=== PATIENT | male | born 1960 | race Caucasian/White ===

== ENCOUNTER 2020-09-08 15:21 | Outpatient (REF) | payer OTHER, SELFPAY ==
[2020-09-08 16:00] LABS: Hematocrit 44.5 % (42-52); Hemoglobin 14.9 g/dl (14.0-18.0); Mean Corpuscular HGB Conc 33.5 g/dl (31.0-36.0); Mean Corpuscular Hemoglobin 28.4 pg (27.0-33.0); Mean Corpuscular Volume 84.9 fL (80-98); Mean Platelet Volume 10.3 fL (9.4-12.4); Platelet Count 249 X10*3/uL (160-400); Red Blood Count 5.24 X10*6/uL (4.60-5.80); Red Cell Distribution Width 13.8 % (11.0-16.0); White Blood Count 9.5 X10*3/uL (4.8-10.8)
[2020-09-08 16:05] LABS: Glucose Urine UA NEG (NEG); Leukocyte Esterase Urine NEG (NEG); Nitrite Urine NEG (NEG); Urine Blood 2+ (NEG); Urine Ketones NEG (NEG); Urine Protein NEG (NEG-TRACE)
[2020-09-08 16:25] LABS: Alanine Aminotransferase 27 U/L (0-40); Albumin Level 4.2 g/dL (3.5-5.0); Alkaline Phosphatase 139 U/L (39-117); Anion Gap 14 (12-20); Aspartate Amino Transferase 22 U/L (5-37); Bilirubin Direct < 0.2 mg/dL (0.0-0.5); Bilirubin Total 0.5 mg/dL (0.0-1.0); Blood Urea Nitrogen 16 mg/dL (9-16); Calcium 8.6 mg/dL (8.4-10.2); Carbon Dioxide 25 mmol/L (22-29); Chloride 109 mmol/L (96-108); Cholesterol 218 mg/dL; Estimated Glomerular Filt Rate 60; Glucose Random 94 mg/dL (60-115); HDL Cholesterol 41 mg/dL; Potassium 4.1 mmol/L (3.3-5.1); Sodium 144 mmol/L (135-145); Total Protein 7.2 g/dL (6.5-8.0); Triglycerides 642 mg/dL
[2020-09-08 16:44] LABS: Thyroid Stimulating Hormone 1.45 uIU/mL (0.32-4.0)
[2020-09-08 16:46] LABS: Appearance Urine CLEAR; Color Urine YELLOW
[2020-09-08 17:19] LABS: WBC Urine 0 /HPF (0-4)
[2020-09-12 11:46] LABS: Vitamin D 25-OH, D2 <4 ng/mL; Vitamin D 25-OH, D3 25 ng/mL; Vitamin D 25-OH, Total 25 ng/mL (30-100)
== END 2020-09-08 15:22 | disposition home or self-care (01) ==
LOC: HO.LAB 15:21
PROVIDERS: PCP Internal Medicine; Visit Provider Internal Medicine
DX: I10 Essential (primary) hypertension (principal)
CPT/HCPCS: 36415; 80048; 80061; 80076; 81001; 81003; 82306; 84443; 85027

== ENCOUNTER 2020-10-01 09:02 | Outpatient (REF) | payer OTHER, SELFPAY ==
--- NOTE | ~2020-10-01 | US_ITS ---
EXAMINATION: US ABDOMEN COMPLETE CLINICAL INFORMATION: Abnormal levels of other serum enzymes. COMPARISON: CT abdomen and pelvis with intravenous contrast only dated 12/29/2019. TECHNIQUE: Real-time imaging of the abdominal viscera. FINDINGS: PANCREAS: Normal. ABDOMINAL AORTA: The proximal, mid, and distal segments are normal in caliber. INFERIOR VENA CAVA: Visualized portions are normal. LIVER: The liver is normal in size. The liver contour is normal. Equivocal mildly increased echogenicity of the liver parenchyma may be suggestive No focal hepatic lesion. There is no intrahepatic biliary duct dilatation seen. GALLBLADDER: There is a 4 x 4 x 5 mm nonmobile structure associated with the gallbladder wall most representing a gallbladder polyp or tiny focus of adherent sludge. The gallbladder is physiologically distended without evidence of stones, wall thickening or pericholecystic fluid. COMMON BILE DUCT: Normal in caliber measuring 0.54 cm in diameter. RIGHT KIDNEY: There is moderate hydronephrosis. No focal parenchymal lesions. There are multiple nonobstructing calculi identified; the largest include an upper pole calculus which measures 5 x 4 x 7 mm, a mid pole calculus which measures 3 x 5 x 6 mm and a lower pole calculus which measures 6 x 3 x 6 mm. The kidney measures 11.1 cm in maximum dimension. LEFT KIDNEY: Nonobstructing calculi including a 5 x 3 x 3 mid pole and 3 x 3 x 4 lower pole calculus are identified. No hydronephrosis. At the midpole there is a 9 x 6 x 8 mm cystic structure without internal features most compatible with a simple cyst. The kidney measures 11.6 cm in maximum dimension. SPLEEN: Incidental note of a homogeneously echogenic 1.9 x 1.6 x 2.5 cm structure adjacent to the splenic hilum most compatible with a splenule. The spleen measures 10.9 cm in maximum dimension and is otherwise unremarkable. FREE FLUID: None. US/US abdomen complete IMPRESSION: Equivocal mildly increased echogenicity of the liver parenchyma which may be suggestive of steatosis. There is a 4 x 4 x 5 mm gallbladder polyp. There is moderate right hydronephrosis without obstructing lesion identified. There are multiple bilateral nonobstructing renal calculi, as described.
== END 2020-10-01 09:03 | disposition home or self-care (01) ==
LOC: HO.HMGCX 09:02
PROVIDERS: Visit Provider Internal Medicine
DX: R74.8 Abnormal levels of other serum enzymes (principal)
CPT/HCPCS: 76700

== ENCOUNTER → 2021-04-05 08:40 | Outpatient (REF) | payer OTHER, SELFPAY ==
--- NOTE | 2021-04-05 08:44 | CA_ITS ---
Acquisition Time: 2021-04-05 08:50:52 Total Exercise Time: 00:05:25 Test Indications: Chest Pain Medications: AMLODIPINE LISINOPRIL METOPROLOL OMEPRAZOLE XARELTO SIMVASTATIN Protocol: JAKE Max HR: 142 BPM 89% of Pred: 158 BPM Max BP: 200/096 mmHG Max Work Load: 7.0 METS Exercise stress test with exercise 5 min 25 sec of Jake protocol, with moderate shortness of beath, 6/10 mid chest discomfort, without arrythmia, with hypertensive response to exercise, without EKG changes meeting criteria for ischemia. In recovery his breathing improved and chest discomfort resolved by 5 min of rest. Test reviewed with Dr Godoy. Msg sent to Dr William with report and recommendation for exercise nuclear stress test. Referred By: Rigo Orta Overread By: GARRETT BLAKE
== END ==
LOC: HO.CARD 08:40
PROVIDERS: PCP Internal Medicine; Visit Provider Internal Medicine
DX: R07.9 Chest pain, unspecified (principal)
CPT/HCPCS: 93017

== ENCOUNTER → 2021-04-27 08:20 | Outpatient (REF) | payer OTHER, SELFPAY ==
--- NOTE | ~2021-04-27 | NM_ITS ---
Myocardial perfusion study Indication: Chest pain to evaluate for myocardial ischemia Technique: The patient was brought in for a Lexiscan perfusion study on 04/27/2021. Patient performed low-level exercise and was injected 0.4 mg of Lexiscan intravenously. Within a minute of injection, 45 mCi of sestamibi was given intravenously. Images were obtained using the SPECT gamma camera interlaced with the gating device. Images were obtained in supine position. Resting perfusion study was performed on 04/28/2021. Patient was administered 45 mCi of sestamibi intravenously at rest. Images were then obtained in supine position. Images obtained with and without CT attenuation. Total DLP 101 mGy-cm. Images were processed with the software and compared side to side in short axis, horizontal long axis and vertical long axis views. Findings: The stress perfusion study showed nonattenuated images show mildly reduced uptake in the basal and mid inferior wall of the LV myocardium. Remainder of the LV myocardium is normally perfused. Attenuation corrected images show normal uptake of radiotracer in all segments of LV myocardium. The gated study shows normal LV systolic function with calculated LVEF of 62%. LV cavity is normal in size. The gated study shows normal systolic wall thickening and contraction of segments. Resting study shows no change in perfusion pattern compared to stress perfusion study. Gating at rest reveals normal systolic wall motion with ejection fraction at 73%. The findings are consistent with no reversible defect suggestive of ischemia.. NM/NM cardiolite stress test Impression: 1. Myocardial perfusion imaging study shows normal myocardial perfusion 2. Gated LVEF is 62% 3. Transient ischemic dilatation not present EKG is nondiagnostic for ischemia
--- NOTE | 2021-04-27 08:23 | CA_ITS ---
Acquisition Time: 2021-04-27 08:36:15 Total Exercise Time: 00:02:00 Test Indications: Chest Pain Medications: AMLODIPINE LISINOPRIL METOPROLOL OMEPRAZOLE XARELTO SIMVASTATIN TRAZADONE Protocol: LEXISCAN Max HR: 114 BPM 72% of Pred: 158 BPM Max BP: 164/088 mmHG Max Work Load: 1.0 METS Pharmacological stress test nwith Lexiscan injection, while sitting and kicking his legs, with 2/10 mid chest tightness at baseline which increased to 3/10 after injection, without arrythmia, with normotensive response to injection, with nondiagnostic EKG for ischeia. In recovery he was given aminophylline 75mg IVP to reverse Lexiscan with return of chest tightness back to baseline. Nuclear images pending. Test reviewed with Dr Godoy. Referred By: Rigo Orta Overread By: GARRETT BLAKE
== END ==
LOC: HO.CARD 08:20
PROVIDERS: PCP Internal Medicine; Visit Provider Internal Medicine
DX: R07.9 Chest pain, unspecified (principal)
CPT/HCPCS: 78452; 93017; A9500; J0280; J2785

== ENCOUNTER 2021-12-09 14:26 | Outpatient (REF) | payer OTHER, SELFPAY ==
[2021-12-09 15:14] LABS: Hematocrit 45.2 % (42.0-52.0); Hemoglobin 14.7 g/dl (14.0-18.0); Mean Corpuscular HGB Conc 32.5 g/dl (31.0-36.0); Mean Corpuscular Hemoglobin 28.4 pg (27.0-33.0); Mean Corpuscular Volume 87.4 fL (80.0-98.0); Mean Platelet Volume 10.4 fL (9.4-12.4); Platelet Count 252 X10*3/uL (160-400); Red Blood Count 5.17 X10*6/uL (4.60-5.80); Red Cell Distribution Width 14.1 % (11.0-16.0)
[2021-12-09 15:47] LABS: Appearance Urine CLEAR; Color Urine YELLOW; Glucose Urine UA NEG (NEG); Leukocyte Esterase Urine NEG (NEG); Nitrite Urine NEG (NEG); Specific Gravity - Urine 1.025 (1.005-1.025); Urine Blood NEG (NEG); Urine Ketones NEG (NEG); Urine Protein NEG (NEG-TRACE)
[2021-12-09 16:41] LABS: Alanine Aminotransferase 49 U/L (0-40); Albumin Level 4.2 g/dL (3.5-5.0); Alkaline Phosphatase 127 U/L (39-117); Anion Gap 13 (12-20); Aspartate Amino Transferase 27 U/L (5-37); Bilirubin Direct 0.3 mg/dL (0.0-0.5); Bilirubin Total 1.1 mg/dL (0.0-1.0); Blood Urea Nitrogen 15 mg/dL (9-16); C Reactive Protein 0.78 mg/dL (< or = 0.50); Calcium 9.6 mg/dL (8.4-10.2); Carbon Dioxide 27 mmol/L (22-29); Chloride 107 mmol/L (96-108); Cholesterol 215 mg/dL; Estimated Glomerular Filt Rate > 60; Glucose Random 90 mg/dL (60-115); HDL Cholesterol 44 mg/dL; LDL Cholesterol Calculated 127 mg/dl; Potassium 4.6 mmol/L (3.3-5.1); Sodium 142 mmol/L (135-145); Total Protein 6.8 g/dL (6.5-8.0); Triglycerides 220 mg/dL
[2021-12-09 17:00] LABS: Thyroid Stimulating Hormone 1.29 uIU/mL (0.32-4.0)
== END 2021-12-09 14:27 | disposition home or self-care (01) ==
LOC: HO.LAB 14:26
PROVIDERS: PCP Internal Medicine; Visit Provider Internal Medicine
DX: G89.29 Other chronic pain (principal); K21.9 Gastro-esophageal reflux disease without esophagitis; M54.2 Cervicalgia; I26.99 Other pulmonary embolism without acute cor pulmonale
CPT/HCPCS: 36415; 80048; 80061; 80076; 81003; 84443; 85027; 86140

== ENCOUNTER 2021-12-17 10:36 | Outpatient (REF) | payer OTHER, SELFPAY ==
--- NOTE | ~2021-12-17 | XR_ITS ---
EXAMINATION: XR CHEST CLINICAL INFORMATION: Cough COMPARISON: Right rib x-rays including frontal chest 10/18/2016 TECHNIQUE: 2 views of the chest were obtained. FINDINGS: Cardiac silhouette is normal in size. The lungs are well aerated. There is no lobar consolidation, pleural effusion or pneumothorax. Postsurgical changes of the cervical spine. XR/XR chest 2V IMPRESSION: No acute pulmonary pathology.
[2021-12-17 11:27] LABS: Influenza A PCR NEGATIVE (Negative); Influenza B PCR NEGATIVE (Negative); Resp Syncy Virus RNA Qual PCR NEGATIVE (Negative); SARS COV2 PCR INHOUSE NEGATIVE (Negative)
== END 2021-12-17 10:37 | disposition home or self-care (01) ==
LOC: HO.XRAY 10:36
PROVIDERS: PCP Internal Medicine; Visit Provider Nurse Practitioner Family
DX: R05.9 Cough, unspecified (principal); Z20.822 Contact with and (suspected) exposure to COVID-19
CPT/HCPCS: 0241U; 71046

== ENCOUNTER → 2021-12-29 14:14 | Outpatient (BNVA) | payer OTHER, SELFPAY | PROVIDERS: PCP Internal Medicine; Visit Provider Internal Medicine | DX: R05.9 Cough, unspecified (principal); J30.9 Allergic rhinitis, unspecified; I26.99 Other pulmonary embolism without acute cor pulmonale; I10 Essential (primary) hypertension | CPT/HCPCS: 94640 ==

== ENCOUNTER 2022-02-03 06:44 | Day surgery (SDC) | payer OTHER, SELFPAY ==
--- NOTE | 2022-02-02 09:58 | P.CONAN_ITS ---
Documented by User: Naz Miranda NP 02/02/22 10:04 HPI - Anesthesia Eval Consult details Narrative: 61yo M for Bronchoscopy Fiberoptic Recent hoarseness and checking for vocal chord dysfunction Xarelto for hx PE PMFSH Active Problems Active Problems: All Active Problems (Updated 01/26/22 @ 11:54 by Panfilo Tate MD) Laryngitis (Acute) Cough (Acute) Abdominal pain (Acute) Generalized anxiety disorder (Acute) GERD (gastroesophageal reflux disease) (Acute) Chronic neck pain (Acute) Pulmonary embolism (Acute) Chest pain (Acute) Neck pain (Acute) Cholelithiasis (Acute) Renal calculi (Acute) Essential (primary) hypertension (Acute) Effusion, left knee (Acute) Hypercholesterolemia (Acute) Deviated nasal septum (Acute) Allergic rhinitis (Acute) Past Medical History Medical History Allergic rhinitis Cholelithiasis Chronic neck pain Deviated nasal septum GERD (gastroesophageal reflux disease) Hypercholesterolemia Neck pain Pulmonary embolism Renal calculi Family History Family History Mother No problems noted. Father No problems noted. Surgical History Surgical History History of Achilles tendon repair History of eye surgery History of hernia surgery History of knee surgery History of nasal surgery History of neck surgery History of repair of left rotator cuff History of repair of right rotator cuff Social History Social History Housing: House Alcohol intake: current Alcohol intake frequency: holidays/special occasions only Patient Tobacco Use Status: Never used Tobacco e-Cigarette/Vaping Use: Never Used Second Hand Smoke Exposure: No Use of substances other than those prescribed or required for medical reasons: No Are you DNR?: No Advance Directives: No Advance Directives Information Provided: Yes Recently lost weight without trying: No Nutrition Risks: No Nutritional Risk service: No Current occupational status: employed Cognitive needs: No Hearing needs: No Vision needs: No Meds Allergies Allergy/AdvReac Type Severity Reaction Status Date / Time penicillin V Allergy Intermediate fever Verified 01/26/22 11:41 vancomycin [Vancomycin] Allergy Mild HIVES, Verified 01/26/22 11:41 FEVER Penicillins AdvReac Mild FEVER Verified 01/26/22 11:41 Home Medications Medication Instructions Recorded Confirmed Last Taken Type ibuprofen 800 mg tablet 800 mg PO BID 09/09/20 01/26/22 Unknown History rivaroxaban 20 mg tablet (Xarelto) 20 mg PO DAILY 09/09/20 01/26/22 Unknown History Exam Exam Date and Time: February 02, 2022 0958 Pertinent Lab Results Pertinent Lab Results: Laboratory Tests 12/09/21 12/09/21 14:29 Unknown WBC 11.0 H Hgb 14.7 Hct 45.2 Plt Count 252 Sodium 142 Potassium 4.6 Chloride 107 Carbon Dioxide 27 BUN 15 Creatinine 1.19 Narrative Narrative: NM cardiolite stress test 2020 Impression: ? 1.? Myocardial perfusion imaging study shows normal myocardial perfusion 2.? Gated LVEF is 62% 3. Transient ischemic dilatation not present ? EKG is nondiagnostic for ischemia Assessment and Plan Assessment Anesthesia Assessment: Chart Reviewed Documented by User: Brea Fuller MD 02/03/22 07:31 [facility] Past Medical History Medical History Allergic rhinitis Cholelithiasis Chronic neck pain Deviated nasal septum GERD (gastroesophageal reflux disease) Hypercholesterolemia Neck pain Pulmonary embolism Renal calculi Functional capacity: independent ambulation Family History Family History Mother No problems noted. Father No problems noted. Surgical History Surgical History History of Achilles tendon repair History of eye surgery History of hernia surgery History of knee surgery History of nasal surgery History of neck surgery History of repair of left rotator cuff History of repair of right rotator cuff History of Problems with Anesthesia: No Social History Social History Housing: House Alcohol intake: current Alcohol intake frequency: holidays/special occasions only Patient Tobacco Use Status: Never used Tobacco e-Cigarette/Vaping Use: Never Used Second Hand Smoke Exposure: No Use of substances other than those prescribed or required for medical reasons: No Are you DNR?: No Advance Directives: No Advance Directives Information Provided: Yes Recently lost weight without trying: No Nutrition Risks: No Nutritional Risk service: No Current occupational status: employed Cognitive needs: No Hearing needs: No Vision needs: No Meds Allergies Allergy/AdvReac Type Severity Reaction Status Date / Time penicillin V Allergy Intermediate fever Verified 01/26/22 11:41 vancomycin [Vancomycin] Allergy Mild HIVES, Verified 01/26/22 11:41 FEVER Penicillins AdvReac Mild FEVER Verified 01/26/22 11:41 Home Medications Medication Instructions Recorded Confirmed Last Taken Type ibuprofen 800 mg tablet 800 mg PO BID 09/09/20 01/26/22 Unknown History rivaroxaban 20 mg tablet (Xarelto) 20 mg PO DAILY 09/09/20 01/26/22 Unknown History Exam Airway Mallampati Class: IV TM Dist: >3cm Neck ROM: Full Heart: RRR Lungs: CTA Assessment and Plan Final Anesthetic Review History of Problems with Anesthesia: No ASA Class: III Final Preanesthetic Review: No Changes in Pt Med Stat, Meds/Allgs Chart Reviewed, Consent Obtained/Reviewed and Anes Risks/Benef Reviewed Patient Risk: Intermediate Procedure Risk: Low Anesthetic Plan Anesthetic Plan: GA Disposition: Standard PACU
[2022-02-03] VITALS (17 sets, daily range): BP systolic 104–153; BP diastolic 64–91; PULSE 80–97; RESP 16–33; TEMP 36.1–37; O2SAT 94–99; BMI 32.5
--- NOTE | 2022-02-03 | ECG_ITS ---
Test Reason : chest pain Blood Pressure : / mmHG Vent. Rate : 106 BPM Atrial Rate : 106 BPM P-R Int : 146 ms QRS Dur : 084 ms QT Int : 364 ms P-R-T Axes : 067 -07 032 degrees QTc Int : 483 ms Sinus tachycardia Otherwise normal ECG When compared with ECG of 18-OCT-2016 05:51, No significant change was found Referred By: Christofer Porter Electronically Signed By:Mil Olmedo
--- NOTE | ~2022-02-03 | XR_ITS ---
EXAMINATION: XR CHEST CLINICAL INFORMATION: Difficulty breathing COMPARISON: 12/17/2021 TECHNIQUE: Frontal view of the chest was obtained. FINDINGS: There is low lung volume bilaterally with no evidence of infiltrates nodules or pleural effusion. Cardiomediastinal silhouette is normal. XR/XR chest 1V IMPRESSION: No active cardiopulmonary disease
[2022-02-03] MEDS: Lactated Ringers 1,000 ML 100 ML IVCONT (07:16)
--- NOTE | 2022-02-03 08:06 | P.HPSUR_ITS ---
Pre-Procedural Eval Section A Date of Service: 02/03/22 The patient is an INPATIENT: No Changes since office visit: No Cold of Flu in the past 2 weeks, No New Medical Problems, No Changes in Medication and No Patient answered all questions The History & Physical has been completed within 30 days and I have reviewed it.: No Section B Chief Complaint: Acute cough Details of Present Illness: 61 y/o man with chronic cough. Moderate in severity. Worse at night. Relevant Family History (Specify if Yes): No Relevant Social History: None Present Medications: see Short Stay Collaborative assessment Medical History: No relevant PMH History of Previous Operations: Relevant previous surgery/procedure and date(s) Allergies: Allergies Allergy/AdvReac Type Severity Reaction Status Date / Time penicillin V Allergy Intermediate fever Verified 01/26/22 11:41 vancomycin [Vancomycin] Allergy Mild HIVES, Verified 01/26/22 11:41 FEVER Penicillins AdvReac Mild FEVER Verified 01/26/22 11:41 Review of Systems Sugical H&P ROS: Negative: Constitution, Cardiovascular, Psychiatric, Hem-Onc, Allergic/Immunologic, Genitourinary, Musculoskeletal, Integumentary and Endo crine and Yes, Specify: Respiratory (cough) and Gastrointestinal (reflux) Exam Surgical H&P Exam: Normal: HEENT, Normal: Heart, Normal: Extremities, Normal: Abdomen, Normal: Skin and Normal: Neurological and Significant Findings: Lungs (coughing) Plan Diagnosis/Plan: Change (bronchoscopy) I have reviewed the history and physical and performed a pertinent physical examination on my patient. No changes have occurred unless specified.
[2022-02-03] MEDS: Racepinephrine HCL 0.5 ML VIAL.NEB INHALE (09:51)
[2022-02-03] MEDS: fentaNYL citrate/PF 100 MCG/2 ML VIAL 25 MCG IVPUSH (09:52)
[2022-02-03] MEDS: Ketorolac Tromethamine 30 MG/ML VIAL IVPUSH (13:07)
--- NOTE | 2022-02-03 13:53 | PM.OP ---
Brief Operative Note Date of Service: 02/03/22 Pre-op diagnosis: cough Post-op diagnosis: other (vocal cord lesion, tracheomalecia, bronchitis) Procedure: Bronchoscopy with biopsies Implants: Surgeon: Tucker Moon MD Anesthesia: GLMA Was an Doggy Daycare Activities Director used for this Procedure?: No Estimated blood loss (mL): 0 Pathology: other (LMS bronchus biopsies) Condition: stable Disposition: same day
--- NOTE | 2022-02-04 00:55 | OP_ITS ---
SURGEON: Tucker Moon MD PREOPERATIVE DIAGNOSIS: Chronic cough. POSTOPERATIVE DIAGNOSIS: PROCEDURE PERFORMED: Bronchoscopy. ESTIMATED BLOOD LOSS: COMPLICATIONS: ANESTHESIA: LMA. 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 3. Significant enchondromas. 4. Bronchitis. DESCRIPTION OF PROCEDURE: After the patient is adequately sedated with the LMA, the flexible digital bronchoscope was inserted via the LMA to the level of the vocal cords. The patient was under anesthesia, so therefore it was difficult to assess the movement of the vocal cords, but there were in close position initially and appeared to be symmetrical. There was a growth primarily on the right vocal cord and smaller degree on the left one with component of ulceration, this needs to be further addressed by ENT for concerns of cancer. After instilling 9 mL of lidocaine, the bronchoscope was then navigated past the vocal cords to the level of the trachea. The trachea initially appeared to have some extrinsic compression from the left side resulting in an asymmetrical looking trachea being pushed in from the left side and subsequently after that there was significant tracheomalacia obstructing the airway up to about 95% to 100%. There are evidence of chondromas throughout the trachea, but not enough to be concerned for the chondromas causing obstruction of the airways. The rest of the tracheobronchial tree was examined up to the subsegmental level. The patient did have evidence of inflammation. The endobronchial mucosa appeared to be slightly abnormal in the area of the left mainstem bronchus and therefore endobronchial biopsies were done in that area and sent to pathology. Bronchial washings were also collected throughout and sent for cytology and also for microbiology. The bronchoscope was then removed. Total endoscopic time approximately 10 minutes. The patient tolerated the procedure well initially. Postprocedure, the patient did complain of significant coughing and chest pain when coughing, a lot of it has to do with his chronic issue. He was given albuterol treatment with some improvement. He was then given racemic epinephrine, which did not help. He was then given some fentanyl and then some Toradol. He had an EKG that was okay and had a chest x-ray that was okay. I might be sending cough medication to the Pharmacy. INTERPRETATION: 1. Vocal cord lesion. Needs followup with ENT SANDRA. 2. Severe tracheomalacia. May be a candidate for further evaluation at [facility] for tracheomalacia in their Tracheomalacia Clinic. 3. Status post endobronchial biopsies from the left mainstem bronchus. 4. Bilateral washings. Awaiting results. Tucker Moon MD MR/MODMarifer / [id number]
== END 2022-02-03 13:44 | disposition home or self-care (01) ==
PROVIDERS: PCP Internal Medicine; Visit Provider Hospitalist
PROC: 0BJ08ZZ Inspection of Tracheobronchial Tree, Via Natural or Artificial Opening Endoscopic (ICD-10-PCS; CPT 31622; principal; 2022-02-03 08:30)
DX: R05.3 Chronic cough (principal); R49.0 Dysphonia; J04.0 Acute laryngitis; J39.8 Other specified diseases of upper respiratory tract; J30.9 Allergic rhinitis, unspecified; D16.9 Benign neoplasm of bone and articular cartilage, unspecified; J40 Bronchitis, not specified as acute or chronic; J34.2 Deviated nasal septum; G89.29 Other chronic pain; M54.2 Cervicalgia; Z86.711 Personal history of pulmonary embolism; Z79.01 Long term (current) use of anticoagulants; Z88.0 Allergy status to penicillin; Z88.1 Allergy status to other antibiotic agents; Z79.1 Long term (current) use of non-steroidal anti-inflammatories (NSAID); Z79.899 Other long term (current) drug therapy; Z98.890 Other specified postprocedural states
CPT/HCPCS: 31625; 71045; 87071; 87205; 88112; 88305; 93005; 94640; J0171; J1100; J1885; J2250; J2405; J3010

== ENCOUNTER 2022-02-04 09:21 | Outpatient (REF) | payer OTHER, SELFPAY ==
--- NOTE | ~2022-02-04 | CT_ITS ---
EXAMINATION: CT CHEST WITHOUT CONTRAST CLINICAL INFORMATION: J04.0 - Acute laryngitis. Difficulty breathing. COMPARISON: Chest radiographs 02/03/2022, 12/17/2021, CTA chest 10/18/2016 TECHNIQUE: Multidetector volumetric CT imaging of the chest was done. Axial MIP volume rendering provided. Sagittal and coronal reformatted images were obtained. This CT examination was performed using dose optimization techniques as appropriate, variously including the following: *Automated exposure control *Adjustment of mA and/or kV according to patient size (this includes techniques or standardized protocols for targeted exams where dose is matched to indication/reason for exam; i.e. extremities or head) *Use of iterative reconstruction technique DLP: 273 mGy-cm FINDINGS: VOLLEYBALL ASSEMBLER: Hardware lower cervical spine consistent with prior anterior fusion. LUNGS: The central airways are clear there is no endobronchial lesion or bronchiectasis. Small focal tree-in-bud nodularity is present posterior medial right upper lobe (coronal 64/84, axial series 5/209-237). This suggests small area of pneumonitis/infection. No lobar or segmental airspace consolidation or groundglass opacity. There are scattered stable nodularity similar to prior CT 2017 consistent with with benign nodules: -Left fissural inferior parenchymal node 4 x 8 mm (series 5/311). -Left 2 pleural-based nodules left lateral base each around 5 mm (series 5/436 and 439). -Right 2 small fissural intraparenchymal nodes along fissure under 5 mm (series 5/364). MEDIASTINUM: Small mediastinal and hilar nodes. No bulky mediastinal or hilar adenopathy. Heart normal in size. No pericardial effusion. Thoracic aorta normal in caliber. PLEURA: There is no pleural effusion. No pleural mass or thickening. AXILLA: No lymphadenopathy. UPPER ABDOMEN: Incidental splenule left upper quadrant 1.2 cm. OSSEOUS STRUCTURES: No acute bony abnormality. CT/CT chest wo con IMPRESSION: -Small area of focal pneumonitis/infection with tree-in-bud nodularity posterior medial right upper lobe. -Subsegmental atelectasis right base. -No lobar or segmental airspace consolidation or effusion. -Scattered benign nodularity similar to prior CT 2017. Fleischner guidelines were followed.
== END 2022-02-04 09:22 | disposition home or self-care (01) ==
LOC: HO.CT 09:21
PROVIDERS: PCP Internal Medicine; Visit Provider Internal Medicine
DX: J04.0 Acute laryngitis (principal); R05.9 Cough, unspecified
CPT/HCPCS: 71250

== ENCOUNTER → 2022-03-28 09:24 | Outpatient (BNVA) | payer OTHER, SELFPAY | PROVIDERS: PCP Internal Medicine; Visit Provider Internal Medicine | DX: J39.8 Other specified diseases of upper respiratory tract (principal); J38.3 Other diseases of vocal cords; J04.0 Acute laryngitis; R05.9 Cough, unspecified | CPT/HCPCS: 94010; 94618 ==

== ENCOUNTER 2022-04-01 16:07 | Outpatient (REF) | payer OTHER, SELFPAY ==
--- NOTE | ~2022-04-01 | CT_ITS ---
EXAMINATION: CT CHEST WITHOUT CONTRAST CLINICAL INFORMATION: Tree-in-bud nodularity right upper lobe on previous exam. Left fissural lymph nodes and pleural-based nodules. COMPARISON: None. TECHNIQUE: Multidetector volumetric CT imaging of the chest was done. Axial MIP volume rendering provided. Sagittal and coronal reformatted images were obtained. This CT examination was performed using dose optimization techniques as appropriate, variously including the following: *Automated exposure control *Adjustment of mA and/or kV according to patient size (this includes techniques or standardized protocols for targeted exams where dose is matched to indication/reason for exam; i.e. extremities or head) *Use of iterative reconstruction technique DLP: 1008 mGy-cm. FINDINGS: WAITER/WAITRESS: Unremarkable chest exam. LUNGS: The lungs are well expanded and clear of acute pneumonic process. Again visualized is tree-in-bud nodularity in the superior segment of the right lower lobe. There is an 8 mm nodule in the left major fissure axial image 178/9, two 4 mm nodules left lower lobe axial image 270/9 and 273/9. There is an 8 mm nodule in right lower lobe adjacent to the fissure axial image 199/9, stable. These nodules are stable. No new nodules seen. There is a punctate 1 mm calcification lateral basal segment right lower lobe. MEDIASTINUM: The thyroid lobes are symmetric and normal. The central trachea and the bronchi are widely patent. The heart size and the great vessels are normal caliber. No abnormal-sized lymph nodes seen. CORONARY ARTERY CALCIFICATION: None visualized on this study. PLEURA: There is no pleural effusion. No pleural mass or thickening. AXILLA: Small shotty lymph nodes are seen in bilateral axilla. The chest wall is unremarkable. UPPER ABDOMEN: Visualized liver, spleen, pancreas and bilateral adrenal glands unremarkable. A small splenule is seen anterior to the hilum. OSSEOUS STRUCTURES: Unremarkable. CT/CT chest wo IV con IMPRESSION: Tree-in-bud appearance superior segment right lower lobe is stable. Small pulmonary nodules, likely fissural liver lymph nodes, bilaterally are stable. No new pulmonary nodules seen. No abnormal mediastinal or axillary lymphadenopathy. Fleischner guidelines were followed.
== END 2022-04-01 16:08 | disposition home or self-care (01) ==
LOC: HO.CT 16:07
PROVIDERS: PCP Internal Medicine; Visit Provider Internal Medicine
DX: J39.8 Other specified diseases of upper respiratory tract (principal); J38.3 Other diseases of vocal cords
CPT/HCPCS: 71250

== ENCOUNTER 2022-06-14 10:01 | Outpatient (REF) | payer OTHER, SELFPAY ==
--- NOTE | ~2022-06-14 | XR_ITS ---
EXAMINATION: XR CHEST CLINICAL INFORMATION: R07.89 - Other chest pain COMPARISON: CT chest noncontrast 04/01/2022, chest radiographs 02/03/2022, 12/17/2021 TECHNIQUE: 2 views of the chest were obtained. FINDINGS: There is no lobar or segmental airspace consolidation or groundglass opacity. The costophrenic sulci are clear. The heart is normal in size. The vascularity is normal. No pneumothorax or pleural reaction. The hilar and mediastinal contours and visualized bony structures are unremarkable. Again, there or posterior vertebral changes lower cervical spine from previous anterior fusion. XR/XR chest 2V IMPRESSION: Unremarkable examination.
[2022-06-14 10:23] LABS: MANUAL DIFF FLAG NO
[2022-06-14 10:33] LABS: Basophils Absolute Auto 0.1 X10*3/uL (0.0-0.2); Basophils Percent Auto 0.7 % (0-2); Eosinophils Absolute Auto 0.7 X10*3/uL (0.0-0.4); Eosinophils Percent Auto 7.3 % (0-4); Hematocrit 45.4 % (42.0-52.0); Hemoglobin 15.3 g/dl (14.0-18.0); Imm Gran Abs Auto 0.05 X10*3/uL (0.00-0.03); Imm Gran Pct Auto 0.6 % (0.0-0.4); Lymphocytes Absolute Auto 1.6 X10*3/uL (1.2-4.9); Lymphocytes Percent Auto 17.5 % (20-40); Mean Corpuscular HGB Conc 33.7 g/dl (31.0-36.0); Mean Corpuscular Hemoglobin 27.9 pg (27.0-33.0); Mean Corpuscular Volume 82.7 fL (80.0-98.0); Mean Platelet Volume 9.9 fL (9.4-12.4); Monocytes Percent Auto 10.5 % (2-11); Neutrophils Absolute Auto 5.8 x10*3/uL (2.0-8.3); Neutrophils Percent Auto 63.4 % (45-73); Platelet Count 266 X10*3/uL (160-400); Red Blood Count 5.49 X10*6/uL (4.60-5.80); Red Cell Distribution Width 12.7 % (11.0-16.0); White Blood Count 9.1 X10*3/uL (4.8-10.8)
[2022-06-14 10:47] LABS: D Dimer High Sensitivity 196 NG/ML
[2022-06-14 10:56] LABS: Appearance Urine Clear; Color Urine Yellow; Glucose Urine UA 100 mg/dL (Negative); Leukocyte Esterase Urine Negative (Negative); Nitrite Urine Negative (Negative); PH 5.5 (5.0-9.0); Urine Blood Negative (Negative); Urine Ketones Negative (Negative); Urine Protein Negative (Neg-Trace)
[2022-06-14 10:56] LABS: Alanine Aminotransferase 44 U/L (0-40); Albumin Level 4.3 g/dL (3.5-5.0); Alkaline Phosphatase 165 U/L (39-117); Anion Gap 14 (12-20); Aspartate Amino Transferase 29 U/L (5-37); Bilirubin Total 0.5 mg/dL (0.0-1.0); Blood Urea Nitrogen 17 mg/dL (9-16); Calcium 9.6 mg/dL (8.4-10.2); Carbon Dioxide 26 mmol/L (22-29); Chloride 106 mmol/L (96-108); Cholesterol 250 mg/dL; Estimated Glomerular Filt Rate > 60; Glucose Fasting 101 mg/dL (60-99); HDL Cholesterol 42 mg/dL; LDL Cholesterol Calculated 145 mg/dl; Potassium 4.2 mmol/L (3.3-5.1); Sodium 142 mmol/L (135-145); Total Protein 6.9 g/dL (6.5-8.0); Triglycerides 318 mg/dL
[2022-06-14 11:32] LABS: TSH reflex Free T4 1.91 uIU/mL (0.32-4.0)
[2022-06-14 14:52] LABS: Prostate Specific Antigen Scr 1.38 ng/mL (<0.05-4.0)
== END 2022-06-14 10:02 | disposition home or self-care (01) ==
LOC: HO.XRAY 10:01
PROVIDERS: PCP Nurse Practitioner Family; Visit Provider Nurse Practitioner Family
DX: I10 Essential (primary) hypertension (principal); R07.89 Other chest pain; R74.8 Abnormal levels of other serum enzymes; Z12.5 Encounter for screening for malignant neoplasm of prostate
CPT/HCPCS: 36415; 71046; 80053; 80061; 81003; 84153; 84443; 85025; 85379

== ENCOUNTER 2022-06-30 08:15 | Outpatient (REF) | payer OTHER, SELFPAY ==
--- NOTE | ~2022-06-30 | US_ITS ---
EXAMINATION: US ABDOMEN COMPLETE CLINICAL INFORMATION: Abnormal levels of other serum enzymes. COMPARISON: CT abdomen and pelvis 10/06/2021. Ultrasound abdomen complete 10/01/2020. TECHNIQUE: Real-time imaging of the abdominal viscera. FINDINGS: PANCREAS: Normal. ABDOMINAL AORTA: The proximal, mid, and distal segments are normal in caliber. INFERIOR VENA CAVA: Visualized portions are normal. LIVER: The liver is normal in size. The liver contour is normal. Increased liver parenchymal echogenicity. No focal hepatic lesion. There is no intrahepatic biliary duct dilatation seen. GALLBLADDER: There is a 0.4 cm gallbladder polyp, stable when compared to 10/01/2020. The gallbladder is physiologically distended without evidence of stones, sludge, wall thickening or pericholecystic fluid. COMMON BILE DUCT: Normal in caliber measuring 0.44 cm in diameter. RIGHT KIDNEY: There is a 0.4 cm calculus in the lower pole and 8.3 cm calculus in the midpole. There is a 1.1 cm simple cyst in the mid pole for which no imaging follow-up is recommended. No hydronephrosis The kidney measures 10.7 cm in maximum dimension. LEFT KIDNEY: There is a 0.3 cm calculus in the midpole and a 0.3 cm calculus in the upper pole. No hydronephrosis or focal parenchymal lesions. The kidney measures 11.7 cm in maximum dimension. SPLEEN: Splenules measuring up to 2.3 cm. The spleen measures 10.7 cm in maximum dimension. FREE FLUID: None. US/US abdomen complete IMPRESSION: 1. Bilateral nonobstructive renal calculi. 2. Increased echogenicity of the liver parenchyma is nonspecific but most commonly on the basis of diffuse hepatocellular disease such as hepatic steatosis. 3. Stable 0.4 cm gallbladder polyp. If patient has no risk factors for gallbladder malignancy or symptoms attributable to the gallbladder, follow-up recommendations are repeat ultrasound at one, 3, and 5 years from the date of original exam documenting the findings. If patient has symptoms attributable to the gallbladder, cholecystectomy is suggested if there are no alternative causes for the symptoms and the patient is fit for and accepts surgery.
== END 2022-06-30 08:16 | disposition home or self-care (01) ==
LOC: HO.HMGCX 08:15
PROVIDERS: PCP Nurse Practitioner Family; Visit Provider Nurse Practitioner Family
DX: R74.8 Abnormal levels of other serum enzymes (principal)
CPT/HCPCS: 76700

== ENCOUNTER 2022-08-02 08:36 | Outpatient (REF) | payer OTHER, SELFPAY ==
[2022-08-02 11:49] LABS: MANUAL DIFF FLAG NO
[2022-08-02 12:05] LABS: Basophils Absolute Auto 0.1 X10*3/uL (0.0-0.2); Basophils Percent Auto 1.4 % (0-2); Eosinophils Absolute Auto 0.6 X10*3/uL (0.0-0.4); Eosinophils Percent Auto 7.4 % (0-4); Hemoglobin 14.9 g/dl (14.0-18.0); Imm Gran Abs Auto 0.07 X10*3/uL (0.00-0.03); Imm Gran Pct Auto 0.8 % (0.0-0.4); Lymphocytes Absolute Auto 1.7 X10*3/uL (1.2-4.9); Lymphocytes Percent Auto 20.7 % (20-40); Mean Corpuscular HGB Conc 33.1 g/dl (31.0-36.0); Mean Corpuscular Hemoglobin 27.6 pg (27.0-33.0); Mean Corpuscular Volume 83.3 fL (80.0-98.0); Mean Platelet Volume 10.5 fL (9.4-12.4); Monocytes Absolute Auto 0.8 X10*3/uL (0.1-1.2); Neutrophils Absolute Auto 5.1 x10*3/uL (2.0-8.3); Neutrophils Percent Auto 60.7 % (45-73); Platelet Count 261 X10*3/uL (160-400); Red Cell Distribution Width 13.5 % (11.0-16.0); White Blood Count 8.4 X10*3/uL (4.8-10.8)
[2022-08-02 12:09] LABS: INTERNATIONAL NORM RATIO 0.9 (0.9-1.1); Prothrombin Time 10.2 SEC (10.0-13.1)
[2022-08-02 12:11] LABS: Partial Thromboplastin Time 27.7 SEC (26.0-36.4)
[2022-08-02 13:47] LABS: Alanine Aminotransferase 52 U/L (0-40); Albumin Level 4.2 g/dL (3.5-5.0); Alkaline Phosphatase 174 U/L (39-117); Anion Gap 14 (12-20); Aspartate Amino Transferase 33 U/L (5-37); Bilirubin Total 0.6 mg/dL (0.0-1.0); Blood Urea Nitrogen 14 mg/dL (9-16); Carbon Dioxide 28 mmol/L (22-29); Chloride 105 mmol/L (96-108); Estimated Glomerular Filt Rate > 60; Glucose Random 148 mg/dL (60-115); Potassium 3.6 mmol/L (3.3-5.1); Sodium 143 mmol/L (135-145); Total Protein 6.8 g/dL (6.5-8.0)
== END 2022-08-02 08:37 | disposition home or self-care (01) ==
LOC: HO.HMGCLDS 08:36
PROVIDERS: PCP Nurse Practitioner Family; Visit Provider Nurse Practitioner Family
DX: Z01.818 Encounter for other preprocedural examination (principal)
CPT/HCPCS: 36415; 80053; 85025; 85610; 85730

== ENCOUNTER 2022-08-04 09:51 | Outpatient (REF) | payer OTHER, SELFPAY ==
[2022-08-04 11:51] LABS: Cholesterol 174 mg/dL; HDL Cholesterol 36 mg/dL; LDL Cholesterol Calculated 92 mg/dl; Triglycerides 232 mg/dL
== END 2022-08-04 09:52 | disposition home or self-care (01) ==
LOC: HO.HMGCLDS 09:51
PROVIDERS: PCP Nurse Practitioner Family; Visit Provider Nurse Practitioner Family
DX: E78.00 Pure hypercholesterolemia, unspecified (principal); R74.8 Abnormal levels of other serum enzymes
CPT/HCPCS: 36415; 80061

== ENCOUNTER 2022-09-02 15:46 | Inpatient (IN) | payer OTHER, SELFPAY ==
[2022-09-02] VITALS (7 sets, daily range): BP systolic 150–195; BP diastolic 78–94; PULSE 81–98; RESP 14–22; TEMP 36.5–36.6; O2SAT 95–97; BMI 32.5
--- NOTE | ~2022-09-02 | XR_ITS ---
EXAMINATION: XR CHEST CLINICAL INFORMATION: Pleural effusion. COMPARISON: Chest radiograph 09/03/2022. TECHNIQUE: Frontal view of the chest was obtained. FINDINGS: Stable appearance of the cardiomediastinal silhouette. Redemonstration of cervical spine fusion hardware. EKG wires overlie the chest. Right-sided pleural effusion is not significantly changed compared to 09/03/2022. Subtle streaky opacities in the right mid and lower lungs are stable. Clear left lung. No pneumothorax. No acute osseous abnormalities. XR/XR chest 1V IMPRESSION: Examination is not convincingly changed compared to 09/03/2022.
--- NOTE | ~2022-09-02 | XR_ITS ---
EXAMINATION: XR CHEST CLINICAL INFORMATION: Post right chest tube placement. COMPARISON: 09/04/2022 chest radiograph. TECHNIQUE: Frontal view of the chest was obtained. FINDINGS: Support devices: Interval placement of right basilar chest pigtail catheter. There is a persistent small right pleural effusion. No overt pneumothorax. The left lung is clear. The heart and mediastinal structures are unremarkable. Anterior cervical fusion plate in place. XR/XR chest 1V IMPRESSION: Interval placement of right basilar chest pigtail catheter with persistent small right pleural effusion that appears mildly decreased. No overt pneumothorax.
--- NOTE | ~2022-09-02 | US_ITS ---
EXAMINATION: US ULTRASOUND-GUIDED CHEST TUBE PLACEMENT CLINICAL INFORMATION: Right pleural effusion. History of recent right thoracotomy for tracheomalacia. COMPARISON: Previous chest ultrasound chest x-ray and chest CTA from earlier this month. TECHNIQUE: Procedure and risks and benefits including bleeding, infection and pneumothorax were discussed with the patient and informed consent was obtained. The right posterior lateral chest was prepped and draped in the usual sterile fashion. The skin and soft tissues were anesthetized with 1% lidocaine plain. Using a 5 Russian catheter, access to the right pleural effusion was obtained. Over a 0.035 guidewire following serial dilatation, an 8.5 Russian pigtail chest tube was positioned. Chest tube was attached to a Pleur-evac. Approximately 300 mL of serosanguineous fluid was removed. Diagnostic specimen was sent. Patient received conscious sedation provided by a registered nurse under my direct supervision. Total sedation time/[id number] contact was 15 minutes. Patient received Versed 2 mg and fentanyl 100 mcg intravenously during the procedure. Postprocedure chest x-ray was performed. FINDINGS: There is a moderate right pleural effusion. US/US drain thoracentesis w image IMPRESSION: Ultrasound-guided right chest tube placement.
--- NOTE | ~2022-09-02 | IR_ITS ---
EXAMINATION: CHEST TUBE REMOVAL CLINICAL INFORMATION: Catheter no longer draining and TPA is not to be infused at this time. COMPARISON: CT scan of September 08, 2019 and chest x-ray of September 08, 2022 TECHNIQUE: Removal of right-sided chest tube. FINDINGS: The indwelling right-sided chest tube was removed with sterile technique with a closed system. IR/IR cvc remove any age IMPRESSION: Right-sided chest tube removal.
--- NOTE | ~2022-09-02 | US_ITS ---
EXAMINATION: US GUIDED THORACENTESIS CLINICAL INFORMATION: Right pleural effusion. History of right thoracotomy for tracheomalacia. COMPARISON: Previous chest CTA 09/02/2022 and chest x-rays, most recent 09/04/2022. TECHNIQUE: The procedure and the risks and benefits including bleeding, infection and pneumothorax were discussed with the patient and informed consent was obtained. The right posterior lateral chest was prepped and draped in the usual sterile fashion. The skin and soft tissues were anesthestized with 1% lidocaine plain. Using ultrasound guidance and a 4-Armenian catheter, access to the pleural effusion was obtained. Scant approximately 4-5 mL of serosanguineous fluid was removed. FINDINGS: There is a moderate right pleural effusion. US/US drain thoracentesis IMPRESSION: Ultrasound-guided right thoracentesis. Only scant 4-5 mL of serosanguineous fluid could be aspirated. Findings were discussed with Dr. Moon by telephone and a chest tube will be placement later today.
--- NOTE | ~2022-09-02 | CT_ITS ---
EXAMINATION: CT CHEST WITH CONTRAST CLINICAL INFORMATION: Empyema formation, followup effusion. COMPARISON: 09/02/2022, 04/01/2022 and 02/04/2022. TECHNIQUE: Multidetector volumetric CT imaging of the chest was obtained after the administration of 65 mL of Omnipaque 350 intravenous contrast without immediate adverse reactions. Axial MIP volume rendering provided. Sagittal and coronal reformatted images were obtained. This CT examination was performed using dose optimization techniques as appropriate, variously including the following: *Automated exposure control. *Adjustment of mA and/or kV according to patient size (this includes techniques or standardized protocols for targeted exams where dose is matched to indication/reason for exam; i.e. extremities or head). *Use of iterative reconstruction technique. DLP: 573 mGy-cm LUNGS: Central airways are patent. There is bronchial wall thickening seen within the right lower lobe. There is some ground-glass opacity and small amount of confluent disease seen in the right lower lobe which may be related to atelectasis or pneumonitis. No significant bronchiectasis is appreciated. There are sub-4 mm densities present bilaterally. Bilateral perifissural lymph nodes are present. There is some ground-glass opacity seen within the left lower lobe and lateral lingula which may relate to atelectasis or pneumonitis. There is a 5 mm noncalcified density seen within the lingula on image [address] series #5. This is stable. There are 2 adjacent subpleural 4 mm densities which are not calcified within the left lower lobe on image 301 of 521. This is stable. There is a 5 mm noncalcified density seen within the right lower lobe which is adjacent to but, I cannot definitely tell, if it is a perifissural node on image 221 of 521. MEDIASTINUM: Visualized thyroid gland unremarkable. Heart normal size. No coronary artery calcification appreciated. Trace pericardial fluid. No thoracic aortic aneurysm or dissection. No mediastinal or hilar lymphadenopathy. PLEURA: There is a gsskj-[id number] right pleural effusion with small bore drainage catheter present. There is some right pleural thickening seen which may be related to partially loculated effusion. AXILLA: No lymphadenopathy. UPPER ABDOMEN: There is fatty infiltration of the liver. OSSEOUS STRUCTURES: No suspicious destructive bony lesion identified. CT/CT chest w IV con IMPRESSION: 1. Partially loculated right pleural effusion smaller than on prior study of 09/02/2022 without evidence of necrotizing parenchyma. There is residual dvznw-eb-looxzaxd effusion with a chest tube in place. 2. Stable lung densities. 3. Scattered regions of disease within the lingula and left lower lobe which may be infectious or inflammatory in nature versus atelectasis. According to the UPDATED 2017 Fleischner Society recommendations, the advised follow-up imaging for solid nodules < 6 mm is: LOW RISK PATIENT: No routine follow-up. HIGH RISK PATIENT: Optional CT at 12 months.
--- NOTE | ~2022-09-02 | XR_ITS ---
EXAMINATION: XR CHEST CLINICAL INFORMATION: Follow-up pleural effusion COMPARISON: 09/07/2022 TECHNIQUE: Frontal view of the chest was obtained. FINDINGS: Compared to yesterday's exam, there's been no interval change. There is a tiny residual right pleural effusion. A small caliber chest tube remains in the costophrenic sulcus on the right. No pneumothorax. Heart and pulmonary vessels appear normal. No infiltrates or lung masses. ACDF hardware again noted. Surgical resection distal right clavicle again seen. XR/XR chest 1V IMPRESSION: Tiny residual right pleural effusion.
--- NOTE | ~2022-09-02 | XR_ITS ---
EXAMINATION: XR CHEST CLINICAL INFORMATION: Pleural effusion COMPARISON: 09/06/2022 TECHNIQUE: Frontal view of the chest was obtained. FINDINGS: Cardiac leads overlie the chest. The lungs are hypoexpanded. Small right-sided pleural effusion is likely decreased compared to prior. Streaky left basilar opacity favors atelectasis. No pneumothorax. The cardiomediastinal silhouette is unchanged. XR/XR chest 1V IMPRESSION: Small right-sided pleural effusion is likely decreased compared to prior. Streaky left basilar opacity favors atelectasis.
--- NOTE | ~2022-09-02 | XR_ITS ---
EXAMINATION: XR CHEST CLINICAL INFORMATION: Chest pain and shortness of breath. Cough. COMPARISON: Chest radiograph 06/14/2022. TECHNIQUE: 2 views of the chest were obtained. FINDINGS: New airspace opacities in the right lower lobe with an associated small pleural effusion. Mild retrocardiac subsegmental atelectasis. No pneumothorax. Stable appearance of the cardiomediastinal silhouette. Redemonstration of cervical fusion hardware. No acute osseous abnormalities. XR/XR chest 2V IMPRESSION: New airspace opacities in the right lower lobe with an associated small pleural effusion concerning for aspiration or pneumonia in the appropriate clinical context. Recommend a follow-up imaging.
--- NOTE | ~2022-09-02 | US_ITS ---
EXAMINATION: US VENOUS WITH DOPPLER UPPER EXTREMITY, LEFT CLINICAL INFORMATION: Swelling COMPARISON: None TECHNIQUE: Ultrasound of the upper extremity is performed using compression sonography and color and pulse Doppler flow with assessment of augmentation of flow. There is also imaging and Doppler assessment of the jugular and subclavian veins. Spectral analysis with color-flow imaging is performed. FINDINGS: Respiratory variation, normal compression, and augmented flow are noted throughout the upper extremity including the axillary, brachial, cubital, and radial and ulnar veins. There is normal flow in the internal jugular and subclavian veins. There is no visible deep or superficial thrombophlebitis. If the patient's symptoms progress, a followup ultrasound in 5 -7 days might be of value to exclude proximal propagation from a nonvisualized distal arm vein. US/US venous duplex UE LT IMPRESSION: No DVT demonstrated in the left upper extremity
--- NOTE | ~2022-09-02 | XR_ITS ---
EXAMINATION: XR CHEST CLINICAL INFORMATION: Pain COMPARISON: Previous chest x-ray and chest CTA from yesterday TECHNIQUE: Frontal view of the chest was obtained. FINDINGS: The cardiac and mediastinal contours are stable. There is a moderate partially loculated right pleural effusion. This is similar to recent exams. There may be compressive atelectasis of the adjacent right lung base. The lungs are otherwise clear. There is no left pleural effusion. There is no pneumothorax. There are are postsurgical changes to the cervical spine. XR/XR chest 1V IMPRESSION: Moderate partially loculated right pleural effusion similar to recent exams.
--- NOTE | ~2022-09-02 | CT_ITS ---
EXAMINATION: CT ANGIOGRAM OF THE CHEST WITH AND WITHOUT CONTRAST (CT PULMONARY ANGIOGRAM FOR PE) CLINICAL INFORMATION: Reason for Exam pleuritic chest pain COMPARISON: Chest x-ray 09/02/2022. CT chest 04/01/2022. CTA of the chest 10/18/2016 TECHNIQUE: Prior to contrast administration, noncontrast localization images were obtained. Subsequently, multidetector volumetric imaging was performed from the thoracic inlet to below the diaphragms following the administration of 65 mL Omnipaque 350 intravenous contrast. No contrast reaction reported Sagittal, coronal, and MIP oblique sagittal reformatted images were obtained on the CT workstation, uploaded to PACS, and reviewed. This CT examination was performed using dose optimization techniques as appropriate, variously including the following: *Automated exposure control *Adjustment of mA and/or kV according to patient size (this includes techniques or standardized protocols for targeted exams where dose is matched to indication/reason for exam; i.e. extremities or head) *Use of iterative reconstruction technique Total exam dose-length product 514 mGy-cm FINDINGS: Breathing motion limits study. QUALITY OF STUDY/CONTRAST BOLUS: Satisfactory. PULMONARY ARTERIES: There is breathing artifact limiting study. There is thrombus within the segmental left lower lobe pulmonary artery extending into subsegmental branches. No significant emboli in the right pulmonary artery. THORACIC AORTA: No aneurysm or dissection. LUNG: Consolidation/atelectasis at the right lower lobe. Previously noted lung nodules not apparent on this exam. PLEURA: Moderate volume right pleural effusion. MEDIASTINUM: Normal heart size. No pericardial effusion. No hilar or mediastinal lymphadenopathy. No evidence of septal bowing or right heart strain. CORONARY ARTERY CALCIFICATION: None visualized on this study. CHEST WALL/AXILLA: No axillary or internal mammary lymphadenopathy. OSSEOUS STRUCTURES: No acute or suspicious osseous abnormality. UPPER ABDOMEN: Unremarkable. No reflux of contrast into the hepatic veins to suggest elevated right heart pressures. CT/CT angio chest PE protocol IMPRESSION: 1. Pulmonary embolus in the left lower lobe segmental pulmonary artery extending into subsegmental branches. 2. Consolidation/atelectasis at the right lower lobe. 3. Moderate volume right pleural effusion. VTE: positive This critical result was discussed with Dr Odell on 09/02/2022, 9:20 PM and it was ascertained that the content and urgency of the report was understood at the time of direct communication.
--- NOTE | 2022-09-02 16:14 | ED.CHESTPAIN ---
HPI - Chest Pain General Chief Complaint: Chest Pain <JODY Paige - Last Filed: 09/02/22 16:21> Stated Complaint: High blood pressure/back pain post lung surgey <JODY Paige - Last Filed: 09/02/22 16:21> Time Seen by Provider: 09/02/22 17:50 <JODY Paige - Last Filed: 09/02/22 16:21> Source: patient and family <Madeleine Alcaraz MD - Last Filed: 09/02/22 19:43> Mode of arrival: ambulatory <Madeleine Alcaraz MD - Last Filed: 09/02/22 19:43> Limitations: no limitations <Madeleine Alcaraz MD - Last Filed: 09/02/22 19:43> History of Present Illness HPI narrative: Patient comes to the emergency room complaining of right-sided chest tightness and 10/10 pain around the surgical site . Patient is s/p tracheobronchoplasty via Right Thoracotomy, cryo, flexible bronchoscopy with lavage on 08/17/22 in [facility] who is on Xarelto. Patient states that the pain is unbearable, cannot move, can not sleep. Patient states that he cannot take full breaths, now he has increased cough, no fever to his knowledge. Patient does have history of hypertension. But since he is in so much pain, patient's family attributes the high BP to pain <Madeleine Alcaraz MD - Last Filed: 09/02/22 19:43> Related Data Home Medications: Home Medications Medication Instructions Recorded Confirmed ibuprofen 800 mg tablet 800 mg PO BID 09/09/20 05/18/22 rivaroxaban 20 mg tablet (Xarelto) 20 mg PO DAILY 09/09/20 05/18/22 Previous Rx's Medication Instructions Recorded trazodone 100 mg tablet 100 mg PO BEDTIME PRN sleep 90 07/11/21 days #90 tabs benzonatate 100 mg capsule 100 mg PO BID PRN cough #14 caps 12/17/21 albuterol sulfate 90 mcg/actuation 2 puff inhalation Q4-6H PRN 12/29/21 aerosol inhaler (ProAir HFA) shortness of breath or wheezing #8.5 grams losartan 100 mg tablet 100 mg PO DAILY for blood pressure 01/24/22 #90 tabs albuterol sulfate 2.5 mg/3 mL 2.5 mg (3 mL) inhalation Q4-6H PRN 03/10/22 (0.083 %) solution for nebulization shortness of breath , wheezing and cough #180 mL omeprazole 20 mg capsule,delayed 20 mg PO DAILY #90 caps 05/25/22 release metoprolol succinate 100 mg 100 mg PO DAILY #90 tabs 05/29/22 tablet,extended release 24 hr rosuvastatin 20 mg tablet 20 mg PO DAILY 90 days #90 tabs 06/14/22 amlodipine 5 mg tablet 5 mg PO DAILY #90 tabs 06/29/22 sulfamethoxazole 800 1 tab PO BID 5 days #10 tabs 08/02/22 mg-trimethoprim 160 mg tablet (Bactrim DS) hydrocodone bitartrate 10 mg 10 mg PO Q12H POST SURGERY 1 week 09/01/22 capsule, oral only, extended rel #14 caps 12 hr hydrocodone bitartrate 15 mg 15 mg PO Q12H POST SURGERY 7 days 09/01/22 capsule, oral only, extended rel #14 caps 12 hr <JODY Paige - Last Filed: 09/02/22 16:21> Allergies/Adverse Reactions: Allergies Allergy/AdvReac Type Severity Reaction Status Date / Time penicillin V Allergy Intermediate fever Verified 09/02/22 16:17 vancomycin [Vancomycin] Allergy Mild HIVES, Verified 09/02/22 16:17 FEVER Penicillins AdvReac Mild FEVER Verified 09/02/22 16:17 <JODY Paige - Last Filed: 09/02/22 16:21> [facility] Past Medical History Medical History: Medical History (Updated 09/02/22 @ 19:43 by Madeleine Alcaraz MD) Allergic rhinitis Asthma Cholelithiasis Chronic neck pain Deviated nasal septum Fatty liver Gall bladder polyp GERD (gastroesophageal reflux disease) Hypercholesterolemia Lesion of vocal cord Neck pain Pneumonitis Pulmonary embolism Renal calculi Tracheobronchomegaly Tracheomalacia Vocal cord dysfunction <JODY Paige - Last Filed: 09/02/22 16:21> Surgical History: Surgical History History of Achilles tendon repair History of eye surgery History of hernia surgery History of knee surgery History of nasal surgery History of neck surgery History of repair of left rotator cuff History of repair of right rotator cuff <JODY Paige - Last Filed: 09/02/22 16:21> Family History Family History: Family History Mother No problems noted. Father No problems noted. <JODY Paige - Last Filed: 09/02/22 16:21> Social History Social History: Social History Housing: House Alcohol intake: current Alcohol intake frequency: holidays/special occasions only Patient Tobacco Use Status: Never used Tobacco Smoked in Last 30 Days: No e-Cigarette/Vaping Use: Never Used Second Hand Smoke Exposure: No Use of substances other than those prescribed or required for medical reasons: No Advance Directives: No Advance Directives Information Provided: Yes service: No Current occupational status: employed Cognitive needs: No Hearing needs: No Vision needs: No <JODY Paige - Last Filed: 09/02/22 16:21> Physical Exam Vital Signs: Vital Signs: Last Vital Signs Temp 97.7 F 09/02/22 16:18 Pulse 81 09/02/22 18:41 Resp 18 09/02/22 18:41 BP 151/79 H 09/02/22 18:41 Pulse Ox 97 09/02/22 18:41 O2 Del Method 09/02/22 18:41 BMI result Body Mass Index 32.5 <JODY Paige - Last Filed: 09/02/22 16:21> Vital Signs: Last Vital Signs Temp 97.7 F 09/02/22 16:18 Pulse 81 09/02/22 18:41 Resp 18 09/02/22 18:41 BP 151/79 H 09/02/22 18:41 Pulse Ox 97 09/02/22 18:41 O2 Del Method 09/02/22 18:41 BMI result Body Mass Index 32.5 <Madeleine Alcaraz MD - Last Filed: 09/02/22 19:43> Const: Other: Appearance: Alert. Oriented X3. Patient seems very uncomfortable, in pain Eyes: Pupils equal, round and reactive to light. ENT: Pharynx normal. Neck: Normal inspection. Neck supple. No lymph nodes noted. No crepitus CVS: Normal heart rate and rhythm. Pulses normal. Normal S1 and S2 Respiratory: No respiratory distress. Breath sounds normal. No Wheezing. No rales Abdomen: Soft and nontender. No rigidity. No distention. Skin: Skin warm and dry. There is a large 30 cm incision in the back of the patient on the right side, healing well, no pus drainage, no cellulitis Extremities: No lower extremity edema. No Lacerations. No Rash Neuro: Oriented X 3. No motor deficit. No sensory deficit. Moving all extremities. No slurred speech. CN 2 through 12 grossly intact Psych: calm, cooperative, normal affect <Madeleine Alcaraz MD - Last Filed: 09/02/22 19:43> Course Course Course Narrative: RME- 16:20pm 62yoM who is s/p tracheobronchoplasty via Right Thoracotomy, cryo, flexible bronchoscopy with lavage on 08/17/22 in [facility] who is on Xarelto took today who is presenting to the ED with complaints of Mid sternal Chest pain, cough, that started yesterday. reports his blood pressure has been elevated as well. Plan: Will obtain labs, blood cultures, EKG, chest x-ray and COVID/RSV/flu swab. Patient will be sent to the ER for further evaluation and treatment. <JODY Paige - Last Filed: 09/02/22 16:21> Medications Administered Discontinued Medications Generic Name Dose Route Start Last Admin Trade Name Freq PRN Reason Stop Dose Admin Benzonatate 100 mg 09/02/22 18:34 09/02/22 18:42 Benzonatate 100 Mg Capsule PO 09/02/22 18:35 100 mg ONCE ONE Administration Hydromorphone HCl 1 mg 09/02/22 18:33 09/02/22 18:42 Hydromorphone Hcl 1 Mg/Ml Syringe IVPUSH 09/02/22 18:34 1 mg ONCE ONE Administration Protocol Ceftriaxone Sodium 1 gm/ 50 mls @ 100 mls/hr 09/02/22 18:47 09/02/22 19:00 Sodium Chloride IV 09/02/22 19:16 100 mls/hr ONCE ONE Administration Ondansetron HCl 4 mg 09/02/22 18:34 09/02/22 18:41 Ondansetron Hcl 4 Mg/2 Ml Vial IVPUSH 09/02/22 18:35 4 mg ONCE ONE Administration <JODY Paige - Last Filed: 09/02/22 16:21> Medications Administered Discontinued Medications Generic Name Dose Route Start Last Admin Trade Name Nelsy PRN Reason Stop Dose Admin Benzonatate 100 mg 09/02/22 18:34 09/02/22 18:42 Benzonatate 100 Mg Capsule PO 09/02/22 18:35 100 mg ONCE ONE Administration Hydromorphone HCl 1 mg 09/02/22 18:33 09/02/22 18:42 Hydromorphone Hcl 1 Mg/Ml Syringe IVPUSH 09/02/22 18:34 1 mg ONCE ONE Administration Protocol Ceftriaxone Sodium 1 gm/ 50 mls @ 100 mls/hr 09/02/22 18:47 09/02/22 19:00 Sodium Chloride IV 09/02/22 19:16 100 mls/hr ONCE ONE Administration Ondansetron HCl 4 mg 09/02/22 18:34 09/02/22 18:41 Ondansetron Hcl 4 Mg/2 Ml Vial IVPUSH 09/02/22 18:35 4 mg ONCE ONE Administration <Madeleine Alcaraz MD - Last Filed: 09/02/22 19:43> Medical Decision Making Medical Decision Making MDM Narrative: -patient's white blood cell count within normal limits -patient's troponin elevated, to 9.5. EKG shows no acute abnormalities -EKG my interpretation: Normal sinus rhythm, heart rate 88, no ST segment depression or elevation, no T-wave inversion, QTC 471 -my interpretation of the chest x-ray: Right lower lobe pneumonia. -at this time, 18:48, pneumonia is suspected. Likely secondary to patient not taking big breaths due to severe pain, lead to atelectasis/pneumonia. Patient's white blood cell count is within normal limits, blood pressure is elevated, not tachycardic. Sepsis is not suspected. -despite couple of doses of Dilaudid, patient remains in significant amount pain. -discussed the patient with Dr. Odell, patient will be staying in the hospital under observation. <Madeleine Alcaraz MD - Last Filed: 09/02/22 19:43> Differential Diagnosis Differential Diagnoses: The differential diagnosis associated with the presentation includes (Atelectasis, pneumonia, pneumothorax) <Madeleine Alcaraz MD - Last Filed: 09/02/22 19:43> Admission/Observation Consideration of admission/observation: Escalation of care including admission/observation considered <Madeleine Alcaraz MD - Last Filed: 09/02/22 19:43> Consult Healthcare Provider Management of the patient was discussed with: Hospitalist <Madeleine Alcaraz MD - Last Filed: 09/02/22 19:43> Lab Data MDM Lab Attestation statement: I reviewed the patient's lab results. <Madeleine Alcaraz MD - Last Filed: 09/02/22 19:43> Result Diagrams: 09/02/22 16:55 09/02/22 16:55 <JODY Paige - Last Filed: 09/02/22 16:21> Labs: Lab Results 09/02/22 09/02/22 09/02/22 Range/Units 16:55 16:55 16:55 WBC 9.8 (4.8-10.8) X10*3/uL RBC 4.69 (4.60-5.80) X10*6/uL Hgb 13.3 L (14.0-18.0) g/dl Hct 40.0 L (42.0-52.0) % MCV 85.3 (80.0-98.0) fL MCH 28.4 (27.0-33.0) pg MCHC 33.3 (31.0-36.0) g/dl RDW 14.6 (11.0-16.0) % Plt Count 395 D (160-400) X10*3/uL MPV 9.9 (9.4-12.4) fL Immature Gran % (Auto) 0.6 H (0.0-0.4) % Neut % (Auto) 66.9 (45-73) % Lymph % (Auto) 12.6 L (20-40) % Woods % (Auto) 9.8 (2-11) % Eos % (Auto) 9.2 H (0-4) % Baso % (Auto) 0.9 (0-2) % Lymph # (Auto) 1.2 (1.2-4.9) X10*3/uL Woods # (Auto) 1.0 (0.1-1.2) X10*3/uL Eos # (Auto) 0.9 H (0.0-0.4) X10*3/uL Baso # (Auto) 0.1 (0.0-0.2) X10*3/uL Abs Immat Gran (auto) 0.06 H (0.00-0.03) X10*3/uL Absolute Neuts (auto) 6.6 (2.0-8.3) x10*3/uL Absolute Nucleated RBC 0.000 (0.0-0.012) X10*3/uL Nucleated RBC % (auto) 0.0 (0.0-0.2) /100WBC ESR (0-15) MM/HR PT 10.4 (10.0-13.1) SEC INR 0.9 (0.9-1.1) Sodium 142 (135-145) mmol/L Potassium 4.1 (3.3-5.1) mmol/L Chloride 106 (96-108) mmol/L Carbon Dioxide 26 (22-29) mmol/L Anion Gap 14 (12-20) BUN 13 (9-16) mg/dL Creatinine 1.01 (0.5-1.4) mg/dL Estim Creat Clear Calc 102.2 Estimated GFR > 60 Random Glucose 102 (60-115) mg/dL Calcium 9.1 (8.4-10.2) mg/dL Magnesium 1.9 (1.6-2.6) mg/dL Total Bilirubin 0.7 (0.0-1.0) mg/dL AST 49 H (5-37) U/L ALT 61 H (0-40) U/L Alkaline Phosphatase 155 H (39-117) U/L Troponin I High Sens (<3.5-35.0) ng/L C-Reactive Protein (< or = 0.50) mg/dL B-Natriuretic Peptide (<100) pg/mL Total Protein 6.7 (6.5-8.0) g/dL Albumin 4.1 (3.5-5.0) g/dL Influenza Type A (PCR) (Negative) Influenza Type B (PCR) (Negative) RSV RNA Qual (PCR) (Negative) SARS-CoV-2 RNA (RT-PCR) (Negative) 09/02/22 09/02/22 09/02/22 Range/Units 16:55 16:55 16:55 WBC (4.8-10.8) X10*3/uL RBC (4.60-5.80) X10*6/uL Hgb (14.0-18.0) g/dl Hct (42.0-52.0) % MCV (80.0-98.0) fL MCH (27.0-33.0) pg MCHC (31.0-36.0) g/dl RDW (11.0-16.0) % Plt Count (160-400) X10*3/uL MPV (9.4-12.4) fL Immature Gran % (Auto) (0.0-0.4) % Neut % (Auto) (45-73) % Lymph % (Auto) (20-40) % Woods % (Auto) (2-11) % Eos % (Auto) (0-4) % Baso % (Auto) (0-2) % Lymph # (Auto) (1.2-4.9) X10*3/uL Woods # (Auto) (0.1-1.2) X10*3/uL Eos # (Auto) (0.0-0.4) X10*3/uL Baso # (Auto) (0.0-0.2) X10*3/uL Abs Immat Gran (auto) (0.00-0.03) X10*3/uL Absolute Neuts (auto) (2.0-8.3) x10*3/uL Absolute Nucleated RBC (0.0-0.012) X10*3/uL Nucleated RBC % (auto) (0.0-0.2) /100WBC ESR (0-15) MM/HR PT (10.0-13.1) SEC INR (0.9-1.1) Sodium (135-145) mmol/L Potassium (3.3-5.1) mmol/L Chloride (96-108) mmol/L Carbon Dioxide (22-29) mmol/L Anion Gap (12-20) BUN (9-16) mg/dL Creatinine (0.5-1.4) mg/dL Estim Creat Clear Calc Estimated GFR Random Glucose (60-115) mg/dL Calcium (8.4-10.2) mg/dL Magnesium (1.6-2.6) mg/dL Total Bilirubin (0.0-1.0) mg/dL AST (5-37) U/L ALT (0-40) U/L Alkaline Phosphatase (39-117) U/L Troponin I High Sens 209.5 H* (<3.5-35.0) ng/L C-Reactive Protein (< or = 0.50) mg/dL B-Natriuretic Peptide 57 (<100) pg/mL Total Protein (6.5-8.0) g/dL Albumin (3.5-5.0) g/dL Influenza Type A (PCR) NEGATIVE (Negative) Influenza Type B (PCR) NEGATIVE (Negative) RSV RNA Qual (PCR) NEGATIVE (Negative) SARS-CoV-2 RNA (RT-PCR) NEGATIVE (Negative) 09/02/22 09/02/22 09/02/22 Range/Units 16:55 16:55 19:01 WBC (4.8-10.8) X10*3/uL RBC (4.60-5.80) X10*6/uL Hgb (14.0-18.0) g/dl Hct (42.0-52.0) % MCV (80.0-98.0) fL MCH (27.0-33.0) pg MCHC (31.0-36.0) g/dl RDW (11.0-16.0) % Plt Count (160-400) X10*3/uL MPV (9.4-12.4) fL Immature Gran % (Auto) (0.0-0.4) % Neut % (Auto) (45-73) % Lymph % (Auto) (20-40) % Woods % (Auto) (2-11) % Eos % (Auto) (0-4) % Baso % (Auto) (0-2) % Lymph # (Auto) (1.2-4.9) X10*3/uL Woods # (Auto) (0.1-1.2) X10*3/uL Eos # (Auto) (0.0-0.4) X10*3/uL Baso # (Auto) (0.0-0.2) X10*3/uL Abs Immat Gran (auto) (0.00-0.03) X10*3/uL Absolute Neuts (auto) (2.0-8.3) x10*3/uL Absolute Nucleated RBC (0.0-0.012) X10*3/uL Nucleated RBC % (auto) (0.0-0.2) /100WBC ESR 10 (0-15) MM/HR PT (10.0-13.1) SEC INR (0.9-1.1) Sodium (135-145) mmol/L Potassium (3.3-5.1) mmol/L Chloride (96-108) mmol/L Carbon Dioxide (22-29) mmol/L Anion Gap (12-20) BUN (9-16) mg/dL Creatinine (0.5-1.4) mg/dL Estim Creat Clear Calc Estimated GFR Random Glucose (60-115) mg/dL Calcium (8.4-10.2) mg/dL Magnesium (1.6-2.6) mg/dL Total Bilirubin (0.0-1.0) mg/dL AST (5-37) U/L ALT (0-40) U/L Alkaline Phosphatase (39-117) U/L Troponin I High Sens 3.4 D (<3.5-35.0) ng/L C-Reactive Protein 1.51 H (< or = 0.50) mg/dL B-Natriuretic Peptide (<100) pg/mL Total Protein (6.5-8.0) g/dL Albumin (3.5-5.0) g/dL Influenza Type A (PCR) (Negative) Influenza Type B (PCR) (Negative) RSV RNA Qual (PCR) (Negative) SARS-CoV-2 RNA (RT-PCR) (Negative) <JODY Paige - Last Filed: 09/02/22 16:21> Lab Results 09/02/22 09/02/22 09/02/22 Range/Units 16:55 16:55 16:55 WBC 9.8 (4.8-10.8) X10*3/uL RBC 4.69 (4.60-5.80) X10*6/uL Hgb 13.3 L (14.0-18.0) g/dl Hct 40.0 L (42.0-52.0) % MCV 85.3 (80.0-98.0) fL MCH 28.4 (27.0-33.0) pg MCHC 33.3 (31.0-36.0) g/dl RDW 14.6 (11.0-16.0) % Plt Count 395 D (160-400) X10*3/uL MPV 9.9 (9.4-12.4) fL Immature Gran % (Auto) 0.6 H (0.0-0.4) % Neut % (Auto) 66.9 (45-73) % Lymph % (Auto) 12.6 L (20-40) % Woods % (Auto) 9.8 (2-11) % Eos % (Auto) 9.2 H (0-4) % Baso % (Auto) 0.9 (0-2) % Lymph # (Auto) 1.2 (1.2-4.9) X10*3/uL Woods # (Auto) 1.0 (0.1-1.2) X10*3/uL Eos # (Auto) 0.9 H (0.0-0.4) X10*3/uL Baso # (Auto) 0.1 (0.0-0.2) X10*3/uL Abs Immat Gran (auto) 0.06 H (0.00-0.03) X10*3/uL Absolute Neuts (auto) 6.6 (2.0-8.3) x10*3/uL Absolute Nucleated RBC 0.000 (0.0-0.012) X10*3/uL Nucleated RBC % (auto) 0.0 (0.0-0.2) /100WBC ESR (0-15) MM/HR PT 10.4 (10.0-13.1) SEC INR 0.9 (0.9-1.1) Sodium 142 (135-145) mmol/L Potassium 4.1 (3.3-5.1) mmol/L Chloride 106 (96-108) mmol/L Carbon Dioxide 26 (22-29) mmol/L Anion Gap 14 (12-20) BUN 13 (9-16) mg/dL Creatinine 1.01 (0.5-1.4) mg/dL Estim Creat Clear Calc 102.2 Estimated GFR > 60 Random Glucose 102 (60-115) mg/dL Calcium 9.1 (8.4-10.2) mg/dL Magnesium 1.9 (1.6-2.6) mg/dL Total Bilirubin 0.7 (0.0-1.0) mg/dL AST 49 H (5-37) U/L ALT 61 H (0-40) U/L Alkaline Phosphatase 155 H (39-117) U/L Troponin I High Sens (<3.5-35.0) ng/L C-Reactive Protein (< or = 0.50) mg/dL B-Natriuretic Peptide (<100) pg/mL Total Protein 6.7 (6.5-8.0) g/dL Albumin 4.1 (3.5-5.0) g/dL Influenza Type A (PCR) (Negative) Influenza Type B (PCR) (Negative) RSV RNA Qual (PCR) (Negative) SARS-CoV-2 RNA (RT-PCR) (Negative) 09/02/22 09/02/22 09/02/22 Range/Units 16:55 16:55 16:55 WBC (4.8-10.8) X10*3/uL RBC (4.60-5.80) X10*6/uL Hgb (14.0-18.0) g/dl Hct (42.0-52.0) % MCV (80.0-98.0) fL MCH (27.0-33.0) pg MCHC (31.0-36.0) g/dl RDW (11.0-16.0) % Plt Count (160-400) X10*3/uL MPV (9.4-12.4) fL Immature Gran % (Auto) (0.0-0.4) % Neut % (Auto) (45-73) % Lymph % (Auto) (20-40) % Woods % (Auto) (2-11) % Eos % (Auto) (0-4) % Baso % (Auto) (0-2) % Lymph # (Auto) (1.2-4.9) X10*3/uL Woods # (Auto) (0.1-1.2) X10*3/uL Eos # (Auto) (0.0-0.4) X10*3/uL Baso # (Auto) (0.0-0.2) X10*3/uL Abs Immat Gran (auto) (0.00-0.03) X10*3/uL Absolute Neuts (auto) (2.0-8.3) x10*3/uL Absolute Nucleated RBC (0.0-0.012) X10*3/uL Nucleated RBC % (auto) (0.0-0.2) /100WBC ESR (0-15) MM/HR PT (10.0-13.1) SEC INR (0.9-1.1) Sodium (135-145) mmol/L Potassium (3.3-5.1) mmol/L Chloride (96-108) mmol/L Carbon Dioxide (22-29) mmol/L Anion Gap (12-20) BUN (9-16) mg/dL Creatinine (0.5-1.4) mg/dL Estim Creat Clear Calc Estimated GFR Random Glucose (60-115) mg/dL Calcium (8.4-10.2) mg/dL Magnesium (1.6-2.6) mg/dL Total Bilirubin (0.0-1.0) mg/dL AST (5-37) U/L ALT (0-40) U/L Alkaline Phosphatase (39-117) U/L Troponin I High Sens 209.5 H* (<3.5-35.0) ng/L C-Reactive Protein (< or = 0.50) mg/dL B-Natriuretic Peptide 57 (<100) pg/mL Total Protein (6.5-8.0) g/dL Albumin (3.5-5.0) g/dL Influenza Type A (PCR) NEGATIVE (Negative) Influenza Type B (PCR) NEGATIVE (Negative) RSV RNA Qual (PCR) NEGATIVE (Negative) SARS-CoV-2 RNA (RT-PCR) NEGATIVE (Negative) 09/02/22 09/02/22 09/02/22 Range/Units 16:55 16:55 19:01 WBC (4.8-10.8) X10*3/uL RBC (4.60-5.80) X10*6/uL Hgb (14.0-18.0) g/dl Hct (42.0-52.0) % MCV (80.0-98.0) fL MCH (27.0-33.0) pg MCHC (31.0-36.0) g/dl RDW (11.0-16.0) % Plt Count (160-400) X10*3/uL MPV (9.4-12.4) fL Immature Gran % (Auto) (0.0-0.4) % Neut % (Auto) (45-73) % Lymph % (Auto) (20-40) % Woods % (Auto) (2-11) % Eos % (Auto) (0-4) % Baso % (Auto) (0-2) % Lymph # (Auto) (1.2-4.9) X10*3/uL Woods # (Auto) (0.1-1.2) X10*3/uL Eos # (Auto) (0.0-0.4) X10*3/uL Baso # (Auto) (0.0-0.2) X10*3/uL Abs Immat Gran (auto) (0.00-0.03) X10*3/uL Absolute Neuts (auto) (2.0-8.3) x10*3/uL Absolute Nucleated RBC (0.0-0.012) X10*3/uL Nucleated RBC % (auto) (0.0-0.2) /100WBC ESR 10 (0-15) MM/HR PT (10.0-13.1) SEC INR (0.9-1.1) Sodium (135-145) mmol/L Potassium (3.3-5.1) mmol/L Chloride (96-108) mmol/L Carbon Dioxide (22-29) mmol/L Anion Gap (12-20) BUN (9-16) mg/dL Creatinine (0.5-1.4) mg/dL Estim Creat Clear Calc Estimated GFR Random Glucose (60-115) mg/dL Calcium (8.4-10.2) mg/dL Magnesium (1.6-2.6) mg/dL Total Bilirubin (0.0-1.0) mg/dL AST (5-37) U/L ALT (0-40) U/L Alkaline Phosphatase (39-117) U/L Troponin I High Sens 3.4 D (<3.5-35.0) ng/L C-Reactive Protein 1.51 H (< or = 0.50) mg/dL B-Natriuretic Peptide (<100) pg/mL Total Protein (6.5-8.0) g/dL Albumin (3.5-5.0) g/dL Influenza Type A (PCR) (Negative) Influenza Type B (PCR) (Negative) RSV RNA Qual (PCR) (Negative) SARS-CoV-2 RNA (RT-PCR) (Negative) <Madeleine Alcaraz MD - Last Filed: 09/02/22 19:43> Independent Interpretation I performed an independent interpretation of an: Plain X-Ray (My Chest x-ray interpretation: Right lower lobe infiltrate) <Madeleine Alcaraz MD - Last Filed: 09/02/22 19:43> Radiology Impression Discussion of test interpretation with radiology: I have reviewed the radiologist's reading. <Madelenie Alcaraz MD - Last Filed: 09/02/22 19:43> Radiologist Impression: New airspace opacities in the right lower lobe with an associated small pleural effusion. Mild retrocardiac subsegmental atelectasis. No pneumothorax. Stable appearance of the cardiomediastinal silhouette. Redemonstration of cervical fusion hardware. No acute osseous abnormalities. XR/XR chest 2V IMPRESSION: New airspace opacities in the right lower lobe with an associated small pleural effusion concerning for aspiration or pneumonia in the appropriate clinical context. Recommend a follow-up imaging. <Madeleine Alcaraz MD - Last Filed: 09/02/22 19:43> Critical Care Time Critical Care Time Critical Care Time: Yes <Madeleine Alcaraz MD - Last Filed: 09/02/22 19:43> Total Critical Care Time: 45 <Madeleine Alcaraz MD - Last Filed: 09/02/22 19:43> Attestation: I have personally provided critical care time. Time includes review of lab data, radiology results, discussion with consultants, and monitoring for potential decompensation. Intervention performed as documented. <Madeleine Alcaraz MD - Last Filed: 09/02/22 19:43> Discharge Plan Discharge Clinical Impression: Pneumonia, At risk for inadequate pain control <JODY Paige - Last Filed: 09/02/22 16:21> Patient Disposition: Admitted as Observation <JODY Paige - Last Filed: 09/02/22 16:21> Prescriptions: No Action trazodone 100 mg tablet 100 mg PO BEDTIME PRN (Reason: sleep) 90 Days Qty: 90 1RF losartan 100 mg tablet 100 mg PO DAILY Qty: 90 1RF albuterol sulfate 2.5 mg /3 mL (0.083 %) solution for nebulization 2.5 mg inhalation Q4-6H PRN (Reason: shortness of breath , wheezing and cough) Qty: 180 1RF omeprazole 20 mg capsule,delayed release(DR/EC) 20 mg PO DAILY Qty: 90 0RF metoprolol succinate 100 mg tablet extended release 24 hr 100 mg PO DAILY Qty: 90 1RF rosuvastatin 20 mg tablet 20 mg PO DAILY 90 Days Qty: 90 0RF amlodipine 5 mg tablet 5 mg PO DAILY Qty: 90 0RF hydrocodone bitartrate 10 mg capsule, oral only, ER 12hr 10 mg PO Q12H 7 Days Qty: 14 0RF Rx Instructions: Partial Fill upon patient request. hydrocodone bitartrate 15 mg capsule, oral only, ER 12hr 15 mg PO Q12H 7 Days Qty: 14 0RF Rx Instructions: Partial Fill upon patient request. Xarelto 20 mg tablet 20 mg PO DAILY Rx Instructions: must administer with evening meal ibuprofen 800 mg tablet 800 mg PO BID sulfamethoxazole-trimethoprim [Bactrim DS] 800-160 mg tablet 1 tab PO BID 5 Days Qty: 10 0RF benzonatate 100 mg capsule 100 mg PO BID PRN (Reason: cough) Qty: 14 0RF albuterol sulfate [ProAir HFA] 90 mcg/actuation HFA aerosol inhaler 2 puff inhalation Q4-6H PRN (Reason: shortness of breath or wheezing) Qty: 8.5 3RF <JODY Paige - Last Filed: 09/02/22 16:21>
--- NOTE | 2022-09-02 16:20 | ECG_ITS ---
Test Reason : CHEST PAIN Blood Pressure : / mmHG Vent. Rate : 088 BPM Atrial Rate : 088 BPM P-R Int : 148 ms QRS Dur : 084 ms QT Int : 390 ms P-R-T Axes : 052 -05 008 degrees QTc Int : 471 ms Normal sinus rhythm Normal ECG When compared with ECG of 03-FEB-2022 10:10, No significant change was found Referred By: Janey Mccormick Electronically Signed By:Mil Olmedo
--- NOTE | 2022-09-02 16:29 | MHC.CM.ED ---
Pt is active with [facility]. Medication list obtained and uploaded into [facility]. Placed on pt medical record. CM will follow for discharge needs.
[2022-09-02 17:00] LABS: MANUAL DIFF FLAG NO
[2022-09-02 17:02] LABS: Basophils Absolute Auto 0.1 X10*3/uL (0.0-0.2); Basophils Percent Auto 0.9 % (0-2); Eosinophils Absolute Auto 0.9 X10*3/uL (0.0-0.4); Eosinophils Percent Auto 9.2 % (0-4); Hemoglobin 13.3 g/dl (14.0-18.0); Imm Gran Abs Auto 0.06 X10*3/uL (0.00-0.03); Imm Gran Pct Auto 0.6 % (0.0-0.4); Lymphocytes Absolute Auto 1.2 X10*3/uL (1.2-4.9); Lymphocytes Percent Auto 12.6 % (20-40); Mean Corpuscular HGB Conc 33.3 g/dl (31.0-36.0); Mean Corpuscular Hemoglobin 28.4 pg (27.0-33.0); Mean Corpuscular Volume 85.3 fL (80.0-98.0); Mean Platelet Volume 9.9 fL (9.4-12.4); Monocytes Percent Auto 9.8 % (2-11); Neutrophils Absolute Auto 6.6 x10*3/uL (2.0-8.3); Neutrophils Percent Auto 66.9 % (45-73); Platelet Count 395 X10*3/uL (160-400); Red Blood Count 4.69 X10*6/uL (4.60-5.80); Red Cell Distribution Width 14.6 % (11.0-16.0); White Blood Count 9.8 X10*3/uL (4.8-10.8)
[2022-09-02 17:07] LABS: INTERNATIONAL NORM RATIO 0.9 (0.9-1.1); Prothrombin Time 10.4 SEC (10.0-13.1)
[2022-09-02 17:14] LABS: C Reactive Protein 1.51 mg/dL (< or = 0.50)
[2022-09-02 17:17] LABS: Alanine Aminotransferase 61 U/L (0-40); Albumin Level 4.1 g/dL (3.5-5.0); Alkaline Phosphatase 155 U/L (39-117); Anion Gap 14 (12-20); Aspartate Amino Transferase 49 U/L (5-37); Bilirubin Total 0.7 mg/dL (0.0-1.0); Blood Urea Nitrogen 13 mg/dL (9-16); Calcium 9.1 mg/dL (8.4-10.2); Carbon Dioxide 26 mmol/L (22-29); Chloride 106 mmol/L (96-108); Creatinine Clr Calc Pharmacy 102.2; Estimated Glomerular Filt Rate > 60; Glucose Random 102 mg/dL (60-115); Magnesium 1.9 mg/dL (1.6-2.6); Potassium 4.1 mmol/L (3.3-5.1); Sodium 142 mmol/L (135-145); Total Protein 6.7 g/dL (6.5-8.0)
[2022-09-02 17:22] LABS: B Type Natriuretic Peptide 57 pg/mL (<100)
[2022-09-02 17:37] LABS: Troponin-I High Sensitivity 209.5 ng/L (<3.5-35.0)
[2022-09-02 17:38] LABS: Erythrocyte Sedimentation Rate 10 MM/HR (0-15)
[2022-09-02 17:51] LABS: Influenza A PCR NEGATIVE (Negative); Influenza B PCR NEGATIVE (Negative); Resp Syncy Virus RNA Qual PCR NEGATIVE (Negative); SARS COV2 PCR INHOUSE NEGATIVE (Negative)
[2022-09-02] MEDS: ondansetron HCL 4 MG/2 ML VIAL IVPUSH ×2 (18:41→23:10)
[2022-09-02] MEDS: Benzonatate 100 MG CAPSULE PO (18:42)
[2022-09-02] MEDS: HYDROmorphone HCl 1 MG/ML SYRINGE IVPUSH ×2 (18:42→20:24)
[2022-09-02] MEDS: cefTRIAXone sodium 1 GM in 0.9 % Sodium Chloride 50 ML IV (19:00)
[2022-09-02 19:32] LABS: Troponin-I High Sensitivity 3.4 ng/L (<3.5-35.0)
--- NOTE | 2022-09-02 19:52 | PM.IMHP ---
History of Present Illness Date of Service: 09/02/22 Attending physician on admission: Rona Odell Chief Complaint: Intractable pain s/p lung surgery Pt is a 62-year-old male with a PMH significant for?HTN, HLD, bilateral TKA, fused neck, history of pulmonary embolism 19 years ago on Xarelto, and s/p tracheobronchoplasty via right thoracotomy, flexible bronchoscopy with lavage on 08/17/22 at [facility] who presents to the ED with?right-sided chest pain and tightness. Pain is on the lateral aspect of his right side, under his arm and wrapping around to the back. Roughly follows his surgical scar. Says it hurts to the touch. Patient rates pain at 10/10 and describes it as feeling like a sledgehammer is pounding on me every time I cough. Pt cannot take deep breaths, has pain with movement. Pt states he has had cough and pleuritic chest pain since his surgery, but they have been significantly worse the past couple of days. Patient claims he has been trying to use his incentive spirometry, but often can not due to pain. Of note, patient was experiencing constipation on opioid pain meds following surgery; after telemedicine visit with surgeon on Monday, patient stopped taking opioids and reduced analgesics to only Tylenol and Motrin. In the ED patient was afebrile, tachypneic at 22, hypertensive at 195/93. Labs were significant for no leukocytosis, elevated troponin of 209.5 with repeat 3.4, C reactive protein elevated at 1.51. UA negative for UTI. Patient was negative for COVID, RSV, influenza type A and B. CXR showed new opacity in the right lower lobe with small pleural effusion concerning for aspiration or pneumonia. CTA of chest showed pulmonary embolus in the left lower lobe segmental pulmonary artery extending into subsegmental branches, consolidation/atelectasis at the right lower lobe, with moderate volume right pleural effusion. EKG demonstrated normal sinus rhythm with no evidence of ST elevations or depressions. Pt was treated with a and trunk, dilaudid, benzonatate, and ceftriaxone. Pt will be admitted to the hospital for treatment and further evaluation of pulmonary embolism and pneumonia with IV ABX, analgesics, and therapeutic Lovenox. Review of Systems Review of Systems: Pleuritic chest pain Chest tightness Cough Yes all other systems are reviewed and are negative PENDING SALE TO [facility] Medical History Allergic rhinitis Asthma Cholelithiasis Chronic neck pain Deviated nasal septum Fatty liver Gall bladder polyp GERD (gastroesophageal reflux disease) Hypercholesterolemia Lesion of vocal cord Neck pain Pneumonitis Pulmonary embolism Renal calculi Tracheobronchomegaly Tracheomalacia Vocal cord dysfunction Family History Mother No problems noted. Father No problems noted. Surgical History History of Achilles tendon repair History of eye surgery History of hernia surgery History of knee surgery History of nasal surgery History of neck surgery History of repair of left rotator cuff History of repair of right rotator cuff Social History Housing: House Alcohol intake: current Alcohol intake frequency: holidays/special occasions only Patient Tobacco Use Status: Never used Tobacco Smoked in Last 30 Days: No e-Cigarette/Vaping Use: Never Used Second Hand Smoke Exposure: No Use of substances other than those prescribed or required for medical reasons: No Advance Directives: No Advance Directives Information Provided: Yes service: No Current occupational status: employed Cognitive needs: No Hearing needs: No Vision needs: No Meds Allergies Allergy/AdvReac Type Severity Reaction Status Date / Time penicillin V Allergy Intermediate fever Verified 09/02/22 16:17 vancomycin [Vancomycin] Allergy Mild HIVES, Verified 09/02/22 16:17 FEVER Penicillins AdvReac Mild FEVER Verified 09/02/22 16:17 Active Medications: Current Medications Azithromycin 500 mg/ Sodium (Chloride) 250 mls @ 125 mls/hr IV ONCE ONE Stop: 09/02/22 20:46 Home Medications Medication Instructions Recorded Confirmed Last Taken Type ibuprofen 800 mg tablet 800 mg PO BID 09/09/20 05/18/22 Unknown History rivaroxaban 20 mg tablet (Xarelto) 20 mg PO DAILY 09/09/20 05/18/22 Unknown History acetaminophen 160 mg/5 mL oral 640 mg PO QID PRN Pain 09/02/22 09/02/22 Unknown History elixir famotidine 20 mg tablet 20 mg PO BID 09/02/22 09/02/22 09/02/22 History lidocaine 4 % topical patch 1 patch topical DAILY 09/02/22 09/02/22 Unknown History (Lidocaine Pain Relief) tamsulosin 0.4 mg capsule 0.4 mg PO BEDTIME 09/02/22 09/02/22 09/01/22 History Physical Exam Vital Signs and Narrative: Vital Signs: Last Vital Signs Temp 97.7 F 09/02/22 16:18 Pulse 81 09/02/22 18:41 Resp 18 09/02/22 18:41 BP 151/79 H 09/02/22 18:41 Pulse Ox 97 09/02/22 18:41 O2 Del Method 09/02/22 18:41 BMI result Body Mass Index 32.5 Constitutional: Alert, uncomfortable, in pain, moaning with each expiration. Mental Status: Oriented to person, place and time. Eyes: Pupils are equal, round, and reactive to light. Ear, Nose, and Throat: Oropharynx clear, mucous membranes moist. Ears and nose without deformities. Trachea midline. Respiratory: Difficult to auscultate due to patient moaning with each expiration. Chest: Anterior right chest wall exquisitely tender to palpation, especially on lateral aspect. Not erythematous. No lesions noted. Cardiovascular: Difficult to auscultate due to patient moaning with each expiration. Gastrointestinal: Abdomen soft, non-tender, non-distended. Normal bowel sounds. Neurologic: Cranial nerves II-XII are grossly intact. No focal neurological deficits. Moves all extremities spontaneously. Skin: No rashes or lesions noted. Musculoskeletal: No cyanosis or clubbing. Back: Surgical scar healing, non-erythematous, non-draining. See picture below. Extremities: No edema. Psychiatric: Normal mood and affect. Results Labs 09/02/22 16:55 09/02/22 16:55 Labs: Laboratory Results - last 24 hr 09/02/22 09/02/22 09/02/22 16:55 16:55 16:55 MCV 85.3 MCH 28.4 MCHC 33.3 RDW 14.6 Plt Count 395 D MPV 9.9 Immature Gran % (Auto) 0.6 H Neut % (Auto) 66.9 Lymph % (Auto) 12.6 L Mclean % (Auto) 9.8 Eos % (Auto) 9.2 H Baso % (Auto) 0.9 Lymph # (Auto) 1.2 Mclean # (Auto) 1.0 Eos # (Auto) 0.9 H Baso # (Auto) 0.1 Abs Immat Gran (auto) 0.06 H Absolute Neuts (auto) 6.6 Absolute Nucleated RBC 0.000 Nucleated RBC % (auto) 0.0 ESR PT 10.4 INR 0.9 Anion Gap 14 Estim Creat Clear Calc 102.2 Estimated GFR > 60 Random Glucose 102 Calcium 9.1 Magnesium 1.9 Total Bilirubin 0.7 AST 49 H ALT 61 H Alkaline Phosphatase 155 H Troponin I High Sens C-Reactive Protein B-Natriuretic Peptide Total Protein 6.7 Albumin 4.1 Influenza Type A (PCR) Influenza Type B (PCR) RSV RNA Qual (PCR) SARS-CoV-2 RNA (RT-PCR) 09/02/22 09/02/22 09/02/22 16:55 16:55 16:55 MCV MCH MCHC RDW Plt Count MPV Immature Gran % (Auto) Neut % (Auto) Lymph % (Auto) Mclean % (Auto) Eos % (Auto) Baso % (Auto) Lymph # (Auto) Mclean # (Auto) Eos # (Auto) Baso # (Auto) Abs Immat Gran (auto) Absolute Neuts (auto) Absolute Nucleated RBC Nucleated RBC % (auto) ESR PT INR Anion Gap Estim Creat Clear Calc Estimated GFR Random Glucose Calcium Magnesium Total Bilirubin AST ALT Alkaline Phosphatase Troponin I High Sens 209.5 H* C-Reactive Protein B-Natriuretic Peptide 57 Total Protein Albumin Influenza Type A (PCR) NEGATIVE Influenza Type B (PCR) NEGATIVE RSV RNA Qual (PCR) NEGATIVE SARS-CoV-2 RNA (RT-PCR) NEGATIVE 09/02/22 09/02/22 09/02/22 16:55 16:55 19:01 MCV MCH MCHC RDW Plt Count MPV Immature Gran % (Auto) Neut % (Auto) Lymph % (Auto) Mclean % (Auto) Eos % (Auto) Baso % (Auto) Lymph # (Auto) Mclean # (Auto) Eos # (Auto) Baso # (Auto) Abs Immat Gran (auto) Absolute Neuts (auto) Absolute Nucleated RBC Nucleated RBC % (auto) ESR 10 PT INR Anion Gap Estim Creat Clear Calc Estimated GFR Random Glucose Calcium Magnesium Total Bilirubin AST ALT Alkaline Phosphatase Troponin I High Sens 3.4 D C-Reactive Protein 1.51 H B-Natriuretic Peptide Total Protein Albumin Influenza Type A (PCR) Influenza Type B (PCR) RSV RNA Qual (PCR) SARS-CoV-2 RNA (RT-PCR) Imaging Radiologist's Impressions: Impressions Chest X-Ray 09/02/22 17:28 IMPRESSION: New airspace opacities in the right lower lobe with an associated small pleural effusion concerning for aspiration or pneumonia in the appropriate clinical context. Recommend a follow-up imaging. Assessment and Plan (1) Pulmonary embolism: Status: Acute (2) Cough: Status: Acute Plan Pt is a 62-year-old male with a PMH significant for?HTN, HLD, bilateral TKA, fused neck, history of pulmonary embolism 19 years ago on Xarelto, and s/p tracheobronchoplasty via right thoracotomy, flexible bronchoscopy with lavage on 08/17/22 at [facility] who presents to the ED with?right-sided chest pain and tightness. CTA of chest positive for pulmonary embolus of left-lower lobe. Pt will be admitted to telemetry for treatment and further evaluation of pulmonary embolism and pneumonia with therapeutic Lovenox and IV abx. Acute pulmonary embolism CTA of chest showed pulmonary embolus in the left lower lobe segmental pulmonary artery extending into the subsegmental branches Patient on Xarelto, question of compliance Therapeutic Lovenox 1 mg/kg bid Morphine 4 mg q4 for pain management Hold Xarelto Discuss anticoagulation w/pt Admit to telemetry Cardiac diet Pneumonia CXR suggestive of lower lobe pneumonia IV abx: Ceftriaxone, azithromycin Benzonatate p.r.n. HTN Continue home meds HLD Continue home meds Full Code Attending:?Dr. Rodriguez DVT Prophylaxis: Lovenox Pt will require a hospitalization of at least two nights for treatment and further evaluation of pulmonary embolism and pneumonia with therapeutic Lovenox and IV abx. Time Spent With Patient Time: Total time managing care of this patient today ____ minutes. Quality Stroke Does the patient have a stroke diagnosis?: No VTE Prior VTE?: No VTE Risk Level:: Medical - moderate - high VTE Device Contraindication: Treatment Not Indicated VTE Drug Contraindication: N/A - Med Ordered
[2022-09-02] MEDS: Azithromycin 500 MG in 0.9 % Sodium Chloride 250 ML 125 MG IV (20:24)
[2022-09-02] MEDS: iohexoL 350 MG/ML 100 ML INFUS..BTL IV (20:47)
[2022-09-02 21:51] LABS: Hematocrit 34.8 % (42.0-52.0); Hemoglobin 11.5 g/dl (14.0-18.0); Mean Corpuscular Hemoglobin 28.2 pg (27.0-33.0); Mean Corpuscular Volume 85.3 fL (80.0-98.0); Mean Platelet Volume 9.6 fL (9.4-12.4); Platelet Count 339 X10*3/uL (160-400); Red Blood Count 4.08 X10*6/uL (4.60-5.80); Red Cell Distribution Width 14.6 % (11.0-16.0); White Blood Count 9.6 X10*3/uL (4.8-10.8)
[2022-09-02 21:59] LABS: Partial Thromboplastin Time 28.1 SEC (26.0-36.4)
[2022-09-02] MEDS: Enoxaparin Sodium 100 MG/ML SYRINGE SUBCUT (22:12)
--- NOTE | 2022-09-02 22:32 | PHA.MEDREC ---
MED REC COMPLETE, NO ISSUES Pharmacy Consult ? Medication Reconciliation Pharmacy has completed the medication reconciliation.
[2022-09-02] MEDS: Morphine Sulfate 4 MG/ML CARTRIDGE IVPUSH (23:10)
[2022-09-02] MEDS: 0.9 % Sodium Chloride Flush 3 ML SYRINGE IVFLUSH (23:11)
[2022-09-03] VITALS (8 sets, daily range): BP systolic 147–185; BP diastolic 79–98; PULSE 79–98; RESP 13–22; TEMP 36.2–37; O2SAT 93–100
--- NOTE | 2022-09-03 02:19 | PC.NURSE ---
Nurse to nurse report given to S3 RN.
[2022-09-03] MEDS: Morphine Sulfate 4 MG/ML CARTRIDGE IVPUSH ×4 (03:25→23:51)
[2022-09-03 06:27] LABS: MANUAL DIFF FLAG NO
[2022-09-03 06:31] LABS: Basophils Absolute Auto 0.1 X10*3/uL (0.0-0.2); Basophils Percent Auto 1.3 % (0-2); Eosinophils Absolute Auto 0.9 X10*3/uL (0.0-0.4); Eosinophils Percent Auto 10.1 % (0-4); Hematocrit 36.4 % (42.0-52.0); Hemoglobin 11.8 g/dl (14.0-18.0); Imm Gran Abs Auto 0.04 X10*3/uL (0.00-0.03); Imm Gran Pct Auto 0.5 % (0.0-0.4); Lymphocytes Absolute Auto 1.4 X10*3/uL (1.2-4.9); Mean Corpuscular HGB Conc 32.4 g/dl (31.0-36.0); Mean Corpuscular Hemoglobin 28.2 pg (27.0-33.0); Mean Corpuscular Volume 86.9 fL (80.0-98.0); Mean Platelet Volume 10.7 fL (9.4-12.4); Monocytes Absolute Auto 1.1 X10*3/uL (0.1-1.2); Monocytes Percent Auto 12.5 % (2-11); Neutrophils Absolute Auto 5.1 x10*3/uL (2.0-8.3); Neutrophils Percent Auto 59.6 % (45-73); Platelet Count 348 X10*3/uL (160-400); Red Blood Count 4.19 X10*6/uL (4.60-5.80); Red Cell Distribution Width 14.6 % (11.0-16.0); White Blood Count 8.6 X10*3/uL (4.8-10.8)
[2022-09-03 06:49] LABS: Anion Gap 14 (12-20); Blood Urea Nitrogen 13 mg/dL (9-16); Calcium 8.7 mg/dL (8.4-10.2); Carbon Dioxide 23 mmol/L (22-29); Chloride 108 mmol/L (96-108); Creatinine Clr Calc Pharmacy 113.5; Estimated Glomerular Filt Rate > 60; Glucose Random 122 mg/dL (60-115); Potassium 4.2 mmol/L (3.3-5.1); Sodium 141 mmol/L (135-145)
[2022-09-03] MEDS: Atorvastatin Calcium 80 MG TABLET PO (09:06)
[2022-09-03] MEDS: Metoprolol Succinate ER 100 MG TAB.ER.24H PO (09:06)
[2022-09-03] MEDS: Famotidine 20 MG TABLET PO ×2 (09:06→20:11)
[2022-09-03] MEDS: Losartan Potassium 50 MG TABLET 100 MG PO (09:06)
[2022-09-03] MEDS: Rivaroxaban 20 MG TABLET PO (09:06)
[2022-09-03] MEDS: Lidocaine 4 % Patch ADH..PATCH 1 PATCH TRANSDERMA (09:06)
[2022-09-03] MEDS: 0.9 % Sodium Chloride Flush 3 ML SYRINGE IVFLUSH ×3 (09:06→20:11)
[2022-09-03] MEDS: amLODIPine Besylate 5 MG TABLET PO (09:06)
--- NOTE | 2022-09-03 10:13 | P.PNIM_ITS ---
Subjective Subjective Date of Service: 09/03/22 Interval History: severe right sided pain Physical Exam Vital Signs: Vital Signs: Last Vital Signs Temp 97.8 F 09/03/22 08:00 Pulse 86 09/03/22 08:00 Resp 18 09/03/22 08:00 BP 167/88 H 09/03/22 08:00 Pulse Ox 99 09/03/22 08:00 O2 Del Method 09/03/22 08:00 O2 Flow Rate 2 09/02/22 23:52 BMI result Body Mass Index 32.5 General: AO X 3, in severe pain Resp: diminished bilateral, no accessory muscles used CVS: S1,S2,RRR GI: soft, non tender, non distended Neuro: motor grossly intact, alert Psych: appropriate affect, appropriate insight Objective Data Active Medications Acetaminophen (Acetaminophen 325 Mg Tablet) 650 mg PO Q6H PRN PRN Reason: Pain, Mild (Pain Scale 1-3) Amlodipine Besylate (Amlodipine Besylate 5 Mg Tablet) 5 mg PO DAILY [facility]; Protocol Last Admin: 09/03/22 09:06 Dose: 5 mg Documented By: IRA Atorvastatin Calcium (Atorvastatin Calcium 80 Mg Tablet) 80 mg PO DAILY [facility] Last Admin: 09/03/22 09:06 Dose: 80 mg Documented By: IRA Benzonatate (Benzonatate 100 Mg Capsule) 100 mg PO TID PRN PRN Reason: Cough Famotidine (Famotidine 20 Mg Tablet) 20 mg PO BID [facility] Last Admin: 09/03/22 09:06 Dose: 20 mg Documented By: IRA Hydromorphone HCl (Hydromorphone Hcl 1 Mg/Ml Syringe) 1 mg IVPUSH Q2H PRN; Protocol PRN Reason: moderate pain Lidocaine (Lidocaine 4 % Patch Adh..Patch) 1 patch TRANSDERMA DAILY [facility]; Protocol Last Admin: 09/03/22 09:06 Dose: 1 patch Documented By: IRA Losartan Potassium (Losartan Potassium 50 Mg Tablet) 100 mg PO DAILY [facility]; Protocol Last Admin: 09/03/22 09:06 Dose: 100 mg Documented By: IRA Melatonin (Melatonin 3 Mg Tablet) 6 mg PO BEDTIME PRN PRN Reason: Insomnia Metoprolol Succinate (Metoprolol Succinate Er 100 Mg Tab.Er.24h) 100 mg PO DAILY [facility]; Protocol Last Admin: 09/03/22 09:06 Dose: 100 mg Documented By: IRA Morphine Sulfate (Morphine Sulfate 4 Mg/Ml Cartridge) 4 mg IVPUSH Q4H PRN; Protocol PRN Reason: Pain, Severe (Pain Scale 7-10) Last Admin: 09/03/22 03:25 Dose: 4 mg Documented By: ALTON Ondansetron HCl (Ondansetron Hcl 4 Mg/2 Ml Vial) 4 mg IVPUSH Q8H PRN PRN Reason: Nausea and Vomiting Last Admin: 09/02/22 23:10 Dose: 4 mg Documented By: VIRGILIO Pharmacy Consult (Consult Rx Perform Med Rec) 1 each MISCELLANE ONCE PRN PRN Reason: Consult order Rivaroxaban (Rivaroxaban 20 Mg Tablet) 20 mg PO DAILY [facility] Last Admin: 09/03/22 09:06 Dose: 20 mg Documented By: IRA Sodium Chloride (0.9 % Sodium Chloride Flush 3 Ml Syringe) 3 ml IVFLUSH QSHIFT [facility] Last Admin: 09/03/22 09:06 Dose: 3 ml Documented By: IRA Tamsulosin HCl (Tamsulosin Hcl 0.4 Mg Capsule) 0.4 mg PO BEDTIME [facility] Labs 09/03/22 05:39 09/03/22 05:39 Labs: Laboratory Results - last 24 hr 09/02/22 09/02/22 09/02/22 16:55 16:55 16:55 MCV 85.3 MCH 28.4 MCHC 33.3 RDW 14.6 Plt Count 395 D MPV 9.9 Immature Gran % (Auto) 0.6 H Neut % (Auto) 66.9 Lymph % (Auto) 12.6 L [place] % (Auto) 9.8 Eos % (Auto) 9.2 H Baso % (Auto) 0.9 Lymph # (Auto) 1.2 [place] # (Auto) 1.0 Eos # (Auto) 0.9 H Baso # (Auto) 0.1 Abs Immat Gran (auto) 0.06 H Absolute Neuts (auto) 6.6 Absolute Nucleated RBC 0.000 Nucleated RBC % (auto) 0.0 ESR PT 10.4 INR 0.9 APTT Anion Gap 14 Estim Creat Clear Calc 102.2 Estimated GFR > 60 Random Glucose 102 Calcium 9.1 Magnesium 1.9 Total Bilirubin 0.7 AST 49 H ALT 61 H Alkaline Phosphatase 155 H Troponin I High Sens C-Reactive Protein B-Natriuretic Peptide Total Protein 6.7 Albumin 4.1 Influenza Type A (PCR) Influenza Type B (PCR) RSV RNA Qual (PCR) SARS-CoV-2 RNA (RT-PCR) 09/02/22 09/02/22 09/02/22 16:55 16:55 16:55 MCV MCH MCHC RDW Plt Count MPV Immature Gran % (Auto) Neut % (Auto) Lymph % (Auto) [place] % (Auto) Eos % (Auto) Baso % (Auto) Lymph # (Auto) [place] # (Auto) Eos # (Auto) Baso # (Auto) Abs Immat Gran (auto) Absolute Neuts (auto) Absolute Nucleated RBC Nucleated RBC % (auto) ESR PT INR APTT Anion Gap Estim Creat Clear Calc Estimated GFR Random Glucose Calcium Magnesium Total Bilirubin AST ALT Alkaline Phosphatase Troponin I High Sens 209.5 H* C-Reactive Protein B-Natriuretic Peptide 57 Total Protein Albumin Influenza Type A (PCR) NEGATIVE Influenza Type B (PCR) NEGATIVE RSV RNA Qual (PCR) NEGATIVE SARS-CoV-2 RNA (RT-PCR) NEGATIVE 09/02/22 09/02/22 09/02/22 16:55 16:55 19:01 MCV MCH MCHC RDW Plt Count MPV Immature Gran % (Auto) Neut % (Auto) Lymph % (Auto) [place] % (Auto) Eos % (Auto) Baso % (Auto) Lymph # (Auto) [place] # (Auto) Eos # (Auto) Baso # (Auto) Abs Immat Gran (auto) Absolute Neuts (auto) Absolute Nucleated RBC Nucleated RBC % (auto) ESR 10 PT INR APTT Anion Gap Estim Creat Clear Calc Estimated GFR Random Glucose Calcium Magnesium Total Bilirubin AST ALT Alkaline Phosphatase Troponin I High Sens 3.4 D C-Reactive Protein 1.51 H B-Natriuretic Peptide Total Protein Albumin Influenza Type A (PCR) Influenza Type B (PCR) RSV RNA Qual (PCR) SARS-CoV-2 RNA (RT-PCR) 09/02/22 09/02/22 09/03/22 21:41 21:41 05:39 MCV 85.3 86.9 MCH 28.2 28.2 MCHC 33.0 32.4 RDW 14.6 14.6 Plt Count 339 348 MPV 9.6 10.7 Immature Gran % (Auto) 0.5 H Neut % (Auto) 59.6 Lymph % (Auto) 16.0 L [place] % (Auto) 12.5 H Eos % (Auto) 10.1 H Baso % (Auto) 1.3 Lymph # (Auto) 1.4 [place] # (Auto) 1.1 Eos # (Auto) 0.9 H Baso # (Auto) 0.1 Abs Immat Gran (auto) 0.04 H Absolute Neuts (auto) 5.1 Absolute Nucleated RBC 0.000 0.000 Nucleated RBC % (auto) 0.0 0.0 ESR PT 11.0 INR 1.0 APTT 28.1 Anion Gap Estim Creat Clear Calc Estimated GFR Random Glucose Calcium Magnesium Total Bilirubin AST ALT Alkaline Phosphatase Troponin I High Sens C-Reactive Protein B-Natriuretic Peptide Total Protein Albumin Influenza Type A (PCR) Influenza Type B (PCR) RSV RNA Qual (PCR) SARS-CoV-2 RNA (RT-PCR) 09/03/22 05:39 MCV MCH MCHC RDW Plt Count MPV Immature Gran % (Auto) Neut % (Auto) Lymph % (Auto) [place] % (Auto) Eos % (Auto) Baso % (Auto) Lymph # (Auto) [place] # (Auto) Eos # (Auto) Baso # (Auto) Abs Immat Gran (auto) Absolute Neuts (auto) Absolute Nucleated RBC Nucleated RBC % (auto) ESR PT INR APTT Anion Gap 14 Estim Creat Clear Calc 113.5 Estimated GFR > 60 Random Glucose 122 H Calcium 8.7 Magnesium Total Bilirubin AST ALT Alkaline Phosphatase Troponin I High Sens C-Reactive Protein B-Natriuretic Peptide Total Protein Albumin Influenza Type A (PCR) Influenza Type B (PCR) RSV RNA Qual (PCR) SARS-CoV-2 RNA (RT-PCR) Assessment and Plan (1) At risk for inadequate pain control: Status: Acute Plan 62-year-old male with a PMH significant for?HTN, HLD, bilateral TKA, fused neck, history of pulmonary embolism 19 years ago on Xarelto, and s/p tracheobronchoplasty via right thoracotomy, flexible bronchoscopy with lavage on 08/17/22 at [facility] who presented to the ED with?right-sided chest pain and tightness. also found to have pulmonary embolus of left-lower lobe. severe right sided chest pain due to recent thoracotamy titrate pain meds outpatient thoracic follow up no evidence of pneumonia abx discontinued acute pulmonary embolism doubt clinically significant possibly due to holding xarelto for surgery restarted xarelto HTN losartan, amldoipine BPH flomax hld statin Full Code DVT Prophylaxis: Lovenox reason for continued hospitalization:pain control Time Spent With Patient Time: Total time managing care of this patient today ____ minutes. Quality Stroke Does the patient have a stroke diagnosis?: No VTE Prior VTE?: No VTE Risk Level:: Medical - moderate - high VTE Device Contraindication: Treatment Not Indicated VTE Drug Contraindication: N/A - Med Ordered
[2022-09-03 13:13] LABS: Appearance Urine Clear; Color Urine Yellow; Glucose Urine UA Negative (Negative); Leukocyte Esterase Urine Trace (Negative); Nitrite Urine Negative (Negative); Specific Gravity - Urine 1.025 (1.005-1.025); UMIC TRIGGER UACC YES; Urine Blood Negative (Negative); Urine Ketones Negative (Negative); Urine Protein Trace mg/dL (Neg-Trace)
[2022-09-03 13:45] LABS: Bacteria Urine None Seen (None Seen); Hyaline Casts Urine 0-2 /LPF (0-2); RBC Urine 0-2 /HPF (0-2); Squamous Epithelial Cell Urine 0-2 /HPF (0-2); WBC Urine 0-5 /HPF (0-5)
--- NOTE | 2022-09-03 14:12 | PM.CNPUL ---
History of Present Illness History of Present Illness Consult date: 09/03/22 Chief complaint: Chest Pain Narrative: This is an inpatient pulmonary consultation. The the Pt is a 62-year-old male with a PMH significant for?HTN, HLD, bilateral TKA, fused neck, history of pulmonary embolism 19 years ago on Xarelto, and s/p tracheobronchoplasty via right thoracotomy, flexible bronchoscopy with lavage on 08/17/22 at [facility] who presents to the ED with?right-sided chest pain and tightness. Pain is on the lateral aspect of his right side, under his arm and wrapping around to the back. Roughly follows his surgical scar. Says it hurts to the touch. Patient rates pain at 10/10 and describes it as feeling like a sledgehammer is pounding on me every time I cough. Pt cannot take deep breaths, has pain with movement. Pt states he has had cough and pleuritic chest pain since his surgery, but they have been significantly worse the past couple of days.? Patient claims he has been trying to use his incentive spirometry, but often can not due to pain.? Of note, patient was experiencing constipation on opioid pain meds following surgery; after telemedicine visit with surgeon on Monday, patient stopped taking opioids and reduced analgesics to only Tylenol and Motrin. In the ED patient was afebrile, tachypneic at 22, hypertensive at 195/93. Labs were significant for no leukocytosis, elevated troponin of 209.5 with repeat 3.4, C reactive protein elevated at 1.51.? UA negative for UTI.? Patient was negative for COVID, RSV, influenza type A and B. CXR showed new opacity in the right lower lobe with small pleural effusion concerning for aspiration or pneumonia.? CTA of chest showed pulmonary embolus in the left lower lobe segmental pulmonary artery extending into subsegmental branches, consolidation/atelectasis at the right lower lobe, with moderate volume right pleural effusion. EKG demonstrated normal sinus rhythm with no evidence of ST elevations or depressions. Pt was treated with a and trunk, dilaudid, benzonatate, and ceftriaxone. Pt will be admitted to the hospital for treatment and further evaluation of pulmonary embolism and pneumonia with IV ABX, analgesics, and therapeutic Lovenox. I did personally review the CT scan of the chest demonstrating the left-sided segmental thromboembolic event. In addition to that has the moderate size pleural effusion to some degree loculated. Does have the right lower lobe atelectatic. I did briefly speak to his thoracic team at [facility] and the concern for the possibility of the evolution of trapped lung. The recommendation was to drain the pleural effusion ideally with pigtail. He does scan September to today. Therefore, will reassess if it can be done safely over the weekend or Monday. Review of Systems Constitutional: Constitutional: Denies fever(s) Eyes: Eyes: Denies change in vision ENT: Denies throat swelling Cardiovascular: Cardiovascular: Reports chest pain Respiratory: Respiratory: Denies hemoptysis, Reports pain on inspiration and Reports pain with cough Gastrointestinal: Gastrointestinal: Reports no additional gastrointestinal complaints Musculoskeletal: Musculoskeletal: Reports myalgias Neurologic: Reports system reviewed and no additional complaints, except as documented Hematologic/Lymphatic: Hematologic/Lymphatic: Denies easy bleeding, Denies easy bruising and Denies lymphadenopathy Allergic/Immunologic: Allergic/Immunologic: Denies throat swelling [facility] Past Medical History Medical History (Updated 09/03/22 @ 14:19 by Tucker Moon MD) Allergic rhinitis Asthma Atelectasis Cholelithiasis Chronic neck pain Deviated nasal septum Fatty liver Gall bladder polyp GERD (gastroesophageal reflux disease) Hypercholesterolemia Lesion of vocal cord Neck pain Pleural effusion Pneumonitis Pulmonary embolism Renal calculi Tracheobronchomegaly Tracheomalacia Vocal cord dysfunction Family History Family History Mother No problems noted. Father No problems noted. Surgical History Surgical History (Updated 09/03/22 @ 14:19 by Tucker Moon MD) History of Achilles tendon repair History of eye surgery History of hernia surgery History of knee surgery History of nasal surgery History of neck surgery History of repair of left rotator cuff History of repair of right rotator cuff Social History Social History Household Members: Spouse Housing: House Do you presently have visiting nurse or other home services: Yes (vna) Alcohol intake: current Alcohol intake frequency: holidays/special occasions only Patient Tobacco Use Status: Never used Tobacco Smoked in Last 30 Days: No e-Cigarette/Vaping Use: Never Used Second Hand Smoke Exposure: No Use of substances other than those prescribed or required for medical reasons: No Currently Displaying Signs/Symptoms of Drug Intoxication Withdrawal: No Have you been hit, kicked, punched, or otherwise hurt by someone within the past year? If so, by whom?: No Do you feel safe in your current relationship?: No Is there a partner from a previous relationship who is making you feel unsafe now?: No Are you made to feel afraid or neglected: No Advance Directives: No Advance Directives Information Provided: Yes Do you have thoughts of harming others: None Do you have a plan to hurt others: No Plan Recently lost weight without trying: No Eating poorly because of decreased appetite: No Nutrition Risks: No Nutritional Risk Poor oral hygiene: No service: No Current occupational status: employed Cognitive needs: No Hearing needs: No Vision needs: No Meds Allergies Allergy/AdvReac Type Severity Reaction Status Date / Time penicillin V Allergy Intermediate fever Verified 09/02/22 16:17 vancomycin [Vancomycin] Allergy Mild HIVES, Verified 09/02/22 16:17 FEVER Penicillins AdvReac Mild FEVER Verified 09/02/22 16:17 Active Medications: Current Medications Acetaminophen (Acetaminophen 325 Mg Tablet) 650 mg PO Q6H PRN PRN Reason: Pain, Mild (Pain Scale 1-3) Amlodipine Besylate (Amlodipine Besylate 5 Mg Tablet) 5 mg PO DAILY [facility]; Protocol Last Admin: 09/03/22 09:06 Dose: 5 mg Atorvastatin Calcium (Atorvastatin Calcium 80 Mg Tablet) 80 mg PO DAILY [facility] Last Admin: 09/03/22 09:06 Dose: 80 mg Benzonatate (Benzonatate 100 Mg Capsule) 100 mg PO TID PRN PRN Reason: Cough Enoxaparin Sodium (Enoxaparin Sodium 120 Mg/0.8 Ml Syringe) 120 mg 1 mg/kg (120 mg) SUBCUT Q12H [facility] Famotidine (Famotidine 20 Mg Tablet) 20 mg PO BID [facility] Last Admin: 09/03/22 09:06 Dose: 20 mg Hydromorphone HCl (Hydromorphone Hcl 1 Mg/Ml Syringe) 1 mg IVPUSH Q2H PRN; Protocol PRN Reason: moderate pain Ketorolac Tromethamine (Ketorolac Tromethamine 30 Mg/Ml Vial) 30 mg IM Q6H [facility] Stop: 09/04/22 02:01 Lidocaine (Lidocaine 4 % Patch Adh..Patch) 1 patch TRANSDERMA DAILY [facility]; Protocol Last Admin: 09/03/22 09:06 Dose: 1 patch Losartan Potassium (Losartan Potassium 50 Mg Tablet) 100 mg PO DAILY [facility]; Protocol Last Admin: 09/03/22 09:06 Dose: 100 mg Melatonin (Melatonin 3 Mg Tablet) 6 mg PO BEDTIME PRN PRN Reason: Insomnia Metoprolol Succinate (Metoprolol Succinate Er 100 Mg Tab.Er.24h) 100 mg PO DAILY [facility]; Protocol Last Admin: 09/03/22 09:06 Dose: 100 mg Morphine Sulfate (Morphine Sulfate 4 Mg/Ml Cartridge) 4 mg IVPUSH Q4H PRN; Protocol PRN Reason: Pain, Severe (Pain Scale 7-10) Last Admin: 09/03/22 11:29 Dose: 4 mg Ondansetron HCl (Ondansetron Hcl 4 Mg/2 Ml Vial) 4 mg IVPUSH Q8H PRN PRN Reason: Nausea and Vomiting Last Admin: 09/02/22 23:10 Dose: 4 mg Pharmacy Consult (Consult Rx Perform Med Rec) 1 each MISCELLANE ONCE PRN PRN Reason: Consult order Sodium Chloride (0.9 % Sodium Chloride Flush 3 Ml Syringe) 3 ml IVFLUSH QSHIFT [facility] Last Admin: 09/03/22 09:06 Dose: 3 ml Tamsulosin HCl (Tamsulosin Hcl 0.4 Mg Capsule) 0.4 mg PO BEDTIME [facility] Home Medications Medication Instructions Recorded Confirmed Last Taken Type rivaroxaban 20 mg tablet (Xarelto) 20 mg PO DAILY 09/09/20 09/02/22 09/02/22 History acetaminophen 160 mg/5 mL oral 640 mg PO QID PRN Pain 09/02/22 09/02/22 Unknown History elixir famotidine 20 mg tablet 20 mg PO BID 09/02/22 09/02/22 09/02/22 History lidocaine 4 % topical patch 1 patch topical DAILY 09/02/22 09/02/22 Unknown History (Lidocaine Pain Relief) tamsulosin 0.4 mg capsule 0.4 mg PO BEDTIME 09/02/22 09/02/22 09/01/22 History Physical Exam Vital Signs: Vital Signs: Last Vital Signs Temp 97.8 F 09/03/22 08:00 Pulse 86 09/03/22 08:00 Resp 18 09/03/22 08:00 BP 167/88 H 09/03/22 08:00 Pulse Ox 99 09/03/22 08:00 O2 Del Method 09/03/22 08:00 O2 Flow Rate 2 09/02/22 23:52 BMI result Body Mass Index 32.5 Const: Other: Appearance: Alert. Oriented X3. Patient seems very uncomfortable, in pain Eyes: Pupils equal, round and reactive to light. ENT: Pharynx normal. Neck: Normal inspection. Neck supple. No lymph nodes noted. No crepitus CVS: Normal heart rate and rhythm. Pulses normal. Normal S1 and S2 Respiratory: No respiratory distress. Dimished MS on the right Abdomen: Soft and nontender. No rigidity. No distention. Skin: Skin warm and dry. There is a large 30 cm incision in the back of the patient on the right side, healing well, no pus drainage, no cellulitis Extremities: No lower extremity edema. No Lacerations. No Rash Neuro: Oriented X 3. No motor deficit. No sensory deficit. Moving all extremities. No slurred speech. CN 2 through 12 grossly intact Psych: calm, cooperative, normal affect Results Laboratory Findings 09/03/22 05:39 09/03/22 05:39 ABG, PT/INR, D-dimer: PT/INR, D-dimer PT 11.0 SEC (10.0-13.1) 09/02/22 21:41 INR 1.0 (0.9-1.1) 09/02/22 21:41 Abnormal lab findings: Abnormal Labs 09/02/22 09/02/22 09/02/22 16:55 16:55 16:55 RBC Hgb 13.3 L Hct 40.0 L Immature Gran % (Auto) 0.6 H Lymph % (Auto) 12.6 L [place] % (Auto) Eos % (Auto) 9.2 H Eos # (Auto) 0.9 H Abs Immat Gran (auto) 0.06 H Random Glucose AST 49 H ALT 61 H Alkaline Phosphatase 155 H Troponin I High Sens 209.5 H* C-Reactive Protein Ur Leukocyte Esterase 09/02/22 09/02/22 09/03/22 16:55 21:41 05:39 RBC 4.08 L 4.19 L Hgb 11.5 L 11.8 L Hct 34.8 L 36.4 L Immature Gran % (Auto) 0.5 H Lymph % (Auto) 16.0 L [place] % (Auto) 12.5 H Eos % (Auto) 10.1 H Eos # (Auto) 0.9 H Abs Immat Gran (auto) 0.04 H Random Glucose AST ALT Alkaline Phosphatase Troponin I High Sens C-Reactive Protein 1.51 H Ur Leukocyte Esterase 09/03/22 09/03/22 05:39 12:45 RBC Hgb Hct Immature Gran % (Auto) Lymph % (Auto) [place] % (Auto) Eos % (Auto) Eos # (Auto) Abs Immat Gran (auto) Random Glucose 122 H AST ALT Alkaline Phosphatase Troponin I High Sens C-Reactive Protein Ur Leukocyte Esterase Trace H Assessment and Plan (1) Pulmonary emboli: Status: Acute (2) Pleural effusion: Status: Acute (3) Atelectasis: Status: Acute (4) S/P tracheoplasty: Status: Acute left AMA post operatively Plan The patient appears to have a postoperative moderate loculated pleural effusion on the right side. In the associated with atelectasis. His white count is normal and does not having any fevers. Therefore less likely infectious in more inflammatory. 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 Unfortunately, the fluid can sometimes resulted in a trapped lung. I did speak briefly to the thoracic surgery team at [facility] and they did recommend drainage. Pigtail catheter will be past. Although he just stop the Xarelto today. Therefore it would have to be reassessed tomorrow or Monday. Recommendations: Steps around doing start therapeutic Lovenox Checking procalcitonin levels to assess risk for infection Serial chest x-rays to monitor the degree of pleural effusion Toradol IV x3 Continue pain management As per thoracic surgery from breath is real they would want to drain the fluid completely ideally with a pigtail catheter Time Spent With Patient Time: Total time managing care of this patient today ____ minutes. Procedures Date of Service Date of Service: 09/03/22
[2022-09-03] MEDS: Ketorolac Tromethamine 30 MG/ML VIAL IVPUSH ×2 (14:27→20:11)
[2022-09-03 15:28] LABS: Procalcitonin 0.07 ng/mL
[2022-09-03] MEDS: Tamsulosin HCL 0.4 MG CAPSULE PO (20:11)
[2022-09-04] MEDS: Ketorolac Tromethamine 30 MG/ML VIAL IVPUSH (02:09)
[2022-09-04 04:00] VITALS: BP 161/84; PULSE 82; RESP 20; TEMP 36.1; O2SAT 97
[2022-09-04 06:28] LABS: Hematocrit 38.6 % (42.0-52.0); Hemoglobin 12.6 g/dl (14.0-18.0); Mean Corpuscular HGB Conc 32.6 g/dl (31.0-36.0); Mean Corpuscular Hemoglobin 27.9 pg (27.0-33.0); Mean Corpuscular Volume 85.6 fL (80.0-98.0); Mean Platelet Volume 10.4 fL (9.4-12.4); Platelet Count 347 X10*3/uL (160-400); Red Blood Count 4.51 X10*6/uL (4.60-5.80); Red Cell Distribution Width 14.4 % (11.0-16.0); White Blood Count 7.9 X10*3/uL (4.8-10.8)
[2022-09-04 06:48] LABS: Anion Gap 16 (12-20); Blood Urea Nitrogen 17 mg/dL (9-16); Carbon Dioxide 24 mmol/L (22-29); Chloride 106 mmol/L (96-108); Estimated Glomerular Filt Rate > 60; Glucose Fasting 130 mg/dL (60-99); Potassium 4.5 mmol/L (3.3-5.1); Sodium 141 mmol/L (135-145)
[2022-09-04 08:00] VITALS: BP 168/82; PULSE 84; RESP 18; TEMP 36.3; O2SAT 98
[2022-09-04] MEDS: Famotidine 20 MG TABLET PO ×2 (08:35→19:58)
[2022-09-04] MEDS: Losartan Potassium 50 MG TABLET 100 MG PO (08:35)
[2022-09-04] MEDS: Enoxaparin Sodium 120 MG/0.8 ML SYRINGE SUBCUT ×2 (08:35→19:58)
[2022-09-04] MEDS: amLODIPine Besylate 5 MG TABLET PO (08:35)
[2022-09-04] MEDS: 0.9 % Sodium Chloride Flush 3 ML SYRINGE IVFLUSH ×3 (08:35→20:04)
[2022-09-04] MEDS: Lidocaine 4 % Patch ADH..PATCH 1 PATCH TRANSDERMA (08:35)
[2022-09-04] MEDS: Metoprolol Succinate ER 100 MG TAB.ER.24H PO (08:36)
[2022-09-04] MEDS: Atorvastatin Calcium 80 MG TABLET PO (08:36)
--- NOTE | 2022-09-04 09:10 | HO.PM.IMPN ---
Subjective Subjective Date of Service: 09/04/22 Interval History: pain improving Physical Exam Vital Signs: Vital Signs: Last Vital Signs Temp 97.4 F 09/04/22 08:00 Pulse 84 09/04/22 08:00 Resp 18 09/04/22 08:00 BP 168/82 H 09/04/22 08:00 Pulse Ox 98 09/04/22 08:00 O2 Del Method 09/04/22 08:00 O2 Flow Rate 2 09/04/22 08:00 BMI result Body Mass Index 32.5 Const: Other: Appearance: Alert. Oriented X3. Patient seems very uncomfortable, in pain Eyes: Pupils equal, round and reactive to light. ENT: Pharynx normal. Neck: Normal inspection. Neck supple. No lymph nodes noted. No crepitus CVS: Normal heart rate and rhythm. Pulses normal. Normal S1 and S2 Respiratory: No respiratory distress. Dimished MS on the right Abdomen: Soft and nontender. No rigidity. No distention. Skin: Skin warm and dry. There is a large 30 cm incision in the back of the patient on the right side, healing well, no pus drainage, no cellulitis Extremities: No lower extremity edema. No Lacerations. No Rash Neuro: Oriented X 3. No motor deficit. No sensory deficit. Moving all extremities. No slurred speech. CN 2 through 12 grossly intact Psych: calm, cooperative, normal affect Objective Data Active Medications Acetaminophen (Acetaminophen 325 Mg Tablet) 650 mg PO Q6H PRN PRN Reason: Pain, Mild (Pain Scale 1-3) Amlodipine Besylate (Amlodipine Besylate 5 Mg Tablet) 5 mg PO DAILY [facility]; Protocol Last Admin: 09/04/22 08:35 Dose: 5 mg Documented By: NEREYDA Atorvastatin Calcium (Atorvastatin Calcium 80 Mg Tablet) 80 mg PO DAILY [facility] Last Admin: 09/04/22 08:36 Dose: 80 mg Documented By: NEREYDA Benzonatate (Benzonatate 100 Mg Capsule) 100 mg PO TID PRN PRN Reason: Cough Enoxaparin Sodium (Enoxaparin Sodium 120 Mg/0.8 Ml Syringe) 120 mg 1 mg/kg (120 mg) SUBCUT Q12H [facility] Last Admin: 09/04/22 08:35 Dose: 120 mg Documented By: NEREYDA Famotidine (Famotidine 20 Mg Tablet) 20 mg PO BID [facility] Last Admin: 09/04/22 08:35 Dose: 20 mg Documented By: NEREYDA Hydromorphone HCl (Hydromorphone Hcl 1 Mg/Ml Syringe) 1 mg IVPUSH Q2H PRN; Protocol PRN Reason: moderate pain Lidocaine (Lidocaine 4 % Patch Adh..Patch) 1 patch TRANSDERMA DAILY [facility]; Protocol Last Admin: 09/04/22 08:35 Dose: 1 patch Documented By: NEREYDA Losartan Potassium (Losartan Potassium 50 Mg Tablet) 100 mg PO DAILY [facility]; Protocol Last Admin: 09/04/22 08:35 Dose: 100 mg Documented By: NEREYDA Melatonin (Melatonin 3 Mg Tablet) 6 mg PO BEDTIME PRN PRN Reason: Insomnia Metoprolol Succinate (Metoprolol Succinate Er 100 Mg Tab.Er.24h) 100 mg PO DAILY [facility]; Protocol Last Admin: 09/04/22 08:36 Dose: 100 mg Documented By: NEREYDA Morphine Sulfate (Morphine Sulfate 4 Mg/Ml Cartridge) 4 mg IVPUSH Q4H PRN; Protocol PRN Reason: Pain, Severe (Pain Scale 7-10) Last Admin: 09/03/22 23:51 Dose: 4 mg Documented By: ALTON Ondansetron HCl (Ondansetron Hcl 4 Mg/2 Ml Vial) 4 mg IVPUSH Q8H PRN PRN Reason: Nausea and Vomiting Last Admin: 09/02/22 23:10 Dose: 4 mg Documented By: VIRGILIO Pharmacy Consult (Consult Rx Perform Med Rec) 1 each MISCELLANE ONCE PRN PRN Reason: Consult order Sodium Chloride (0.9 % Sodium Chloride Flush 3 Ml Syringe) 3 ml IVFLUSH QSHIFT [facility] Last Admin: 09/04/22 08:35 Dose: 3 ml Documented By: NEREYDA Tamsulosin HCl (Tamsulosin Hcl 0.4 Mg Capsule) 0.4 mg PO BEDTIME [facility] Last Admin: 09/03/22 20:11 Dose: 0.4 mg Documented By: ALTON Labs 09/04/22 05:28 09/04/22 05:28 Labs: Laboratory Results - last 24 hr 09/03/22 09/03/22 09/04/22 12:45 14:22 05:28 MCV 85.6 MCH 27.9 MCHC 32.6 RDW 14.4 Plt Count 347 MPV 10.4 Absolute Nucleated RBC 0.000 Nucleated RBC % (auto) 0.0 Anion Gap Estim Creat Clear Calc Estimated GFR Fasting Glucose Calcium Procalcitonin 0.07 Urine Color Yellow Urine Appearance Clear Urine pH 6.0 Ur Specific [place] 1.025 Urine Protein Trace Urine Glucose (UA) Negative Urine Ketones Negative Urine Blood Negative Urine Nitrite Negative Ur Leukocyte Esterase Trace H Urine RBC 0-2 Urine WBC 0-5 Ur Squamous Epith Cells 0-2 Urine Bacteria None Seen Hyaline Casts 0-2 09/04/22 05:28 MCV MCH MCHC RDW Plt Count MPV Absolute Nucleated RBC Nucleated RBC % (auto) Anion Gap 16 Estim Creat Clear Calc 111.0 Estimated GFR > 60 Fasting Glucose 130 H Calcium 9.0 Procalcitonin Urine Color Urine Appearance Urine pH Ur Specific [place] Urine Protein Urine Glucose (UA) Urine Ketones Urine Blood Urine Nitrite Ur Leukocyte Esterase Urine RBC Urine WBC Ur Squamous Epith Cells Urine Bacteria Hyaline Casts Microbiology Microbiology Results: Microbiology 09/02/22 17:31 Blood Culture - Preliminary Blood - Venous No growth after 24 hours. 09/02/22 16:55 Blood Culture - Preliminary Blood - Venous No growth after 24 hours. Assessment and Plan (1) At risk for inadequate pain control: Status: Acute Plan 62-year-old male with a PMH significant for?HTN, HLD, bilateral TKA, fused neck, history of pulmonary embolism 19 years ago on Xarelto, and s/p tracheobronchoplasty via right thoracotomy, flexible bronchoscopy with lavage on 08/17/22 at [facility] who presented to the ED with?right-sided chest pain and tightness. also found to have pulmonary embolus of left-lower lobe. severe right sided chest pain due to recent thoracotamy titrate pain meds outpatient thoracic follow up pulm followiing plan for pigtail lue swelling no eveidence of dvt no evidence of pneumonia abx discontinued acute pulmonary embolism doubt clinically significant possibly due to holding xarelto for surgery on lovenox for planned pigtail catheter HTN losartan, amldoipine BPH flomax hld statin Full Code DVT Prophylaxis: Lovenox reason for continued hospitalization:pain control Time Spent With Patient Time: Total time managing care of this patient today ____ minutes. Quality Stroke Does the patient have a stroke diagnosis?: No VTE Prior VTE?: No VTE Risk Level:: Medical - moderate - high VTE Device Contraindication: Treatment Not Indicated VTE Drug Contraindication: N/A - Med Ordered
[2022-09-04 09:16] LABS: MRSA Nasal PCR NEGATIVE (Negative); SA Nasal PCR NEGATIVE (Negative)
--- NOTE | 2022-09-04 10:43 | MHC.CM.PN ---
PT REPORTS HE LIVES WITH HIS AND IS INDEPENDENT WITH CARE HE HAS NO SERVICES AND USES NO DME CURRENTLY HE SAYS HIS IS HIS HCP, HE IS UNSURE IF HE HAS A COPY.. HE IS AWARE CM CAN ASSIST WITH COMPLETION OF A NEW HCP HE IS COVID VAX, NOT BOOSTED PCP: NATHALIE HUGGINS IMM DELIVERED CURRENT DC PLAN IS HOME TO TRANSPORT
[2022-09-04 12:00] VITALS: BP 161/87; PULSE 83; RESP 18; TEMP 36.7; O2SAT 97
[2022-09-04] MEDS: Benzonatate 100 MG CAPSULE PO ×2 (12:46→19:58)
[2022-09-04] MEDS: Morphine Sulfate 4 MG/ML CARTRIDGE IVPUSH ×2 (12:46→18:36)
[2022-09-04 15:54] VITALS: BP 154/83; PULSE 82; RESP 18; TEMP 36.2; O2SAT 97
[2022-09-04 19:31] VITALS: BP 172/79; PULSE 92; RESP 18; TEMP 36.3; O2SAT 96
[2022-09-04] MEDS: Tamsulosin HCL 0.4 MG CAPSULE PO (19:58)
--- NOTE | 2022-09-04 21:15 | P.PNPL_ITS ---
Subjective Subjective Date of Service: 09/04/22 Interval history: The patient was seen and examined. Still having significant chest pain but better. CXR with moderate pleural effusion. [facility] wants to evacuate the fluid completely. He was taken off the Xorelto yesterday. Should have thoracentesis +/- chest tube tomorrow. Objective Data Labs 09/04/22 05:28 09/04/22 05:28 Labs: Laboratory Results - last 24 hr 09/03/22 09/04/22 09/04/22 17:06 05:28 05:28 WBC 7.9 RBC 4.51 L Hgb 12.6 L Hct 38.6 L MCV 85.6 MCH 27.9 MCHC 32.6 RDW 14.4 Plt Count 347 MPV 10.4 Absolute Nucleated RBC 0.000 Nucleated RBC % (auto) 0.0 Sodium 141 Potassium 4.5 Chloride 106 Carbon Dioxide 24 Anion Gap 16 BUN 17 H Creatinine 0.93 Estim Creat Clear Calc 111.0 Estimated GFR > 60 Fasting Glucose 130 H Calcium 9.0 Nasal Screen MRSA (PCR) NEGATIVE Nasal S. aureus Screen NEGATIVE Nasal MRSA/S.aureus Interp SEE NOTE Microbiology Microbiology Results: Microbiology 09/02/22 17:31 Blood - Venous Blood Culture - Preliminary No growth after 48 hours. 09/02/22 16:55 Blood - Venous Blood Culture - Preliminary No growth after 48 hours. Review of Systems Constitutional: Denies fever(s) Eyes: Denies change in vision Denies throat swelling Cardiovascular: Reports chest pain Respiratory: Denies hemoptysis, Reports pain on inspiration and Reports pain with cough Gastrointestinal: Reports no additional gastrointestinal complaints Musculoskeletal: Reports myalgias Reports system reviewed and no additional complaints, except as documented Hematologic/Lymphatic: Denies easy bleeding, Denies easy bruising and Denies lymphadenopathy Allergic/Immunologic: Denies throat swelling Physical Exam Vital Signs: Vital Signs: Last Vital Signs Temp 97.3 F 09/04/22 19:31 Pulse 92 09/04/22 19:31 Resp 18 09/04/22 19:31 BP 172/79 H 09/04/22 19:31 Pulse Ox 96 09/04/22 19:31 O2 Del Method 09/04/22 19:31 O2 Flow Rate 2 09/04/22 08:00 BMI result Body Mass Index 32.5 Const: Other: Appearance: Alert. Oriented X3. Patient seems very uncomfortable, in pain Eyes: Pupils equal, round and reactive to light. ENT: Pharynx normal. Neck: Normal inspection. Neck supple. No lymph nodes noted. No crepitus CVS: Normal heart rate and rhythm. Pulses normal. Normal S1 and S2 Respiratory: No respiratory distress. Dimished MS on the right Abdomen: Soft and nontender. No rigidity. No distention. Skin: Skin warm and dry. There is a large 30 cm incision in the back of the patient on the right side, healing well, no pus drainage, no cellulitis Extremities: No lower extremity edema. No Lacerations. No Rash Neuro: Oriented X 3. No motor deficit. No sensory deficit. Moving all extremities. No slurred speech. CN 2 through 12 grossly intact Psych: calm, cooperative, normal affect Procedures Date of Service Date of Service: 09/04/22 Assessment and Plan Assessment and plan (1) S/P tracheoplasty: Status: Acute (2) Atelectasis: Status: Acute (3) Pleural effusion: Status: Acute (4) Pulmonary emboli: Status: Acute Plan Should hold morning lovenox plan for thoracentesis +/- pig tail if not draining completely ISS/OOB to arie Will need to restart Xorelto afterwards F/U imaging stop Torodol consider Low dose prednosone Time Spent With Patient Time: Total time managing care of this patient today ____ minutes. Progress Note: Quality Stroke Does the patient have a stroke diagnosis?: No
[2022-09-04 23:41] VITALS: BP 169/90; PULSE 86; RESP 20; TEMP 36.3; O2SAT 96
[2022-09-05] MEDS: Morphine Sulfate 4 MG/ML CARTRIDGE IVPUSH ×5 (00:17→21:32)
[2022-09-05 03:43] VITALS: BP 169/80; PULSE 82; RESP 20; TEMP 36.5; O2SAT 96
[2022-09-05 07:21] VITALS: BP 171/86; PULSE 87; RESP 18; TEMP 36.8; O2SAT 98
[2022-09-05] MEDS: Atorvastatin Calcium 80 MG TABLET PO (08:15)
[2022-09-05] MEDS: Metoprolol Succinate ER 100 MG TAB.ER.24H PO (08:15)
[2022-09-05] MEDS: Enoxaparin Sodium 120 MG/0.8 ML SYRINGE SUBCUT (08:15)
[2022-09-05] MEDS: Losartan Potassium 50 MG TABLET 100 MG PO (08:15)
[2022-09-05] MEDS: Famotidine 20 MG TABLET PO ×2 (08:15→20:19)
[2022-09-05] MEDS: amLODIPine Besylate 5 MG TABLET PO (08:15)
[2022-09-05] MEDS: 0.9 % Sodium Chloride Flush 3 ML SYRINGE IVFLUSH ×3 (08:15→20:22)
--- NOTE | 2022-09-05 08:51 | HO.PM.IMPN ---
Subjective Subjective Date of Service: 09/05/22 Interval History: still with pain Physical Exam Vital Signs: Vital Signs: Last Vital Signs Temp 98.3 F 09/05/22 07:21 Pulse 87 09/05/22 07:21 Resp 18 09/05/22 07:21 BP 171/86 H 09/05/22 07:21 Pulse Ox 98 09/05/22 07:21 O2 Del Method 09/05/22 07:21 O2 Flow Rate 2 09/05/22 07:21 BMI result Body Mass Index 32.5 Const: Other: Appearance: Alert. Oriented X3. Patient seems very uncomfortable, in pain Eyes: Pupils equal, round and reactive to light. ENT: Pharynx normal. Neck: Normal inspection. Neck supple. No lymph nodes noted. No crepitus CVS: Normal heart rate and rhythm. Pulses normal. Normal S1 and S2 Respiratory: No respiratory distress. Dimished MS on the right Abdomen: Soft and nontender. No rigidity. No distention. Skin: Skin warm and dry. There is a large 30 cm incision in the back of the patient on the right side, healing well, no pus drainage, no cellulitis Extremities: No lower extremity edema. No Lacerations. No Rash Neuro: Oriented X 3. No motor deficit. No sensory deficit. Moving all extremities. No slurred speech. CN 2 through 12 grossly intact Psych: calm, cooperative, normal affect Objective Data Active Medications Acetaminophen (Acetaminophen 325 Mg Tablet) 650 mg PO Q6H PRN PRN Reason: Pain, Mild (Pain Scale 1-3) Amlodipine Besylate (Amlodipine Besylate 5 Mg Tablet) 5 mg PO DAILY [facility]; Protocol Last Admin: 09/05/22 08:15 Dose: 5 mg Documented By: CHERELLE Atorvastatin Calcium (Atorvastatin Calcium 80 Mg Tablet) 80 mg PO DAILY [facility] Last Admin: 09/05/22 08:15 Dose: 80 mg Documented By: CHERELLE Benzonatate (Benzonatate 100 Mg Capsule) 100 mg PO TID PRN PRN Reason: Cough Last Admin: 09/04/22 19:58 Dose: 100 mg Documented By: MISHEL Enoxaparin Sodium (Enoxaparin Sodium 120 Mg/0.8 Ml Syringe) 120 mg 1 mg/kg (120 mg) SUBCUT Q12H [facility] Last Admin: 02/20/23 08:15 Dose: 120 mg Documented By: CHERELLE Famotidine (Famotidine 20 Mg Tablet) 20 mg PO BID [facility] Last Admin: 09/05/22 08:15 Dose: 20 mg Documented By: CHERELLE Hydromorphone HCl (Hydromorphone Hcl 1 Mg/Ml Syringe) 1 mg IVPUSH Q2H PRN; Protocol PRN Reason: moderate pain Lidocaine (Lidocaine 4 % Patch Adh..Patch) 1 patch TRANSDERMA DAILY [facility]; Protocol Last Admin: 09/05/22 08:15 Dose: Not Given Documented By: CHERELLE Non-Admin Reason: Patient Refused Losartan Potassium (Losartan Potassium 50 Mg Tablet) 100 mg PO DAILY [facility]; Protocol Last Admin: 09/05/22 08:15 Dose: 100 mg Documented By: CHERELLE Melatonin (Melatonin 3 Mg Tablet) 6 mg PO BEDTIME PRN PRN Reason: Insomnia Metoprolol Succinate (Metoprolol Succinate Er 100 Mg Tab.Er.24h) 100 mg PO DAILY [facility]; Protocol Last Admin: 09/05/22 08:15 Dose: 100 mg Documented By: CHERELLE Morphine Sulfate (Morphine Sulfate 4 Mg/Ml Cartridge) 4 mg IVPUSH Q4H PRN; Protocol PRN Reason: Pain, Severe (Pain Scale 7-10) Last Admin: 09/05/22 08:14 Dose: 4 mg Documented By: CHERELLE Ondansetron HCl (Ondansetron Hcl 4 Mg/2 Ml Vial) 4 mg IVPUSH Q8H PRN PRN Reason: Nausea and Vomiting Last Admin: 09/02/22 23:10 Dose: 4 mg Documented By: VIRGILIO Pharmacy Consult (Consult Rx Perform Med Rec) 1 each MISCELLANE ONCE PRN PRN Reason: Consult order Sodium Chloride (0.9 % Sodium Chloride Flush 3 Ml Syringe) 3 ml IVFLUSH QSHIFT [facility] Last Admin: 09/05/22 08:15 Dose: 3 ml Documented By: CHERELLE Tamsulosin HCl (Tamsulosin Hcl 0.4 Mg Capsule) 0.4 mg PO BEDTIME [facility] Last Admin: 09/04/22 19:58 Dose: 0.4 mg Documented By: MISHEL Labs 09/04/22 05:28 09/04/22 05:28 Labs: Laboratory Results - last 24 hr 09/03/22 17:06 Nasal Screen MRSA (PCR) NEGATIVE Nasal S. aureus Screen NEGATIVE Nasal MRSA/S.aureus Interp SEE NOTE Microbiology Microbiology Results: Microbiology 09/02/22 17:31 Blood Culture - Preliminary Blood - Venous No growth after 48 hours. 09/02/22 16:55 Blood Culture - Preliminary Blood - Venous No growth after 48 hours. Assessment and Plan (1) At risk for inadequate pain control: Status: Acute Plan 62-year-old male with a PMH significant for?HTN, HLD, bilateral TKA, fused neck, history of pulmonary embolism 19 years ago on Xarelto, and s/p tracheobronchoplasty via right thoracotomy, flexible bronchoscopy with lavage on 08/17/22 at [facility] who presented to the ED with?right-sided chest pain and tightness. also found to have pulmonary embolus of left-lower lobe. severe right sided chest pain due to recent thoracotamy pleurisy complicated by right pleural effusion titrate pain meds outpatient thoracic follow up pulm following plan for pigtail lue swelling no evidence of dvt no evidence of pneumonia abx discontinued acute pulmonary embolism doubt clinically significant possibly due to holding xarelto for surgery on lovenox for planned pigtail catheter HTN losartan, amldoipine BPH flomax hld statin Full Code DVT Prophylaxis: Lovenox reason for continued hospitalization:pain control Time Spent With Patient Time: Total time managing care of this patient today ____ minutes. Quality Stroke Does the patient have a stroke diagnosis?: No VTE Prior VTE?: No VTE Risk Level:: Medical - moderate - high VTE Device Contraindication: Treatment Not Indicated VTE Drug Contraindication: N/A - Med Ordered
[2022-09-05 16:00] VITALS: BP 174/88; PULSE 79; RESP 18; TEMP 36.8; O2SAT 99
[2022-09-05] MEDS: Benzonatate 100 MG CAPSULE PO (17:36)
[2022-09-05 20:00] VITALS: BP 169/77; PULSE 75; RESP 17; TEMP 36.6; O2SAT 97
[2022-09-05] MEDS: Tamsulosin HCL 0.4 MG CAPSULE PO (20:19)
[2022-09-05 23:39] VITALS: BP 153/86; PULSE 68; RESP 18; TEMP 36.6; O2SAT 99
[2022-09-06] VITALS (10 sets, daily range): BP systolic 133–177; BP diastolic 68–90; PULSE 73–91; RESP 16–22; TEMP 36.2–36.6; O2SAT 96–100
[2022-09-06] MEDS: Acetaminophen 325 MG TABLET 650 MG PO (01:01)
[2022-09-06 07:07] LABS: Hematocrit 40.3 % (42.0-52.0); Hemoglobin 13.1 g/dl (14.0-18.0); Mean Corpuscular HGB Conc 32.5 g/dl (31.0-36.0); Mean Corpuscular Hemoglobin 28.1 pg (27.0-33.0); Mean Corpuscular Volume 86.5 fL (80.0-98.0); Mean Platelet Volume 10.2 fL (9.4-12.4); Platelet Count 338 X10*3/uL (160-400); Red Blood Count 4.66 X10*6/uL (4.60-5.80); Red Cell Distribution Width 14.2 % (11.0-16.0); White Blood Count 7.2 X10*3/uL (4.8-10.8)
[2022-09-06] MEDS: Morphine Sulfate 4 MG/ML CARTRIDGE IVPUSH ×5 (07:12→22:58)
[2022-09-06 07:22] LABS: Anion Gap 13 (12-20); Blood Urea Nitrogen 15 mg/dL (9-16); Calcium 9.3 mg/dL (8.4-10.2); Carbon Dioxide 28 mmol/L (22-29); Chloride 104 mmol/L (96-108); Creatinine Clr Calc Pharmacy 103.3; Estimated Glomerular Filt Rate > 60; Glucose Fasting 116 mg/dL (60-99); Potassium 4.4 mmol/L (3.3-5.1); Sodium 141 mmol/L (135-145)
[2022-09-06] MEDS: Atorvastatin Calcium 80 MG TABLET PO (08:25)
[2022-09-06] MEDS: Famotidine 20 MG TABLET PO ×2 (08:25→19:49)
[2022-09-06] MEDS: Metoprolol Succinate ER 100 MG TAB.ER.24H PO (08:25)
[2022-09-06] MEDS: Benzonatate 100 MG CAPSULE PO (08:25)
[2022-09-06] MEDS: 0.9 % Sodium Chloride Flush 3 ML SYRINGE IVFLUSH ×3 (08:25→19:58)
[2022-09-06] MEDS: amLODIPine Besylate 5 MG TABLET PO (08:25)
[2022-09-06] MEDS: Losartan Potassium 50 MG TABLET 100 MG PO (08:25)
--- NOTE | 2022-09-06 08:50 | P.PNIM_ITS ---
Subjective Subjective Date of Service: 09/06/22 Interval History: still with pain Physical Exam Vital Signs: Vital Signs: Last Vital Signs Temp 97.3 F 09/06/22 07:29 Pulse 75 09/06/22 07:29 Resp 18 09/06/22 07:29 BP 149/83 H 09/06/22 07:29 Pulse Ox 97 09/06/22 07:29 O2 Del Method 09/06/22 07:29 O2 Flow Rate 2 09/06/22 03:36 BMI result Body Mass Index 32.5 Const: Other: Appearance: Alert. Oriented X3. Patient seems very uncomfortable, in pain Eyes: Pupils equal, round and reactive to light. ENT: Pharynx normal. Neck: Normal inspection. Neck supple. No lymph nodes noted. No crepitus CVS: Normal heart rate and rhythm. Pulses normal. Normal S1 and S2 Respiratory: No respiratory distress. Dimished MS on the right Abdomen: Soft and nontender. No rigidity. No distention. Skin: Skin warm and dry. There is a large 30 cm incision in the back of the patient on the right side, healing well, no pus drainage, no cellulitis Extremities: No lower extremity edema. No Lacerations. No Rash Neuro: Oriented X 3. No motor deficit. No sensory deficit. Moving all extremit ies. No slurred speech. CN 2 through 12 grossly intact Psych: calm, cooperative, normal affect Objective Data Active Medications Acetaminophen (Acetaminophen 325 Mg Tablet) 650 mg PO Q6H PRN PRN Reason: Pain, Mild (Pain Scale 1-3) Last Admin: 09/06/22 01:01 Dose: 650 mg Documented By: MISHEL Amlodipine Besylate (Amlodipine Besylate 5 Mg Tablet) 5 mg PO DAILY [facility]; Protocol Last Admin: 09/06/22 08:25 Dose: 5 mg Documented By: CHERELLE Atorvastatin Calcium (Atorvastatin Calcium 80 Mg Tablet) 80 mg PO DAILY [facility] Last Admin: 09/06/22 08:25 Dose: 80 mg Documented By: CHERELLE Benzonatate (Benzonatate 100 Mg Capsule) 100 mg PO TID PRN PRN Reason: Cough Last Admin: 09/06/22 08:25 Dose: 100 mg Documented By: CHERELLE Enoxaparin Sodium (Enoxaparin Sodium 120 Mg/0.8 Ml Syringe) 120 mg 1 mg/kg (120 mg) SUBCUT Q12H [facility] Last Admin: 09/05/22 08:15 Dose: 120 mg Documented By: CHERELLE Famotidine (Famotidine 20 Mg Tablet) 20 mg PO BID [facility] Last Admin: 09/06/22 08:25 Dose: 20 mg Documented By: CHERELLE Hydromorphone HCl (Hydromorphone Hcl 1 Mg/Ml Syringe) 1 mg IVPUSH Q2H PRN; Protocol PRN Reason: moderate pain Lidocaine (Lidocaine 4 % Patch Adh..Patch) 1 patch TRANSDERMA DAILY [facility]; Protocol Last Admin: 09/06/22 08:25 Dose: Not Given Documented By: CHERELLE Non-Admin Reason: Patient Refused Losartan Potassium (Losartan Potassium 50 Mg Tablet) 100 mg PO DAILY [facility]; Protocol Last Admin: 09/06/22 08:25 Dose: 100 mg Documented By: CHERELLE Melatonin (Melatonin 3 Mg Tablet) 6 mg PO BEDTIME PRN PRN Reason: Insomnia Metoprolol Succinate (Metoprolol Succinate Er 100 Mg Tab.Er.24h) 100 mg PO DAILY [facility]; Protocol Last Admin: 09/06/22 08:25 Dose: 100 mg Documented By: CHERELLE Morphine Sulfate (Morphine Sulfate 4 Mg/Ml Cartridge) 4 mg IVPUSH Q4H PRN; Protocol PRN Reason: Pain, Severe (Pain Scale 7-10) Last Admin: 09/06/22 07:12 Dose: 4 mg Documented By: CHERELLE Ondansetron HCl (Ondansetron Hcl 4 Mg/2 Ml Vial) 4 mg IVPUSH Q8H PRN PRN Reason: Nausea and Vomiting Last Admin: 09/02/22 23:10 Dose: 4 mg Documented By: VIRGILIO Pharmacy Consult (Consult Rx Perform Med Rec) 1 each MISCELLANE ONCE PRN PRN Reason: Consult order Sodium Chloride (0.9 % Sodium Chloride Flush 3 Ml Syringe) 3 ml IVFLUSH QSHIFT [facility] Last Admin: 09/06/22 08:25 Dose: 3 ml Documented By: CHERELLE Tamsulosin HCl (Tamsulosin Hcl 0.4 Mg Capsule) 0.4 mg PO BEDTIME [facility] Last Admin: 09/05/22 20:19 Dose: 0.4 mg Documented By: MISHEL Labs 09/06/22 06:31 02/21/23 06:31 Labs: Laboratory Results - last 24 hr 09/06/22 09/06/22 06:31 06:31 MCV 86.5 MCH 28.1 MCHC 32.5 RDW 14.2 Plt Count 338 MPV 10.2 Absolute Nucleated RBC 0.000 Nucleated RBC % (auto) 0.0 Anion Gap 13 Estim Creat Clear Calc 103.3 Estimated GFR > 60 Fasting Glucose 116 H Calcium 9.3 Assessment and Plan (1) At risk for inadequate pain control: Status: Acute Plan 62-year-old male with a PMH significant for?HTN, HLD, bilateral TKA, fused neck, history of pulmonary embolism 19 years ago on Xarelto, and s/p tracheobronchoplasty via right thoracotomy, flexible bronchoscopy with lavage on 08/17/22 at [facility] who presented to the ED with?right-sided chest pain and tightness. also found to have pulmonary embolus of left-lower lobe. severe right sided chest pain due to recent thoracotamy pleurisy complicated by right pleural effusion titrate pain meds outpatient thoracic follow up pulm following plan for pigtail today lue swelling no evidence of dvt no evidence of pneumonia abx discontinued acute pulmonary embolism doubt clinically significant possibly due to holding xarelto for surgery on lovenox for planned pigtail catheter HTN losartan, amldoipine BPH flomax hld statin Full Code DVT Prophylaxis: Lovenox reason for continued hospitalization:pain control Time Spent With Patient Time: Total time managing care of this patient today ____ minutes. Quality Stroke Does the patient have a stroke diagnosis?: No VTE Prior VTE?: No VTE Risk Level:: Medical - moderate - high VTE Device Contraindication: Treatment Not Indicated VTE Drug Contraindication: N/A - Med Ordered
[2022-09-06] MEDS: Lidocaine HCl 1 % MPF 5 ML VIAL SUBCUT ×2 (11:00→17:35)
--- NOTE | 2022-09-06 11:17 | MHC.CM.PN ---
EMR REVIEWED, PER HOSPITALIST PLAN FOR CHEST TUBE INSERTION TODAY, NO PLAN FOR D/C AT THIS TIME, CM WILL CONT TO FOLLOW.
--- NOTE | 2022-09-06 17:31 | HO.RADPN ---
RADIOLOGY Narrative Narrative: Right 8.5 fr chest tube placed. 300 mL serosanguinous fluid removed. CXR pending.
[2022-09-06 17:48] LABS: MN% 84.9 %; PMN% 15.1 %; RBC Pleural Fluid 0.013 X10*3/uL; WBC Pleural Fluid 2.603 X10*3/uL
[2022-09-06 18:23] LABS: Basophils Pleural Fluid 1 %; Eosinophils Pleural Fluid 11 %; Lymphocytes Pleural Fluid 77 %; Monocytes Pleural Fluid 6 %; Neutrophils Pleural Fluid 2 %
[2022-09-06 18:24] LABS: BF Shift QC OK YES; Other Cells Plerual Fl 3 %
[2022-09-06] MEDS: Tamsulosin HCL 0.4 MG CAPSULE PO (19:49)
[2022-09-06 20:11] LABS: Glucose Pleural Fluid 107 MG/DL; LDH Pleural Fluid 264 U/L; Total Protein Pleural Fluid 4.3 GM/DL
[2022-09-07] VITALS (7 sets, daily range): BP systolic 129–167; BP diastolic 65–84; PULSE 79–93; RESP 17–20; TEMP 36–36.8; O2SAT 96–98
--- NOTE | 2022-09-07 | ECG_ITS ---
Test Reason : cp Blood Pressure : / mmHG Vent. Rate : 090 BPM Atrial Rate : 090 BPM P-R Int : 176 ms QRS Dur : 084 ms QT Int : 388 ms P-R-T Axes : 073 -08 033 degrees QTc Int : 474 ms Normal sinus rhythm Normal ECG When compared with ECG of 02-SEP-2022 16:45, No significant change was found Referred By: Mady Lafleur Electronically Signed By:ALLAN MCMILLAN
[2022-09-07] MEDS: Morphine Sulfate 4 MG/ML CARTRIDGE IVPUSH ×4 (01:31→22:33)
[2022-09-07] MEDS: Benzonatate 100 MG CAPSULE PO ×2 (05:18→13:56)
[2022-09-07] MEDS: Acetaminophen 325 MG TABLET 650 MG PO ×2 (05:18→11:01)
[2022-09-07] MEDS: Losartan Potassium 50 MG TABLET 100 MG PO (08:57)
[2022-09-07] MEDS: amLODIPine Besylate 5 MG TABLET PO (08:57)
[2022-09-07] MEDS: Metoprolol Succinate ER 100 MG TAB.ER.24H PO (08:58)
[2022-09-07] MEDS: Atorvastatin Calcium 80 MG TABLET PO (08:58)
[2022-09-07] MEDS: Famotidine 20 MG TABLET PO ×2 (08:58→19:56)
[2022-09-07] MEDS: 0.9 % Sodium Chloride Flush 3 ML SYRINGE IVFLUSH ×2 (08:59→15:36)
--- NOTE | 2022-09-07 09:05 | HO.PM.IMPN ---
Subjective Subjective Date of Service: 09/07/22 Interval History: still with pain Physical Exam Vital Signs: Vital Signs: Last Vital Signs Temp 98.2 F 09/07/22 07:52 Pulse 93 09/07/22 07:52 Resp 18 09/07/22 07:52 BP 159/82 H 09/07/22 07:52 Pulse Ox 98 09/07/22 07:52 O2 Del Method 09/07/22 07:52 O2 Flow Rate 2 09/06/22 19:41 BMI result Body Mass Index 32.5 Const: Other: Appearance: Alert. Oriented X3. Patient seems very uncomfortable, in pain Eyes: Pupils equal, round and reactive to light. ENT: Pharynx normal. Neck: Normal inspection. Neck supple. No lymph nodes noted. No crepitus CVS: Normal heart rate and rhythm. Pulses normal. Normal S1 and S2 Respiratory: No respiratory distress. Dimished MS on the right Abdomen: Soft and nontender. No rigidity. No distention. Skin: Skin warm and dry. There is a large 30 cm incision in the back of the patient on the right side, healing well, no pus drainage, no cellulitis Extremities: No lower extremity edema. No Lacerations. No Rash Neuro: Oriented X 3. No motor deficit. No sensory deficit. Moving all extremities. No slurred speech. CN 2 through 12 grossly intact Psych: calm, cooperative, normal affect Objective Data Active Medications Acetaminophen (Acetaminophen 325 Mg Tablet) 650 mg PO Q6H PRN PRN Reason: Pain, Mild (Pain Scale 1-3) Last Admin: 09/07/22 05:18 Dose: 650 mg Documented By: THOR Amlodipine Besylate (Amlodipine Besylate 5 Mg Tablet) 5 mg PO DAILY [facility]; Protocol Last Admin: 09/07/22 08:57 Dose: 5 mg Documented By: KIM Atorvastatin Calcium (Atorvastatin Calcium 80 Mg Tablet) 80 mg PO DAILY [facility] Last Admin: 09/07/22 08:58 Dose: 80 mg Documented By: KIM Benzonatate (Benzonatate 100 Mg Capsule) 100 mg PO TID PRN PRN Reason: Cough Last Admin: 09/07/22 05:18 Dose: 100 mg Documented By: THOR Enoxaparin Sodium (Enoxaparin Sodium 120 Mg/0.8 Ml Syringe) 120 mg 1 mg/kg (120 mg) SUBCUT Q12H [facility] Last Admin: 09/05/22 08:15 Dose: 120 mg Documented By: CHERELLE Famotidine (Famotidine 20 Mg Tablet) 20 mg PO BID [facility] Last Admin: 09/07/22 08:58 Dose: 20 mg Documented By: KIM Lidocaine (Lidocaine 4 % Patch Adh..Patch) 1 patch TRANSDERMA DAILY [facility]; Protocol Last Admin: 09/07/22 09:00 Dose: Not Given Documented By: KIM Non-Admin Reason: Patient Refused Losartan Potassium (Losartan Potassium 50 Mg Tablet) 100 mg PO DAILY [facility]; Protocol Last Admin: 09/07/22 08:57 Dose: 100 mg Documented By: KIM Melatonin (Melatonin 3 Mg Tablet) 6 mg PO BEDTIME PRN PRN Reason: Insomnia Metoprolol Succinate (Metoprolol Succinate Er 100 Mg Tab.Er.24h) 100 mg PO DAILY [facility]; Protocol Last Admin: 09/07/22 08:58 Dose: 100 mg Documented By: KIM Morphine Sulfate (Morphine Sulfate 4 Mg/Ml Cartridge) 4 mg IVPUSH Q2H PRN; Protocol PRN Reason: Pain, Severe (Pain Scale 7-10) Last Admin: 09/07/22 03:52 Dose: 4 mg Documented By: THOR Ondansetron HCl (Ondansetron Hcl 4 Mg/2 Ml Vial) 4 mg IVPUSH Q8H PRN PRN Reason: Nausea and Vomiting Last Admin: 09/02/22 23:10 Dose: 4 mg Documented By: VIRGILIO Pharmacy Consult (Consult Rx Perform Med Rec) 1 each MISCELLANE ONCE PRN PRN Reason: Consult order Sodium Chloride (0.9 % Sodium Chloride Flush 3 Ml Syringe) 3 ml IVFLUSH QSHIFT [facility] Last Admin: 09/07/22 08:59 Dose: 3 ml Documented By: IKM Tamsulosin HCl (Tamsulosin Hcl 0.4 Mg Capsule) 0.4 mg PO BEDTIME [facility] Last Admin: 09/06/22 19:49 Dose: 0.4 mg Documented By: THOR Labs 09/06/22 06:31 09/06/22 06:31 Labs: Laboratory Results - last 24 hr 09/06/22 09/06/22 17:15 17:15 Pleural WBC 2.603 Pleural RBC 0.013 Pleural Neutrophils 2 Pleural Lymphocytes 77 Pleural Monocytes 6 Pleural Eosinophils 11 Pleural Basophils 1 Pleural Other Cells 3 Pleural Total Protein 4.3 Pleural LDH 264 Pleural Glucose 107 Microbiology Microbiology Results: Microbiology 09/06/22 17:15 Gram Stain - Final Thoracentesis Fluid Assessment and Plan (1) At risk for inadequate pain control: Status: Acute Plan 62-year-old male with a PMH significant for?HTN, HLD, bilateral TKA, fused neck, history of pulmonary embolism 19 years ago on Xarelto, and s/p tracheobronchoplasty via right thoracotomy, flexible bronchoscopy with lavage on 08/17/22 at [facility] who presented to the ED with?right-sided chest pain and tightness. also found to have pulmonary embolus of left-lower lobe. severe right sided chest pain due to recent thoracotamy pleurisy complicated by right pleural effusion titrate pain meds outpatient thoracic follow up pulm following s/p chest tube placement 09/06/22 lue swelling no evidence of dvt no evidence of pneumonia abx discontinued acute pulmonary embolism doubt clinically significant possibly due to holding xarelto for surgery on lovenox for planned pigtail catheter HTN losartan, amldoipine BPH flomax hld statin Full Code DVT Prophylaxis: Lovenox reason for continued hospitalization:pain control Time Spent With Patient Time: Total time managing care of this patient today ____ minutes. Quality Stroke Does the patient have a stroke diagnosis?: No VTE Prior VTE?: No VTE Risk Level:: Medical - moderate - high VTE Device Contraindication: Treatment Not Indicated VTE Drug Contraindication: N/A - Med Ordered
--- NOTE | 2022-09-07 16:17 | MHC.CM.PN ---
EMR REVIEWED, PT W/SEVERE CHEST PAIN D/T RECENT THORACOTAMY, CHEST TUBE PLACED 09/06 AND THORACIC CONSULT PENDING, CM WILL CONT TO FOLLOW D/C NEEDS.
--- NOTE | 2022-09-07 17:18 | PC.NURSE ---
Pt is AXO to person, place, time and event. Patient has chest tube in place to suction @-120. Minimal output of serous drainage approx. 20cc during shift. Pt chest tube dressing is dry and intact. Patient ambulated to restroom through out day. No pain reported at chest tube site. visited at bedside. Frequenting rounding on pt for safety and needs.
[2022-09-07] MEDS: HYDROmorphone HCl 0.5 MG/0.5 ML SYRINGE IVPUSH (19:56)
[2022-09-07] MEDS: Tamsulosin HCL 0.4 MG CAPSULE PO (19:56)
[2022-09-07 20:43] LABS: Troponin-I High Sensitivity < 3.5 ng/L (<3.5-35.0)
[2022-09-08] VITALS: BP 151/76; PULSE 86; RESP 16; TEMP 36.1; O2SAT 97
[2022-09-08] MEDS: Morphine Sulfate 4 MG/ML CARTRIDGE IVPUSH ×5 (00:43→20:42)
[2022-09-08] MEDS: 0.9 % Sodium Chloride Flush 3 ML SYRINGE IVFLUSH ×4 (00:46→23:57)
[2022-09-08 08:00] VITALS: BP 141/76; PULSE 84; RESP 18; TEMP 36.7; O2SAT 100
[2022-09-08] MEDS: amLODIPine Besylate 5 MG TABLET PO (09:02)
[2022-09-08] MEDS: Acetaminophen 325 MG TABLET 650 MG PO ×2 (09:02→15:19)
[2022-09-08] MEDS: Metoprolol Succinate ER 100 MG TAB.ER.24H PO (09:02)
[2022-09-08] MEDS: Losartan Potassium 50 MG TABLET 100 MG PO (09:02)
[2022-09-08] MEDS: Atorvastatin Calcium 80 MG TABLET PO (09:02)
[2022-09-08] MEDS: Famotidine 20 MG TABLET PO ×2 (09:02→20:34)
[2022-09-08] MEDS: Benzonatate 100 MG CAPSULE PO (09:05)
--- NOTE | 2022-09-08 11:31 | P.PNIM_ITS ---
Subjective Subjective Date of Service: 09/08/22 Interval History: Seen and evaluated this morning Complaining of pain in his right side Requiring morphine p.r.n. for pain Denies any fever, chills or difficulty breathing No other overnight events Review of Systems Review of Systems: Yes all other systems are reviewed and are negative Physical Exam Vital Signs: Vital Signs: Last Vital Signs Temp 98.0 F 09/08/22 08:00 Pulse 84 09/08/22 08:00 Resp 18 09/08/22 08:00 BP 141/76 H 09/08/22 08:00 Pulse Ox 100 09/08/22 08:00 O2 Del Method 09/08/22 08:00 O2 Flow Rate 2 09/06/22 19:41 BMI result Body Mass Index 32.5 Const: Other: Appearance: Alert. Oriented X3. Patient blocks uncomfortable, in pain Eyes: Pupils equal, round and reactive to light. ENT: Pharynx normal. Neck: Normal inspection. Neck supple. No lymph nodes noted. No crepitus CVS: Normal heart rate and rhythm. Pulses normal. Normal S1 and S2 Respiratory: No respiratory distress. Dimished MS on the right Abdomen: Soft and nontender. No rigidity. No distention. Skin: Skin warm and dry. There is a large 30 cm incision in the back of the patient on the right side, healing well, no pus drainage, no cellulitis Extremities: No lower extremity edema. No Lacerations. No Rash Neuro: Oriented X 3. No motor deficit. No sensory deficit. Moving all extremi ties. No slurred speech. CN 2 through 12 grossly intact Psych: calm, cooperative, normal affect Objective Data Active Medications Acetaminophen (Acetaminophen 325 Mg Tablet) 650 mg PO Q6H PRN PRN Reason: Pain, Mild (Pain Scale 1-3) Last Admin: 09/08/22 09:02 Dose: 650 mg Documented By: LIDA Amlodipine Besylate (Amlodipine Besylate 5 Mg Tablet) 5 mg PO DAILY [facility]; Protocol Last Admin: 09/08/22 09:02 Dose: 5 mg Documented By: LIDA Atorvastatin Calcium (Atorvastatin Calcium 80 Mg Tablet) 80 mg PO DAILY [facility] Last Admin: 09/08/22 09:02 Dose: 80 mg Documented By: LIDA Benzonatate (Benzonatate 100 Mg Capsule) 100 mg PO TID PRN PRN Reason: Cough Last Admin: 09/08/22 09:05 Dose: 100 mg Documented By: LIDA Enoxaparin Sodium (Enoxaparin Sodium 120 Mg/0.8 Ml Syringe) 120 mg 1 mg/kg (120 mg) SUBCUT Q12H [facility] Last Admin: 09/05/22 08:15 Dose: 120 mg Documented By: CHERELLE Famotidine (Famotidine 20 Mg Tablet) 20 mg PO BID [facility] Last Admin: 09/08/22 09:02 Dose: 20 mg Documented By: LIDA Lidocaine (Lidocaine 4 % Patch Adh..Patch) 1 patch TRANSDERMA DAILY [facility]; Protocol Last Admin: 09/08/22 09:50 Dose: Not Given Documented By: LIDA Non-Admin Reason: Patient Refused Losartan Potassium (Losartan Potassium 50 Mg Tablet) 100 mg PO DAILY [facility]; Protocol Last Admin: 09/08/22 09:02 Dose: 100 mg Documented By: LIDA Melatonin (Melatonin 3 Mg Tablet) 6 mg PO BEDTIME PRN PRN Reason: Insomnia Metoprolol Succinate (Metoprolol Succinate Er 100 Mg Tab.Er.24h) 100 mg PO DAILY [facility]; Protocol Last Admin: 09/08/22 09:02 Dose: 100 mg Documented By: LIDA Morphine Sulfate (Morphine Sulfate 4 Mg/Ml Cartridge) 4 mg IVPUSH Q2H PRN; Protocol PRN Reason: Pain, Severe (Pain Scale 7-10) Last Admin: 09/08/22 09:04 Dose: 4 mg Documented By: LIDA Ondansetron HCl (Ondansetron Hcl 4 Mg/2 Ml Vial) 4 mg IVPUSH Q8H PRN PRN Reason: Nausea and Vomiting Last Admin: 09/02/22 23:10 Dose: 4 mg Documented By: VIRGILIO Pharmacy Consult (Consult Rx Perform Med Rec) 1 each MISCELLANE ONCE PRN PRN Reason: Consult order Sodium Chloride (0.9 % Sodium Chloride Flush 3 Ml Syringe) 3 ml IVFLUSH QSHIFT [facility] Last Admin: 09/08/22 09:03 Dose: 3 ml Documented By: LIDA Tamsulosin HCl (Tamsulosin Hcl 0.4 Mg Capsule) 0.4 mg PO BEDTIME [facility] Last Admin: 09/07/22 19:56 Dose: 0.4 mg Documented By: SEVERO Labs 09/06/22 06:31 09/06/22 06:31 Labs: Laboratory Results - last 24 hr 09/07/22 19:49 Troponin I High Sens < 3.5 Microbiology Microbiology Results: Microbiology 09/06/22 17:15 Gram Stain - Final Thoracentesis Fluid Anaerobic Culture - Preliminary No growth to date. Body Fluid Culture - Preliminary No growth to date. 09/02/22 17:31 Blood Culture - Final Blood - Venous No growth after 5 days. 09/02/22 16:55 Blood Culture - Final Blood - Venous No growth after 5 days. Assessment and Plan (1) S/P tracheoplasty: Status: Acute (2) Atelectasis: Status: Acute (3) Pleural effusion: Status: Acute (4) At risk for inadequate pain control: Status: Acute (5) Pulmonary emboli: Status: Acute Plan 62-year-old male with a PMH significant for?HTN, HLD, bilateral TKA, fused neck, history of pulmonary embolism 19 years ago on Xarelto, and s/p tracheobronchoplasty via right thoracotomy, flexible bronchoscopy with lavage on 08/17/[address] [facility] who presented to the ED with?right-sided chest pain and tightness. also found to have pulmonary embolus of left-lower lobe. severe right sided chest pain due to recent thoracotamy pleurisy complicated by right pleural effusion titrate pain meds pulm following, surgical patient s/p chest tube placement 09/06/22 with small amount of drainage over the last 24 hours To be seen by thoracic team lue swelling no evidence of dvt no evidence of pneumonia abx discontinued acute pulmonary embolism doubt clinically significant possibly due to holding xarelto for surgery on lovenox for now pending thoracic surgery evaluation HTN losartan, amldoipine BPH flomax hld statin Full Code DVT Prophylaxis: Lovenox reason for continued hospitalization:pain control pending surgical team evaluation Time Spent With Patient Time: Total time managing care of this patient today ____ minutes. Quality Stroke Does the patient have a stroke diagnosis?: No VTE Prior VTE?: No VTE Risk Level:: Medical - moderate - high VTE Device Contraindication: Treatment Not Indicated VTE Drug Contraindication: N/A - Med Ordered
[2022-09-08 11:57] VITALS: BP 130/72; PULSE 77; RESP 18; TEMP 36.7; O2SAT 99
--- NOTE | 2022-09-08 12:56 | P.CONGS_ITS ---
History of Present Illness Consult details Consult date: 09/08/22 Narrative: Patient is a 62 year old male who presented on September 02 complaining of right-sided chest pain and chest discomfort. He is approximately 3 weeks postop from a right thoracotomy for tracheaoplasty for tracheal malacia at an outside facility. He underwent a thoracentesis subsequently followed by a minimally invasive right chest tube placement for his small right pleural effusion. He did not receive tPA most probably related to the postsurgical nature of his trachea. At initial presentation, patient had a CT scan of the chest subsequently followed by serial chest x-rays which demonstrated a residual small pleural effusion. Chart was reviewed and patient evaluated. Exam is most noteworthy for very anxious, apprehensive corpulent male and has a limited insight as to what his surgical procedure at the other facility was. He has a very large, well-healing right thoracotomy incision which is clean dry and intact. He has an IR chest tube which has approximately 250 cc of sero- sanguinous fluid without purulence in the Pleur-evac Abdominal exam is benign. I reviewed the case with Dr. Ceron, and subsequently reviewed his x-rays and scans with Dr. Garcia, radiologist. I also spoke by phone with the patient's to obtain collateral history regarding his surgical procedure and current situation. Assessment/plan My current recommendation is to obtain a follow-up CT scan, and direct further therapy based on these results. On the most recent chest x-ray, patient has had a moderate improvement of his pleural effusion. I do not think his symptoms are related to the infusion but instead postsurgical thoracotomy scar pain. Unless the CT scan shows a very significant empyema and atelectatic lung, I do not think surgical intervention would be warranted in this patient. He is still convalescing from his original tracheal surgery and Should continue vigorous pulmonary therapy, incentive spirometry, out of bed as tolerated and analgesia as needed. [facility] Past Medical History Medical History (Updated 09/03/22 @ 14:19 by Tucker Moon MD) Allergic rhinitis Asthma Atelectasis Cholelithiasis Chronic neck pain Deviated nasal septum Fatty liver Gall bladder polyp GERD (gastroesophageal reflux disease) Hypercholesterolemia Lesion of vocal cord Neck pain Pleural effusion Pneumonitis Pulmonary embolism Renal calculi Tracheobronchomegaly Tracheomalacia Vocal cord dysfunction Family History Family History Mother No problems noted. Father No problems noted. Surgical History Surgical History (Updated 09/03/22 @ 14:19 by Tucker Moon MD) History of Achilles tendon repair History of eye surgery History of hernia surgery History of knee surgery History of nasal surgery History of neck surgery History of repair of left rotator cuff History of repair of right rotator cuff Social History Social History Household Members: Spouse Housing: House Do you presently have visiting nurse or other home services: Yes (vna) Alcohol intake: current Alcohol intake frequency: holidays/special occasions only Patient Tobacco Use Status: Never used Tobacco Smoked in Last 30 Days: No e-Cigarette/Vaping Use: Never Used Second Hand Smoke Exposure: No Use of substances other than those prescribed or required for medical reasons: No Currently Displaying Signs/Symptoms of Drug Intoxication Withdrawal: No Have you been hit, kicked, punched, or otherwise hurt by someone within the past year? If so, by whom?: No Do you feel safe in your current relationship?: No Is there a partner from a previous relationship who is making you feel unsafe now?: No Are you made to feel afraid or neglected: No Advance Directives: No Advance Directives Information Provided: Yes Do you have thoughts of harming others: None Do you have a plan to hurt others: No Plan Recently lost weight without trying: No Eating poorly because of decreased appetite: No Nutrition Risks: No Nutritional Risk Poor oral hygiene: No service: No Current occupational status: employed Cognitive needs: No Hearing needs: No Vision needs: No Meds Allergies Allergy/AdvReac Type Severity Reaction Status Date / Time penicillin V Allergy Intermediate fever Verified 09/02/22 16:17 vancomycin [Vancomycin] Allergy Mild HIVES, Verified 09/02/22 16:17 FEVER Penicillins AdvReac Mild FEVER Verified 09/02/22 16:17 Active Medications: Current Medications Acetaminophen (Acetaminophen 325 Mg Tablet) 650 mg PO Q6H PRN PRN Reason: Pain, Mild (Pain Scale 1-3) Last Admin: 09/08/22 09:02 Dose: 650 mg Amlodipine Besylate (Amlodipine Besylate 5 Mg Tablet) 5 mg PO DAILY [facility]; Protocol Last Admin: 09/08/22 09:02 Dose: 5 mg Atorvastatin Calcium (Atorvastatin Calcium 80 Mg Tablet) 80 mg PO DAILY [facility] Last Admin: 09/08/22 09:02 Dose: 80 mg Benzonatate (Benzonatate 100 Mg Capsule) 100 mg PO TID PRN PRN Reason: Cough Last Admin: 09/08/22 09:05 Dose: 100 mg Enoxaparin Sodium (Enoxaparin Sodium 120 Mg/0.8 Ml Syringe) 120 mg 1 mg/kg (120 mg) SUBCUT Q12H [facility] Last Admin: 09/05/22 08:15 Dose: 120 mg Famotidine (Famotidine 20 Mg Tablet) 20 mg PO BID [facility] Last Admin: 09/08/22 09:02 Dose: 20 mg Lidocaine (Lidocaine 4 % Patch Adh..Patch) 1 patch TRANSDERMA DAILY [facility]; Protocol Last Admin: 09/08/22 09:50 Dose: Not Given Losartan Potassium (Losartan Potassium 50 Mg Tablet) 100 mg PO DAILY [facility]; Protocol Last Admin: 09/08/22 09:02 Dose: 100 mg Melatonin (Melatonin 3 Mg Tablet) 6 mg PO BEDTIME PRN PRN Reason: Insomnia Metoprolol Succinate (Metoprolol Succinate Er 100 Mg Tab.Er.24h) 100 mg PO DAILY [facility]; Protocol Last Admin: 09/08/22 09:02 Dose: 100 mg Morphine Sulfate (Morphine Sulfate 4 Mg/Ml Cartridge) 4 mg IVPUSH Q2H PRN; Protocol PRN Reason: Pain, Severe (Pain Scale 7-10) Last Admin: 09/08/22 09:04 Dose: 4 mg Ondansetron HCl (Ondansetron Hcl 4 Mg/2 Ml Vial) 4 mg IVPUSH Q8H PRN PRN Reason: Nausea and Vomiting Last Admin: 09/02/22 23:10 Dose: 4 mg Pharmacy Consult (Consult Rx Perform Med Rec) 1 each MISCELLANE ONCE PRN PRN Reason: Consult order Sodium Chloride (0.9 % Sodium Chloride Flush 3 Ml Syringe) 3 ml IVFLUSH QSHIFT [facility] Last Admin: 09/08/22 09:03 Dose: 3 ml Tamsulosin HCl (Tamsulosin Hcl 0.4 Mg Capsule) 0.4 mg PO BEDTIME [facility] Last Admin: 09/07/22 19:56 Dose: 0.4 mg Home Medications Medication Instructions Recorded Confirmed Last Taken Type rivaroxaban 20 mg tablet (Xarelto) 20 mg PO DAILY 02/09/02/22 09/02/22 History acetaminophen 160 mg/5 mL oral 640 mg PO QID PRN Pain 09/02/22 09/02/22 Unknown History elixir famotidine 20 mg tablet 20 mg PO BID 09/02/22 09/02/22 09/02/22 History lidocaine 4 % topical patch 1 patch topical DAILY 09/02/22 09/02/22 Unknown History (Lidocaine Pain Relief) tamsulosin 0.4 mg capsule 0.4 mg PO BEDTIME 09/02/22 09/02/22 09/01/22 History Physical Exam Vital Signs: Vital Signs: Last Vital Signs Temp 98.1 F 09/08/22 11:57 Pulse 77 09/08/22 11:57 Resp 18 09/08/22 11:57 BP 130/72 09/08/22 11:57 Pulse Ox 99 09/08/22 11:57 O2 Del Method 09/08/22 11:57 O2 Flow Rate 2 09/06/22 19:41 BMI result Body Mass Index 32.5 Results Labs 09/06/22 06:31 09/06/22 06:31 Labs: Urine 09/03/22 Range/Units 12:45 Urine Color Yellow Urine Appearance Clear Urine pH 6.0 (5.0-9.0) Ur Specific [place] 1.025 (1.005-1.025) Urine Protein Trace (Neg-Trace) mg/dL Urine Glucose (UA) Negative (Negative) mg/dL All other labs normal. Assessment and Plan (1) Pleural effusion: Status: Acute (2) Atelectasis: Status: Acute Plan See HPI Time Spent With Patient Time: Total time managing care of this patient today ____ minutes. Procedures Date of Service Date of Service: 09/08/22
--- NOTE | 2022-09-08 15:38 | P.PNPL_ITS ---
Subjective Subjective Date of Service: 09/08/22 Principal diagnosis: Right pleural effusion postprocedure Interval history: Still with significant pain on the right-sided. Objective Data Labs 09/06/22 06:31 09/06/22 06:31 Labs: Laboratory Results - last 24 hr 09/07/22 19:49 Troponin I High Sens < 3.5 Microbiology Microbiology Results: Microbiology 09/06/22 17:15 Thoracentesis Fluid Gram Stain - Final 09/06/22 17:15 Thoracentesis Fluid Anaerobic Culture - Preliminary No growth to date. 09/06/22 17:15 Thoracentesis Fluid Body Fluid Culture - Preliminary No growth to date. 09/02/22 17:31 Blood - Venous Blood Culture - Final No growth after 5 days. 09/02/22 16:55 Blood - Venous Blood Culture - Final No growth after 5 days. Review of Systems Cardiovascular: Denies chest pain and Reports dyspnea on exertion Respiratory: Denies cough, Reports pain on inspiration and Reports dyspnea on exertion Physical Exam Vital Signs: Vital Signs: Last Vital Signs Temp 98.1 F 09/08/22 11:57 Pulse 77 09/08/22 11:57 Resp 18 09/08/22 11:57 BP 130/72 09/08/22 11:57 Pulse Ox 99 09/08/22 11:57 O2 Del Method 09/08/22 11:57 O2 Flow Rate 2 09/06/22 19:41 BMI result Body Mass Index 32.5 Resp: Effort & Inspection: normal respiratory effort Auscultation: clear to auscultation bilaterally Cardio: Rate: regular rate Rhythm: regular rhythm Procedures Date of Service Date of Service: 09/08/22 Assessment and Plan Assessment and plan (1) Pleural effusion: Status: Acute Assessment and Plan: Impression: Postprocedure exudative pleural effusion. Concern for trapped lung . Thoracic surgery service care appreciated. Recommendations: Agree with re-imaging and consideration for decortication, if not resolved. Progress Note: Quality Stroke Does the patient have a stroke diagnosis?: No
[2022-09-08 15:41] VITALS: BP 158/84; PULSE 82; RESP 16; TEMP 36.3; O2SAT 100
[2022-09-08] MEDS: iohexoL 350 MG/ML 100 ML INFUS..BTL IV (16:25)
[2022-09-08] MEDS: oxyCODONE HCl Immed Release 5 MG TABLET PO ×2 (18:33→23:55)
[2022-09-08 19:34] VITALS: BP 134/72; PULSE 95; RESP 16; TEMP 36.3; O2SAT 99
[2022-09-08] MEDS: Lactulose 20 GM/30 ML SOLUTION PO (20:34)
[2022-09-08] MEDS: Docusate Sodium 100 MG CAPSULE PO (20:34)
[2022-09-08] MEDS: Tamsulosin HCL 0.4 MG CAPSULE PO (20:34)
[2022-09-08 23:42] VITALS: BP 147/72; PULSE 82; RESP 18; TEMP 36.7; O2SAT 99
[2022-09-08] MEDS: Acetaminophen 325 MG TABLET 975 MG PO (23:55)
[2022-09-09] VITALS (7 sets, daily range): BP systolic 132–165; BP diastolic 69–96; PULSE 71–97; RESP 18–20; TEMP 36.3–36.6; O2SAT 95–99
[2022-09-09] MEDS: oxyCODONE HCl Immed Release 5 MG TABLET PO (05:21)
[2022-09-09 07:17] LABS: Anion Gap 13 (12-20); Blood Urea Nitrogen 20 mg/dL (9-16); Calcium 8.9 mg/dL (8.4-10.2); Carbon Dioxide 25 mmol/L (22-29); Chloride 109 mmol/L (96-108); Creatinine Clr Calc Pharmacy 90.6; Estimated Glomerular Filt Rate > 60; Glucose Random 122 mg/dL (60-115); Potassium 4.2 mmol/L (3.3-5.1); Sodium 143 mmol/L (135-145)
[2022-09-09] MEDS: Lactulose 20 GM/30 ML SOLUTION PO (07:58)
[2022-09-09] MEDS: 0.9 % Sodium Chloride Flush 3 ML SYRINGE IVFLUSH ×3 (07:58→20:41)
[2022-09-09] MEDS: Atorvastatin Calcium 80 MG TABLET PO (07:59)
[2022-09-09] MEDS: Metoprolol Succinate ER 100 MG TAB.ER.24H PO (07:59)
[2022-09-09] MEDS: Famotidine 20 MG TABLET PO ×2 (07:59→20:41)
[2022-09-09] MEDS: Docusate Sodium 100 MG CAPSULE PO (07:59)
[2022-09-09] MEDS: amLODIPine Besylate 5 MG TABLET PO (07:59)
[2022-09-09] MEDS: Acetaminophen 325 MG TABLET 975 MG PO ×3 (07:59→23:32)
[2022-09-09] MEDS: Losartan Potassium 50 MG TABLET 100 MG PO (08:00)
--- NOTE | 2022-09-09 09:43 | PM.PNGS ---
Subjective Subjective Date of Service: 09/09/22 Interval history: Patient was seen follow-up this morning. He has had markedly improved pain control from his thoracotomy incision. He has no acute respiratory symptoms. Patient clinically looks better. He is more interactive and content with this analgesia. On exam, patient's thoracotomy incision is is clean dry and intact. There was minimal serosanguineous output from the IR tube. Last evening CT scan results were reviewed last evening and again this morning. I happened to run into Dr. Garcia, the interventional radiologist, and the current plan is for IR tube removal. A/P clinically improving, for IR tube removal, and follow up on discharge with his thoracic surgeons @ [facility] Physical Exam Vital Signs: Vital Signs: Last Vital Signs Temp 97.7 F 09/09/22 07:38 Pulse 97 09/09/22 07:38 Resp 18 09/09/22 07:38 BP 165/96 H 09/09/22 07:38 Pulse Ox 98 09/09/22 07:38 O2 Del Method 09/09/22 07:38 O2 Flow Rate 2 09/08/22 15:41 BMI result Body Mass Index 32.5 Objective Data Active Medications Acetaminophen (Acetaminophen 325 Mg Tablet) 975 mg PO Q8H [facility] Last Admin: 09/09/22 07:59 Dose: 975 mg Documented By: JENN Amlodipine Besylate (Amlodipine Besylate 5 Mg Tablet) 5 mg PO DAILY [facility]; Protocol Last Admin: 09/09/22 07:59 Dose: 5 mg Documented By: JENN Atorvastatin Calcium (Atorvastatin Calcium 80 Mg Tablet) 80 mg PO DAILY [facility] Last Admin: 09/09/22 07:59 Dose: 80 mg Documented By: JENN Benzonatate (Benzonatate 100 Mg Capsule) 100 mg PO TID PRN PRN Reason: Cough Last Admin: 09/08/22 09:05 Dose: 100 mg Documented By: LIDA Docusate Sodium (Docusate Sodium 100 Mg Capsule) 100 mg PO BID [facility] Last Admin: 09/09/22 07:59 Dose: 100 mg Documented By: JENN Enoxaparin Sodium (Enoxaparin Sodium 120 Mg/0.8 Ml Syringe) 120 mg 1 mg/kg (120 mg) SUBCUT Q12H [facility] Last Admin: 09/05/22 08:15 Dose: 120 mg Documented By: CHERELLE Famotidine (Famotidine 20 Mg Tablet) 20 mg PO BID [facility] Last Admin: 09/09/22 07:59 Dose: 20 mg Documented By: JENN Lactulose (Lactulose 20 Gm/30 Ml Solution) 20 gm PO BID [facility] Last Admin: 09/09/22 07:58 Dose: 20 gm Documented By: JENN Lidocaine (Lidocaine 4 % Patch Adh..Patch) 1 patch TRANSDERMA DAILY [facility]; Protocol Last Admin: 09/09/22 08:00 Dose: Not Given Documented By: JENN Non-Admin Reason: Patient Refused Losartan Potassium (Losartan Potassium 50 Mg Tablet) 100 mg PO DAILY [facility]; Protocol Last Admin: 09/09/22 08:00 Dose: 100 mg Documented By: JENN Melatonin (Melatonin 3 Mg Tablet) 6 mg PO BEDTIME PRN PRN Reason: Insomnia Metoprolol Succinate (Metoprolol Succinate Er 100 Mg Tab.Er.24h) 100 mg PO DAILY [facility]; Protocol Last Admin: 09/09/22 07:59 Dose: 100 mg Documented By: JENN Morphine Sulfate (Morphine Sulfate 4 Mg/Ml Cartridge) 4 mg IVPUSH Q3H PRN; Protocol PRN Reason: Pain, Severe (Pain Scale 7-10) Last Admin: 09/08/22 20:42 Dose: 4 mg Documented By: ALTON Naloxone HCl (Naloxone Hcl Nasal 4 Mg [place]) 4 mg NOSTRILALT ONCE PRN PRN Reason: Opiate Reversal Ondansetron HCl (Ondansetron Hcl 4 Mg/2 Ml Vial) 4 mg IVPUSH Q8H PRN PRN Reason: Nausea and Vomiting Last Admin: 09/02/22 23:10 Dose: 4 mg Documented By: VIRGILIO Oxycodone HCl (Oxycodone Hcl Immed Release 5 Mg Tablet) 5 mg PO Q6H [facility] Last Admin: 09/09/22 05:21 Dose: 5 mg Documented By: MARIETTA Pharmacy Consult (Consult Rx Perform Med Rec) 1 each MISCELLANE ONCE PRN PRN Reason: Consult order Sodium Chloride (0.9 % Sodium Chloride Flush 3 Ml Syringe) 3 ml IVFLUSH QSHIFT [facility] Last Admin: 09/09/22 07:58 Dose: 3 ml Documented By: JENN Tamsulosin HCl (Tamsulosin Hcl 0.4 Mg Capsule) 0.4 mg PO BEDTIME [facility] Last Admin: 09/08/22 20:34 Dose: 0.4 mg Documented By: ALTON Labs 09/06/22 06:31 09/09/22 06:09 Labs: Laboratory Results - last 24 hr 09/09/22 06:09 Anion Gap 13 Estim Creat Clear Calc 90.6 Estimated GFR > 60 Random Glucose 122 H Calcium 8.9 Microbiology Microbiology Results: Microbiology 09/06/22 17:15 Gram Stain - Final Thoracentesis Fluid Anaerobic Culture - Preliminary No growth to date. Body Fluid Culture - Final No growth after 2 days Procedures Date of Service Date of Service: 09/09/22 Progress Note: A&P Time Spent With Patient Time: Total time managing care of this patient today ____ minutes. Quality Stroke Does the patient have a stroke diagnosis?: No VTE Prior VTE?: No VTE Risk Level:: Medical - moderate - high VTE Device Contraindication: Treatment Not Indicated VTE Drug Contraindication: N/A - Med Ordered
--- NOTE | 2022-09-09 11:31 | P.PNIM_ITS ---
Subjective Subjective Date of Service: 09/09/22 Interval History: Seen and evaluated this morning improved pain in his right side chest tube not draining much for last 2 days Denies any fever, chills or difficulty breathing No other overnight events Review of Systems Review of Systems: Yes all other systems are reviewed and are negative Physical Exam Vital Signs: Vital Signs: Last Vital Signs Temp 97.7 F 09/09/22 07:38 Pulse 97 09/09/22 09:56 Resp 18 09/09/22 07:38 BP 165/96 H 09/09/22 07:38 Pulse Ox 98 09/09/22 09:56 O2 Del Method 09/09/22 07:38 O2 Flow Rate 2 09/08/22 15:41 BMI result Body Mass Index 32.5 Const: Other: Appearance: Alert. Oriented X3. more comfortable Eyes: Pupils equal, round and reactive to light. ENT: Pharynx normal. Neck: Normal inspection. Neck supple. No lymph nodes noted. No crepitus CVS: Normal heart rate and rhythm. Pulses normal. Normal S1 and S2 Respiratory: No respiratory distress. Dimished MS on the right Abdomen: Soft and nontender. No rigidity. No distention. Skin: Skin warm and dry. There is a large 30 cm incision in the back of the patient on the right side, healing well, no pus drainage, no cellulitis, chest tube in place Extremities: No lower extremity edema. No Lacerations. No Rash Neuro: Oriented X 3. No motor deficit. No sensory deficit. Moving all extr emities. No slurred speech. CN 2 through 12 grossly intact Psych: calm, cooperative, normal affect Objective Data Active Medications Acetaminophen (Acetaminophen 325 Mg Tablet) 975 mg PO Q8H [facility] Last Admin: 09/09/22 07:59 Dose: 975 mg Documented By: JENN Amlodipine Besylate (Amlodipine Besylate 5 Mg Tablet) 5 mg PO DAILY [facility]; Protocol Last Admin: 09/09/22 07:59 Dose: 5 mg Documented By: JENN Atorvastatin Calcium (Atorvastatin Calcium 80 Mg Tablet) 80 mg PO DAILY [facility] Last Admin: 09/09/22 07:59 Dose: 80 mg Documented By: JENN Benzonatate (Benzonatate 100 Mg Capsule) 100 mg PO TID PRN PRN Reason: Cough Last Admin: 09/08/22 09:05 Dose: 100 mg Documented By: LIDA Docusate Sodium (Docusate Sodium 100 Mg Capsule) 100 mg PO BID [facility] Last Admin: 09/09/22 07:59 Dose: 100 mg Documented By: JENN Enoxaparin Sodium (Enoxaparin Sodium 120 Mg/0.8 Ml Syringe) 120 mg 1 mg/kg (120 mg) SUBCUT Q12H [facility] Last Admin: 09/05/22 08:15 Dose: 120 mg Documented By: CHERELLE Famotidine (Famotidine 20 Mg Tablet) 20 mg PO BID [facility] Last Admin: 09/09/22 07:59 Dose: 20 mg Documented By: JENN Lactulose (Lactulose 20 Gm/30 Ml Solution) 20 gm PO BID [facility] Last Admin: 09/09/22 07:58 Dose: 20 gm Documented By: JENN Lidocaine (Lidocaine 4 % Patch Adh..Patch) 1 patch TRANSDERMA DAILY [facility]; Protocol Last Admin: 09/09/22 08:00 Dose: Not Given Documented By: JENN Non-Admin Reason: Patient Refused Losartan Potassium (Losartan Potassium 50 Mg Tablet) 100 mg PO DAILY [facility]; Protocol Last Admin: 09/09/22 08:00 Dose: 100 mg Documented By: JENN Melatonin (Melatonin 3 Mg Tablet) 6 mg PO BEDTIME PRN PRN Reason: Insomnia Metoprolol Succinate (Metoprolol Succinate Er 100 Mg Tab.Er.24h) 100 mg PO DAILY [facility]; Protocol Last Admin: 09/09/22 07:59 Dose: 100 mg Documented By: JENN Morphine Sulfate (Morphine Sulfate 4 Mg/Ml Cartridge) 4 mg IVPUSH Q3H PRN; Protocol PRN Reason: Pain, Severe (Pain Scale 7-10) Last Admin: 09/08/22 20:42 Dose: 4 mg Documented By: ALTON Naloxone HCl (Naloxone Hcl Nasal 4 Mg [place]) 4 mg NOSTRILALT ONCE PRN PRN Reason: Opiate Reversal Ondansetron HCl (Ondansetron Hcl 4 Mg/2 Ml Vial) 4 mg IVPUSH Q8H PRN PRN Reason: Nausea and Vomiting Last Admin: 09/02/22 23:10 Dose: 4 mg Documented By: VIRGILIO Oxycodone HCl (Oxycodone Hcl Immed Release 5 Mg Tablet) 5 mg PO Q6H [facility] Last Admin: 09/09/22 05:21 Dose: 5 mg Documented By: MARIETTA Pharmacy Consult (Consult Rx Perform Med Rec) 1 each MISCELLANE ONCE PRN PRN Reason: Consult order Sodium Chloride (0.9 % Sodium Chloride Flush 3 Ml Syringe) 3 ml IVFLUSH QSHIFT [facility] Last Admin: 09/09/22 07:58 Dose: 3 ml Documented By: JENN Tamsulosin HCl (Tamsulosin Hcl 0.4 Mg Capsule) 0.4 mg PO BEDTIME [facility] Last Admin: 09/08/22 20:34 Dose: 0.4 mg Documented By: ALTON Labs 09/06/22 06:31 09/09/22 06:09 Labs: Laboratory Results - last 24 hr 09/09/22 06:09 Anion Gap 13 Estim Creat Clear Calc 90.6 Estimated GFR > 60 Random Glucose 122 H Calcium 8.9 Microbiology Microbiology Results: Microbiology 09/06/22 17:15 Gram Stain - Final Thoracentesis Fluid Anaerobic Culture - Preliminary No growth to date. Body Fluid Culture - Final No growth after 2 days Assessment and Plan (1) S/P tracheoplasty: Status: Acute (2) Pulmonary emboli: Status: Acute (3) At risk for inadequate pain control: Status: Acute (4) Pleural effusion: Status: Acute Plan 62-year-old male with a PMH significant for?HTN, HLD, bilateral TKA, fused neck, history of pulmonary embolism 19 years ago on Xarelto, and s/p tracheobronchoplasty via right thoracotomy, flexible bronchoscopy with lavage on 08/17/22 at [facility] who presented to the ED with?right-sided chest pain and tightness. also found to have pulmonary embolus of left-lower lobe. severe right sided chest pain due to recent thoracotamy pleurisy complicated by right pleural effusion Oxycodone ATC and morphine prn pulm following, surgical patient s/p chest tube placement 09/06/22 with small amount of drainage over the last 48hrs, will dc today by IR Thoraci surgery appreciated, follow as OP with his thoracic surgeon COURTNEY pratt no evidence of dvt no evidence of pneumonia abx discontinued acute pulmonary embolism possibly due to holding xarelto for surgery on lovenox for now HTN losartan, amldoipine BPH flomax hld statin Full Code DVT Prophylaxis: Lovenox reason for continued hospitalization:pain control pending removal of chest tube Time Spent With Patient Time: Total time managing care of this patient today ____ minutes. Quality Stroke Does the patient have a stroke diagnosis?: No VTE Prior VTE?: No VTE Risk Level:: Medical - moderate - high VTE Device Contraindication: Treatment Not Indicated VTE Drug Contraindication: N/A - Med Ordered
[2022-09-09] MEDS: Benzonatate 100 MG CAPSULE PO (13:53)
[2022-09-09] MEDS: Tamsulosin HCL 0.4 MG CAPSULE PO (20:41)
[2022-09-09] MEDS: Morphine Sulfate 4 MG/ML CARTRIDGE IVPUSH (21:24)
[2022-09-10 03:52] VITALS: BP 141/71; PULSE 81; RESP 16; TEMP 36.3; O2SAT 97
[2022-09-10] MEDS: Morphine Sulfate 4 MG/ML CARTRIDGE IVPUSH (04:08)
[2022-09-10 04:59] VITALS: RESP 18
[2022-09-10 08:00] VITALS: BP 150/88; PULSE 88; RESP 18; TEMP 36.5; O2SAT 99
[2022-09-10] MEDS: Acetaminophen 325 MG TABLET 975 MG PO (09:46)
[2022-09-10] MEDS: Metoprolol Succinate ER 100 MG TAB.ER.24H PO (09:47)
[2022-09-10] MEDS: Losartan Potassium 50 MG TABLET 100 MG PO (09:48)
[2022-09-10] MEDS: Atorvastatin Calcium 80 MG TABLET PO (09:49)
[2022-09-10] MEDS: amLODIPine Besylate 5 MG TABLET PO (09:49)
[2022-09-10] MEDS: Famotidine 20 MG TABLET PO (09:49)
[2022-09-10] MEDS: Benzonatate 100 MG CAPSULE PO (09:55)
[2022-09-10] MEDS: 0.9 % Sodium Chloride Flush 3 ML SYRINGE IVFLUSH (09:57)
--- NOTE | 2022-09-10 10:30 | PM.DS ---
DS: Providers Provider Date of Service: 09/10/22 Date of admission: 09/02/22 20:47 Primary care physician: MICHAEL Dahs Consults: 09/03/22 13:34 Consult to Pulmonology Routine Consulting Provider: Tucker Moon Reason for consultation: pleural effusion 09/07/22 10:34 Consult to Thoracic Surgery Routine Consulting Provider: Kishan Cotto Reason for consultation: loculated pleural effusion DS: Diagnosis Discharge Diagnosis (1) S/P tracheoplasty: Status: Acute (2) Pulmonary emboli: Status: Acute (3) At risk for inadequate pain control: Status: Acute (4) Pleural effusion: Status: Acute DS: Summary Hospital Course Hospital Course: Admission note HPI Pt is a 62-year-old male with a PMH significant for?HTN, HLD, bilateral TKA, fused neck, history of pulmonary embolism 19 years ago on Xarelto, and s/p tracheobronchoplasty via right thoracotomy, flexible bronchoscopy with lavage on 08/17/22 at [facility] who presents to the ED with?right-sided chest pain and tightness. Pain is on the lateral aspect of his right side, under his arm and wrapping around to the back. Roughly follows his surgical scar. Says it hurts to the touch. Patient rates pain at 10/10 and describes it as feeling like a sledgehammer is pounding on me every time I cough. Pt cannot take deep breaths, has pain with movement. Pt states he has had cough and pleuritic chest pain since his surgery, but they have been significantly worse the past couple of days.? Patient claims he has been trying to use his incentive spirometry, but often can not due to pain.? Of note, patient was experiencing constipation on opioid pain meds following surgery; after telemedicine visit with surgeon on Monday, patient stopped taking opioids and reduced analgesics to only Tylenol and Motrin. In the ED patient was afebrile, tachypneic at 22, hypertensive at 195/93. Labs were significant for no leukocytosis, elevated troponin of 209.5 with repeat 3.4, C reactive protein elevated at 1.51.? UA negative for UTI.? Patient was negative for COVID, RSV, influenza type A and B. CXR showed new opacity in the right lower lobe with small pleural effusion concerning for aspiration or pneumonia.? CTA of chest showed pulmonary embolus in the left lower lobe segmental pulmonary artery extending into subsegmental branches, consolidation/atelectasis at the right lower lobe, with moderate volume right pleural effusion. EKG demonstrated normal sinus rhythm with no evidence of ST elevations or depressions. Pt was treated with a and trunk, dilaudid, benzonatate, and ceftriaxone. Pt will be admitted to the hospital for treatment and further evaluation of pulmonary embolism and pneumonia with IV ABX, analgesics, and therapeutic Lovenox. Hospital course The patient was admitted to the hospital for evaluation of right-sided chest pain. Images were consistent with pleural effusion on the right side at the surgical location. Small pulmonary embolus noted on the left lower lobe while patient on Xarelto. Started on full-dose Lovenox and admitted to the medical floor. Treated with IV antibiotics of ceftriaxone and azithromycin for suspicion of pneumonia that was later discontinued. Had thoracentesis done with removal of over 1 L of transudate fluids with significant movement in his breathing and decrease of the pain. Evaluated by Dr. Cotto from chest surgery who recommended no intervention needed as CT scan showed significant decrease in the size of the effusion with no loculation or abscesses. Chest tube was later removed by IR and the patient maintained normal O2 sat on room air and was able to ambulate with physical therapy with no reported dyspnea. Pain control improved significantly with usage of Tylenol and oxycodone with as needed morphine. Plan to follow-up with thoracic surgery as outpatient. Resume [facility] services on discharge. Start Xarelto 15 mg twice Daily before going back to 20 mg once daily Take Tylenol 1 g 3 times daily Use oxycodone as needed To follow-up with chest surgeon as outpatient as planned Time Spent with Patient Time attestation: Total time managing care of this patient today ____ minutes. Discharge coordination time: Greater than 30 minutes Quality: Safe Use of Opioids Does Pt have an Active Cancer Diagnosis on the Problem List?: No Quality: Stroke Does the patient have a stroke diagnosis?: No Physical Exam Vital Signs: Vital Signs: Last Vital Signs Temp 97.7 F 09/10/22 08:00 Pulse 88 09/10/22 08:00 Resp 18 09/10/22 08:00 BP 150/88 H 09/10/22 08:00 Pulse Ox 99 09/10/22 08:00 O2 Del Method 09/10/22 08:00 O2 Flow Rate 2 09/08/22 15:41 BMI result Body Mass Index 32.5 Const: Other: Appearance: Alert. Oriented X3. more comfortable Eyes: Pupils equal, round and reactive to light. ENT: Pharynx normal. Neck: Normal inspection. Neck supple. No lymph nodes noted. No crepitus CVS: Normal heart rate and rhythm. Pulses normal. Normal S1 and S2 Respiratory: No respiratory distress. Dimished MS on the right Abdomen: Soft and nontender. No rigidity. No distention. Skin: Skin warm and dry. There is a large 30 cm incision in the back of the patient on the right side, healing well, no pus drainage, no cellulitis, chest tube in place Extremities: No lower extremity edema. No Lacerations. No Rash Neuro: Oriented X 3. No motor deficit. No sensory deficit. Moving all extremities. No slurred speech. CN 2 through 12 grossly intact Psych: calm, cooperative, normal affect DS: Data Data Completed and Pending Labs on day of discharge: Preliminary micro results at discharge 09/06/22 17:15 Anaerobic Culture - Preliminary Thoracentesis Fluid No growth to date. Imaging CT scan - chest: Radiologist's impression: ITS Impressions Chest X-Ray 09/02/22 17:28 IMPRESSION: New airspace opacities in the right lower lobe with an associated small pleural effusion concerning for aspiration or pneumonia in the appropriate clinical context. Recommend a follow-up imaging. Chest CTA 09/02/22 20:52 IMPRESSION: 1. Pulmonary embolus in the left lower lobe segmental pulmonary artery extending into subsegmental branches. 2. Consolidation/atelectasis at the right lower lobe. 3. Moderate volume right pleural effusion. VTE: positive This critical result was discussed with Dr Odell on 09/02/2022, 9:20 PM and it was ascertained that the content and urgency of the report was understood at the time of direct communication. Venous Duplex 09/03/22 13:52 IMPRESSION: No DVT demonstrated in the left upper extremity Chest X-Ray 09/03/22 15:05 IMPRESSION: Moderate partially loculated right pleural effusion similar to recent exams. Chest X-Ray 09/04/22 08:16 IMPRESSION: Examination is not convincingly changed compared to 09/03/2022. Thoracentesis/Paracentesis US 09/06/22 11:01 IMPRESSION: Ultrasound-guided right thoracentesis. Only scant 4-5 mL of serosanguineous fluid could be aspirated. Findings were discussed with Dr. Moon by telephone and a chest tube will be placement later today. Thoracentesis Ultrasound 09/06/22 17:40 IMPRESSION: Ultrasound-guided right chest tube placement. Chest X-Ray 09/06/22 17:52 IMPRESSION: Interval placement of right basilar chest pigtail catheter with persistent small right pleural effusion that appears mildly decreased. No overt pneumothorax. Chest X-Ray 09/07/22 09:26 IMPRESSION: Small right-sided pleural effusion is likely decreased compared to prior. Streaky left basilar opacity favors atelectasis. Chest X-Ray 09/08/22 11:29 IMPRESSION: Tiny residual right pleural effusion. Chest CT 09/08/22 16:25 IMPRESSION: 1. Partially loculated right pleural effusion smaller than on prior study of 09/02/2022 without evidence of necrotizing parenchyma. There is residual [id number] effusion with a chest tube in place. 2. Stable lung densities. 3. Scattered regions of disease within the lingula and left lower lobe which may be infectious or inflammatory in nature versus atelectasis. According to the UPDATED 2017 Fleischner Society recommendations, the advised follow-up imaging for solid nodules < 6 mm is: LOW RISK PATIENT: No routine follow-up. HIGH RISK PATIENT: Optional CT at 12 months. Catheter Removal 09/09/22 15:29 IMPRESSION: Right-sided chest tube removal. Discharge Plan Discharge Anticipated Discharge Date/Time: 09/10/22 10:22 Patient Disposition: Home, Self-Care Discharge Diagnosis: Pain management Pleural effusion Pulmonary embolism Referrals: Daniel Redmond, [employer]- [Primary Care Provider] - 1 Week Discharge Medications: New docusate sodium 100 mg Capsule 100 mg PO BID 30 Days Qty: 60 0RF oxycodone 5 mg Tablet 5 mg PO Q6H Qty: 30 0RF Rx Instructions: Partial Fill upon patient request. Xarelto DVT-PE Treat 30d Start 15 mg (42)- 20 mg (9) tablets,dose pack See Rx Instructions .ROUTE .COMPLEX Qty: 51 0RF Rx Instructions: take one-15 mg tablet twice daily for 21 days, then one-20 mg tablet once daily; must take with meal/food Continued metoprolol succinate 100 mg tablet extended release 24 hr 100 mg PO DAILY Qty: 90 1RF rosuvastatin 20 mg tablet 20 mg PO DAILY 90 Days Qty: 90 0RF amlodipine 5 mg tablet 5 mg PO DAILY Qty: 90 0RF losartan 100 mg tablet 100 mg PO DAILY Qty: 90 1RF lidocaine [Lidocaine Pain Relief] 4 % adhesive patch,medicated 1 patch topical DAILY acetaminophen 160 mg/5 mL Elixir 640 mg PO QID PRN (Reason: Pain) famotidine 20 mg Tablet 20 mg PO BID tamsulosin 0.4 mg Capsule 0.4 mg PO BEDTIME Discontinued Xarelto 20 mg tablet 20 mg PO DAILY Rx Instructions: must administer with evening meal Discharge Orders: Discharge Order (Routine); Ordered 09/10/22 Ordered By: Osmany Beavers Diet: Advance to usual diet Activity on Discharge: As tolerated Stand Alone Forms: Patient Portal Discharge page Care Plan Goals: Read below Health Concerns: Read below Plan of Treatment: Read below Assessment: You were admitted to the hospital for evaluation of right-sided chest pain. Images were consistent with fluid collection the right side that was drained with placement of chest tube. You were evaluated by chest surgeon as pain improved significantly and CT scan did not show any urgent need for surgical intervention. Chest tube was removed and pain was better controlled. CT scan showed new left sided pulmonary clot that needs to be treated with Xarelto full dose. Start Xarelto 15 mg twice Daily before going back to 20 mg once daily Take Tylenol 1 g 3 times daily Use oxycodone as needed To follow-up with chest surgeon as outpatient as planned
--- NOTE | 2022-09-10 10:42 | MHC.CM.PN ---
PT WILL DC HOME TODAY WITH NO SERVICES TO TRANSPORT
== END 2022-09-10 12:09 | disposition home health service (06) | DRG 205 ==
LOC: HO.ED 19:43 → HO.EDOVER 21:24 → HO.S3 09-03 01:37
PROVIDERS: Hospitalist; Internal Medicine; Physician Assistant Medical; Radiology Diagnostic Radiology; Student in an Organized Health Care Education/Training Program; Admitting Provider Student in an Organized Health Care Education/Training Program; Emergency Provider Emergency Medicine; PCP Nurse Practitioner Family; Visit Provider Student in an Organized Health Care Education/Training Program
PROC: 0W9930Z Drainage of Right Pleural Cavity with Drainage Device, Percutaneous Approach (ICD-10-PCS; principal; 2022-09-06 09:30)
DX: J95.89 Other postprocedural complications and disorders of respiratory system, not elsewhere classified (principal); I26.99 Other pulmonary embolism without acute cor pulmonale; J98.11 Atelectasis; J90 Pleural effusion, not elsewhere classified; N40.0 Benign prostatic hyperplasia without lower urinary tract symptoms; I10 Essential (primary) hypertension; E78.5 Hyperlipidemia, unspecified; T45.516A Underdosing of anticoagulants, initial encounter; Y63.6 Underdosing and nonadministration of necessary drug, medicament or biological substance; G89.18 Other acute postprocedural pain; Z20.822 Contact with and (suspected) exposure to COVID-19; Z98.1 Arthrodesis status; Z88.0 Allergy status to penicillin; Z79.01 Long term (current) use of anticoagulants; Z79.899 Other long term (current) drug therapy
CPT/HCPCS: 0241U; 32551; 32557; 36415; 71045; 71046; 71260; 71275; 80048; 80053; 81001; 82945; 83615; 83735; 83880; 84145; 84157; 84484; 85025; 85027; 85610; 85652; 85730; 86140; 87040; 87070; 87073; 87205; 87640; 87641; 89051; 93005; 93971; 97162; 99152; 99285; C1729; J0456; J0696; J1170; J1650; J1885; J2270; J2405; Q9967

== ENCOUNTER 2022-09-15 16:09 | Outpatient (REF) | payer OTHER, SELFPAY ==
--- NOTE | ~2022-09-15 | XR_ITS ---
EXAMINATION: XR CHEST CLINICAL INFORMATION: Reason for Exam Z98.890 - Other specified postprocedural states COMPARISON: Chest radiograph 09/08/2022 TECHNIQUE: 2 views of the chest FINDINGS: Few streaky right basilar opacities suggesting atelectasis. Stable small right pleural effusion. Normal cardiomediastinal silhouette. Anterior cervical fusion hardware. No pneumothorax. XR/XR chest 2V IMPRESSION: 1. Few streaky right basilar opacities suggesting atelectasis. 2. Stable small right pleural effusion.
== END 2022-09-15 16:10 | disposition home or self-care (01) ==
LOC: HO.XRAY 16:09
PROVIDERS: PCP Nurse Practitioner Family; Visit Provider Internal Medicine
DX: J90 Pleural effusion, not elsewhere classified (principal); Z98.890 Other specified postprocedural states
CPT/HCPCS: 71046

== ENCOUNTER → 2022-09-19 15:24 | Outpatient (BNVA) | payer OTHER, SELFPAY | PROVIDERS: PCP Nurse Practitioner Family; Visit Provider Surgery | DX: Z13.89 Encounter for screening for other disorder (principal) ==

== ENCOUNTER 2022-10-12 04:54 | Inpatient (IN) | payer OTHER, SELFPAY ==
[2022-10-12] VITALS (9 sets, daily range): BP systolic 143–180; BP diastolic 82–105; PULSE 94–111; RESP 13–23; TEMP 36.4–36.6; O2SAT 90–98; BMI 31.2
--- NOTE | 2022-10-12 | ECG_ITS ---
Test Reason : SOB Blood Pressure : / mmHG Vent. Rate : 106 BPM Atrial Rate : 106 BPM P-R Int : 158 ms QRS Dur : 084 ms QT Int : 354 ms P-R-T Axes : 060 -15 033 degrees QTc Int : 470 ms Sinus tachycardia Otherwise normal ECG When compared with ECG of 07-SEP-2022 20:06, No significant change was found Referred By: Generic ED Physician Electronically Signed By:ALLAN MCMILLAN
--- NOTE | ~2022-10-12 | XR_ITS ---
EXAMINATION: XR CHEST CLINICAL INFORMATION: Short of breath COMPARISON: 09/15/2022 TECHNIQUE: Frontal view of the chest was obtained. FINDINGS: Cervical fusion hardware. Cardiac leads overlie the chest. The lungs are well expanded. Small right-sided layering pleural effusion. Diffuse bronchial wall thickening with hazy opacities bilaterally. No pneumothorax. The cardiomediastinal silhouette is unchanged. XR/XR chest 1V IMPRESSION: Small right-sided layering pleural effusion. Bilateral opacities with bronchial wall thickening favor fluid overload.
--- NOTE | ~2022-10-12 | CT_ITS ---
EXAMINATION: CT ANGIOGRAM OF THE CHEST WITH AND WITHOUT CONTRAST (CT PULMONARY ANGIOGRAM FOR PE) CLINICAL INFORMATION: Reason for Exam chest pain, sob, h/o PE COMPARISON: CT chest 09/08/2022 and 10/18/2016 TECHNIQUE: Prior to contrast administration, noncontrast localization images were obtained. Subsequently, multidetector volumetric imaging was performed from the thoracic inlet to below the diaphragms following the administration of 80 mL Omnipaque 350 intravenous contrast. No contrast reaction reported Sagittal, coronal, and MIP oblique sagittal reformatted images were obtained on the CT workstation, uploaded to PACS, and reviewed. This CT examination was performed using dose optimization techniques as appropriate, variously including the following: *Automated exposure control *Adjustment of mA and/or kV according to patient size (this includes techniques or standardized protocols for targeted exams where dose is matched to indication/reason for exam; i.e. extremities or head) *Use of iterative reconstruction technique Total exam dose-length product 170 mGy-cm FINDINGS: QUALITY OF STUDY/CONTRAST BOLUS: Satisfactory. PULMONARY ARTERIES: No pulmonary emboli. THORACIC AORTA: No aneurysm. CHEST WALL/AXILLA: No axillary lymphadenopathy. Trace symmetric gynecomastia. LUNGS: Scattered groundglass opacities with interlobular septal thickening in the bilateral lung bases. Dependent bibasilar atelectasis. There is focal groundglass subjacent to the right rib fractures. 5 mm solid left lower lobe pulmonary nodule, 11:395 stable from 2017 therefore likely benign. No additional previously seen pulmonary nodules are obscured by atelectasis on today's exam. MEDIASTINUM: Heart is normal in size. No mediastinal lymphadenopathy. Mild bilateral hilar and mediastinal lymphadenopathy for example a 1.5 cm short axis right hilar node, 5:24 and a 1.2 cm short axis subcarinal node previously 1.4 cm and 1.2 cm in 2017 not significantly changed. CORONARY ARTERY CALCIFICATION: No significant coronary artery calcification appreciated on this exam. PLEURA: Moderate right greater than left bilateral pleural effusions. No pneumothorax. UPPER ABDOMEN: Unremarkable OSSEOUS STRUCTURES: Nondisplaced comminuted fourth and fifth right lateral rib fractures with a possible additional nondisplaced sixth rib fracture. CT/CT angio chest PE protocol IMPRESSION: 1. No pulmonary embolism. 2. Moderate right greater than left bilateral pleural effusions. Scattered groundglass opacities with interlobular septal thickening in the bilateral lung bases suggestive of pulmonary edema with superimposed atypical infection not excluded. 3. Displaced comminuted fourth and fifth right lateral rib fractures with a possible additional nondisplaced sixth rib fracture. There is focal groundglass subjacent to the right rib fractures which may reflect a superimposed pulmonary contusion. No pneumothorax. 4. Mild bilateral hilar and mediastinal lymphadenopathy similar to 2017, given relative stability likely benign. 5. A 5 mm solid pulmonary nodule demonstrates approximately 5 years stability therefore likely benign and exceeds the Fleischner Society recommended duration of follow-up. Few additional small previously seen pulmonary nodules are obscured by atelectasis on today's exam. VTE: negative
--- NOTE | ~2022-10-12 | CT_ITS ---
EXAMINATION: CT ABDOMEN AND PELVIS WITHOUT CONTRAST CLINICAL INFORMATION: Vomiting. COMPARISON: CT abdomen pelvis 12/29/2019 TECHNIQUE: Multidetector volumetric imaging was performed from the superior aspect of the liver through the pubic symphysis. Sagittal and coronal reformatted images were obtained on the technologist's workstation. This CT examination was performed using dose optimization techniques as appropriate, variously including the following: *Automated exposure control *Adjustment of mA and/or kV according to patient size (this includes techniques or standardized protocols for targeted exams where dose is matched to indication/reason for exam; i.e. extremities or head) *Use of iterative reconstruction technique DLP: 719 mGy-cm FINDINGS: LUNG BASES: There are dependent bilateral pleural effusions right larger in volume than left. Atelectasis at the right lung base. LIVER, GALLBLADDER, AND BILIARY TREE: The liver is normal in size, shape, and attenuation. No focal hepatic lesion or biliary ductal dilatation is present. The gallbladder is unremarkable with no evidence of radiopaque gallstones, gallbladder wall thickening, or obvious pericholecystic inflammatory changes. PANCREAS: Unremarkable. SPLEEN: Unremarkable. ADRENAL GLANDS: Unremarkable. KIDNEYS AND URETERS: There are bilateral nonobstructive renal stones. In the right kidney there are 3 calculi. The largest at the lower pole measures 5 mm. In the left kidney there are 3 stones. Largest measures 3 mm. There are no ureteral stones. There is no hydronephrosis. BLADDER: Unremarkable. GASTROINTESTINAL TRACT: No acute abnormality. There is no bowel wall thickening /edema. There is no bowel obstruction. There is a moderate volume of stool in the colon. The appendix is nonvisualized . No edema in the mesentery. The small bowel loops are unremarkable. The stomach is normal. There is no hiatal hernia. ABDOMINAL WALL: Bilateral fat-containing inguinal hernias each measuring about 3 cm transverse. LYMPH NODES: Normal. VASCULAR: Unremarkable. PELVIC VISCERA: Prostate measures 5 cm transverse. Coarse calcifications within the prostate. OSSEOUS STRUCTURES: Multilevel degenerative spondylosis of the spine. CT/CT abdomen pelvis wo IV con IMPRESSION: 1. No acute abnormality CT scan abdomen pelvis. 2. Dependent bilateral pleural effusions right larger in volume than left. Atelectasis at right lung base. 3. Bilateral nonobstructive renal stones. No ureteral calculi or hydronephrosis. Fleischner guidelines were followed.
[2022-10-12 05:26] LABS: Basophils Absolute Auto 0.1 X10*3/uL (0.0-0.2); Basophils Percent Auto 0.6 % (0-2); Eosinophils Absolute Auto 0.5 X10*3/uL (0.0-0.4); Eosinophils Percent Auto 3.1 % (0-4); Hematocrit 46.7 % (42.0-52.0); Hemoglobin 15.3 g/dl (14.0-18.0); Imm Gran Abs Auto 0.04 X10*3/uL (0.00-0.03); Imm Gran Pct Auto 0.3 % (0.0-0.4); Lymphocytes Absolute Auto 0.9 X10*3/uL (1.2-4.9); Lymphocytes Percent Auto 6.5 % (20-40); MANUAL DIFF FLAG NO; Mean Corpuscular HGB Conc 32.8 g/dl (31.0-36.0); Mean Corpuscular Hemoglobin 27.7 pg (27.0-33.0); Mean Corpuscular Volume 84.6 fL (80.0-98.0); Mean Platelet Volume 10.6 fL (9.4-12.4); Neutrophils Percent Auto 82.5 % (45-73); Platelet Count 264 X10*3/uL (160-400); Red Blood Count 5.52 X10*6/uL (4.60-5.80); Red Cell Distribution Width 13.2 % (11.0-16.0); White Blood Count 14.5 X10*3/uL (4.8-10.8)
[2022-10-12 05:39] LABS: D Dimer High Sensitivity 524 NG/ML
[2022-10-12 05:42] LABS: Alanine Aminotransferase 44 U/L (0-40); Albumin Level 4.2 g/dL (3.5-5.0); Alkaline Phosphatase 191 U/L (39-117); Anion Gap 16 (12-20); Aspartate Amino Transferase 23 U/L (5-37); Bilirubin Total 1.1 mg/dL (0.0-1.0); Blood Urea Nitrogen 18 mg/dL (9-16); Calcium 9.2 mg/dL (8.4-10.2); Carbon Dioxide 21 mmol/L (22-29); Chloride 109 mmol/L (96-108); Creatinine Clr Calc Pharmacy 81.7; Estimated Glomerular Filt Rate 59; Glucose Random 171 mg/dL (60-115); Potassium 4.3 mmol/L (3.3-5.1); Sodium 142 mmol/L (135-145); Total Protein 6.8 g/dL (6.5-8.0)
--- NOTE | 2022-10-12 06:03 | PC.NURSE ---
pt a&o, pt report some sob due tracheobronchomalacia surgery right side chest and rib pain, worse at night when coughing, pt on oxytocin 2.5 2x a day, medication not working. pt is sitting upright in bed. pt change into hospital attire, placed on bedside monitor, labs drawn, Iv placed, xray taken, pt awaiting to be seen by provider.
--- NOTE | 2022-10-12 06:32 | ED_ITS ---
HPI - SOB/Dyspnea General Chief Complaint: Dyspnea Stated Complaint: difficulty breathing Time Seen by Provider: 10/12/22 06:30 Source: patient Mode of arrival: ambulatory Limitations: no limitations History of Present Illness HPI Narrative: On August 17 he had trachial surgery but had to go through his back. He was in the hospital for two weeks, then he collapsed his right lung and he had pulmonary emboli to his right lung. Was admitted to [facility] despite being operated on at [facility]. He was admitted to Dr. Su service. He was discharged at the end of August early September. Patient has had continued pain. Was seen in [place] yesterday by the thoracic surgeon. He was placed on medication. Patient with continued pain. MD elicited complaint: shortness of breath Related Data Home Medications Medication Instructions Recorded Confirmed lidocaine 4 % topical patch 1 patch topical DAILY 09/02/22 10/12/22 (Lidocaine Pain Relief) tamsulosin 0.4 mg capsule 0.4 mg PO BEDTIME 09/02/22 10/12/22 acetaminophen 325 mg tablet 650 mg PO Q6H PRN Pain 10/12/22 10/12/22 albuterol sulfate 1.25 mg/3 mL 1.25 mg BID 10/12/22 10/12/22 solution for nebulization rivaroxaban 15 mg tablet 15 mg PO BID 10/12/22 10/12/22 Previous Rx's Medication Instructions Recorded metoprolol succinate 100 mg 100 mg PO DAILY #90 tabs 05/29/22 tablet,extended release 24 hr losartan 100 mg tablet 100 mg PO DAILY for blood pressure 09/06/22 #90 tabs oxycodone 5 mg tablet 5 mg PO Q6H #30 tabs 09/10/22 rivaroxaban 15 mg (42)-20 mg (9) See Rx Instructions PO .COMPLEX 09/10/22 tablets in a starter pack (Xarelto #51 ea DVT-PE Treatment 30-Day Starter) amlodipine 5 mg tablet 5 mg PO DAILY #90 tabs 09/25/22 Allergies Allergy/AdvReac Type Severity Reaction Status Date / Time penicillin V Allergy Intermediate fever Verified 09/19/22 15:35 vancomycin [Vancomycin] Allergy Mild HIVES, Verified 09/19/22 15:35 FEVER Penicillins AdvReac Mild FEVER Verified 09/19/22 15:35 Review of Systems Review of Systems: Yes all other systems are reviewed and are negative Cardiovascular: Cardiovascular: Reports chest pain and Reports dyspnea Respiratory: Respiratory: Reports dyspnea Neurologic: Denies Sensory deficit (Neuro) [facility] Past Medical History Medical History Allergic rhinitis Asthma Atelectasis Cholelithiasis Chronic neck pain Deviated nasal septum Fatty liver Gall bladder polyp GERD (gastroesophageal reflux disease) Hypercholesterolemia Lesion of vocal cord Neck pain Pleural effusion Pneumonitis Pulmonary embolism Renal calculi Tracheobronchomegaly Tracheomalacia Vocal cord dysfunction Surgical History History of Achilles tendon repair History of eye surgery History of hernia surgery History of knee surgery History of nasal surgery History of neck surgery History of repair of left rotator cuff History of repair of right rotator cuff S/P tracheoplasty Family History Family History Mother No problems noted. Father No problems noted. Social History Social History Household Members: Spouse Housing: House Do you presently have visiting nurse or other home services: Yes (vna) Alcohol intake: current Alcohol intake frequency: holidays/special occasions only Patient Tobacco Use Status: Never used Tobacco Smoked in Last 30 Days: No e-Cigarette/Vaping Use: Never Used Second Hand Smoke Exposure: No Use of substances other than those prescribed or required for medical reasons: No Advance Directives: No Advance Directives Information Provided: No service: No Current occupational status: employed Cognitive needs: No Hearing needs: No Vision needs: No Physical Exam Vital Signs: Vital Signs: Last Vital Signs Temp 97.7 F 10/12/22 11:20 Pulse 105 H 10/12/22 11:20 Resp 22 H 10/12/22 11:20 BP 148/82 H 10/12/22 11:20 Pulse Ox 96 10/12/22 11:20 O2 Del Method Room Air 10/12/22 11:20 BMI result Body Mass Index 31.2 Const: Other: hyperventilating holding a pillow against his chest Nutritional Appearance: average body habitus Orientation/consciousness: oriented to person and patient oriented x3 Limitations: no limitations HEENT: Head: Yes normal to inspection Ears: external ears normal General nose exam: Normal external nose present Mouth: Normal oral and palatal mucosa present and oropharynx normal Throat: Yes posterior oropharynx normal Eyes: General: appearance normal, both eyes and all related structures Neck: Other: supple Neck: Yes normal visual inspection Chest: Other: large right thoracotomy scar Resp: Auscultation: clear to auscultation bilaterally Cardio: Jugular venous distension: no JVD Rate: regular rate Rhythm: regular rhythm Heart sounds: S1 normal heart sound present and S2 normal heart sound present GI: Inspection: Yes normal to inspection Palpation (GI): Soft to palpation, nontender and No hepatosplenomegaly present Auscultation: normal bowel sounds : General: Yes no CVA tenderness Back/Spine/Pelvis: Back: no CVA tenderness Skin: General skin exam: no rashes or lesions noted Neuro: General: oriented to person and patient oriented x3 Cranial nerves: Yes CN's II-XII intact bilaterally Motor exam (neuro): 5/5 motor strength present throughout Sensory Exam: No Sensory deficit (Neuro) Extrem: General: Yes normal to inspection Psych: Appearance: grossly normal Course Reevaluation(s) Reevaluation #1: patient with right chest thoracotomy, now with infitlrate and effusion on right will admit and treat with iv abx Time: 09:15 Medications Administered Generic Name Dose Route Start Last Admin Trade Name Freq PRN Reason Stop Dose Admin Amlodipine Besylate 5 mg 10/12/22 10:30 10/12/22 11:16 Amlodipine Besylate 5 Mg Tablet PO 5 mg DAILY VIVIAN Administration Protocol Atorvastatin Calcium 80 mg 10/12/22 11:15 10/12/22 11:17 Atorvastatin Calcium 80 Mg Tablet PO 80 mg DAILY VIVIAN Administration Losartan Potassium 100 mg 10/12/22 10:30 10/12/22 11:16 Losartan Potassium 50 Mg Tablet PO 100 mg DAILY VIVIAN Administration Protocol Metoprolol Succinate 100 mg 10/12/22 10:30 10/12/22 11:17 Metoprolol Succinate Er 100 Mg Tab.Er.24h PO 100 mg DAILY VIVIAN Administration Protocol Morphine Sulfate 2 mg 10/12/22 10:27 10/12/22 11:03 Morphine Sulfate 4 Mg/Ml Cartridge IVPUSH 2 mg Q4H PRN Administration Pain, Severe (Pain Scale 7-10) Protocol Discontinued Medications Generic Name Dose Route Start Last Admin Trade Name Freq PRN Reason Stop Dose Admin Ceftriaxone Sodium 1 gm/ 50 mls @ 100 mls/hr 10/12/22 06:51 10/12/22 09:07 Sodium Chloride IV 10/12/22 07:20 Infused ONCE ONE Infusion Azithromycin 500 mg/ Sodium 250 mls @ 125 mls/hr 10/12/22 06:51 10/12/22 12:22 Chloride IV 10/12/22 08:50 Infused ONCE ONE Infusion Morphine Sulfate 4 mg 10/12/22 06:51 10/12/22 07:30 Morphine Sulfate 4 Mg/Ml Cartridge IVPUSH 10/12/22 06:52 4 mg ONCE ONE Administration Protocol Medical Decision Making Differential Diagnosis Differential Diagnoses: The differential diagnosis associated with the presentation includes (chronic pain, pneumonia, pneumothorax, pleural effusion) Admission/Observation Consideration of admission/observation: Escalation of care including admission/observation considered (patient with complications of complicated surgery, admission was considered upon arrival) Consult Healthcare Provider Management of the patient was discussed with: Hospitalist Lab Data 10/12/22 05:21 10/12/22 05:21 Labs: Lab Results 10/12/22 10/12/22 10/12/22 Range/Units 05:21 05:21 05:21 WBC 14.5 H (4.8-10.8) X10*3/uL RBC 5.52 (4.60-5.80) X10*6/uL Hgb 15.3 (14.0-18.0) g/dl Hct 46.7 (42.0-52.0) % MCV 84.6 (80.0-98.0) fL MCH 27.7 (27.0-33.0) pg MCHC 32.8 (31.0-36.0) g/dl RDW 13.2 (11.0-16.0) % Plt Count 264 (160-400) X10*3/uL MPV 10.6 (9.4-12.4) fL Immature Gran % (Auto) 0.3 (0.0-0.4) % Neut % (Auto) 82.5 H (45-73) % Lymph % (Auto) 6.5 L (20-40) % [place] % (Auto) 7.0 (2-11) % Eos % (Auto) 3.1 (0-4) % Baso % (Auto) 0.6 (0-2) % Lymph # (Auto) 0.9 L (1.2-4.9) X10*3/uL [place] # (Auto) 1.0 (0.1-1.2) X10*3/uL Eos # (Auto) 0.5 H (0.0-0.4) X10*3/uL Baso # (Auto) 0.1 (0.0-0.2) X10*3/uL Abs Immat Gran (auto) 0.04 H (0.00-0.03) X10*3/uL Absolute Neuts (auto) 12.0 H (2.0-8.3) x10*3/uL Absolute Nucleated RBC 0.000 (0.0-0.012) X10*3/uL Nucleated RBC % (auto) 0.0 (0.0-0.2) /100WBC D-Dimer High Sensitivty 524 NG/ML Sodium 142 (135-145) mmol/L Potassium 4.3 (3.3-5.1) mmol/L Chloride 109 H (96-108) mmol/L Carbon Dioxide 21 L (22-29) mmol/L Anion Gap 16 (12-20) BUN 18 H (9-16) mg/dL Creatinine 1.24 (0.5-1.4) mg/dL Estim Creat Clear Calc 81.7 Estimated GFR 59 Random Glucose 171 H (60-115) mg/dL Calcium 9.2 (8.4-10.2) mg/dL Total Bilirubin 1.1 H (0.0-1.0) mg/dL AST 23 (5-37) U/L ALT 44 H (0-40) U/L Alkaline Phosphatase 191 H (39-117) U/L Total Protein 6.8 (6.5-8.0) g/dL Albumin 4.2 (3.5-5.0) g/dL COVID-19 ([facility]) (Negative) COVID-19 Clin Com 10/12/22 Range/Units 09:25 WBC (4.8-10.8) X10*3/uL RBC (4.60-5.80) X10*6/uL Hgb (14.0-18.0) g/dl Hct (42.0-52.0) % MCV (80.0-98.0) fL MCH (27.0-33.0) pg MCHC (31.0-36.0) g/dl RDW (11.0-16.0) % Plt Count (160-400) X10*3/uL MPV (9.4-12.4) fL Immature Gran % (Auto) (0.0-0.4) % Neut % (Auto) (45-73) % Lymph % (Auto) (20-40) % [place] % (Auto) (2-11) % Eos % (Auto) (0-4) % Baso % (Auto) (0-2) % Lymph # (Auto) (1.2-4.9) X10*3/uL [place] # (Auto) (0.1-1.2) X10*3/uL Eos # (Auto) (0.0-0.4) X10*3/uL Baso # (Auto) (0.0-0.2) X10*3/uL Abs Immat Gran (auto) (0.00-0.03) X10*3/uL Absolute Neuts (auto) (2.0-8.3) x10*3/uL Absolute Nucleated RBC (0.0-0.012) X10*3/uL Nucleated RBC % (auto) (0.0-0.2) /100WBC D-Dimer High Sensitivty NG/ML Sodium (135-145) mmol/L Potassium (3.3-5.1) mmol/L Chloride (96-108) mmol/L Carbon Dioxide (22-29) mmol/L Anion Gap (12-20) BUN (9-16) mg/dL Creatinine (0.5-1.4) mg/dL Estim Creat Clear Calc Estimated GFR Random Glucose (60-115) mg/dL Calcium (8.4-10.2) mg/dL Total Bilirubin (0.0-1.0) mg/dL AST (5-37) U/L ALT (0-40) U/L Alkaline Phosphatase (39-117) U/L Total Protein (6.5-8.0) g/dL Albumin (3.5-5.0) g/dL COVID-19 ([facility]) Negative (Negative) COVID-19 Clin Com See Note Independent Interpretation I performed an independent interpretation of an: Plain X-Ray (right sided infiltrate and effusion) Discharge Plan Discharge Clinical Impression: Pneumonia, Pleural effusion Patient Disposition: Admitted As Inpatient
[2022-10-12] MEDS: Morphine Sulfate 4 MG/ML CARTRIDGE IVPUSH (07:30)
[2022-10-12] MEDS: cefTRIAXone sodium 1 GM in 0.9 % Sodium Chloride 50 ML IV (08:16)
[2022-10-12] MEDS: Azithromycin 500 MG in 0.9 % Sodium Chloride 250 ML 125 MG IV (08:27)
--- NOTE | 2022-10-12 09:19 | PC.NURSE ---
pt sleeping, arousable to verbal and physical stimuli. pt reporting 8/10 pain on right sided rib and chest. azithromycin running. Sinus tach on the monitor. call stratton within reach. will cont to lisbeth.
--- NOTE | 2022-10-12 09:26 | PC.NURSE ---
covid swab sent to lab
[2022-10-12 09:43] LABS: COVID-19 Test Negative (Negative); IDNOW Serial# 08D9AD1C
--- NOTE | 2022-10-12 09:53 | P.HPHOSP_ITS ---
History of Present Illness Date of Service: 10/12/22 Chief Complaint: shortness of breath and chest pain Pt is a 62-year-old male with a PMH significant for?HTN, HLD, bilateral TKA, fused neck, history of pulmonary embolism 19 years ago on Xarelto, and s/p tracheobronchoplasty via right thoracotomy, flexible bronchoscopy with lavage on 08/17/22 at [facility]. He was admitted here from 09/02/22 to 09/10 with right sided chest pain and found to have a pleural effusion and CT was noted for pulmonary embolism and has been on Xarelto. He was seen by Thoracic surgeon Dr. Cotto athat time and there was no indication for interveniton. He was seen in follow by history of tick surgeon just yesterday with a right-sided chest bed in the some difficulty breathing he stated that they give him some medication and there was no x-ray done. He woke up this morning having increasing pain on the right side and having difficulty breathing he also have some cough. Checks x-ray showed Small right-sided layering pleural effusion. Bilateral opacities with. Is given IV antibiotics in the ED wants him admitted for treatment of pneumonia he is not hypoxic. It appears that his main issue was pain control. Review of Systems Review of Systems: Gen: no fever Resp: + sob, + cough CV: + chest, no COX, no leg edema GI: No n/v, no abd pain Neuro: No confusion [facility] Medical History Allergic rhinitis Asthma Atelectasis Cholelithiasis Chronic neck pain Deviated nasal septum Fatty liver Gall bladder polyp GERD (gastroesophageal reflux disease) Hypercholesterolemia Lesion of vocal cord Neck pain Pleural effusion Pneumonitis Pulmonary embolism Renal calculi Tracheobronchomegaly Tracheomalacia Vocal cord dysfunction Family History Mother No problems noted. Father No problems noted. Surgical History History of Achilles tendon repair History of eye surgery History of hernia surgery History of knee surgery History of nasal surgery History of neck surgery History of repair of left rotator cuff History of repair of right rotator cuff S/P tracheoplasty Social History Household Members: Spouse Housing: House Do you presently have visiting nurse or other home services: Yes Alcohol intake: current Alcohol intake frequency: holidays/special occasions only Patient Tobacco Use Status: Never used Tobacco Smoked in Last 30 Days: No e-Cigarette/Vaping Use: Never Used Second Hand Smoke Exposure: No Use of substances other than those prescribed or required for medical reasons: No Currently Displaying Signs/Symptoms of Drug Intoxication Withdrawal: No Have you been hit, kicked, punched, or otherwise hurt by someone within the past year? If so, by whom?: No Do you feel safe in your current relationship?: Yes Is there a partner from a previous relationship who is making you feel unsafe now?: No Are you made to feel afraid or neglected: No Advance Directives: No Advance Directives Information Provided: No Do you have thoughts of harming others: None Do you have a plan to hurt others: No Plan Recently lost weight without trying: No Eating poorly because of decreased appetite: No Nutrition Risks: No Nutritional Risk service: No Current occupational status: employed Cognitive needs: No Hearing needs: No Vision needs: No Meds Allergies Allergy/AdvReac Type Severity Reaction Status Date / Time penicillin V Allergy Intermediate fever Verified 09/19/22 15:35 vancomycin [Vancomycin] Allergy Mild HIVES, Verified 09/19/22 15:35 FEVER Penicillins AdvReac Mild FEVER Verified 09/19/22 15:35 Active Medications: Current Medications Pharmacy Consult (Consult Rx Perform Med Rec) 1 each MISCELLANE ONCE PRN PRN Reason: Consult order Home Medications Medication Instructions Recorded Confirmed Last Taken Type lidocaine 4 % topical patch 1 patch topical DAILY 09/02/22 10/12/22 10/11/22 His tory (Lidocaine Pain Relief) tamsulosin 0.4 mg capsule 0.4 mg PO BEDTIME 09/02/22 10/12/22 10/11/22 History acetaminophen 325 mg tablet 650 mg PO Q6H PRN Pain 10/12/22 10/12/22 10/11/22 History albuterol sulfate 1.25 mg/3 mL 1.25 mg BID 10/12/22 10/12/22 10/11/22 History solution for nebulization rivaroxaban 15 mg tablet 15 mg PO BID 10/12/22 10/12/22 10/11/22 History Physical Exam Vital Signs and Narrative: Vital Signs: Last Vital Signs Temp 97.8 F 10/12/22 09:16 Pulse 106 H 10/12/22 09:16 Resp 20 10/12/22 09:16 BP 143/90 H 10/12/22 09:16 Pulse Ox 96 10/12/22 09:16 O2 Del Method Room Air 10/12/22 09:16 BMI result Body Mass Index 31.2 Const: Other: Constitutional: Alert, in no distress, overweight. Mental Status: Oriented to person, place and time. Eyes: Pupils are equal, round and reactive to light. Ear, Nose and Throat: Oropharynx clear, mucous membranes moist. Ears and nose without eformities. Trachea midline. Respiratory: Clear to auscultation. No wheezing, rales or rhonchi. Cardiovascular: S1 S2 regular. No murmurs, rubs or gallops. Gastrointestinal: Abdomen soft, non-tender, non-distended. Normal bowel sounds.? Neurologic: Cranial nerves II-XII grossly intact. No focal neurological deficits. Moves all extremities spontaneously.? Skin: No rashes or lesions.? Musculoskeletal: No cyanosis or clubbing. Psychiatric: Normal mood and affect? Results Labs 10/12/22 05:21 10/12/22 05:21 Labs: Laboratory Results - last 24 hr 10/12/22 10/12/22 10/12/22 05:21 05:21 05:21 MCV 84.6 MCH 27.7 MCHC 32.8 RDW 13.2 Plt Count 264 MPV 10.6 Immature Gran % (Auto) 0.3 Neut % (Auto) 82.5 H Lymph % (Auto) 6.5 L [place] % (Auto) 7.0 Eos % (Auto) 3.1 Baso % (Auto) 0.6 Lymph # (Auto) 0.9 L [place] # (Auto) 1.0 Eos # (Auto) 0.5 H Baso # (Auto) 0.1 Abs Immat Gran (auto) 0.04 H Absolute Neuts (auto) 12.0 H Absolute Nucleated RBC 0.000 Nucleated RBC % (auto) 0.0 D-Dimer High Sensitivty 524 Anion Gap 16 Estim Creat Clear Calc 81.7 Estimated GFR 59 Random Glucose 171 H Calcium 9.2 Total Bilirubin 1.1 H AST 23 ALT 44 H Alkaline Phosphatase 191 H Total Protein 6.8 Albumin 4.2 COVID-19 ([facility]) COVID-19 Clin Com 10/12/22 09:25 MCV MCH MCHC RDW Plt Count MPV Immature Gran % (Auto) Neut % (Auto) Lymph % (Auto) [place] % (Auto) Eos % (Auto) Baso % (Auto) Lymph # (Auto) [place] # (Auto) Eos # (Auto) Baso # (Auto) Abs Immat Gran (auto) Absolute Neuts (auto) Absolute Nucleated RBC Nucleated RBC % (auto) D-Dimer High Sensitivty Anion Gap Estim Creat Clear Calc Estimated GFR Random Glucose Calcium Total Bilirubin AST ALT Alkaline Phosphatase Total Protein Albumin COVID-19 ([facility]) Negative COVID-19 Clin Com See Note Imaging Radiologist's Impressions: Impressions Chest X-Ray 10/12/22 05:51 IMPRESSION: Small right-sided layering pleural effusion. Bilateral opacities with bronchial wall thickening favor fluid overload. Assessment and Plan (1) Pneumonia: Status: Acute Plan 62-year-old male with a PMH significant for?HTN, HLD, bilateral TKA, fused neck, history of pulmonary embolism 19 years ago was Xarelto, and s/p tracheobronchoplasty via right thoracotomy, flexible bronchoscopy with lavage on 08/17/22 at [facility] with subsequent admission last month for PE now with SOB, chest pain, leukocytosis and possible PNA on chest xray SOB, chest pain s/p and s/p tracheobronchoplasty via right thoracotomy, recent PE d/t PNA, meet sepsis criteria with tachycardia, elevated WBC..no severe sepsis -continue Ceftriaxone -consider CT again Chest pain --doesn't appear cardiac--pain control h/o PE continue Xarelto HTN Continue home meds HLD Continue home meds Full Code DVT Prophylaxis: Xarelto Pt will require a hospitalization of at least two nights for treatment chest pain, SOB realated to PNA Time Spent With Patient Time: Total time managing care of this patient today ____ minutes. Quality Stroke Does the patient have a stroke diagnosis?: No VTE Prior VTE?: Yes VTE Risk Level:: Medical - moderate - high VTE Device Contraindication: Treatment Not Indicated VTE Drug Contraindication: N/A - Med Ordered
[2022-10-12] MEDS: Morphine Sulfate 4 MG/ML CARTRIDGE 2 MG IVPUSH ×3 (11:03→18:33)
--- NOTE | 2022-10-12 11:08 | PC.NURSE ---
pt c/o 10/10 right flank/rib pain. medicated with PRN morphine 2mg
--- NOTE | 2022-10-12 11:14 | PHA.MEDREC ---
Pharmacy Consult ? Medication Reconciliation Pharmacy has completed the medication reconciliation. Patient confirmed all medication. Reports taking taking oxycodone 2.5 mg however per PDMP patient was filling oxycodone 5 mg in feburary 30 tablet prn. Phyllis Marcano, PharmD
[2022-10-12] MEDS: amLODIPine Besylate 5 MG TABLET PO (11:16)
[2022-10-12] MEDS: Losartan Potassium 50 MG TABLET 100 MG PO (11:16)
[2022-10-12] MEDS: Metoprolol Succinate ER 100 MG TAB.ER.24H PO (11:17)
[2022-10-12] MEDS: Atorvastatin Calcium 80 MG TABLET PO (11:17)
--- NOTE | 2022-10-12 11:23 | PC.NURSE ---
pt medicated per Sep, sinus tach on monitor, vitals otherwise stable. IV ABX running. will cont to monitor.
[2022-10-12 11:43] LABS: Lactic Acid 1.9 mmol/L (0.5-2.0)
--- NOTE | 2022-10-12 12:32 | PC.NURSE ---
IV ABX finished, pt sleeping. will cont to monitor.
[2022-10-12] MEDS: Acetaminophen 325 MG TABLET 650 MG PO (15:14)
--- NOTE | 2022-10-12 15:15 | PC.NURSE ---
pt medicated with PRN tylenol after requesting some for headache
[2022-10-12] MEDS: 0.9 % Sodium Chloride Flush 3 ML SYRINGE IVFLUSH ×2 (15:16→21:15)
--- NOTE | 2022-10-12 15:32 | PC.NURSE ---
pt ambulated to the bathroom to urinate and vomited. Pt reports after he got very lightheaded. Tech assisted pt to wheelchair and returned pt to room.
--- NOTE | 2022-10-12 15:49 | PC.NURSE ---
pt 8/10 right sided flank pain. PRN morphine given according to SEP. cardiac lisbeth intact - 95 HR NSR. will cont to lisbeth.
--- NOTE | 2022-10-12 17:33 | PC.NURSE ---
Laura Karimi () phone number [phone]
[2022-10-12] MEDS: Tamsulosin HCL 0.4 MG CAPSULE PO (21:08)
[2022-10-13 03:33] VITALS: BP 145/86; PULSE 102; RESP 18; TEMP 36.4; O2SAT 96
[2022-10-13 07:14] VITALS: BP 154/94; PULSE 109; RESP 18; TEMP 36.6; O2SAT 97
[2022-10-13 08:05] VITALS: PULSE 103; RESP 20; O2SAT 99
[2022-10-13 08:53] VITALS: PULSE 112; RESP 22; O2SAT 95
[2022-10-13 09:51] LABS: Hematocrit 43.9 % (42.0-52.0); Hemoglobin 14.2 g/dl (14.0-18.0); Mean Corpuscular HGB Conc 32.3 g/dl (31.0-36.0); Mean Corpuscular Hemoglobin 27.9 pg (27.0-33.0); Mean Corpuscular Volume 86.2 fL (80.0-98.0); Mean Platelet Volume 10.5 fL (9.4-12.4); Platelet Count 259 X10*3/uL (160-400); Red Blood Count 5.09 X10*6/uL (4.60-5.80); Red Cell Distribution Width 13.4 % (11.0-16.0); White Blood Count 10.8 X10*3/uL (4.8-10.8)
[2022-10-13] MEDS: Losartan Potassium 50 MG TABLET 100 MG PO (10:14)
[2022-10-13] MEDS: Metoprolol Succinate ER 100 MG TAB.ER.24H PO (10:14)
[2022-10-13] MEDS: amLODIPine Besylate 5 MG TABLET PO (10:14)
[2022-10-13] MEDS: Atorvastatin Calcium 80 MG TABLET PO (10:14)
[2022-10-13] MEDS: ondansetron HCL 4 MG/2 ML VIAL IVPUSH ×2 (10:14→23:04)
[2022-10-13] MEDS: 0.9 % Sodium Chloride Flush 3 ML SYRINGE IVFLUSH ×3 (10:15→19:56)
[2022-10-13] MEDS: Acetaminophen 325 MG TABLET 650 MG PO ×2 (10:42→17:01)
--- NOTE | 2022-10-13 13:02 | HO.PM.IMPN ---
Subjective Subjective Date of Service: 10/13/22 Interval History: f/u on pna, chest pain still c/o chest pain and vomitting overnight, no hypoxia Physical Exam Vital Signs: Vital Signs: Last Vital Signs Temp 98 F 10/13/22 07:14 Pulse 112 H 10/13/22 08:53 Resp 22 H 10/13/22 08:53 BP 154/94 H 10/13/22 07:14 Pulse Ox 95 10/13/22 08:53 O2 Del Method Room Air 10/13/22 08:53 O2 Flow Rate 2 10/13/22 07:14 BMI result Body Mass Index 31.2 Const: Other: General: AO X 3, no acute distress Resp: CTA bilateral CVS: S1,S2,RRR GI: +BS, NT, no distention Skin: No rash Neuro: motor grossly intact Psych: appropriate affect Objective Data Active Medications Acetaminophen (Acetaminophen 325 Mg Tablet) 650 mg PO Q6H PRN PRN Reason: Pain, Mild (Pain Scale 1-3) Last Admin: 10/13/22 10:42 Dose: 650 mg Documented By: JOES Amlodipine Besylate (Amlodipine Besylate 5 Mg Tablet) 5 mg PO DAILY [facility]; Protocol Last Admin: 10/13/22 10:14 Dose: 5 mg Documented By: JOSE Atorvastatin Calcium (Atorvastatin Calcium 80 Mg Tablet) 80 mg PO DAILY [facility] Last Admin: 10/13/22 10:14 Dose: 80 mg Documented By: JOSE Albuterol Sulfate 2.5 mg/ (Ipratropium [place] 0.5 mg) 0 mg INHALE Q4H PRN PRN Reason: Wheezing Last Admin: 10/13/22 08:05 Dose: 2.5 each Documented By: MARY Losartan Potassium (Losartan Potassium 50 Mg Tablet) 100 mg PO DAILY [facility]; Protocol Last Admin: 10/13/22 10:14 Dose: 100 mg Documented By: JOSE Melatonin (Melatonin 3 Mg Tablet) 6 mg PO BEDTIME PRN PRN Reason: Insomnia Metoprolol Succinate (Metoprolol Succinate Er 100 Mg Tab.Er.24h) 100 mg PO DAILY [facility]; Protocol Last Admin: 10/13/22 10:14 Dose: 100 mg Documented By: JOSE Morphine Sulfate (Morphine Sulfate 4 Mg/Ml Cartridge) 2 mg IVPUSH Q4H PRN; Protocol PRN Reason: Pain, Severe (Pain Scale 7-10) Last Admin: 10/12/22 18:33 Dose: 2 mg Documented By: LIDA Ondansetron HCl (Ondansetron Hcl 4 Mg/2 Ml Vial) 4 mg IVPUSH Q8H PRN PRN Reason: Nausea and Vomiting Last Admin: 10/13/22 10:14 Dose: 4 mg Documented By: JOSE Oxycodone HCl (Oxycodone Hcl Immed Release 5 Mg Tablet) 5 mg PO Q6H PRN PRN Reason: Pain, Moderate (Pain Scale 4-6 Pharmacy Consult (Consult Rx Perform Med Rec) 1 each MISCELLANE ONCE PRN PRN Reason: Consult order Sodium Chloride (0.9 % Sodium Chloride Flush 3 Ml Syringe) 3 ml IVFLUSH QSHIFT [facility] Last Admin: 10/13/22 10:15 Dose: 3 ml Documented By: JOSE Tamsulosin HCl (Tamsulosin Hcl 0.4 Mg Capsule) 0.4 mg PO BEDTIME [facility] Last Admin: 10/12/22 21:08 Dose: 0.4 mg Documented By: ANNMARIE Labs 10/13/22 09:45 10/12/22 05:21 Labs: Laboratory Results - last 24 hr 10/13/22 09:45 MCV 86.2 MCH 27.9 MCHC 32.3 RDW 13.4 Plt Count 259 MPV 10.5 Absolute Nucleated RBC 0.000 Nucleated RBC % (auto) 0.0 Microbiology Microbiology Results: Microbiology 10/12/22 07:39 Blood Culture - Preliminary Blood - Venous No growth after 24 hours. 10/12/22 07:39 Blood Culture - Preliminary Blood - Venous No growth after 24 hours. Assessment and Plan (1) Pneumonia: Status: Acute (2) Post-thoracotomy pain: Status: Acute Plan 62-year-old male with a PMH significant for?HTN, HLD, bilateral TKA, fused neck, history of pulmonary embolism 19 years ago was? Xarelto, and s/p tracheobronchoplasty via right thoracotomy, flexible bronchoscopy with lavage on 08/17/22 at [facility] with subsequent admission last month for PE now with SOB, chest pain, leukocytosis and possible PNA on chest xray SOB, chest pain? s/p?and s/p tracheobronchoplasty via right thoracotomy, recent PE? d/t PNA, meet sepsis criteria with tachycardia, elevated WBC..no severe sepsis -continue Ceftriaxone started 10/12 -consider CT again if not improving Chest pain, post thoracotomy pain --doesn't appear cardiac--pain control with morrphine and oxy h/o PE continue Xarelto HTN Continue home meds HLD Continue home meds N/V abdominal exam bening, CT Full Code DVT Prophylaxis: Xarelto Need for inpatient: reatment chest pain, SOB realated to PNA, need for IV Abx Time Spent With Patient Time: Total time managing care of this patient today ____ minutes. Quality Stroke Does the patient have a stroke diagnosis?: No VTE Prior VTE?: Yes VTE Risk Level:: Medical - moderate - high VTE Device Contraindication: Treatment Not Indicated VTE Drug Contraindication: N/A - Med Ordered
[2022-10-13] MEDS: traMADoL HCL 50 MG TABLET PO (13:54)
[2022-10-13] MEDS: Rivaroxaban 20 MG TABLET PO (13:54)
[2022-10-13] MEDS: cefTRIAXone sodium 1 GM in 0.9 % Sodium Chloride 50 ML IV (13:54)
[2022-10-13] MEDS: guaiFEN/Codeine SF 200/20/10ML 10 ML LIQUID 5 ML PO ×2 (13:54→19:56)
--- NOTE | 2022-10-13 15:11 | MHC.CM.PN ---
PATIENT UNABLE TO SPEAK IN FULL SENTENCES COMFORTABLY. CURRENTLY BEING ASSESSED BY RN. ON 2 L O2 IN ROOM CASE MANAGEMENT NAME AND DC PLAN WRITTEN ON WHITE BOARD. HCP IS ON FILE AND VERIFIED.
[2022-10-13 16:00] VITALS: BP 165/80; PULSE 98; RESP 20; TEMP 36.5; O2SAT 97
[2022-10-13] MEDS: iohexoL 350 MG/ML 100 ML INFUS..BTL 65 ML IV ×2 (17:00→17:05)
[2022-10-13] MEDS: oxyCODONE HCl Immed Release 5 MG TABLET PO (17:25)
[2022-10-13] MEDS: Tamsulosin HCL 0.4 MG CAPSULE PO (19:56)
[2022-10-13 20:00] VITALS: BP 144/80; PULSE 97; RESP 17; TEMP 36.6; O2SAT 95
[2022-10-14] VITALS (7 sets, daily range): BP systolic 132–173; BP diastolic 75–85; PULSE 96–101; RESP 17–20; TEMP 36.1–36.6; O2SAT 94–99
[2022-10-14] MEDS: Morphine Sulfate 2 MG/ML CARTRIDGE IVPUSH ×4 (00:04→19:39)
--- NOTE | 2022-10-14 04:05 | MHC.PIE ---
10/13/22 2300 p; pt c/o n/v pain 02/23. pt noticeably in sever pain . note; pt offered iv dilaudid multiple times and pt refused d/t dilaudid in past caused confusion and feel bad . pt educated on pain manegement and pain med options - pt now agreeable to taking morphine for pain. i; dr sibley notified; new order morphine 2mg iv e; pt in room asleep, will cont to [facility]
[2022-10-14] MEDS: 0.9 % Sodium Chloride Flush 3 ML SYRINGE IVFLUSH ×3 (07:57→19:39)
[2022-10-14] MEDS: guaiFEN/Codeine SF 200/20/10ML 10 ML LIQUID 5 ML PO ×2 (07:57→14:26)
[2022-10-14] MEDS: Atorvastatin Calcium 80 MG TABLET PO (07:57)
[2022-10-14] MEDS: amLODIPine Besylate 5 MG TABLET PO (07:57)
[2022-10-14] MEDS: Losartan Potassium 50 MG TABLET 100 MG PO (07:57)
[2022-10-14] MEDS: Metoprolol Succinate ER 100 MG TAB.ER.24H PO (07:57)
[2022-10-14] MEDS: ondansetron HCL 4 MG/2 ML VIAL IVPUSH (08:01)
--- NOTE | 2022-10-14 09:53 | P.PNIM_ITS ---
Subjective Subjective Date of Service: 10/14/22 Interval History: f/u on pna, chest pain still with excruciating pain in the chest, vomitting overnight. CTA no PE noted rib fractures that are old Review of Systems Gen: no fever Resp: + sob, + cough CV: + chest, no COX, no leg edema GI: No n/v, no abd pain Neuro: No confusion Physical Exam Vital Signs: Vital Signs: Last Vital Signs Temp 97 F 10/14/22 07:16 Pulse 101 H 10/14/22 08:33 Resp 18 10/14/22 08:33 BP 150/82 H 10/14/22 07:16 Pulse Ox 99 10/14/22 07:16 O2 Del Method Room Air 10/14/22 07:16 O2 Flow Rate 2 10/14/22 03:40 BMI result Body Mass Index 31.2 Const: Other: General: AO X 3, no acute distress Resp: CTA bilateral CVS: S1,S2,RRR GI: +BS, NT, no distention Skin: No rash Neuro: motor grossly intact Psych: appropriate affect Objective Data Active Medications Acetaminophen (Acetaminophen 325 Mg Tablet) 650 mg PO Q6H PRN PRN Reason: Pain, Mild (Pain Scale 1-3) Last Admin: 10/13/22 17:01 Dose: 650 mg Documented By: ADOLPH Amlodipine Besylate (Amlodipine Besylate 5 Mg Tablet) 5 mg PO DAILY [facility]; Protocol Last Admin: 10/14/22 07:57 Dose: 5 mg Documented By: JOSE Atorvastatin Calcium (Atorvastatin Calcium 80 Mg Tablet) 80 mg PO DAILY [facility] Last Admin: 10/14/22 07:57 Dose: 80 mg Documented By: JOSE Albuterol Sulfate 2.5 mg/ (Ipratropium [place] 0.5 mg) 0 mg INHALE Q4H PRN PRN Reason: Wheezing Last Admin: 10/14/22 08:31 Dose: 2.5 each Documented By: MARY Guaifenesin/Codeine Phosphate (Guaifen/Codeine Sf 200/20/10ml 10 Ml Liquid) 5 ml PO Q6H PRN PRN Reason: Cough Last Admin: 10/14/22 07:57 Dose: 5 ml Documented By: JOSE Ceftriaxone Sodium 1 gm/ (Sodium Chloride) 50 mls @ 100 mls/hr IV Q24H [facility] Last Infusion: 10/13/22 14:33 Dose: 0 mls/hr Documented By: JOSE Losartan Potassium (Losartan Potassium 50 Mg Tablet) 100 mg PO DAILY [facility]; Pr otocol Last Admin: 10/14/22 07:57 Dose: 100 mg Documented By: JOSE Melatonin (Melatonin 3 Mg Tablet) 6 mg PO BEDTIME PRN PRN Reason: Insomnia Metoprolol Succinate (Metoprolol Succinate Er 100 Mg Tab.Er.24h) 100 mg PO DAILY [facility]; Protocol Last Admin: 10/14/22 07:57 Dose: 100 mg Documented By: JOSE Morphine Sulfate (Morphine Sulfate 2 Mg/Ml Cartridge) 2 mg IVPUSH Q4H PRN; Protocol PRN Reason: Pain, Severe (Pain Scale 7-10) Last Admin: 10/14/22 00:04 Dose: 2 mg Documented By: CAMI Ondansetron HCl (Ondansetron Hcl 4 Mg/2 Ml Vial) 4 mg IVPUSH Q8H PRN PRN Reason: Nausea and Vomiting Last Admin: 10/14/22 08:01 Dose: 4 mg Documented By: JOSE Oxycodone HCl (Oxycodone Hcl Immed Release 5 Mg Tablet) 5 mg PO Q6H PRN PRN Reason: Pain, Severe (Pain Scale 7-10) Last Admin: 10/13/22 17:25 Dose: 5 mg Documented By: ADOLPH Pharmacy Consult (Consult Rx Perform Med Rec) 1 each MISCELLANE ONCE PRN PRN Reason: Consult order Rivaroxaban (Rivaroxaban 20 Mg Tablet) 20 mg PO DAILY@1730 [facility] Last Admin: 10/13/22 13:54 Dose: 20 mg Documented By: JOSE Sodium Chloride (0.9 % Sodium Chloride Flush 3 Ml Syringe) 3 ml IVFLUSH QSHIFT [facility] Last Admin: 10/14/22 07:57 Dose: 3 ml Documented By: JOSE Tamsulosin HCl (Tamsulosin Hcl 0.4 Mg Capsule) 0.4 mg PO BEDTIME [facility] Last Admin: 10/13/22 19:56 Dose: 0.4 mg Documented By: CAMI Labs 10/13/22 09:45 10/12/22 05:21 Microbiology Microbiology Results: Microbiology 10/12/22 07:39 Blood Culture - Preliminary Blood - Venous No growth after 48 hours. 10/12/22 07:39 Blood Culture - Preliminary Blood - Venous No growth after 48 hours. Assessment and Plan (1) Post-thoracotomy pain: Status: Acute (2) Pneumonia: Status: Acute Plan 62-year-old male with a PMH significant for?HTN, HLD, bilateral TKA, fused neck, history of pulmonary embolism 19 years ago was? Xarelto, and s/p tracheobronchoplasty via right thoracotomy, flexible bronchoscopy with lavage on 08/17/22 at [facility]? with subsequent admission last month for PE now with SOB, chest pain, leukocytosis and possible PNA on chest xray SOB, chest pain? s/p?and s/p tracheobronchoplasty via right thoracotomy, recent PE? d/t PNA, meet sepsis criteria with tachycardia, elevated WBC..no severe sepsis -continue Ceftriaxone started 10/12 -CTA 10/13 no PE Chest pain, post thoracotomy pain, Fractured ribs,--doesn't appear cardiac--pain control with morrphine and oxy maximize pain control h/o PE continue Xarelto HTN Continue home meds HLD Continue home meds N/V abdominal exam bening, CT Full Code DVT Prophylaxis: Xarelto Need for inpatient: reatment chest pain, SOB realated to PNA, need for IV Abxm, pain controll then dc Time Spent With Patient Time: Total time managing care of this patient today ____ minutes. Quality Stroke Does the patient have a stroke diagnosis?: No VTE Prior VTE?: Yes VTE Risk Level:: Medical - moderate - high VTE Device Contraindication: Treatment Not Indicated VTE Drug Contraindication: N/A - Med Ordered
[2022-10-14] MEDS: cefTRIAXone sodium 1 GM in 0.9 % Sodium Chloride 50 ML IV (14:29)
--- NOTE | 2022-10-14 15:38 | MHC.CM.PN ---
CM ATTEMPTED TO SEE PT WHO WAS SLEEPING AND DOES NOT WAKE TO NAME CM TO REVISIT
--- NOTE | 2022-10-14 15:54 | MHC.CM.PN ---
Addendum entered by Lola Lindo 10/15/22 14:23: PT IS ACTIVE WITH [facility] FOR SN SERVICES Original Note: PT REPORTS HE LIVES HIS AND IS INDEPENDENT WTIH CARE PT REPORTS HE IS ACTIVE WITH A [facility], HE IS UNSURE OF NAME HE HAS NO DME PCP: NATHALIE HUGGINS HCP ON FILE + [facility] D[facility] HOME RESUME [facility] TO TRANSPORT
[2022-10-14] MEDS: Rivaroxaban 20 MG TABLET PO (16:38)
--- NOTE | 2022-10-14 20:15 | PC.NURSE ---
pt was coughing pulled cough medicine within codeine 5ml waist with Elizabeth Sutton, pt denied to take it waist 5mL with ELIZABETH Camarillo. completely 10 mL waisted in the waist bottle.
[2022-10-14] MEDS: Tamsulosin HCL 0.4 MG CAPSULE PO (21:06)
[2022-10-14] MEDS: Fluticasone Propionate Nasal 16 GM SPRAY 2 SPRAY NOSTRIL-B (21:33)
[2022-10-14] MEDS: Melatonin 3 MG TABLET 6 MG PO (21:38)
[2022-10-15] MEDS: Morphine Sulfate 2 MG/ML CARTRIDGE IVPUSH ×4 (00:16→19:10)
[2022-10-15 02:52] VITALS: BP 130/71; PULSE 94; RESP 18; TEMP 36.1; O2SAT 95
[2022-10-15] MEDS: guaiFEN/Codeine SF 200/20/10ML 10 ML LIQUID 5 ML PO (04:31)
[2022-10-15 07:42] VITALS: BP 137/70; PULSE 106; RESP 20; TEMP 36.6; O2SAT 93
[2022-10-15] MEDS: Metoprolol Succinate ER 100 MG TAB.ER.24H PO (09:11)
[2022-10-15] MEDS: Fluticasone Propionate Nasal 16 GM SPRAY 2 SPRAY NOSTRIL-B ×2 (09:11→22:06)
[2022-10-15] MEDS: amLODIPine Besylate 5 MG TABLET PO (09:11)
[2022-10-15] MEDS: Atorvastatin Calcium 80 MG TABLET PO (09:11)
[2022-10-15] MEDS: 0.9 % Sodium Chloride Flush 3 ML SYRINGE IVFLUSH ×2 (09:11→19:11)
[2022-10-15] MEDS: Losartan Potassium 50 MG TABLET 100 MG PO (09:11)
--- NOTE | 2022-10-15 09:18 | P.PNIM_ITS ---
Subjective Subjective Date of Service: 10/15/22 Interval History: f/u on pna, chest pain still with excruciating pain in the chest, vomitting overnight. CTA no PE noted rib fractures that are old Review of Systems +cough, chest pain Physical Exam Vital Signs: Vital Signs: Last Vital Signs Temp 97.9 F 10/15/22 07:42 Pulse 106 H 10/15/22 07:42 Resp 20 10/15/22 07:42 BP 137/70 10/15/22 07:42 Pulse Ox 93 10/15/22 07:42 O2 Del Method Room Air 10/15/22 07:42 O2 Flow Rate 2 10/15/22 02:52 BMI result Body Mass Index 31.2 Objective Data Active Medications Acetaminophen (Acetaminophen 325 Mg Tablet) 650 mg PO Q6H PRN PRN Reason: Pain, Mild (Pain Scale 1-3) Last Admin: 10/13/22 17:01 Dose: 650 mg Documented By: ADOLPH Amlodipine Besylate (Amlodipine Besylate 5 Mg Tablet) 5 mg PO DAILY [facility]; Protoc ol Last Admin: 10/14/22 07:57 Dose: 5 mg Documented By: JOSE Atorvastatin Calcium (Atorvastatin Calcium 80 Mg Tablet) 80 mg PO DAILY [facility] Last Admin: 10/14/22 07:57 Dose: 80 mg Documented By: JOSE Benzonatate (Benzonatate 100 Mg Capsule) 100 mg PO TID PRN PRN Reason: Cough Albuterol Sulfate 2.5 mg/ (Ipratropium [place] 0.5 mg) 0 mg INHALE Q4H PRN PRN Reason: Wheezing Last Admin: 10/14/22 23:11 Dose: 2.5 each Documented By: SHWETA Albuterol Sulfate 2.5 mg/ (Ipratropium [place] 0.5 mg) 0 mg INHALE Q4H PRN PRN Reason: Wheezing Fluticasone Propionate (Fluticasone Propionate Nasal 16 Gm [place]) 2 spray NOSTRIL-B BID [facility] Last Admin: 10/14/22 21:33 Dose: 2 spray Documented By: MISHEL Guaifenesin/Codeine Phosphate (Guaifen/Codeine Sf 200/20/10ml 10 Ml Liquid) 5 ml PO Q6H PRN PRN Reason: Cough Last Admin: 10/15/22 04:31 Dose: 5 ml Documented By: MISHEL Ceftriaxone Sodium 1 gm/ (Sodium Chloride) 50 mls @ 100 mls/hr IV Q24H [facility] Last Infusion: 10/14/22 15:05 Dose: 0 mls/hr Documented By: JOSE Losartan Potassium (Losartan Potassium 50 Mg Tablet) 100 mg PO DAILY [facility]; Protocol Last Admin: 10/14/22 07:57 Dose: 100 mg Documented By: JOSE Melatonin (Melatonin 3 Mg Tablet) 6 mg PO BEDTIME PRN PRN Reason: Insomnia Last Admin: 10/14/22 21:38 Dose: 6 mg Documented By: MISHEL Metoprolol Succinate (Metoprolol Succinate Er 100 Mg Tab.Er.24h) 100 mg PO DAILY [facility]; Protocol Last Admin: 10/14/22 07:57 Dose: 100 mg Documented By: JOSE Morphine Sulfate (Morphine Sulfate 2 Mg/Ml Cartridge) 2 mg IVPUSH Q4H PRN; Protocol PRN Reason: Pain, Severe (Pain Scale 7-10) Last Admin: 10/15/22 04:26 Dose: 2 mg Documented By: MISHEL Morphine Sulfate (Morphine Sulfate Er 15 Mg Tablet.Er) 15 mg PO Q12H [facility] Ondansetron HCl (Ondansetron Hcl 4 Mg/2 Ml Vial) 4 mg IVPUSH Q8H PRN PRN Reason: Nausea and Vomiting Last Admin: 10/14/22 08:01 Dose: 4 mg Documented By: JOSE Oxycodone HCl (Oxycodone Hcl Immed Release 5 Mg Tablet) 5 mg PO Q6H PRN PRN Reason: Pain, Severe (Pain Scale 7-10) Last Admin: 10/13/22 17:25 Dose: 5 mg Documented By: ADOLPH Pharmacy Consult (Consult Rx Perform Med Rec) 1 each MISCELLANE ONCE PRN PRN Reason: Consult order Rivaroxaban (Rivaroxaban 20 Mg Tablet) 20 mg PO DAILY@1730 [facility] Last Admin: 10/14/22 16:38 Dose: 20 mg Documented By: ALEXA Sodium Chloride (0.9 % Sodium Chloride Flush 3 Ml Syringe) 3 ml IVFLUSH QSHIFT [facility] Last Admin: 10/14/22 19:39 Dose: 3 ml Documented By: MISHEL Tamsulosin HCl (Tamsulosin Hcl 0.4 Mg Capsule) 0.4 mg PO BEDTIME [facility] Last Admin: 10/14/22 21:06 Dose: 0.4 mg Documented By: MISHEL Labs 10/13/22 09:45 10/12/22 05:21 Microbiology Microbiology Results: Microbiology 10/12/22 07:39 Blood Culture - Preliminary Blood - Venous No growth after 48 hours. 10/12/22 07:39 Blood Culture - Preliminary Blood - Venous No growth after 48 hours. Assessment and Plan (1) Post-thoracotomy pain: Status: Acute (2) Pneumonia: Status: Acute Plan 62-year-old male with a PMH significant for?HTN, HLD, bilateral TKA, fused neck, history of pulmonary embolism 19 years ago was? Xarelto, and s/p tracheobronchoplasty via right thoracotomy, flexible bronchoscopy with lavage on 08/17/22 at [facility] with subsequent admission last month for PE now with SOB, chest pain, leukocytosis and possible PNA on chest xray SOB, chest pain? s/p?and s/p tracheobronchoplasty via right thoracotomy, recent PE? d/t PNA, meet sepsis criteria with tachycardia, elevated WBC..no severe sepsis -continue Ceftriaxone started 10/12 -CTA 10/13 no PE Chest pain, post thoracotomy pain, Fractured ribs,--doesn't appear cardiac--pain control with morrphine and oxy maximize pain control , starting morphine sulfate Er h/o PE continue Xarelto HTN Continue home meds HLD Continue home meds N/V abdominal exam bening, CT Full Code DVT Prophylaxis: Xarelto Need for inpatient: reatment chest pain, SOB realated to PNA, need for IV Abxm, pain controll then dc Time Spent With Patient Time: Total time managing care of this patient today ____ minutes. Quality Stroke Does the patient have a stroke diagnosis?: No VTE Prior VTE?: Yes VTE Risk Level:: Medical - moderate - high VTE Device Contraindication: Treatment Not Indicated VTE Drug Contraindication: N/A - Med Ordered
[2022-10-15] MEDS: Morphine Sulfate ER 15 MG TABLET.ER PO ×2 (11:52→22:05)
[2022-10-15] MEDS: cefTRIAXone sodium 1 GM in 0.9 % Sodium Chloride 50 ML IV (14:13)
[2022-10-15 15:02] VITALS: BP 118/64; PULSE 90; RESP 16; TEMP 36.2; O2SAT 96
[2022-10-15] MEDS: Rivaroxaban 20 MG TABLET PO (16:46)
[2022-10-15 18:59] VITALS: BP 133/74; PULSE 91; RESP 15; TEMP 36.1; O2SAT 98
[2022-10-15] MEDS: Tamsulosin HCL 0.4 MG CAPSULE PO (22:06)
[2022-10-16] MEDS: Melatonin 3 MG TABLET 6 MG PO (00:08)
[2022-10-16 03:24] VITALS: BP 110/82; PULSE 90; RESP 17; TEMP 36.7; O2SAT 97
[2022-10-16 07:52] VITALS: BP 142/87; PULSE 95; RESP 18; TEMP 36.7; O2SAT 95
--- NOTE | 2022-10-16 08:13 | HO.PM.IMPN ---
Subjective Subjective Date of Service: 10/16/22 Interval History: f/u on pna, chest pain still with excruciating pain in the chest, vomitting overnight. CTA no PE noted rib fractures that are old Review of Systems +cough, chest pain Physical Exam Vital Signs: Vital Signs: Last Vital Signs Temp 98.0 F 10/16/22 07:52 Pulse 95 10/16/22 07:52 Resp 18 10/16/22 07:52 BP 142/87 H 10/16/22 07:52 Pulse Ox 95 10/16/22 07:52 O2 Del Method Room Air 10/16/22 07:52 O2 Flow Rate 2 10/16/22 03:24 BMI result Body Mass Index 31.2 Const: Other: General: AO X 3, no acute distress Resp: CTA bilateral CVS: S1,S2,RRR GI: +BS, NT, no distention Skin: No rash Neuro: motor grossly intact Psych: appropriate affect Objective Data Active Medications Acetaminophen (Acetaminophen 325 Mg Tablet) 650 mg PO Q6H PRN PRN Reason: Pain, Mild (Pain Scale 1-3) Last Admin: 10/13/22 17:01 Dose: 650 mg Documented By: ADOLPH Amlodipine Besylate (Amlodipine Besylate 5 Mg Tablet) 5 mg PO DAILY [facility]; Protocol Last Admin: 10/15/22 09:11 Dose: 5 mg Documented By: VEDA Atorvastatin Calcium (Atorvastatin Calcium 80 Mg Tablet) 80 mg PO DAILY [facility] Last Admin: 10/15/22 09:11 Dose: 80 mg Documented By: VEDA Benzonatate (Benzonatate 100 Mg Capsule) 100 mg PO TID PRN PRN Reason: Cough Albuterol Sulfate 2.5 mg/ (Ipratropium [place] 0.5 mg) 0 mg INHALE Q4H PRN PRN Reason: Wheezing Last Admin: 10/14/22 23:11 Dose: 2.5 each Documented By: SHWETA Albuterol Sulfate 2.5 mg/ (Ipratropium [place] 0.5 mg) 0 mg INHALE Q4H PRN PRN Reason: Wheezing Fluticasone Propionate (Fluticasone Propionate Nasal 16 Gm [place]) 2 spray NOSTRIL-B BID [facility] Last Admin: 10/15/22 22:06 Dose: 2 spray Documented By: MISHEL Guaifenesin/Codeine Phosphate (Guaifen/Codeine Sf 200/20/10ml 10 Ml Liquid) 5 ml PO Q6H PRN PRN Reason: Cough Last Admin: 10/15/22 04:31 Dose: 5 ml Documented By: MISHEL Ceftriaxone Sodium 1 gm/ (Sodium Chloride) 50 mls @ 100 mls/hr IV Q24H [facility] Last Infusion: 10/15/22 14:46 Dose: 0 mls/hr Documented By: VEDA Losartan Potassium (Losartan Potassium 50 Mg Tablet) 100 mg PO DAILY [facility]; Protocol Last Admin: 10/15/22 09:11 Dose: 100 mg Documented By: VEDA Melatonin (Melatonin 3 Mg Tablet) 6 mg PO BEDTIME PRN PRN Reason: Insomnia Last Admin: 10/16/22 00:08 Dose: 6 mg Documented By: MISHEL Metoprolol Succinate (Metoprolol Succinate Er 100 Mg Tab.Er.24h) 100 mg PO DAILY [facility]; Protocol Last Admin: 10/15/22 09:11 Dose: 100 mg Documented By: VEDA Morphine Sulfate (Morphine Sulfate 2 Mg/Ml Cartridge) 2 mg IVPUSH Q4H PRN; Protocol PRN Reason: Pain, Severe (Pain Scale 7-10) Last Admin: 10/15/22 19:10 Dose: 2 mg Documented By: MISHEL Morphine Sulfate (Morphine Sulfate Er 15 Mg Tablet.Er) 15 mg PO Q12H [facility] Last Admin: 10/15/22 22:05 Dose: 15 mg Documented By: MISHEL Ondansetron HCl (Ondansetron Hcl 4 Mg/2 Ml Vial) 4 mg IVPUSH Q8H PRN PRN Reason: Nausea and Vomiting Last Admin: 10/14/22 08:01 Dose: 4 mg Documented By: JOSE Oxycodone HCl (Oxycodone Hcl Immed Release 5 Mg Tablet) 5 mg PO Q6H PRN PRN Reason: Pain, Severe (Pain Scale 7-10) Last Admin: 10/13/22 17:25 Dose: 5 mg Documented By: ADOLPH Pharmacy Consult (Consult Rx Perform Med Rec) 1 each MISCELLANE ONCE PRN PRN Reason: Consult order Rivaroxaban (Rivaroxaban 20 Mg Tablet) 20 mg PO DAILY@1730 [facility] Last Admin: 10/15/22 16:46 Dose: 20 mg Documented By: VEDA Sodium Chloride (0.9 % Sodium Chloride Flush 3 Ml Syringe) 3 ml IVFLUSH QSHIFT [facility] Last Admin: 10/15/22 19:11 Dose: 3 ml Documented By: MISHEL Tamsulosin HCl (Tamsulosin Hcl 0.4 Mg Capsule) 0.4 mg PO BEDTIME [facility] Last Admin: 10/15/22 22:06 Dose: 0.4 mg Documented By: MISHEL Labs 10/13/22 09:45 10/12/22 05:21 Assessment and Plan Plan 62-year-old male with a PMH significant for?HTN, HLD, bilateral TKA, fused neck, history of pulmonary embolism 19 years ago was? Xarelto, and s/p tracheobronchoplasty via right thoracotomy, flexible bronchoscopy with lavage on 08/17/22 at [facility]? with subsequent admission last month for PE now with SOB, chest pain, leukocytosis and possible PNA on chest xray SOB, chest pain? s/p?and s/p tracheobronchoplasty via right thoracotomy, recent PE? d/t PNA, meet sepsis criteria with tachycardia, elevated WBC..no severe sepsis -continue Ceftriaxone started 10/12 -CTA 10/13 no PE Chest pain, post thoracotomy pain, Fractured ribs,--doesn't appear cardiac--pain control with morrphine and oxy maximize pain control , starting morphine sulfate Er h/o PE continue Xarelto HTN Continue home meds HLD Continue home meds N/V abdominal exam bening, CT Full Code DVT Prophylaxis: Xarelto Need for inpatient: reatment chest pain, SOB realated to PNA, need for IV Abxm, pain controll then dc Time Spent With Patient Time: Total time managing care of this patient today ____ minutes. Quality Stroke Does the patient have a stroke diagnosis?: No VTE Prior VTE?: Yes VTE Risk Level:: Medical - moderate - high VTE Device Contraindication: Treatment Not Indicated VTE Drug Contraindication: N/A - Med Ordered
[2022-10-16] MEDS: Metoprolol Succinate ER 100 MG TAB.ER.24H PO (08:28)
[2022-10-16] MEDS: Losartan Potassium 50 MG TABLET 100 MG PO (08:28)
[2022-10-16] MEDS: Atorvastatin Calcium 80 MG TABLET PO (08:28)
[2022-10-16] MEDS: amLODIPine Besylate 5 MG TABLET PO (08:29)
[2022-10-16] MEDS: Morphine Sulfate 2 MG/ML CARTRIDGE IVPUSH (08:29)
[2022-10-16] MEDS: 0.9 % Sodium Chloride Flush 3 ML SYRINGE IVFLUSH (08:31)
[2022-10-16] MEDS: Fluticasone Propionate Nasal 16 GM SPRAY 2 SPRAY NOSTRIL-B (08:35)
--- NOTE | 2022-10-16 09:45 | PM.DS ---
DS: Providers Provider Date of Service: 10/16/22 Date of admission: 10/12/22 10:27 Primary care physician: LIDIA Dash Consults: 10/15/22 12:50 Consult to Pulmonology Routine Consulting Provider: [facility] Reason for consultation: chest pain, chronic lung issues DS: Diagnosis Discharge Diagnosis (1) Post-thoracotomy pain: Status: Acute (2) Pneumonia: Status: Acute DS: Summary Hospital Course Hospital Course: Chief Complaint: shortness of breath and chest pain Pt is a 62-year-old male with a PMH significant for?HTN, HLD, bilateral TKA, fused neck, history of pulmonary embolism 19 years ago on Xarelto, and s/p tracheobronchoplasty via right thoracotomy, flexible bronchoscopy with lavage on 08/17/22 at [facility]. He was admitted here from 09/02/22 to 09/10/22 with right sided chest pain? and found to have a pleural effusion and CT was noted for pulmonary embolism and has been on Xarelto.? He was seen by Thoracic surgeon Dr. Cotto athat time and there was no indication for interveniton.? He was seen in follow by history of tick surgeon just yesterday with a right-sided chest bed in the some difficulty breathing he stated that they give him some medication and there was no x-ray done.? He woke up this morning having increasing pain on the right side and having difficulty breathing he also have some cough.? Checks x-ray showed Small right-sided layering pleural effusion. Bilateral opacities with.? Is given IV antibiotics in the ED wants him admitted for treatment of pneumonia he is not hypoxic.? It appears that his main issue was pain control. Hosopital course: Patient presented with primarly chest pain at site of prior and in fact this pain has been ongoing and seemed worse, CXR showed Small right-sided layering pleural effusion. Bilateral opacities with bronchial wall thickening favor fluid overload, clinically no evidence of fluid overload and normal BNP.. WBC was high so was treated for pneumonia, there was no hypoxia, but subjective SOB. Was admittd and treated for pneumonia with Ceftriaxone. A CTA showed no PE, but persistent moderate, this was rather smalll on CXR. Discussed with Dr. Tate and will discharge with Abx (Ceftin). He did not qualify for home O2, O2 sat is 95 on room. Chest ain will be treated with Morphine sulfate IR and oxycodne PRN ? Time Spent with Patient Time attestation: Total time managing care of this patient today ____ minutes. Discharge coordination time: Greater than 30 minutes Quality: Safe Use of Opioids Does Pt have an Active Cancer Diagnosis on the Problem List?: No Quality: Stroke Does the patient have a stroke diagnosis?: No Physical Exam Vital Signs: Vital Signs: Last Vital Signs Temp 98.0 F 10/16/22 07:52 Pulse 95 10/16/22 07:52 Resp 18 10/16/22 07:52 BP 142/87 H 10/16/22 07:52 Pulse Ox 95 10/16/22 07:52 O2 Del Method Room Air 10/16/22 07:52 O2 Flow Rate 2 10/16/22 03:24 BMI result Body Mass Index 31.2 DS: Data Data Completed and Pending Completed studies during hospitalization [Text1]: Procedures Drainage of Right Pleural Cavity with Drainage Device, Percutaneous Approach (09/02/22) Labs on day of discharge: Preliminary micro results at discharge 10/12/22 07:39 Blood Culture - Preliminary Blood - Venous No growth after 48 hours. 10/12/22 07:39 Blood Culture - Preliminary Blood - Venous No growth after 48 hours. Discharge Plan Discharge Anticipated Discharge Date/Time: 10/16/22 09:31 Patient Disposition: Home, Self-Care Discharge Diagnosis: Pneumonia, post thoracotomy pain Referrals: Chaz ASTORGA [Outside] - 1 Week Daniel Redmond, [employer]IE[employer]ICER[employer] [Primary Care Provider] - 1 Week Discharge Medications: New benzonatate 100 mg Capsule 100 mg PO TID PRN (Reason: Cough) Qty: 20 0RF morphine 15 mg Tablet Extended Release 15 mg PO Q12H Qty: 30 0RF Rx Instructions: Partial Fill upon patient request. codeine-guaifenesin 10-100 mg/5 mL Liquid 5 ml PO Q6H PRN (Reason: Cough) Qty: 237 0RF Xarelto 20 mg Tablet 20 mg PO DAILY@1730 Qty: 30 2RF cefuroxime axetil 500 mg tablet 500 mg PO BID 4 Days Qty: 8 0RF Continued metoprolol succinate 100 mg tablet extended release 24 hr 100 mg PO DAILY Qty: 90 1RF losartan 100 mg tablet 100 mg PO DAILY Qty: 90 1RF amlodipine 5 mg tablet 5 mg PO DAILY Qty: 90 0RF lidocaine [Lidocaine Pain Relief] 4 % adhesive patch,medicated 1 patch topical DAILY tamsulosin 0.4 mg Capsule 0.4 mg PO BEDTIME oxycodone 5 mg Tablet 5 mg PO Q6H Qty: 30 0RF Rx Instructions: Partial Fill upon patient request. albuterol sulfate 1.25 mg/3 mL solution for nebulization 1.25 mg BID acetaminophen 325 mg Tablet 650 mg PO Q6H PRN (Reason: Pain) Discontinued Xarelto DVT-PE Treat 30d Start 15 mg (42)- 20 mg (9) tablets,dose pack See Rx Instructions .ROUTE .COMPLEX Qty: 51 0RF Rx Instructions: take one-15 mg tablet twice daily for 21 days, then one-20 mg tablet once daily; must take with meal/food rivaroxaban 15 mg Tablet 15 mg PO BID Rx Instructions: must administer with evening meal Discharge Orders: Discharge Order (Routine); Ordered 10/16/22 Ordered By: Al Ramey Diet: Advance to usual diet Activity on Discharge: As tolerated Stand Alone Forms: Patient Portal Discharge page Care Plan Goals: Pain contrl Health Concerns: chronic chest pain from thoracotomy Pneumonia and recurrent pleural effusion Plan of Treatment: Take Ceftin for pneumonia take Oxycodone and Morphine Sulfate for pain Take Xarelto 20 mg daily for PE Take Tessalon and robitussin with codein for cough follow up with yor Doctor, lung doctor and surgeon in [place] Assessment: as above
--- NOTE | 2022-10-16 10:03 | P.PNIM_ITS ---
Subjective Subjective Date of Service: 10/16/22 Interval History: Feels better Physical Exam Vital Signs: Vital Signs: Last Vital Signs Temp 98.0 F 10/16/22 07:52 Pulse 95 10/16/22 07:52 Resp 18 10/16/22 07:52 BP 142/87 H 10/16/22 07:52 Pulse Ox 95 10/16/22 07:52 O2 Del Method Room Air 10/16/22 07:52 O2 Flow Rate 2 10/16/22 03:24 BMI result Body Mass Index 31.2 Const: Other: General: AO X 3, no acute distress Resp: CTA bilateral CVS: S1,S2,RRR GI: +BS, NT, no distention Skin: No rash Neuro: motor grossly intact Psych: appropriate affect Objective Data Active Medications Acetaminophen (Acetaminophen 325 Mg Tablet) 650 mg PO Q6H PRN PRN Reason: Pain, Mild (Pain Scale 1-3) Last Admin: 10/13/22 17:01 Dose: 650 mg Documented By: ADOLPH Amlodipine Besylate (Amlodipine Besylate 5 Mg Tablet) 5 mg PO DAILY [facility]; Protocol Last Admin: 10/16/22 08:29 Dose: 5 mg Documented By: VEDA Atorvastatin Calcium (Atorvastatin Calcium 80 Mg Tablet) 80 mg PO DAILY [facility] Last Admin: 10/16/22 08:28 Dose: 80 mg Documented By: VEDA Benzonatate (Benzonatate 100 Mg Capsule) 100 mg PO TID PRN PRN Reason: Cough Albuterol Sulfate 2.5 mg/ (Ipratropium [place] 0.5 mg) 0 mg INHALE Q4H PRN PRN Reason: Wheezing Last Admin: 10/14/22 23:11 Dose: 2.5 each Documented By: SHWETA Albuterol Sulfate 2.5 mg/ (Ipratropium [place] 0.5 mg) 0 mg INHALE Q4H PRN PRN Reason: Wheezing Fluticasone Propionate (Fluticasone Propionate Nasal 16 Gm Early) 2 spray NOSTRIL-B BID [facility] Last Admin: 10/16/22 08:35 Dose: 2 spray Documented By: VEDA Guaifenesin/Codeine Phosphate (Guaifen/Codeine Sf 200/20/10ml 10 Ml Liquid) 5 ml PO Q6H PRN PRN Reason: Cough Last Admin: 10/15/22 04:31 Dose: 5 ml Documented By: MISHEL Ceftriaxone Sodium 1 gm/ (Sodium Chloride) 50 mls @ 100 mls/hr IV Q24H [facility] Last Infusion: 10/15/22 14:46 Dose: 0 mls/hr Documented By: VEDA Losartan Potassium (Losartan Potassium 50 Mg Tablet) 100 mg PO DAILY [facility]; Protocol Last Admin: 10/16/22 08:28 Dose: 100 mg Documented By: VEDA Melatonin (Melatonin 3 Mg Tablet) 6 mg PO BEDTIME PRN PRN Reason: Insomnia Last Admin: 10/16/22 00:08 Dose: 6 mg Documented By: MISHEL Metoprolol Succinate (Metoprolol Succinate Er 100 Mg Tab.Er.24h) 100 mg PO DAILY [facility]; Protocol Last Admin: 10/16/22 08:28 Dose: 100 mg Documented By: VEDA Morphine Sulfate (Morphine Sulfate 2 Mg/Ml Cartridge) 2 mg IVPUSH Q4H PRN; Protocol PRN Reason: Pain, Severe (Pain Scale 7-10) Last Admin: 10/16/22 08:29 Dose: 2 mg Documented By: VEDA Morphine Sulfate (Morphine Sulfate Er 15 Mg Tablet.Er) 15 mg PO Q12H [facility] Last Admin: 10/15/22 22:05 Dose: 15 mg Documented By: MISHEL Ondansetron HCl (Ondansetron Hcl 4 Mg/2 Ml Vial) 4 mg IVPUSH Q8H PRN PRN Reason: Nausea and Vomiting Last Admin: 10/14/22 08:01 Dose: 4 mg Documented By: JOSE Oxycodone HCl (Oxycodone Hcl Immed Release 5 Mg Tablet) 5 mg PO Q6H PRN PRN Reason: Pain, Severe (Pain Scale 7-10) Last Admin: 10/13/22 17:25 Dose: 5 mg Documented By: ADOLPH Pharmacy Consult (Consult Rx Perform Med Rec) 1 each MISCELLANE ONCE PRN PRN Reason: Consult order Rivaroxaban (Rivaroxaban 20 Mg Tablet) 20 mg PO DAILY@1730 [facility] Last Admin: 10/15/22 16:46 Dose: 20 mg Documented By: VEDA Sodium Chloride (0.9 % Sodium Chloride Flush 3 Ml Syringe) 3 ml IVFLUSH QSHIFT [facility] Last Admin: 10/16/22 08:31 Dose: 3 ml Documented By: VEDA Tamsulosin HCl (Tamsulosin Hcl 0.4 Mg Capsule) 0.4 mg PO BEDTIME [facility] Last Admin: 10/15/22 22:06 Dose: 0.4 mg Documented By: MISHEL Labs 10/13/22 09:45 10/12/22 05:21 Assessment and Plan (1) Post-thoracotomy pain: Status: Acute (2) Pneumonia: Status: Acute Plan 62-year-old male with a PMH significant for?HTN, HLD, bilateral TKA, fused neck, history of pulmonary embolism 19 years ago was? Xarelto, and s/p tracheobronchoplasty via right thoracotomy, flexible bronchoscopy with lavage on 08/17/22 at [facility]? with subsequent admission last month for PE now with SOB, chest pain, leukocytosis and possible PNA on chest xray SOB, chest pain? s/p?and s/p tracheobronchoplasty via right thoracotomy, recent PE? d/t PNA, meet sepsis criteria with tachycardia, elevated WBC..no severe sepsis -continue Ceftriaxone started 10/12 -CTA 10/13 no PE, but moderate right recurrent effusion -arrange for thoracentesis tomorrow Chest pain, post thoracotomy pain, Fractured ribs,--doesn't appear cardiac--pain control with morrphine and oxy maximize pain control , starting morphine sulfate Er h/o PE continue Xarelto HTN Continue home meds HLD Continue home meds N/V abdominal exam bening, CT Full Code DVT Prophylaxis: Xarelto Need for inpatient: reatment chest pain, SOB realated to PNA, need for IV Abxm, pain controll then dc Time Spent With Patient Time: Total time managing care of this patient today ____ minutes. Quality Stroke Does the patient have a stroke diagnosis?: No VTE Prior VTE?: Yes VTE Risk Level:: Medical - moderate - high VTE Device Contraindication: Treatment Not Indicated VTE Drug Contraindication: N/A - Med Ordered
[2022-10-16 10:26] LABS: INTERNATIONAL NORM RATIO 1.4 (0.9-1.1); Prothrombin Time 16.3 SEC (10.0-13.1)
[2022-10-16] MEDS: Morphine Sulfate ER 15 MG TABLET.ER PO (11:05)
--- NOTE | 2022-10-16 12:20 | P.CONPL_ITS ---
History of Present Illness History of Present Illness Consult date: 10/16/22 Reason for consult: dyspnea, cough, chest pain and pneumonia Chief complaint: Pnemonia Narrative: Pt is a 62-year-old male with a PMH significant for?HTN, HLD, bilateral TKA, fused neck, history of pulmonary embolism 19 years ago on Xarelto, S/P tracheobronchoplasty via right thoracotomy, flexible bronchoscopy with lavage on 08/17/22 at [facility]. He was admitted here from 09/02/22 to 09/10/22 with right sided chest pain? and found to have a pleural effusion ON CTA was noted to have Pulmonary embolism and has been on Xarelto..? He was seen by Thoracic surgeon Dr. Cotto athat time and there was no indication for interveniton.? . On 10/12 he woke up having increasing pain on the right side and having difficulty breathing along with increased cough .? Seen in the ER,,Chest x-ray showed Small right-sided layering pleural effusion. Bilateral basilar opacities and was admitted for further care. He has been treated with the antibiotics, empirically, DuoNeb updrafts, oxygen supplement, and pain control with MS Contin. Wild his the general condition has improved, and he has remained afebrile, his cough is still persisting, and he continues to have significant pain in the right chest. At the same time he is quite anxious to go home. This gentleman is scheduled to have a bronchoscopy and further evaluation at [facility] in the middle of October. He is going to need control of his pain and cough, as outpatient. . ? Review of Systems Review of Systems: Gen: no fever Resp: + sob, + cough CV: + chest, no COX, no leg edema GI: No n/v, no abd pain Neuro: No confusion PMFSH Past Medical History Medical History (Updated 10/16/22 @ 12:37 by Panfilo Tate MD) Allergic rhinitis Asthma Atelectasis Cholelithiasis Chronic neck pain COPD (chronic obstructive pulmonary disease) Deviated nasal septum Fatty liver Gall bladder polyp GERD (gastroesophageal reflux disease) Hypercholesterolemia Lesion of vocal cord Neck pain Pleural effusion Pneumonitis Pulmonary embolism Renal calculi Tracheobronchomegaly Tracheomalacia Vocal cord dysfunction Family History Family History Mother No problems noted. Father No problems noted. Surgical History Surgical History History of Achilles tendon repair History of eye surgery History of hernia surgery History of knee surgery History of nasal surgery History of neck surgery History of repair of left rotator cuff History of repair of right rotator cuff S/P tracheoplasty Social History Social History Household Members: Spouse Housing: House Do you presently have visiting nurse or other home services: Yes Alcohol intake: current Alcohol intake frequency: holidays/special occasions only Patient Tobacco Use Status: Never used Tobacco e-Cigarette/Vaping Use: Never Used Second Hand Smoke Exposure: No service: No Current occupational status: employed Cognitive needs: No Hearing needs: No Vision needs: No Meds Allergies Allergy/AdvReac Type Severity Reaction Status Date / Time penicillin V Allergy Intermediate fever Verified 09/19/22 15:35 vancomycin [Vancomycin] Allergy Mild HIVES, Verified 09/19/22 15:35 FEVER Penicillins AdvReac Mild FEVER Verified 09/19/22 15:35 Active Medications: Current Medications Acetaminophen (Acetaminophen 325 Mg Tablet) 650 mg PO Q6H PRN PRN Reason: Pain, Mild (Pain Scale 1-3) Last Admin: 10/13/22 17:01 Dose: 650 mg Amlodipine Besylate (Amlodipine Besylate 5 Mg Tablet) 5 mg PO DAILY [facility]; Protocol Last Admin: 10/16/22 08:29 Dose: 5 mg Atorvastatin Calcium (Atorvastatin Calcium 80 Mg Tablet) 80 mg PO DAILY [facility] Last Admin: 10/16/22 08:28 Dose: 80 mg Benzonatate (Benzonatate 100 Mg Capsule) 100 mg PO TID PRN PRN Reason: Cough Albuterol Sulfate 2.5 mg/ (Ipratropium [place] 0.5 mg) 0 mg INHALE Q4H PRN PRN Reason: Wheezing Last Admin: 10/14/22 23:11 Dose: 2.5 each Albuterol Sulfate 2.5 mg/ (Ipratropium [place] 0.5 mg) 0 mg INHALE Q4H PRN PRN Reason: Wheezing Fluticasone Propionate (Fluticasone Propionate Nasal 16 Gm [place]) 2 spray NOSTRIL-B BID [facility] Last Admin: 10/16/22 08:35 Dose: 2 spray Guaifenesin/Codeine Phosphate (Guaifen/Codeine Sf 200/20/10ml 10 Ml Liquid) 5 ml PO Q6H PRN PRN Reason: Cough Last Admin: 10/15/22 04:31 Dose: 5 ml Ceftriaxone Sodium 1 gm/ (Sodium Chloride) 50 mls @ 100 mls/hr IV Q24H [facility] Last Infusion: 10/15/22 14:46 Dose: Infused Losartan Potassium (Losartan Potassium 50 Mg Tablet) 100 mg PO DAILY [facility]; Protocol Last Admin: 10/16/22 08:28 Dose: 100 mg Melatonin (Melatonin 3 Mg Tablet) 6 mg PO BEDTIME PRN PRN Reason: Insomnia Last Admin: 10/16/22 00:08 Dose: 6 mg Metoprolol Succinate (Metoprolol Succinate Er 100 Mg Tab.Er.24h) 100 mg PO DAILY [facility]; Protocol Last Admin: 10/16/22 08:28 Dose: 100 mg Morphine Sulfate (Morphine Sulfate 2 Mg/Ml Cartridge) 2 mg IVPUSH Q4H PRN; Protocol PRN Reason: Pain, Severe (Pain Scale 7-10) Last Admin: 10/16/22 08:29 Dose: 2 mg Morphine Sulfate (Morphine Sulfate Er 15 Mg Tablet.Er) 15 mg PO Q12H [facility] Last Admin: 10/16/22 11:05 Dose: 15 mg Ondansetron HCl (Ondansetron Hcl 4 Mg/2 Ml Vial) 4 mg IVPUSH Q8H PRN PRN Reason: Nausea and Vomiting Last Admin: 10/14/22 08:01 Dose: 4 mg Oxycodone HCl (Oxycodone Hcl Immed Release 5 Mg Tablet) 5 mg PO Q6H PRN PRN Reason: Pain, Severe (Pain Scale 7-10) Last Admin: 10/13/22 17:25 Dose: 5 mg Pharmacy Consult (Consult Rx Perform Med Rec) 1 each MISCELLANE ONCE PRN PRN Reason: Consult order Rivaroxaban (Rivaroxaban 20 Mg Tablet) 20 mg PO DAILY@1730 [facility] Last Admin: 10/15/22 16:46 Dose: 20 mg Sodium Chloride (0.9 % Sodium Chloride Flush 3 Ml Syringe) 3 ml IVFLUSH QSHIFT [facility] Last Admin: 10/16/22 08:31 Dose: 3 ml Tamsulosin HCl (Tamsulosin Hcl 0.4 Mg Capsule) 0.4 mg PO BEDTIME [facility] Last Admin: 10/15/22 22:06 Dose: 0.4 mg Home Medications Medication Instructions Recorded Confirmed Last Taken Type lidocaine 4 % topical patch 1 patch topical DAILY 09/02/22 10/12/22 10/11/22 His tory (Lidocaine Pain Relief) tamsulosin 0.4 mg capsule 0.4 mg PO BEDTIME 09/02/22 10/12/22 10/11/22 History acetaminophen 325 mg tablet 650 mg PO Q6H PRN Pain 10/12/22 10/12/22 10/11/22 History albuterol sulfate 1.25 mg/3 mL 1.25 mg BID 10/12/22 10/12/22 10/11/22 History solution for nebulization Physical Exam Vital Signs: Vital Signs: Last Vital Signs Temp 98.0 F 10/16/22 07:52 Pulse 95 10/16/22 07:52 Resp 18 10/16/22 07:52 BP 142/87 H 10/16/22 07:52 Pulse Ox 95 10/16/22 07:52 O2 Del Method Room Air 10/16/22 07:52 O2 Flow Rate 2 10/16/22 03:24 BMI result Body Mass Index 31.2 Mr. Gonzales, is comfortable when resting and not talking, he is noted to have frequent cough once he starts talking. There is some level of anxiety Throat is clear Neck no jugular venous. Distention trachea in midline Chest thoracostomy scar on the right chest which is sensitive to touch but seem to be well healed. Percussion note is dull over the right lower lobe. Breath sounds are diminished over the basilar areas especially over the right base, but lungs are clear, no wheezes are heard Cardiovascular examination not remarkable no murmurs gallops. Abdomen is soft and flat, Extremities no pitting edema is noted no cough tenderness. Results Laboratory Findings 10/13/22 09:45 10/12/22 05:21 ABG, PT/INR, D-dimer: PT/INR, D-dimer PT 16.3 SEC (10.0-13.1) H 10/16/22 10:14 INR 1.4 (0.9-1.1) H 10/16/22 10:14 Abnormal lab findings: Abnormal Labs 10/12/22 10/12/22 10/16/22 05:21 05:21 10:14 WBC 14.5 H Neut % (Auto) 82.5 H Lymph % (Auto) 6.5 L Lymph # (Auto) 0.9 L Eos # (Auto) 0.5 H Abs Immat Gran (auto) 0.04 H Absolute Neuts (auto) 12.0 H PT 16.3 H INR 1.4 H Chloride 109 H Carbon Dioxide 21 L BUN 18 H Random Glucose 171 H Total Bilirubin 1.1 H ALT 44 H Alkaline Phosphatase 191 H His initial leukocytosis of 14.5 , is consistent with pneumonitis. Microbiology: Microbiology 10/12/22 07:39 Blood - Venous Blood Culture - Preliminary No growth after 48 hours. 10/12/22 07:39 Blood - Venous Blood Culture - Preliminary No growth after 48 hours. Diagnostic Findings Chest x-ray: report reviewed and image reviewed CT scan - chest: report reviewed and image reviewed Assessment and Plan (1) Asthma: Status: Acute (2) Tracheomalacia: Status: Acute (3) Lesion of vocal cord: Status: Acute (4) Pneumonitis: Status: Acute (5) Vocal cord dysfunction: Status: Acute (6) Chronic neck pain: Status: Acute Plan His current problem is mostly of thoracostomy related chest pain,( though he has longstanding history of chronic pain related to his advanced degenerative arthritis and disc disease in the spine) Pain induced anxiety. Severe cough, especially on air movement ( talking, yelling , or laughing ) Pleural effusion right base, he has post thoracostomy, there is also associated basilar atelectasis. Nonspecific pneumonitis and possible acute infection at the time of admission as reflected by leukocytosis seems to have improved. This gentleman has had thoracostomy and tracheoplasty , but unfortunately I think his the symptoms of reactive airways continue to persist. Recommendation: As the patient is anxious to go home I think it is okay to discharge him. He would need more effective pain management. For the time being okay to treat with MS Contin 50 mg b.i.d. and oxycodone 5 mg 1 or 2 tablets q.6 hours p.r.n.. As outpatient I may like to add some gabapentin. Also there is a plan to refer [facility]. Continue using ipratropium/albuterol solution in the nebulizer Q 4 hours p.r.n.. Convert ceftriaxone to oral equivalent such as Ceftin, for 5 days at home. Would see him in the office in the next few days. Time Spent With Patient Time: Total time managing care of this patient today ____ minutes. Procedures Date of Service Date of Service: 10/16/22
[2022-10-16 13:25] VITALS: PULSE 67; PULSE 83; O2SAT 91; O2SAT 93
--- NOTE | 2022-10-16 14:12 | MHC.CM.PN ---
PT WILL DC HOME TODAY WITH RESUMPTION OF [facility] SERVICES TO TRANSPORT
--- NOTE | 2022-10-30 14:16 | P.CDIM_ITS ---
PROVIDER RESPONSE TEXT: To clarify, the appropriate diagnosis supported by the clinical indicators: Sepsis is/was present on admission and is a clinical diagnosis based on: Sepsis due to pneumonia and POA QUERY TEXT: >>> Provider Instructions - Do not remove this line >>> PHYSICIAN'S DOCUMENTATION REQUEST Date of Query: 10/19/2022 09:52 AM EDT Patient Name: Mello Karimi Admit Date: 10/12/2022 Dear Al Eisenberg, A review of the medical record indicates additional documentation may be needed. Please review below and update the documentation accordingly. Documentation on H&P note dated 10/12/22 included the diagnosis of sepsis. The patient's infectious clinical indicators include: Recognized standard criteria for this condition and other infectious definitions includes: heart rate 106 WBC 14.5 Treated with IV Ceftriaxone for pneumonia MD progress notes 10/13/22 - 10/16/22 state meet sepsis criteria Sepsis is not documented in the Discharge summary 10/16/22 Sepsis Systemic manifestations of infection, with 2 or more SIRS criteria which include: Fever > 100.4?F or hypothermia < 96.8?F Leukocytosis WBC > 12,000 or leukopenia, WBC < 4,000, or > 10% bands Tachycardia- > 90 beats/minute Tachypnea- RR > 20 breaths/minute or PaCO2 < 32mmHg Source: [employer] Manual 2013 Documentation should include the known or suspected organism, and the underlying infection, such as U TI or pneumonia Based on the above information and the recognized standard for sepsis, could you please clarify if th is diagnoses is still accurate and reflective of the patient's condition to ensure quality of the medical record. <<< Provider Instructions - Do not remove this line <<< Sepsis is/was present on admission and is a clinical diagnosis based on After study, sepsis has been ruled out Other (explain) Clinically unable to determine (explain) >>> Contact Info Do not remove this line>>> Thank you, Miranda Espinoza RN Use of terms such as suspected, likely, concern for, or probable (associated with a specific diagnosi s that is being evaluated, monitored, or treated as if it exists) are acceptable and can be coded in the inpatient se tting, when documented at the time of discharge. Please use your independent medical judgment in providing your response. THIS QUERY IS PART OF THE PERMANENT MEDICAL RECORD <<< Contact Info Do not remove this line <<< >>> Disclaimer - Do no remove this line>>> Extension: [phone] <<< Disclaimer - Do not remove this line<<<
== END 2022-10-16 14:39 | disposition home health service (06) | DRG 871 ==
LOC: HO.ED 09:18 → HO.EDOVER 10:33 → HO.S3 17:19
PROVIDERS: Admitting Provider Internal Medicine; Emergency Provider Emergency Medicine; PCP Nurse Practitioner Family; Visit Provider Internal Medicine
DX: A41.9 Sepsis, unspecified organism (principal); J18.9 Pneumonia, unspecified organism; J44.0 Chronic obstructive pulmonary disease with (acute) lower respiratory infection; J98.11 Atelectasis; J90 Pleural effusion, not elsewhere classified; J39.8 Other specified diseases of upper respiratory tract; G89.12 Acute post-thoracotomy pain; E78.00 Pure hypercholesterolemia, unspecified; Z20.822 Contact with and (suspected) exposure to COVID-19; Z98.1 Arthrodesis status; Z88.0 Allergy status to penicillin; Z86.711 Personal history of pulmonary embolism; Z79.01 Long term (current) use of anticoagulants; Z79.899 Other long term (current) drug therapy
CPT/HCPCS: 36415; 71045; 71275; 74176; 80053; 83605; 85025; 85027; 85379; 85610; 87040; 87635; 93005; 99285; J0456; J0696; J2270; J2405; Q9967

== ENCOUNTER 2022-10-29 19:52 | Inpatient (IN) | payer OTHER, SELFPAY ==
[2022-10-29] VITALS (7 sets, daily range): BP systolic 140–151; BP diastolic 84–95; PULSE 92–109; RESP 22–41; TEMP 36.5–36.6; O2SAT 90–98; BMI 31.8
--- NOTE | ~2022-10-29 | US_ITS ---
EXAMINATION: Ultrasound-guided thoracentesis CLINICAL INFORMATION: CHF COMPARISON: Previous chest x-ray most recent from yesterday TECHNIQUE: Procedure and risks and benefits including bleeding, infection and pneumothorax were discussed with the patient and informed consent was obtained. The left posterior lateral chest was prepped and draped in the usual sterile fashion. The skin and soft tissues were anesthetized with 1% lidocaine plain. Using ultrasound guidance and a 4 [place] one-step catheter, access to the left pleural effusion was obtained. 1.15 L of clear slightly mercedes-colored fluid was removed. Diagnostic specimen was sent. FINDINGS: There large bilateral pleural effusions. Left side was chosen due to patient's severe right-sided chest wall pain post thoracotomy. US/US thoracentesis IMPRESSION: Ultrasound-guided left thoracentesis.
--- NOTE | ~2022-10-29 | XR_ITS ---
EXAMINATION: XR CHEST CLINICAL INFORMATION: Right-sided pneumothorax COMPARISON: H[employer] Instructor film from CT dated 10/13/2022, plain film dated 10/12/2022 TECHNIQUE: 2 views of the chest were obtained. FINDINGS: No convincing evidence for a pneumothorax on this study. There is right-sided pleural thickening/effusion which appears to be increasing. Lung volumes are low. Findings also suggest vascular congestion with opacities radiating to the hilar structures. I must consider a left-sided effusion on this exam as well with left basilar atelectasis infiltrate or edema. XR/XR chest 2V IMPRESSION: No pneumothorax is seen. Increasing change here with increasing right sided fluid/pleural reaction and new left probable pleural effusion. Also findings suggest early CHF. Left basilar atelectasis, infiltrate or edema. Persistent change of the right base
--- NOTE | ~2022-10-29 | XR_ITS ---
EXAMINATION: XR CHEST CLINICAL INFORMATION: Effusion COMPARISON: Previous chest x-rays most recent 10/29/2022 and chest CTA TECHNIQUE: Frontal view of the chest was obtained. FINDINGS: The cardiac and mediastinal contours are stable. There are bilateral pleural effusions, right greater than left. Right effusion may be partially loculated. This does not appear appreciably changed from recent exams. There is atelectasis or consolidation at the lung bases. The heart size is normal. Hilar and mediastinal contours are normal. Postsurgical changes to the lower cervical spine. XR/XR chest 1V IMPRESSION: Bilateral pleural effusions, right greater than left, not appreciably changed from recent exams.
--- NOTE | ~2022-10-29 | US_ITS ---
EXAMINATION: Ultrasound-guided thoracentesis CLINICAL INFORMATION: Right pleural effusion. History of postoperative loculated right pleural effusion and severe post surgical right chest wall pain. COMPARISON: Previous chest x-ray and chest CTA from earlier this month TECHNIQUE: Procedure and risks and benefits including bleeding, infection and pneumothorax were discussed with the patient and informed consent was obtained. The right posterior lateral chest was prepped and draped in the usual sterile fashion. Skin and soft tissues were anesthetized with 1% lidocaine plain. A single ultrasound guidance and a 4 [place] 1 6 catheter, access to the right pleural effusion was obtained. 1.4 L of clear serous sanguinous fluid was removed. Diagnostic specimen was sent. Conscious sedation was provided by registered nurse under my direct supervision with continuous hemodynamic monitoring. Patient received Versed 1.5 mg femoral 75 mcg intravenously during the procedure. Total ipcu-bu-ghma contact time 16 minutes. FINDINGS: There is a large right pleural effusion. US/US thoracentesis IMPRESSION: Ultrasound-guided right thoracentesis.
--- NOTE | ~2022-10-29 | XR_ITS ---
EXAMINATION: XR CHEST CLINICAL INFORMATION: Post left thoracentesis COMPARISON: Chest 10/31/2022 TECHNIQUE: Frontal view of the chest was obtained. FINDINGS: Post left thoracentesis there is resolved left pleural effusion with no visible pneumothorax. Minimal opacity likely atelectasis is noted. There is small right pleural effusion and underlying atelectasis. The upper lungs are clear. Heart size and pulmonary vascularity is normal. XR/XR chest 1V IMPRESSION: Complete resolution of left pleural effusion with underlying left basilar atelectasis seen. There is no pneumothorax. The small right pleural effusion with underlying atelectasis.
--- NOTE | ~2022-10-29 | CT_ITS ---
EXAMINATION: CT ANGIOGRAM OF THE CHEST WITH AND WITHOUT CONTRAST (CT PULMONARY ANGIOGRAM FOR PE) CLINICAL INFORMATION: Reason for Exam Chest pain history of pulmonary embolism COMPARISON: 10/13/2022 TECHNIQUE: Prior to contrast administration, noncontrast localization images were obtained. Subsequently, multidetector volumetric imaging was performed from the thoracic inlet to below the diaphragms following the administration of 85 mL Omnipaque 350 intravenous contrast. No contrast reaction reported Sagittal, coronal, and MIP oblique sagittal reformatted images were obtained on the CT workstation, uploaded to PACS, and reviewed. This CT examination was performed using dose optimization techniques as appropriate, variously including the following: *Automated exposure control *Adjustment of mA and/or kV according to patient size (this includes techniques or standardized protocols for targeted exams where dose is matched to indication/reason for exam; i.e. extremities or head) *Use of iterative reconstruction technique Total exam dose-length product 555 mGy-cm FINDINGS: QUALITY OF STUDY/CONTRAST BOLUS: Satisfactory. PULMONARY ARTERIES: No pulmonary emboli. THORACIC AORTA: No aneurysm. LUNG: The central airways are patent. Moderate bilateral pleural effusions, partially loculated on the right. Bilateral lower lobe atelectasis. No pneumothorax. MEDIASTINUM: Enlarged heart size. No pericardial effusion. Mildly prominent mediastinal and right hilar lymph nodes. Similar appearance to previous. No evidence of septal bowing or right heart strain. CORONARY ARTERY CALCIFICATION: None visualized on this study. CHEST WALL/AXILLA: No axillary or internal mammary lymphadenopathy. OSSEOUS STRUCTURES: No acute or suspicious osseous abnormality. Cervical fusion hardware. UPPER ABDOMEN: Unremarkable. No reflux of contrast into the hepatic veins to suggest elevated right heart pressures. CT/CT angio chest PE protocol IMPRESSION: 1. No pulmonary embolism. 2. Moderate bilateral pleural effusions, partially loculated on the right. Bilateral lower lobe atelectasis. VTE: negative
--- NOTE | ~2022-10-29 | XR_ITS ---
EXAMINATION: XR CHEST CLINICAL INFORMATION: Status post thoracentesis. COMPARISON: Chest 10/31/2022 TECHNIQUE: Frontal view of the chest was obtained. FINDINGS: There is interval decrease in left pleural effusion with small residual pleural effusion suspected. There is small to moderate right pleural effusion which is unchanged. The upper lungs are clear. The heart size and pulmonary vascularity is normal. No gross bony abnormality seen. XR/XR chest 1V IMPRESSION: Interval decrease in the left pleural effusion with small residual pleural effusion suspected. There is small right pleural effusion with underlying atelectasis.
--- NOTE | ~2022-10-29 | XR_ITS ---
EXAMINATION: XR CHEST CLINICAL INFORMATION: Status post right thoracentesis COMPARISON: 11/01/2022 TECHNIQUE: Frontal view of the chest was obtained. FINDINGS: There is persistent but decreased opacity at the left lateral base after thoracentesis. A small amount of residual pleural effusion is detected. No pneumothorax. No evidence of reemerging left pleural effusion on this limited single anteroposterior view. Cardiac silhouette is normal in size. Pulmonary vasculature is unremarkable. Discectomy and anterior spinal fusion at C6-C7. Again noted is a mildly displaced fracture of the right lateral fourth rib. The nondisplaced fractures of the right posterior and lateral fifth rib are not well seen on this exam. XR/XR chest 1V IMPRESSION: Interval decreased right pleural effusion after thoracentesis. No pneumothorax or other significant change.
--- NOTE | 2022-10-29 20:06 | ECG_ITS ---
Test Reason : JIMENEJ Blood Pressure : / mmHG Vent. Rate : 097 BPM Atrial Rate : 097 BPM P-R Int : 130 ms QRS Dur : 086 ms QT Int : 366 ms P-R-T Axes : 046 014 028 degrees QTc Int : 464 ms Normal sinus rhythm with sinus arrhythmia Normal ECG When compared with ECG of 12-OCT-2022 05:37, No significant change was found Referred By: Georgia Nieto Electronically Signed By:DANETTE OSHEA MD
[2022-10-29 20:24] LABS: MANUAL DIFF FLAG NO
[2022-10-29 20:26] LABS: Basophils Absolute Auto 0.1 X10*3/uL (0.0-0.2); Basophils Percent Auto 0.9 % (0-2); Eosinophils Absolute Auto 0.4 X10*3/uL (0.0-0.4); Eosinophils Percent Auto 4.6 % (0-4); Hemoglobin 13.1 g/dl (14.0-18.0); Imm Gran Abs Auto 0.03 X10*3/uL (0.00-0.03); Imm Gran Pct Auto 0.4 % (0.0-0.4); Lymphocytes Absolute Auto 1.2 X10*3/uL (1.2-4.9); Lymphocytes Percent Auto 14.6 % (20-40); Mean Corpuscular Hemoglobin 26.7 pg (27.0-33.0); Mean Corpuscular Volume 83.5 fL (80.0-98.0); Mean Platelet Volume 10.4 fL (9.4-12.4); Monocytes Absolute Auto 0.7 X10*3/uL (0.1-1.2); Monocytes Percent Auto 8.7 % (2-11); Neutrophils Absolute Auto 5.7 x10*3/uL (2.0-8.3); Neutrophils Percent Auto 70.8 % (45-73); Platelet Count 300 X10*3/uL (160-400); Red Blood Count 4.91 X10*6/uL (4.60-5.80); Red Cell Distribution Width 13.2 % (11.0-16.0); White Blood Count 8.1 X10*3/uL (4.8-10.8)
[2022-10-29 20:40] LABS: Alanine Aminotransferase 32 U/L (0-40); Alkaline Phosphatase 170 U/L (39-117); Anion Gap 14 (12-20); Aspartate Amino Transferase 22 U/L (5-37); Bilirubin Direct 0.3 mg/dL (0.0-0.5); Bilirubin Total 1.1 mg/dL (0.0-1.0); Blood Urea Nitrogen 16 mg/dL (9-16); Calcium 9.1 mg/dL (8.4-10.2); Carbon Dioxide 23 mmol/L (22-29); Chloride 111 mmol/L (96-108); Estimated Glomerular Filt Rate > 60; Glucose Random 100 mg/dL (60-115); Lipase 8 U/L (8-78); Sodium 144 mmol/L (135-145); Total Protein 6.4 g/dL (6.5-8.0)
[2022-10-29 20:47] LABS: Troponin-I High Sensitivity 5.7 ng/L (<3.5-35.0)
--- NOTE | 2022-10-29 21:14 | ED.CHESTPAIN ---
HPI - Chest Pain General Chief Complaint: Chest Pain Stated Complaint: R sided chest pain Time Seen by Provider: 10/29/22 20:01 Source: patient and EMS Mode of arrival: EMS Limitations: no limitations History of Present Illness HPI narrative: A 62-year-old male with history of HTN, HLD, PE 19 years ago on Xarelto, s/p tracheobronchoplasy and right thoracotomy, flexible bronchoscopy with lavage 2 month ago at [facility] in [place] had a recent admission for right-sided chest pain and pleural effusion. Patient presented with right-sided chest pain for the past 2 weeks that is progressively getting worse for the last 4 days. Related Data Home Medications Medication Instructions Recorded Confirmed lidocaine 4 % topical patch 1 patch topical DAILY 09/02/22 10/17/22 (Lidocaine Pain Relief) tamsulosin 0.4 mg capsule 0.4 mg PO BEDTIME 09/02/22 10/17/22 acetaminophen 325 mg tablet 650 mg PO Q6H PRN Pain 10/12/22 10/17/22 albuterol sulfate 1.25 mg/3 mL 1.25 mg BID 10/12/22 10/17/22 solution for nebulization Previous Rx's Medication Instructions Recorded metoprolol succinate 100 mg 100 mg PO DAILY #90 tabs 05/29/22 tablet,extended release 24 hr losartan 100 mg tablet 100 mg PO DAILY for blood pressure 09/06/22 #90 tabs amlodipine 5 mg tablet 5 mg PO DAILY #90 tabs 09/25/22 benzonatate 100 mg capsule 100 mg PO TID PRN Cough #20 caps 10/16/22 cefuroxime axetil 500 mg tablet 500 mg PO BID 4 days #8 tabs 10/16/22 codeine 10 mg-guaifenesin 100 mg/5 5 ml PO Q6H PRN Cough #237 mL 10/16/22 mL oral liquid rivaroxaban 20 mg tablet (Xarelto) 20 mg PO DAILY@1730 #30 tabs 10/16/22 lactulose 10 gram/15 mL (15 mL) 20 g (30 mL) PO BID PRN 10/17/22 oral solution constipation 10 days #600 mL morphine 10 mg capsule,extended 10 mg PO Q12H 7 days #14 caps 10/19/22 release pellets naloxone 4 mg/actuation nasal 4 mg intranasal Q2M PRN opioid 10/19/22 spray (Narcan) overdose #2 ea oxycodone 5 mg tablet 5 - 10 mg PO Q6H PRN pain #20 tabs 10/27/22 Allergies Allergy/AdvReac Type Severity Reaction Status Date / Time penicillin V Allergy Intermediate fever Verified 10/29/22 21:39 vancomycin [Vancomycin] Allergy Mild HIVES, Verified 10/29/22 21:39 FEVER Penicillins AdvReac Mild FEVER Verified 10/29/22 21:39 Review of Systems Review of Systems: All other systems are reviewed and are negative Constitutional: Reports as per HPI and Reports no additional constitutional complaints Eyes: Reports as per HPI and Reports no additional eye complaints Reports system reviewed and no additional complaints, except as documented Cardiovascular: Reports as per HPI and Reports no additional cardiovascular complaints Respiratory: Reports as per HPI and Reports no additional respiratory complaints Gastrointestinal: Reports as per HPI and Reports no additional gastrointestinal complaints Genitourinary: Reports no additional female genitourinary complaints Musculoskeletal: Reports no additional musculoskeletal complaints Skin/Breast: Reports system reviewed and no additional complaints, except as docu Psychiatric: Reports no additional psychiatric complaints Endocrine: Reports no additional endocrine complaints Hematologic/Lymphatic: Reports no additional hematologic/lymphatic complaints Allergic/Immunologic: Reports no additional allergic/immunologic complaints Reports system reviewed and no additional complaints, except as documented and Reports Abnormal speech present [facility] Past Medical History Medical History Allergic rhinitis Asthma Atelectasis Cholelithiasis Chronic neck pain COPD (chronic obstructive pulmonary disease) Deviated nasal septum Fatty liver Gall bladder polyp GERD (gastroesophageal reflux disease) Hypercholesterolemia Lesion of vocal cord Neck pain Pleural effusion Pneumonitis Pulmonary embolism Renal calculi Tracheobronchomegaly Tracheomalacia Vocal cord dysfunction Surgical History History of Achilles tendon repair History of eye surgery History of hernia surgery History of knee surgery History of nasal surgery History of neck surgery History of repair of left rotator cuff History of repair of right rotator cuff S/P tracheoplasty Family History Family History Mother No problems noted. Father No problems noted. Social History Social History Household Members: Spouse Housing: House Do you presently have visiting nurse or other home services: Yes Alcohol intake: never Patient Tobacco Use Status: Never used Tobacco Smoked in Last 30 Days: No e-Cigarette/Vaping Use: Never Used Second Hand Smoke Exposure: No Use of substances other than those prescribed or required for medical reasons: No Advance Directives: No Advance Directives Information Provided: No service: No Current occupational status: employed Cognitive needs: No Hearing needs: No Vision needs: No Physical Exam Vital Signs: Vital Signs: Last Vital Signs Temp 97.7 F 10/29/22 20:45 Pulse 99 10/29/22 21:40 Resp 41 H 10/29/22 21:40 BP 140/95 H 10/29/22 21:40 Pulse Ox 98 10/29/22 21:40 O2 Del Method Room Air 10/29/22 21:40 O2 Flow Rate 2.5 10/29/22 20:45 Oxygen Flow Rate 3 10/29/22 20:15 BMI result Body Mass Index 31.8 Vital signs have been reviewed as appeared to be correct. Blood pressure normal. Heart rate normal. Respiration rate normal. Temperature normal. Oxygen saturation normal. Appearance: Uncomfortable due to right-sided chest pain, Oriented X3. No acute distress. Head: Normal external exam. Normocephalic. Atraumatic. No Delvalle signs noted. No raccoon eyes noted Eyes: PERRLA. EOMI. Conjunctiva and sclera normal. Eyelids normal. ENT: TM's Normal. Pharynx normal. Uvula midline. Moist mucous membranes. No trismus noted. No drooling noted. No muffled voice noted. Neck: Normal inspection. Neck supple. FROM. No adenopathy. Thyroid Normal. No meningeal signs. No neck mass noted. CVS: Normal heart rate and rhythm. Heart sound normal. No murmurs noted. Pulses normal throughout. Respiratory: No respiratory distress. Painless inspiration. Breath sounds normal. No wheezes/rales/rhonchi noted. Chest nontender. No accessory muscle usage noted or decreased air movement noted. Abdomen: Soft and nontender. Bowel sounds normal in all 4 quadrants. No distention noted. No organomegaly noted. No visible injury noted. Back: No CVA tenderness. Full range of motion noted. Skin: Skin warm and dry. Normal skin color. Normal skin turgor. No rashes/lesions/lacerations noted. Extremities: No lower extremity edema. Extremities exhibit normal range of motion. Extremities nontender. Neuro: Oriented X 3. Cranial nerve exam: II-XII are grossly intact No motor deficit. No sensory deficit. Reflexes normal. Course Course Course Narrative: A 62-year-old male with complicated history of tracheobronchial atresia and s/p tracheobronchoplasty came in with severe right-sided chest pain patient had similar in the past due to pneumothorax that was ruled out by chest x-ray, will consider CT angiogram to rule out pulmonary embolism versus pleural effusion. signed out to Dr. Latham to follow up on ct angio and disposition. Medications Administered Discontinued Medications Generic Name Dose Route Start Last Admin Trade Name Freq PRN Reason Stop Dose Admin Hydromorphone HCl 2 mg 10/29/22 20:51 10/29/22 21:18 Hydromorphone Hcl 2 Mg/Ml Vial IVPUSH 10/29/22 20:52 Not Given ONCE ONE Protocol Morphine Sulfate 4 mg 10/29/22 21:12 10/29/22 21:36 Morphine Sulfate 4 Mg/Ml Cartridge IVPUSH 10/29/22 21:13 4 mg ONCE ONE Administration Protocol Medical Decision Making Differential Diagnosis Differential Diagnoses: The differential diagnosis associated with the presentation includes (Pneumonia, pneumothorax, pleural effusion, pulmonary embolism parent) Admission/Observation Consideration of admission/observation: Escalation of care including admission/observation considered Consult Healthcare Provider Management of the patient was discussed with: Hospitalist Lab Data MDM Lab Attestation statement: I reviewed the patient's lab results. 10/29/22 20:20 10/29/22 20:20 Labs: Lab Results 10/29/22 10/29/22 10/29/22 Range/Units 20:20 20:20 20:20 WBC 8.1 (4.8-10.8) X10*3/uL RBC 4.91 (4.60-5.80) X10*6/uL Hgb 13.1 L (14.0-18.0) g/dl Hct 41.0 L (42.0-52.0) % MCV 83.5 (80.0-98.0) fL MCH 26.7 L (27.0-33.0) pg MCHC 32.0 (31.0-36.0) g/dl RDW 13.2 (11.0-16.0) % Plt Count 300 (160-400) X10*3/uL MPV 10.4 (9.4-12.4) fL Immature Gran % (Auto) 0.4 (0.0-0.4) % Neut % (Auto) 70.8 (45-73) % Lymph % (Auto) 14.6 L (20-40) % [place] % (Auto) 8.7 (2-11) % Eos % (Auto) 4.6 H (0-4) % Baso % (Auto) 0.9 (0-2) % Lymph # (Auto) 1.2 (1.2-4.9) X10*3/uL [place] # (Auto) 0.7 (0.1-1.2) X10*3/uL Eos # (Auto) 0.4 (0.0-0.4) X10*3/uL Baso # (Auto) 0.1 (0.0-0.2) X10*3/uL Abs Immat Gran (auto) 0.03 (0.00-0.03) X10*3/uL Absolute Neuts (auto) 5.7 (2.0-8.3) x10*3/uL Absolute Nucleated RBC 0.000 (0.0-0.012) X10*3/uL Nucleated RBC % (auto) 0.0 (0.0-0.2) /100WBC Sodium 144 (135-145) mmol/L Potassium 4.0 (3.3-5.1) mmol/L Chloride 111 H (96-108) mmol/L Carbon Dioxide 23 (22-29) mmol/L Anion Gap 14 (12-20) BUN 16 (9-16) mg/dL Creatinine 1.18 (0.5-1.4) mg/dL Estim Creat Clear Calc TNP Estimated GFR > 60 Random Glucose 100 (60-115) mg/dL Calcium 9.1 (8.4-10.2) mg/dL Total Bilirubin 1.1 H (0.0-1.0) mg/dL Direct Bilirubin 0.3 (0.0-0.5) mg/dL AST 22 (5-37) U/L ALT 32 (0-40) U/L Alkaline Phosphatase 170 H (39-117) U/L Troponin I High Sens 5.7 D (<3.5-35.0) ng/L Total Protein 6.4 L (6.5-8.0) g/dL Albumin 4.0 (3.5-5.0) g/dL Lipase 8 (8-78) U/L Independent Interpretation I performed an independent interpretation of an: EKG (Normal sinus rhythm at 97 beats per minute, normal intervals, no ST-T changes.) and Plain X-Ray (No pneumothorax, increase change in right-sided fluid/pleural reaction, left pleural effusion. Early CHF) Radiology Impression Discussion of test interpretation with radiology: I have reviewed the radiologist's reading. Discharge Plan Discharge Clinical Impression: Chest pain Patient Disposition: Still a Patient Prescriptions: No Action metoprolol succinate 100 mg tablet extended release 24 hr 100 mg PO DAILY Qty: 90 1RF losartan 100 mg tablet 100 mg PO DAILY Qty: 90 1RF amlodipine 5 mg tablet 5 mg PO DAILY Qty: 90 0RF morphine 10 mg capsule,extend.release pellets 10 mg PO Q12H 7 Days Qty: 14 0RF Rx Instructions: Partial Fill upon patient request. naloxone [Narcan] 4 mg/actuation spray,non-aerosol 4 mg intranasal Q2M PRN (Reason: opioid overdose) Qty: 2 0RF Rx Instructions: spray 1 dose into ONE nostril; alternate nostrils w each dose until help arrives USED FOR NARCOTIC OVERDOSE oxycodone 5 mg tablet 5 - 10 mg PO Q6H PRN (Reason: pain) Qty: 20 0RF Rx Instructions: Partial Fill upon patient request. lidocaine [Lidocaine Pain Relief] 4 % adhesive patch,medicated 1 patch topical DAILY tamsulosin 0.4 mg Capsule 0.4 mg PO BEDTIME albuterol sulfate 1.25 mg/3 mL solution for nebulization 1.25 mg BID acetaminophen 325 mg Tablet 650 mg PO Q6H PRN (Reason: Pain) benzonatate 100 mg Capsule 100 mg PO TID PRN (Reason: Cough) Qty: 20 0RF codeine-guaifenesin 10-100 mg/5 mL Liquid 5 ml PO Q6H PRN (Reason: Cough) Qty: 237 0RF Xarelto 20 mg Tablet 20 mg PO DAILY@1730 Qty: 30 2RF cefuroxime axetil 500 mg tablet 500 mg PO BID 4 Days Qty: 8 0RF lactulose 10 gram/15 mL (15 mL) solution 20 g PO BID PRN (Reason: constipation) 10 Days Qty: 600 0RF
--- NOTE | 2022-10-29 21:16 | PC.NURSE ---
pt refused dilaudid states he does not like how it makes him feel provider aware med to follow
[2022-10-29] MEDS: Morphine Sulfate 4 MG/ML CARTRIDGE IVPUSH (21:36)
--- NOTE | 2022-10-29 21:39 | PC.NURSE ---
O2Sat at 100%, O2 supplement discontinued at this time will CTM
--- NOTE | 2022-10-29 21:47 | PC.NURSE ---
pt c/o sob unable to finish some of his sentences O2Sat 99% RA RR 51 provider aware
[2022-10-29 22:07] LABS: B Type Natriuretic Peptide 135 pg/mL (<100)
--- NOTE | 2022-10-29 23:41 | PC.NURSE ---
Pt refused dilaudid and zofran. Stated he does not want to take dilaudid and his pain is manageable at this time. Pt reports no nausea.
[2022-10-30] VITALS (7 sets, daily range): BP systolic 119–154; BP diastolic 71–101; PULSE 88–104; RESP 16–27; TEMP 36.3–36.6; O2SAT 93–100; BMI 31.8
[2022-10-30] MEDS: LORazepam 2 MG/ML VIAL 1 MG IVPUSH (00:04)
[2022-10-30] MEDS: iohexoL 350 MG/ML 100 ML INFUS..BTL 85 ML IV (00:48)
--- NOTE | 2022-10-30 01:54 | PM.IMHP ---
History of Present Illness Date of Service: 10/30/22 Chief Complaint: Dyspnea This is a 62-year-old male with pertinent history of PE on Xarelto, essential hypertension, mixed hyperlipidemia, s/p tracheobronchoplasty via right thoracotomy who presents to the emergency department for evaluation of right-sided chest pain and dyspnea. Patient states he has had right-sided chest pain and dyspnea, worse with exertion that has been ongoing for the last 10 days. It has been progressively worsening. Patient also complains that he has difficulty lying flat due to shortness of breath. Also has noted bilateral lower extremity swelling. Patient complains of a nonproductive cough but denies fever, chills. No palpitations, abdominal pain, changes in urinary or bowel habits. In the emergency department, imaging with vascular congestion and bilateral pleural effusion. He was found to be hypoxemic and placed on 2 L supplemental oxygen Review of Systems Constitutional: Constitutional: Reports no additional constitutional complaints Cardiovascular: Cardiovascular: Reports chest pain and Reports orthopnea Respiratory: Respiratory: Reports cough Gastrointestinal: Gastrointestinal: Reports no additional gastrointestinal complaints Genitourinary: Genitourinary: Reports no additional male genitourinary complaints [facility] Medical History Allergic rhinitis Asthma Atelectasis Cholelithiasis Chronic neck pain COPD (chronic obstructive pulmonary disease) Deviated nasal septum Fatty liver Gall bladder polyp GERD (gastroesophageal reflux disease) Hypercholesterolemia Lesion of vocal cord Neck pain Pleural effusion Pneumonitis Pulmonary embolism Renal calculi Tracheobronchomegaly Tracheomalacia Vocal cord dysfunction Family History Mother No problems noted. Father No problems noted. Surgical History History of Achilles tendon repair History of eye surgery History of hernia surgery History of knee surgery History of nasal surgery History of neck surgery History of repair of left rotator cuff History of repair of right rotator cuff S/P tracheoplasty Social History Household Members: Spouse Housing: House Do you presently have visiting nurse or other home services: Yes Alcohol intake: never Patient Tobacco Use Status: Never used Tobacco Smoked in Last 30 Days: No e-Cigarette/Vaping Use: Never Used Second Hand Smoke Exposure: No Use of substances other than those prescribed or required for medical reasons: No Advance Directives: No Advance Directives Information Provided: No service: No Current occupational status: employed Cognitive needs: No Hearing needs: No Vision needs: No Meds Allergies Allergy/AdvReac Type Severity Reaction Status Date / Time penicillin V Allergy Intermediate fever Verified 10/29/22 21:39 vancomycin [Vancomycin] Allergy Mild HIVES, Verified 10/29/22 21:39 FEVER Penicillins AdvReac Mild FEVER Verified 10/29/22 21:39 Home Medications Medication Instructions Recorded Confirmed Last Taken Type lidocaine 4 % topical patch 1 patch topical DAILY 09/02/22 10/17/22 10/11/22 History (Lidocaine Pain Relief) tamsulosin 0.4 mg capsule 0.4 mg PO BEDTIME 09/02/22 10/17/22 10/11/22 History acetaminophen 325 mg tablet 650 mg PO Q6H PRN Pain 10/12/22 10/17/22 10/11/22 History albuterol sulfate 1.25 mg/3 mL 1.25 mg BID 10/12/22 10/17/22 10/11/22 History solution for nebulization Physical Exam Vital Signs and Narrative: Vital Signs: Last Vital Signs Temp 97.7 F 10/29/22 20:45 Pulse 98 10/30/22 00:48 Resp 20 10/30/22 00:48 BP 152/99 H 10/30/22 00:48 Pulse Ox 95 10/30/22 00:48 O2 Del Method Nasal Cannula wit h Capnography 10/30/22 00:48 O2 Flow Rate 3 10/29/22 23:34 Oxygen Flow Rate 3 10/29/22 20:15 BMI result Body Mass Index 31.8 Middle-aged male lying in bed in mild distress on supplemental oxygen Neck supple, no JVD Regular rate and rhythm, S1-S2 heard Bilateral crackles without wheezing Abdomen soft nontender, no guarding, no rigidity Patient is awake, alert and oriented to self, place, time and person ; no focal motor deficit Psych: Normal mood Bilateral pedal edema Results Labs 10/29/22 20:20 10/29/22 20:20 Labs: Laboratory Results - last 24 hr 04/15/23 04/15/23 04/15/23 20:20 20:20 20:20 MCV 83.5 MCH 26.7 L MCHC 32.0 RDW 13.2 Plt Count 300 MPV 10.4 Immature Gran % (Auto) 0.4 Neut % (Auto) 70.8 Lymph % (Auto) 14.6 L [place] % (Auto) 8.7 Eos % (Auto) 4.6 H Baso % (Auto) 0.9 Lymph # (Auto) 1.2 [place] # (Auto) 0.7 Eos # (Auto) 0.4 Baso # (Auto) 0.1 Abs Immat Gran (auto) 0.03 Absolute Neuts (auto) 5.7 Absolute Nucleated RBC 0.000 Nucleated RBC % (auto) 0.0 Anion Gap 14 Estim Creat Clear Calc TNP Estimated GFR > 60 Random Glucose 100 Calcium 9.1 Total Bilirubin 1.1 H Direct Bilirubin 0.3 AST 22 ALT 32 Alkaline Phosphatase 170 H Troponin I High Sens 5.7 D B-Natriuretic Peptide Total Protein 6.4 L Albumin 4.0 Lipase 8 10/29/22 20:20 MCV MCH MCHC RDW Plt Count MPV Immature Gran % (Auto) Neut % (Auto) Lymph % (Auto) [place] % (Auto) Eos % (Auto) Baso % (Auto) Lymph # (Auto) [place] # (Auto) Eos # (Auto) Baso # (Auto) Abs Immat Gran (auto) Absolute Neuts (auto) Absolute Nucleated RBC Nucleated RBC % (auto) Anion Gap Estim Creat Clear Calc Estimated GFR Random Glucose Calcium Total Bilirubin Direct Bilirubin AST ALT Alkaline Phosphatase Troponin I High Sens B-Natriuretic Peptide 135 H Total Protein Albumin Lipase Imaging Radiologist's Impressions: Impressions Chest X-Ray 10/29/22 20:35 IMPRESSION: No pneumothorax is seen. Increasing change here with increasing right sided fluid/pleural reaction and new left probable pleural effusion. Also findings suggest early CHF. Left basilar atelectasis, infiltrate or edema. Persistent change of the right base Chest CTA 10/30/22 00:45 IMPRESSION: 1. No pulmonary embolism. 2. Moderate bilateral pleural effusions, partially loculated on the right. Bilateral lower lobe atelectasis. VTE: negative Assessment and Plan (1) Bilateral pleural effusion: Status: Acute Plan This is a 62-year-old male with pertinent history of PE on Xarelto, essential hypertension, mixed hyperlipidemia, s/p tracheobronchoplasty via right thoracotomy who presents to the emergency department for evaluation of right-sided chest pain and dyspnea. #. Acute hypoxemic respiratory failure due to decompensated CHF, unknown ejection fraction: Will admit patient with supplemental oxygen. Patient with orthopnea, pedal edema and imaging with venous congestion with bilateral pleural effusion. Also obtaining echocardiogram. Strict I's and O's and low-salt diet #. Imaging with bilateral pleural effusion: Although CHF can explain bilateral pleural effusions, right-sided effusion is partially loculated. Will consult IR for thoracentesis and initiate empiric IV antibiotics. Pleural fluid studies pending. Also consulting pulm #. PE: Hold Xarelto for possible thoracentesis. Resume as appropriate #. Essential hypertension: Continue home antihypertensives #. BPH: On Flomax Med rec pending DVT prophylaxis: Hold Xarelto as above Full code Cardiac diet Admit as inpatient and will require two night minimum hospital stay for supplemental oxygen Time Spent With Patient Time: Total time managing care of this patient today ____ minutes. Quality Stroke Does the patient have a stroke diagnosis?: No VTE Prior VTE?: No VTE Risk Level:: Medical - moderate - high VTE Device Contraindication: Treatment Not Indicated VTE Drug Contraindication: N/A - Med Ordered
[2022-10-30] MEDS: cefTRIAXone sodium 1 GM in 0.9 % Sodium Chloride 50 ML IV (02:33)
[2022-10-30] MEDS: Furosemide 40 MG/4 ML VIAL IVPUSH ×3 (02:33→19:47)
[2022-10-30 02:36] LABS: Lactate Dehydrogenase 222 U/L (118-273)
--- NOTE | 2022-10-30 02:51 | PC.NURSE ---
Pt asleep at this time. Antibiotics are running into the Left AC.
[2022-10-30] MEDS: Morphine Sulfate 4 MG/ML CARTRIDGE IVPUSH (03:16)
[2022-10-30] MEDS: ondansetron HCL 4 MG/2 ML VIAL IVPUSH (03:17)
[2022-10-30] MEDS: Azithromycin 500 MG in 0.9 % Sodium Chloride 250 ML 125 MG IV (03:21)
--- NOTE | 2022-10-30 04:03 | MHC.EDTECH ---
IF D/C CALL GRACIELA/SISTER [phone]
[2022-10-30 05:51] LABS: Appearance Urine Clear; Color Urine Yellow; Glucose Urine UA Negative (Negative); Leukocyte Esterase Urine Negative (Negative); Nitrite Urine Negative (Negative); Urine Blood Negative (Negative); Urine Ketones Negative (Negative); Urine Protein Negative (Neg-Trace)
[2022-10-30 06:17] LABS: MANUAL DIFF FLAG NO
[2022-10-30 06:30] LABS: Basophils Absolute Auto 0.1 X10*3/uL (0.0-0.2); Basophils Percent Auto 0.9 % (0-2); Eosinophils Absolute Auto 0.5 X10*3/uL (0.0-0.4); Eosinophils Percent Auto 5.9 % (0-4); Hematocrit 41.4 % (42.0-52.0); Imm Gran Abs Auto 0.02 X10*3/uL (0.00-0.03); Imm Gran Pct Auto 0.2 % (0.0-0.4); Lymphocytes Absolute Auto 1.1 X10*3/uL (1.2-4.9); Mean Corpuscular HGB Conc 31.4 g/dl (31.0-36.0); Mean Corpuscular Hemoglobin 27.4 pg (27.0-33.0); Mean Corpuscular Volume 87.3 fL (80.0-98.0); Mean Platelet Volume 11.4 fL (9.4-12.4); Monocytes Percent Auto 11.7 % (2-11); Neutrophils Absolute Auto 5.8 x10*3/uL (2.0-8.3); Neutrophils Percent Auto 68.3 % (45-73); Platelet Count 284 X10*3/uL (160-400); Red Blood Count 4.74 X10*6/uL (4.60-5.80); Red Cell Distribution Width 13.2 % (11.0-16.0); White Blood Count 8.5 X10*3/uL (4.8-10.8)
[2022-10-30 06:37] LABS: Anion Gap 12 (12-20); Blood Urea Nitrogen 15 mg/dL (9-16); Calcium 9.1 mg/dL (8.4-10.2); Carbon Dioxide 29 mmol/L (22-29); Chloride 108 mmol/L (96-108); Creatinine Clr Calc Pharmacy 83.8; Estimated Glomerular Filt Rate 60; Glucose Random 112 mg/dL (60-115); Potassium 4.5 mmol/L (3.3-5.1); Sodium 144 mmol/L (135-145)
--- NOTE | 2022-10-30 07:24 | MHC.EDTECH ---
Pt set up with breakfast tray at this time.
--- NOTE | 2022-10-30 08:41 | PHA.MEDREC ---
Pharmacy Consult ? Medication Reconciliation Pharmacy has completed the medication reconciliation. Patient no longer taking lactulose. Patient reports his doctor prescribed morphine Q12H however the insurance would not allow it so he never received it. Patient reports a lot of pain. I informed JODY Cruz of the situation. Phyllis Marcano, JaylinD
[2022-10-30] MEDS: Losartan Potassium 50 MG TABLET 100 MG PO (09:02)
[2022-10-30] MEDS: Atorvastatin Calcium 80 MG TABLET PO (09:02)
[2022-10-30] MEDS: Acetaminophen 325 MG TABLET 650 MG PO (09:02)
[2022-10-30] MEDS: amLODIPine Besylate 5 MG TABLET PO (09:02)
[2022-10-30] MEDS: oxyCODONE HCl Immed Release 5 MG TABLET PO (09:02)
[2022-10-30] MEDS: Metoprolol Succinate ER 100 MG TAB.ER.24H PO (09:02)
[2022-10-30] MEDS: Morphine Sulfate 2 MG/ML CARTRIDGE IVPUSH ×2 (09:41→19:47)
--- NOTE | 2022-10-30 10:35 | MHC.CM.PN ---
pt lives with is active w/hvns is covjesus colbert x2 is away till es has own ride [facility] pcp is dr luna
--- NOTE | 2022-10-30 11:06 | PM.CNPUL ---
History of Present Illness History of Present Illness Consult date: 10/30/22 Chief complaint: R sided chest pain Narrative: This is an in patient pulmonary consultation. This is a 62-year-old male with pertinent history of PE on Xarelto, essential hypertension, mixed hyperlipidemia, s/p tracheobronchoplasty via right thoracotomy complicated by loculated effusion. He presents to the emergency department for evaluation of right-sided chest pain and dyspnea.? Patient states he has had right-sided chest pain and dyspnea, worse with exertion that has been ongoing for the last 10 days.? It has been progressively worsening.? Patient also complains that he has difficulty lying flat due to shortness of breath.? Also has noted bilateral lower extremity swelling.? Patient complains of a nonproductive cough but denies fever, chills.? No palpitations, abdominal pain, changes in urinary or bowel habits. In the emergency department, imaging with vascular congestion and bilateral pleural effusion.? He was found to be hypoxemic and placed on 2 L supplemental oxygen. Review of Systems Constitutional: Constitutional: Reports no additional constitutional complaints Cardiovascular: Cardiovascular: Reports chest pain and Reports orthopnea Respiratory: Respiratory: Reports cough and Denies wheezing Gastrointestinal: Gastrointestinal: Reports no additional gastrointestinal complaints Genitourinary: Genitourinary: Reports no additional male genitourinary complaints Musculoskeletal: Musculoskeletal: Reports no additional musculoskeletal complaints Hematologic/Lymphatic: Hematologic/Lymphatic: Denies easy bleeding and Denies easy bruising Allergic/Immunologic: Allergic/Immunologic: Denies wheezing PMFSH Past Medical History Medical History (Updated 10/30/22 @ 11:13 by Tucker Moon MD) Allergic rhinitis Asthma Atelectasis CHF (congestive heart failure) Cholelithiasis Chronic neck pain COPD (chronic obstructive pulmonary disease) Deviated nasal septum Fatty liver Gall bladder polyp GERD (gastroesophageal reflux disease) Hypercholesterolemia Lesion of vocal cord Neck pain Pleural effusion Pneumonitis Pulmonary embolism Renal calculi Tracheobronchomegaly Tracheomalacia Vocal cord dysfunction Family History Family History Mother No problems noted. Father No problems noted. Surgical History Surgical History History of Achilles tendon repair History of eye surgery History of hernia surgery History of knee surgery History of nasal surgery History of neck surgery History of repair of left rotator cuff History of repair of right rotator cuff S/P tracheoplasty Social History Social History Household Members: Spouse Housing: House Do you presently have visiting nurse or other home services: Yes Alcohol intake: never Patient Tobacco Use Status: Never used Tobacco e-Cigarette/Vaping Use: Never Used Second Hand Smoke Exposure: No service: No Current occupational status: employed Cognitive needs: No Hearing needs: No Vision needs: No Meds Allergies Allergy/AdvReac Type Severity Reaction Status Date / Time penicillin V Allergy Intermediate fever Verified 10/29/22 21:39 vancomycin [Vancomycin] Allergy Mild HIVES, Verified 10/29/22 21:39 FEVER Penicillins AdvReac Mild FEVER Verified 10/29/22 21:39 Active Medications: Current Medications Acetaminophen (Acetaminophen 325 Mg Tablet) 650 mg PO Q6H PRN PRN Reason: Pain, Mild (Pain Scale 1-3) Last Admin: 10/30/22 09:02 Dose: 650 mg Albuterol Sulfate (Albuterol Sulfate (0.042%) 1.25 Mg/3 Ml Vial.Neb) 1.25 mg INHALE Q4H PRN PRN Reason: SHORTNESS OF BREATH Amlodipine Besylate (Amlodipine Besylate 5 Mg Tablet) 5 mg PO DAILY [facility]; Protocol Last Admin: 10/30/22 09:02 Dose: 5 mg Atorvastatin Calcium (Atorvastatin Calcium 80 Mg Tablet) 80 mg PO DAILY [facility] Last Admin: 10/30/22 09:02 Dose: 80 mg Fluticasone/Vilanterol (Fluticasone/Vilanterol 100/25 Blst.W.Dev) 1 puff INHALE RDAILY [facility] Furosemide (Furosemide 40 Mg/4 Ml Vial) 40 mg IVPUSH DAILY [facility]; Protocol Last Admin: 10/30/22 09:02 Dose: 40 mg Guaifenesin/Codeine Phosphate (Guaifen/Codeine Sf 200/20/10ml 10 Ml Liquid) 5 ml PO Q6H PRN PRN Reason: Cough Ceftriaxone Sodium 1 gm/ (Sodium Chloride) 50 mls @ 100 mls/hr IV Q24H [facility] Last Infusion: 10/30/22 03:06 Dose: Infused Azithromycin 500 mg/ Sodium (Chloride) 250 mls @ 125 mls/hr IV Q24H [facility] Last Infusion: 10/30/22 05:24 Dose: Infused Losartan Potassium (Losartan Potassium 50 Mg Tablet) 100 mg PO DAILY [facility]; Protocol Last Admin: 10/30/22 09:02 Dose: 100 mg Melatonin (Melatonin 3 Mg Tablet) 6 mg PO BEDTIME PRN PRN Reason: Insomnia Metoprolol Succinate (Metoprolol Succinate Er 100 Mg Tab.Er.24h) 100 mg PO DAILY [facility]; Protocol Last Admin: 10/30/22 09:02 Dose: 100 mg Morphine Sulfate (Morphine Sulfate 2 Mg/Ml Cartridge) 2 mg IVPUSH Q4H PRN; Protocol PRN Reason: Pain, Severe (Pain Scale 7-10) Last Admin: 10/30/22 09:41 Dose: 2 mg Ondansetron HCl (Ondansetron Hcl 4 Mg/2 Ml Vial) 4 mg IVPUSH Q8H PRN PRN Reason: Nausea and Vomiting Last Admin: 10/30/22 03:17 Dose: 4 mg Oxycodone HCl (Oxycodone Hcl Immed Release 5 Mg Tablet) 5 mg PO Q6H PRN PRN Reason: Pain, Moderate (Pain Scale 4-6 Pharmacy Consult (Consult Rx Perform Med Rec) 1 each MISCELLANE ONCE PRN PRN Reason: Consult order Sodium Chloride (0.9 % Sodium Chloride Flush 3 Ml Syringe) [facility] Last Admin: 10/30/22 08:56 Dose: Not Given Tamsulosin HCl (Tamsulosin Hcl 0.4 Mg Capsule) 0.4 mg PO BEDTIME [facility] Home Medications Medication Instructions Recorded Confirmed Last Taken Type lidocaine 4 % topical patch 1 patch topical DAILY 09/02/22 10/30/22 10/11/22 History (Lidocaine Pain Relief) tamsulosin 0.4 mg capsule 0.4 mg PO BEDTIME 09/02/22 10/30/22 10/11/22 History albuterol sulfate 1.25 mg/3 mL 1.25 mg inhalation Q4H PRN 10/12/22 10/30/22 10/11/22 History solution for nebulization Shortness Of Breath fluticasone 250 mcg-salmeterol 50 1 ea inhalation BID 10/30/22 10/30/22 Unknown History mcg/dose blistr powdr for inhalation (Advair Diskus) rosuvastatin 20 mg tablet 20 mg PO DAILY 10/30/22 10/30/22 Unknown History Physical Exam Vital Signs: Vital Signs: Last Vital Signs Temp 97.4 F 10/30/22 09:14 Pulse 96 10/30/22 09:14 Resp 18 10/30/22 09:14 BP 141/93 H 10/30/22 09:14 Pulse Ox 93 10/30/22 09:14 O2 Del Method Nasal Cannula 10/30/22 09:14 O2 Flow Rate 2.5 10/30/22 09:14 Oxygen Flow Rate 3 10/29/22 20:15 BMI result Body Mass Index 31.8 Const: Orientation/consciousness: patient oriented x3 Eyes: General: appearance normal, both eyes and all related structures Neck: Neck: Yes normal visual inspection, Yes no lymphadenopathy and Yes trachea midline Chest: Chest palpation & inspection: normal inspection of the chest and tenderness (right sided chest wall) Resp: Auscultation: breath sounds absent (base) on the right and diminished lung sounds on the left Cardio: Rate: regular rate Rhythm: regular rhythm GI: Palpation (GI): Soft to palpation Skin: General skin exam: no rashes or lesions noted Neuro: General: patient oriented x3 Cranial nerves: Yes CN's II-XII intact bilaterally Extrem: General: No cyanosis and Yes edema Psych: Appearance: grossly normal Results Laboratory Findings 10/30/22 05:32 10/30/22 05:32 Abnormal lab findings: Abnormal Labs 10/29/22 10/29/22 10/29/22 20:20 20:20 20:20 Hgb 13.1 L Hct 41.0 L MCH 26.7 L Lymph % (Auto) 14.6 L [place] % (Auto) Eos % (Auto) 4.6 H Lymph # (Auto) Eos # (Auto) Chloride 111 H Total Bilirubin 1.1 H Alkaline Phosphatase 170 H B-Natriuretic Peptide 135 H Total Protein 6.4 L 10/30/22 05:32 Hgb 13.0 L Hct 41.4 L MCH Lymph % (Auto) 13.0 L [place] % (Auto) 11.7 H Eos % (Auto) 5.9 H Lymph # (Auto) 1.1 L Eos # (Auto) 0.5 H Chloride Total Bilirubin Alkaline Phosphatase B-Natriuretic Peptide Total Protein Assessment and Plan (1) Bilateral pleural effusion: Status: Acute (2) COPD (chronic obstructive pulmonary disease): Status: Acute (3) Post-thoracotomy pain: Status: Acute (4) CHF (congestive heart failure): Status: Acute Plan Likely that his worsening effusion is due to volume overload status. He does have a right sided loculated effusion that appears to be slightly worse, but could also be due to increase in hydrostatic pressures. He does have chronic pain issues after his surgery and this appears to be severe, but, at baseline. Does have orthopnea from his volume overload status. REC: Continue with diuresis repeat CXR tomorrow, if it looks better than consider holding off on the thoracentesis Needs ECHO He was scheduled for a procedure at [facility] but he does not remember it (Monday) pain management Time Spent With Patient Time: Total time managing care of this patient today ____ minutes. Procedures Date of Service Date of Service: 10/30/22
--- NOTE | 2022-10-30 15:09 | P.PNIM_ITS ---
Subjective Subjective Date of Service: 10/30/22 <JODY Morton - Last Filed: 10/30/22 19:25> 11/01/22 <Al Ramey MD - Last Filed: 11/01/22 08:26> Interval History: Seen in follow up for CHF exacerbation, loculated pleural effusion Interval history: Reports 10/ pain right side/mid back. Had been discharged with MS contin and prn oxycodone but was only able to get oxycodone filled to insurance. SOB improving. Continues on 2.5L. <JODY Morton - Last Filed: 10/30/22 19:25> Review of Systems Review of Systems: Yes all other systems are reviewed and are negative <JODY Morton - Last Filed: 10/30/22 19:25> Physical Exam Vital Signs: Vital Signs: Last Vital Signs Temp 97.4 F 10/30/22 09:14 Pulse 96 10/30/22 09:14 Resp 18 10/30/22 09:14 BP 141/93 H 10/30/22 09:14 Pulse Ox 93 10/30/22 09:14 O2 Del Method Nasal Cannula 10/30/22 09:14 O2 Flow Rate 2.5 10/30/22 09:14 Oxygen Flow Rate 3 10/29/22 20:15 BMI result Body Mass Index 31.8 <JODY Morton - Last Filed: 10/30/22 19:25> Constitutional - Awake and Alert, No apparent distress Eyes - PERRLA, EOMI Cardiovascular - S1S2, RRR, No edema Respiratory - Normal lung expansion, Normal respiratory effort, No respiratory distress, diminished right lung, scattered wheezes left lung Gastrointestinal - NT / ND; +BS; No rebound or guarding Extremities - no calf tenderness bilaterally, no swelling Skin - Warm/Dry Neurological - Alert & oriented x3 Psychological - Appropriate affect <JODY Morton - Last Filed: 10/30/22 19:25> Objective Data Active Medications Acetaminophen (Acetaminophen 325 Mg Tablet) 650 mg PO Q6H PRN PRN Reason: Pain, Mild (Pain Scale 1-3) Last Admin: 10/30/22 09:02 Dose: 650 mg Documented By: LAY Albuterol Sulfate (Albuterol Sulfate (0.042%) 1.25 Mg/3 Ml Vial.Neb) 1.25 mg INHALE Q4H PRN PRN Reason: SHORTNESS OF BREATH Amlodipine Besylate (Amlodipine Besylate 5 Mg Tablet) 5 mg PO DAILY [facility]; Protocol Last Admin: 10/30/22 09:02 Dose: 5 mg Documented By: LAY Atorvastatin Calcium (Atorvastatin Calcium 80 Mg Tablet) 80 mg PO DAILY [facility] Last Admin: 10/30/22 09:02 Dose: 80 mg Documented By: LAY Fluticasone/Vilanterol (Fluticasone/Vilanterol 100/25 Blst.W.Dev) 1 puff INHALE RDAILY [facility] Furosemide (Furosemide 40 Mg/4 Ml Vial) 40 mg IVPUSH Q12H [facility]; Protocol Guaifenesin/Codeine Phosphate (Guaifen/Codeine Sf 200/20/10ml 10 Ml Liquid) 5 ml PO Q6H PRN PRN Reason: Cough Ceftriaxone Sodium 1 gm/ (Sodium Chloride) 50 mls @ 100 mls/hr IV Q24H [facility] Last Infusion: 10/30/22 03:06 Dose: 0 mls/hr Documented By: CHRISTEN Azithromycin 500 mg/ Sodium (Chloride) 250 mls @ 125 mls/hr IV Q24H [facility] Last Infusion: 10/30/22 05:24 Dose: 0 mls/hr Documented By: CHRISTEN Losartan Potassium (Losartan Potassium 50 Mg Tablet) 100 mg PO DAILY [facility]; Protocol Last Admin: 10/30/22 09:02 Dose: 100 mg Documented By: LAY Melatonin (Melatonin 3 Mg Tablet) 6 mg PO BEDTIME PRN PRN Reason: Insomnia Metoprolol Succinate (Metoprolol Succinate Er 100 Mg Tab.Er.24h) 100 mg PO DAILY [facility]; Protocol Last Admin: 10/30/22 09:02 Dose: 100 mg Documented By: LAY Morphine Sulfate (Morphine Sulfate 2 Mg/Ml Cartridge) 2 mg IVPUSH Q4H PRN; Protocol PRN Reason: Pain, Severe (Pain Scale 7-10) Last Admin: 10/30/22 09:41 Dose: 2 mg Documented By: LAY Ondansetron HCl (Ondansetron Hcl 4 Mg/2 Ml Vial) 4 mg IVPUSH Q8H PRN PRN Reason: Nausea and Vomiting Last Admin: 10/30/22 03:17 Dose: 4 mg Documented By: CHRISTEN Oxycodone HCl (Oxycodone Hcl Immed Release 5 Mg Tablet) 5 mg PO Q6H PRN PRN Reason: Pain, Moderate (Pain Scale 4-6 Pharmacy Consult (Consult Rx Perform Med Rec) 1 each MISCELLANE ONCE PRN PRN Reason: Consult order Sodium Chloride (0.9 % Sodium Chloride Flush 3 Ml Syringe) 3 ml IVFLUSH QSHIFT [facility] Last Admin: 10/30/22 13:49 Dose: Not Given Documented By: LAY Non-Admin Reason: See Note Tamsulosin HCl (Tamsulosin Hcl 0.4 Mg Capsule) 0.4 mg PO BEDTIME [facility] <JODY Morton - Last Filed: 10/30/22 19:25> Labs CBC & Chem 7: 10/30/22 05:32 10/30/22 05:32 <OJDY Morton - Last Filed: 10/30/22 19:25> Labs: Laboratory Results - last 24 hr 10/29/22 10/29/22 10/29/22 20:20 20:20 20:20 MCV 83.5 MCH 26.7 L MCHC 32.0 RDW 13.2 Plt Count 300 MPV 10.4 Immature Gran % (Auto) 0.4 Neut % (Auto) 70.8 Lymph % (Auto) 14.6 L [place] % (Auto) 8.7 Eos % (Auto) 4.6 H Baso % (Auto) 0.9 Lymph # (Auto) 1.2 [place] # (Auto) 0.7 Eos # (Auto) 0.4 Baso # (Auto) 0.1 Abs Immat Gran (auto) 0.03 Absolute Neuts (auto) 5.7 Absolute Nucleated RBC 0.000 Nucleated RBC % (auto) 0.0 Anion Gap 14 Estim Creat Clear Calc TNP Estimated GFR > 60 Random Glucose 100 Calcium 9.1 Total Bilirubin 1.1 H Direct Bilirubin 0.3 AST 22 ALT 32 Alkaline Phosphatase 170 H Lactate Dehydrogenase 222 Troponin I High Sens 5.7 D B-Natriuretic Peptide Total Protein 6.4 L Albumin 4.0 Lipase 8 Urine Color Urine Appearance Urine pH Ur Specific [place] Urine Protein Urine Glucose (UA) Urine Ketones Urine Blood Urine Nitrite Ur Leukocyte Esterase 10/29/22 10/30/22 10/30/22 20:20 05:32 05:32 MCV 87.3 MCH 27.4 MCHC 31.4 RDW 13.2 Plt Count 284 MPV 11.4 Immature Gran % (Auto) 0.2 Neut % (Auto) 68.3 Lymph % (Auto) 13.0 L [place] % (Auto) 11.7 H Eos % (Auto) 5.9 H Baso % (Auto) 0.9 Lymph # (Auto) 1.1 L [place] # (Auto) 1.0 Eos # (Auto) 0.5 H Baso # (Auto) 0.1 Abs Immat Gran (auto) 0.02 Absolute Neuts (auto) 5.8 Absolute Nucleated RBC 0.000 Nucleated RBC % (auto) 0.0 Anion Gap 12 Estim Creat Clear Calc 83.8 Estimated GFR 60 Random Glucose 112 Calcium 9.1 Total Bilirubin Direct Bilirubin AST ALT Alkaline Phosphatase Lactate Dehydrogenase Troponin I High Sens B-Natriuretic Peptide 135 H Total Protein Albumin Lipase Urine Color Urine Appearance Urine pH Ur Specific [place] Urine Protein Urine Glucose (UA) Urine Ketones Urine Blood Urine Nitrite Ur Leukocyte Esterase 10/30/22 05:44 MCV MCH MCHC RDW Plt Count MPV Immature Gran % (Auto) Neut % (Auto) Lymph % (Auto) [place] % (Auto) Eos % (Auto) Baso % (Auto) Lymph # (Auto) [place] # (Auto) Eos # (Auto) Baso # (Auto) Abs Immat Gran (auto) Absolute Neuts (auto) Absolute Nucleated RBC Nucleated RBC % (auto) Anion Gap Estim Creat Clear Calc Estimated GFR Random Glucose Calcium Total Bilirubin Direct Bilirubin AST ALT Alkaline Phosphatase Lactate Dehydrogenase Troponin I High Sens B-Natriuretic Peptide Total Protein Albumin Lipase Urine Color Yellow Urine Appearance Clear Urine pH 6.0 Ur Specific [place] 1.010 Urine Protein Negative Urine Glucose (UA) Negative Urine Ketones Negative Urine Blood Negative Urine Nitrite Negative Ur Leukocyte Esterase Negative <JODY Morton - Last Filed: 10/30/22 19:25> Assessment and Plan (1) CHF (congestive heart failure): Status: Acute <JODY Morton - Last Filed: 10/30/22 19:25> (2) Acute dyspnea: Status: Acute <JODY Morton - Last Filed: 10/30/22 19:25> (3) Bilateral pleural effusion: Status: Acute <JODY Morton - Last Filed: 10/30/22 19:25> Assessment and Plan: This is a 62-year-old male with pertinent history of PE on Xarelto, essential hypertension, mixed hyperlipidemia, s/p tracheobronchoplasty via right thoracotomy admitted for CHF exacerbation and loculated pleural effusion #.? Acute hypoxemic respiratory failure due to decompensated CHF, unknown ejection fraction -continue supplemental O2 to maintain oximetry >92% -Continues with [facility], orthopnea -Continue lasix 40mg BID -Recommend strict I&O -Cardiac diet -echo pending # Imaging with bilateral pleural effusion - Although CHF can explain bilateral pleural effusions, right-sided effusion is partially loculated -Per pulm- increase in R pleural effusion possibly related to increased hydrostatic pressure. CXR tomorrow am, if improved hold on thoracentesis w/ cultures and cytology -Follows with [facility] and was scheduled for outpt procedure -appreciate pulmonogy input #History PE -Hold Xarelto for possible thoracentesis, Resume as appropriate #Essential hypertension -Continue home antihypertensives #BPH -continue Flomax DVT prophylaxis:?SCPs, Hold Xarelto as above Full code Cardiac diet Pt requires ongoing inpatient stay for management of decompensated heart failure requiring IV diuresis and close monitoring as well as expert consultation given loculated right-sided pleural effusion with possible thoracentesis <JODY Morton - Last Filed: 10/30/22 19:25> Time Spent With Patient Time: Total time managing care of this patient today ____ minutes. <JODY Morton - Last Filed: 10/30/22 19:25> Quality Stroke Does the patient have a stroke diagnosis?: No <JODY Morton - Last Filed: 10/30/22 19:25> VTE Prior VTE?: No <JODY Morton - Last Filed: 10/30/22 19:25> VTE Risk Level:: Medical - moderate - high <JODY Morton - Last Filed: 10/30/22 19:25> VTE Device Contraindication: Treatment Not Indicated <JODY Morton - Last Filed: 10/30/22 19:25> VTE Drug Contraindication: N/A - Med Ordered <JODY Morton - Last Filed: 10/30/22 19:25>
--- NOTE | 2022-10-30 18:26 | PC.NURSE ---
pain meds given w/ + effect. family updated. informed hospitalist pt's would like to be updated.
[2022-10-30] MEDS: 0.9 % Sodium Chloride Flush 3 ML SYRINGE IVFLUSH (19:48)
[2022-10-30] MEDS: Tamsulosin HCL 0.4 MG CAPSULE PO (19:48)
[2022-10-31 03:18] VITALS: BP 124/73; PULSE 84; RESP 16; TEMP 35.8; O2SAT 96
[2022-10-31] MEDS: Azithromycin 500 MG in 0.9 % Sodium Chloride 250 ML 125 MG IV (03:34)
[2022-10-31] MEDS: Morphine Sulfate 2 MG/ML CARTRIDGE IVPUSH ×3 (03:34→13:39)
[2022-10-31] MEDS: cefTRIAXone sodium 1 GM in 0.9 % Sodium Chloride 50 ML IV (03:34)
[2022-10-31] MEDS: oxyCODONE HCl Immed Release 5 MG TABLET PO ×2 (05:49→11:39)
[2022-10-31] MEDS: Acetaminophen 325 MG TABLET 650 MG PO (05:49)
[2022-10-31] MEDS: guaiFEN/Codeine SF 200/20/10ML 10 ML LIQUID 5 ML PO (05:53)
[2022-10-31 06:36] LABS: MANUAL DIFF FLAG NO
[2022-10-31 06:40] LABS: Basophils Absolute Auto 0.1 X10*3/uL (0.0-0.2); Eosinophils Absolute Auto 0.5 X10*3/uL (0.0-0.4); Eosinophils Percent Auto 6.6 % (0-4); Hematocrit 42.8 % (42.0-52.0); Hemoglobin 13.4 g/dl (14.0-18.0); Imm Gran Abs Auto 0.03 X10*3/uL (0.00-0.03); Imm Gran Pct Auto 0.4 % (0.0-0.4); Lymphocytes Absolute Auto 1.3 X10*3/uL (1.2-4.9); Lymphocytes Percent Auto 16.3 % (20-40); Mean Corpuscular HGB Conc 31.3 g/dl (31.0-36.0); Mean Corpuscular Hemoglobin 27.4 pg (27.0-33.0); Mean Corpuscular Volume 87.5 fL (80.0-98.0); Mean Platelet Volume 11.4 fL (9.4-12.4); Monocytes Absolute Auto 0.8 X10*3/uL (0.1-1.2); Monocytes Percent Auto 9.8 % (2-11); Neutrophils Absolute Auto 5.3 x10*3/uL (2.0-8.3); Neutrophils Percent Auto 65.9 % (45-73); Platelet Count 285 X10*3/uL (160-400); Red Blood Count 4.89 X10*6/uL (4.60-5.80); Red Cell Distribution Width 13.3 % (11.0-16.0)
--- NOTE | 2022-10-31 07:00 | CA_ITS ---
Transthoracic Echocardiogram Patient (Last, First, Middle): Mello Karimi F Gender: Male Date of : 1960 Age: 62 Procedure Date: 10/31/2022 Procedure Type: Transthoracic Echocardiogram Location: S3E Height: 190.5 cm Weight: 115.21 kg BSA: 2.43 m2 Heart Rate: bpm BP: 124 / 73 mmHg Tufter Operator: Referring MD: Rona Odell MD Symptoms: CHF Study Quality: Fair ECG Rhythm: Sinus Conclusions: - The left ventricular systolic function is normal. The calculated ejection fraction is 67% by biplane method. - Mildly increased right ventricular cavity size. - There is a flail posterior mitral leaflet. There is moderate to severe(vs severe) mitral valve regurgitation. - Mild to moderate pulmonary hypertension is present. Findings Left Ventricle Normal left ventricular cavity size. There is mildly increased left ventricular wall thickness. The left ventricular systolic function is normal. The calculated ejection fraction is 67% by biplane method. There is no evidence of regional wall motion abnormalities. Diastolic function is indeterminate on the basis of available data. LV peak GLS -19.8%. Right Ventricle Mildly increased right ventricular cavity size. There is normal right ventricular systolic function. Atria The left atrium is normal in size. The right atrium is normal in size. Aortic Valve The aortic valve was not well visualized. There is no aortic valve stenosis. There is no aortic valve regurgitation. Mitral Valve There is a flail posterior mitral leaflet. There is moderate to severe mitral valve regurgitation. The mitral regurgitation jet is directed anteriorly. There is no mitral valve stenosis. Pulmonic Valve The pulmonic valve is likely normal. Tricuspid Valve There is trace tricuspid valve regurgitation. The right ventricular systolic pressure is 53 mmHg. Mild to moderate pulmonary hypertension is present. Great Vessels The asc aorta is normal in size. Venous The inferior vena cava is normal in size and collapses less than 50% with inspiration. Pericardium/Pleural There is no evidence of pericardial effusion. There is a large left sided pleural effusion. Prior Study Comparison Changes noted compared to prior study dated: 08/10/2017. see comments on mitral valve. Recommendations, Care & Conclusions Recommend a NEREIDA. Measurements 2D Linear Measurements IVSd: 1.25 0.6-0.9/0.6-1.0 cm LVIDd: 4.83 3.9-5.3/4.2-5.9 cm LVIDd Index: 1.99 2.4-3.2/2.2-3.1 cm/m2 LVIDs: 2.85 2.0-3.6 cm LVPWd: 1.24 0.7-1.1 cm Ao Root: 3.00 2.1-3.5 cm LA Diam: 4.30 2.7-3.8/3.0-4.0 cm LAIDs Index: 1.77 1.5-2.3 cm/m2 LV Mass: 290.73 67-162/88-224 g LV Mass Index: 119.64 43-95/49-115 g/m2 LVOT Diam: 2.10 3.0+(-)1.3 cm 2D Systolic Function EF 4C: 73.80 >55% EF 2C: 59.00 >55% EF BiP: 66.90 >55% Mitral Valve MV Pk E: 1.25 MV PK A: 0.49 MV Decel Time: 124.00 E/A: 2.60 E'Lateral: 12.70 E'Medial: 6.96 E/E' Med: 18.00 E/E' Lat: 9.80 PHT: 36.00 MVA PHT: 6.11 Decel [place]: 10.08 MR Vol - PW Dopp: 33.06 MR VTI: 1.14 MR ERO: 29.00 MR Alias Popeye: 0.38 MR RAD: 0.70 Aortic Valve AoV Pk Popeye: 1.45 AoV Mn Popeye: 0.97 AoV VTI: 0.27 AoV Pk Grad: 8.00 Aov Mn Grad: 5.00 [place] Cont.VTI: 1.53 LVOT LVOT Pk Popeye: 0.75 LVOT Mn Popeye: 0.49 LVOT VTI: 0.12 LVOT Pk Grad: 2.00 LVOT Mn Grad: 1.00 LVOT Diam: 2.10 LVOT Area: 3.46 Diastolic Function MV Pk E: 1.25 MV Pk A: 0.49 E/A: 2.60 E'Medial: 6.96 E/E' Med: 18.00 E' Laterial: 12.70 E/E' Lat: 9.80 Right Ventricle TAPSE (mm): 25.00 Tricuspid Valve TR Pk Popeye: 3.35 TR Pk Grad: 45.00 RA Press: 8.00 RVSP: 53.00 Great Vessels Aorta Ao Root-2D: 3.00 2.0-3.7 cm Ao Asc: 3.30 2.1-3.4 cm Pulmonary Valve PV Pk Popeye: 0.77 Peak PV Grad: 2.00 Updated in Other Vendor System with Status of Final Jag Alatorre MD electronically signed on 10/31/2022 12:22:58 PM with status of Final
[2022-10-31 07:05] LABS: B Type Natriuretic Peptide 104 pg/mL (<100)
[2022-10-31 07:15] LABS: Anion Gap 12 (12-20); Blood Urea Nitrogen 18 mg/dL (9-16); Carbon Dioxide 29 mmol/L (22-29); Chloride 105 mmol/L (96-108); Creatinine Clr Calc Pharmacy 83.1; Estimated Glomerular Filt Rate 59; Glucose Random 103 mg/dL (60-115); Potassium 4.4 mmol/L (3.3-5.1); Sodium 142 mmol/L (135-145)
[2022-10-31 08:00] VITALS: BP 116/71; PULSE 83; RESP 16; TEMP 36.2; O2SAT 98
[2022-10-31] MEDS: 0.9 % Sodium Chloride Flush 3 ML SYRINGE IVFLUSH ×2 (09:01→13:39)
--- NOTE | 2022-10-31 10:42 | PC.NURSE ---
Pt currently NPO per Nancy VERA, Pt to remain NPO pending chest Xray results d/t possible need for thoracentesis, spoke with Nancy Anthony in person this AM, to hold all morning medications due to NPO status, documented in the MAR.
--- NOTE | 2022-10-31 12:41 | P.PNIM_ITS ---
Subjective Subjective Date of Service: 10/31/22 <JODY Morton - Last Filed: 10/31/22 16:19> 11/01/22 <Al Ramey MD - Last Filed: 11/01/22 08:27> Interval History: Seen in follow up for CHF exacerbation, loculated pleural effusion Interval history: Continues with pain right side/mid back described as nonradiating pressure. No improvement in SOB. Now reporting retrosternal chest pressure, like an elephant is sitting on my chest . States this is not new. Non radiating, occurs both at rest and with exertion. No diaphoresis, n/v. Requesting to eat <JODY Morton - Last Filed: 10/31/22 16:19> Review of Systems Review of Systems: Yes all other systems are reviewed and are negative <JODY Morton - Last Filed: 10/31/22 16:19> Physical Exam Vital Signs: Vital Signs: Last Vital Signs Temp 97.1 F 10/31/22 08:00 Pulse 83 10/31/22 08:00 Resp 16 10/31/22 08:00 BP 116/71 10/31/22 08:00 Pulse Ox 98 10/31/22 08:00 O2 Del Method Nasal Cannula 10/31/22 08:00 O2 Flow Rate 3.0 10/31/22 08:00 Oxygen Flow Rate 3 10/29/22 20:15 BMI result Body Mass Index 31.8 <JODY Morton - Last Filed: 10/31/22 16:19> Constitutional - Awake and Alert, No apparent distress Eyes - PERRLA, EOMI Cardiovascular - S1S2, RRR, 1+ edema BLE Respiratory - Normal lung expansion, Normal respiratory effort, No respiratory distress, diminished right lung, scattered wheezes left lung Gastrointestinal - NT / ND; +BS; No rebound or guarding Extremities - no calf tenderness bilaterally, no swelling Skin - Warm/Dry Neurological - Alert & oriented x3 Psychological - Appropriate affect <JODY Morton - Last Filed: 10/31/22 16:19> Objective Data Active Medications Acetaminophen (Acetaminophen 325 Mg Tablet) 650 mg PO Q6H PRN PRN Reason: Pain, Mild (Pain Scale 1-3) Last Admin: 10/31/22 05:49 Dose: 650 mg Documented By: CAMI Albuterol Sulfate (Albuterol Sulfate (0.042%) 1.25 Mg/3 Ml Vial.Neb) 1.25 mg INHALE Q4H PRN PRN Reason: SHORTNESS OF BREATH Amlodipine Besylate (Amlodipine Besylate 5 Mg Tablet) 5 mg PO DAILY [facility]; Protocol Last Admin: 10/31/22 10:41 Dose: Not Given Documented By: CHERELLE Non-Admin Reason: Physician Held Med Atorvastatin Calcium (Atorvastatin Calcium 80 Mg Tablet) 80 mg PO DAILY [facility] Last Admin: 10/31/22 10:41 Dose: Not Given Documented By: CHERELLE Non-Admin Reason: Physician Held Med Fluticasone/Vilanterol (Fluticasone/Vilanterol 100/25 Blst.W.Dev) 1 puff INHALE RDAILY [facility] Last Admin: 10/31/22 10:41 Dose: Not Given Documented By: CHERELLE Non-Admin Reason: Physician Held Med Furosemide (Furosemide 40 Mg/4 Ml Vial) 40 mg IVPUSH Q12H [facility]; Protocol Last Admin: 10/31/22 10:41 Dose: Not Given Documented By: CHERELLE Non-Admin Reason: Physician Held Med Guaifenesin/Codeine Phosphate (Guaifen/Codeine Sf 200/20/10ml 10 Ml Liquid) 5 ml PO Q6H PRN PRN Reason: Cough Last Admin: 10/31/22 05:53 Dose: 5 ml Documented By: CAMI Ceftriaxone Sodium 1 gm/ (Sodium Chloride) 50 mls @ 100 mls/hr IV Q24H [facility] Last Infusion: 10/31/22 04:06 Dose: 0 mls/hr Documented By: CAMI Azithromycin 500 mg/ Sodium (Chloride) 250 mls @ 125 mls/hr IV Q24H [facility] Last Infusion: 10/31/22 06:12 Dose: 0 mls/hr Documented By: CAMI Losartan Potassium (Losartan Potassium 50 Mg Tablet) 100 mg PO DAILY [facility]; Protocol Last Admin: 10/31/22 10:41 Dose: Not Given Documented By: CHERELLE Non-Admin Reason: Physician Held Med Melatonin (Melatonin 3 Mg Tablet) 6 mg PO BEDTIME PRN PRN Reason: Insomnia Metoprolol Succinate (Metoprolol Succinate Er 100 Mg Tab.Er.24h) 100 mg PO DAILY [facility]; Protocol Last Admin: 10/31/22 10:41 Dose: Not Given Documented By: CHERELLE Non-Admin Reason: Physician Held Med Morphine Sulfate (Morphine Sulfate 2 Mg/Ml Cartridge) 2 mg IVPUSH Q4H PRN; Protocol PRN Reason: Pain, Severe (Pain Scale 7-10) Last Admin: 10/31/22 09:01 Dose: 2 mg Documented By: CHERELLE Ondansetron HCl (Ondansetron Hcl 4 Mg/2 Ml Vial) 4 mg IVPUSH Q8H PRN PRN Reason: Nausea and Vomiting Last Admin: 10/30/22 03:17 Dose: 4 mg Documented By: CHRISTEN Oxycodone HCl (Oxycodone Hcl Immed Release 5 Mg Tablet) 5 mg PO Q6H PRN PRN Reason: Pain, Moderate (Pain Scale 4-6 Last Admin: 10/31/22 11:39 Dose: 5 mg Documented By: CHERELLE Pharmacy Consult (Consult Rx Perform Med Rec) 1 each MISCELLANE ONCE PRN PRN Reason: Consult order Sodium Chloride (0.9 % Sodium Chloride Flush 3 Ml Syringe) 3 ml IVFLUSH QSHIFT [facility] Last Admin: 10/31/22 09:01 Dose: 3 ml Documented By: CHERELLE Tamsulosin HCl (Tamsulosin Hcl 0.4 Mg Capsule) 0.4 mg PO BEDTIME [facility] Last Admin: 10/30/22 19:48 Dose: 0.4 mg Documented By: CAMI <JODY Morton - Last Filed: 10/31/22 16:19> Labs CBC & Chem 7: 10/31/22 05:37 10/31/22 06:07 <JODY Morton - Last Filed: 10/31/22 16:19> Labs: Laboratory Results - last 24 hr 10/31/22 10/31/22 10/31/22 05:37 05:37 06:07 MCV 87.5 MCH 27.4 MCHC 31.3 RDW 13.3 Plt Count 285 MPV 11.4 Immature Gran % (Auto) 0.4 Neut % (Auto) 65.9 Lymph % (Auto) 16.3 L [place] % (Auto) 9.8 Eos % (Auto) 6.6 H Baso % (Auto) 1.0 Lymph # (Auto) 1.3 [place] # (Auto) 0.8 Eos # (Auto) 0.5 H Baso # (Auto) 0.1 Abs Immat Gran (auto) 0.03 Absolute Neuts (auto) 5.3 Absolute Nucleated RBC 0.000 Nucleated RBC % (auto) 0.0 Anion Gap 12 Estim Creat Clear Calc 83.1 Estimated GFR 59 Random Glucose 103 Calcium 9.0 B-Natriuretic Peptide 104 H <JODY Morton - Last Filed: 10/31/22 16:19> Assessment and Plan (1) CHF (congestive heart failure): Status: Acute <JODY Morton - Last Filed: 10/31/22 16:19> (2) Acute dyspnea: Status: Acute <JODY Morton - Last Filed: 10/31/22 16:19> (3) Bilateral pleural effusion: Status: Acute <JODY Morton - Last Filed: 10/31/22 16:19> Assessment and Plan: This is a 62-year-old male with pertinent history of PE on Xarelto, essential hypertension, mixed hyperlipidemia, s/p tracheobronchoplasty via right thora cotomy admitted for CHF exacerbation and loculated pleural effusion #Acute hypoxemic respiratory failure due to decompensated HFpEF -continue supplemental O2 to maintain oximetry >92% -Continues with [facility], orthopnea. repeat CXR with limited improvement compared to prior -Continue lasix 40mg BID -Recommend strict I&O -Cardiac diet -Appreciate cardiology input #?Severe MR -noted on TTE -NEREIDA tomorrow, NPO after midnight -Appreciate cardiology assistance # Imaging with bilateral pleural effusion -hx posterior approach tracheobronchoplasty via right thoracotomy for tracheomalacia, flexible bronchoscopy 08/17/22 at [facility] -Repeat CXR per pulm with limited improvement from initial study. Persistent b/l pleural effusion with probable loculation RLL. Continue ceftriaxone -IR to perform thoracentesis with pleural fluid studies tomorrow. NPO after midnight. Continue holding eliquis -Follows with [facility] and was scheduled for outpt procedure Monday -appreciate pulmonogy input #History PE -On anticoagulation indefinitely for PE 19 years ago -Hold Xarelto for possible thoracentesis -Initiate therapeutic lovenox #Essential hypertension -Continue home antihypertensives #BPH -continue Flomax DVT prophylaxis:?SCPs, Hold Xarelto as above Full code Cardiac diet Pt requires ongoing inpatient stay for management of decompensated heart failure requiring IV diuresis and close monitoring as well as expert consultation given loculated right-sided pleural effusion with possible thoracentesis <JODY Morton - Last Filed: 10/31/22 16:19> Time Spent With Patient Time: Total time managing care of this patient today ____ minutes. <JODY Morton - Last Filed: 10/31/22 16:19> Quality Stroke Does the patient have a stroke diagnosis?: No <JODY Morton - Last Filed: 10/31/22 16:19> VTE Prior VTE?: No <JODY Morton - Last Filed: 10/31/22 16:19> VTE Risk Level:: Medical - moderate - high <JODY Mortno - Last Filed: 10/31/22 16:19> VTE Device Contraindication: Treatment Not Indicated <JODY Morton - Last Filed: 10/31/22 16:19> VTE Drug Contraindication: N/A - Med Ordered <JODY Morton - Last Filed: 10/31/22 16:19>
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
[2022-10-31 13:15] LABS: Hematocrit 43.4 % (42.0-52.0); Hemoglobin 13.7 g/dl (14.0-18.0); Mean Corpuscular HGB Conc 31.6 g/dl (31.0-36.0); Mean Corpuscular Hemoglobin 27.1 pg (27.0-33.0); Mean Corpuscular Volume 85.9 fL (80.0-98.0); Mean Platelet Volume 10.7 fL (9.4-12.4); Platelet Count 300 X10*3/uL (160-400); Red Blood Count 5.05 X10*6/uL (4.60-5.80); Red Cell Distribution Width 13.1 % (11.0-16.0); White Blood Count 7.8 X10*3/uL (4.8-10.8)
[2022-10-31 13:22] LABS: INTERNATIONAL NORM RATIO 1.1 (0.9-1.1); Prothrombin Time 12.1 SEC (10.0-13.1)
[2022-10-31 13:25] LABS: Partial Thromboplastin Time 33.2 SEC (26.0-36.4)
[2022-10-31 13:38] LABS: Troponin-I High Sensitivity 3.7 ng/L (<3.5-35.0)
[2022-10-31] MEDS: Enoxaparin Sodium 120 MG/0.8 ML SYRINGE SUBCUT (13:39)
[2022-10-31] MEDS: LORazepam 2 MG/ML VIAL 1 MG IVPUSH (14:09)
[2022-10-31 15:37] VITALS: BP 125/79; PULSE 80; RESP 16; TEMP 36.2; O2SAT 97
[2022-10-31] MEDS: Morphine Sulfate 4 MG/ML CARTRIDGE IVPUSH (18:22)
[2022-10-31 19:56] VITALS: BP 137/78; PULSE 95; RESP 18; TEMP 36.3; O2SAT 99
[2022-10-31] MEDS: Tamsulosin HCL 0.4 MG CAPSULE PO (21:04)
[2022-10-31] MEDS: Furosemide 40 MG/4 ML VIAL IVPUSH (21:05)
[2022-10-31] MEDS: Morphine Sulfate ER 15 MG TABLET.ER PO (21:24)
[2022-11-01] MEDS: 0.9 % Sodium Chloride Flush 3 ML SYRINGE IVFLUSH ×4 (00:13→20:05)
[2022-11-01 03:01] VITALS: BP 118/69; PULSE 86; RESP 18; TEMP 36.1; O2SAT 97
[2022-11-01] MEDS: cefTRIAXone sodium 1 GM in 0.9 % Sodium Chloride 50 ML IV (03:04)
[2022-11-01] MEDS: Morphine Sulfate 4 MG/ML CARTRIDGE IVPUSH ×5 (03:09→20:05)
[2022-11-01] MEDS: Azithromycin 500 MG in 0.9 % Sodium Chloride 250 ML 125 MG IV (03:43)
[2022-11-01] MEDS: Acetaminophen 325 MG TABLET 650 MG PO (03:48)
[2022-11-01] MEDS: oxyCODONE HCl Immed Release 5 MG TABLET PO (03:48)
[2022-11-01 05:59] LABS: MANUAL DIFF FLAG NO
[2022-11-01 06:16] LABS: Anion Gap 10 (12-20); Blood Urea Nitrogen 20 mg/dL (9-16); Calcium 8.5 mg/dL (8.4-10.2); Carbon Dioxide 29 mmol/L (22-29); Chloride 105 mmol/L (96-108); Creatinine Clr Calc Pharmacy 92.9; Estimated Glomerular Filt Rate > 60; Glucose Random 107 mg/dL (60-115); Sodium 140 mmol/L (135-145)
[2022-11-01 06:20] LABS: Basophils Absolute Auto 0.1 X10*3/uL (0.0-0.2); Basophils Percent Auto 0.9 % (0-2); Eosinophils Absolute Auto 0.5 X10*3/uL (0.0-0.4); Eosinophils Percent Auto 7.5 % (0-4); Hematocrit 39.6 % (42.0-52.0); Hemoglobin 12.6 g/dl (14.0-18.0); Imm Gran Abs Auto 0.02 X10*3/uL (0.00-0.03); Imm Gran Pct Auto 0.3 % (0.0-0.4); Lymphocytes Absolute Auto 1.1 X10*3/uL (1.2-4.9); Lymphocytes Percent Auto 15.8 % (20-40); Mean Corpuscular HGB Conc 31.8 g/dl (31.0-36.0); Mean Corpuscular Hemoglobin 27.1 pg (27.0-33.0); Mean Corpuscular Volume 85.2 fL (80.0-98.0); Mean Platelet Volume 11.2 fL (9.4-12.4); Monocytes Absolute Auto 0.7 X10*3/uL (0.1-1.2); Monocytes Percent Auto 10.2 % (2-11); Neutrophils Absolute Auto 4.4 x10*3/uL (2.0-8.3); Neutrophils Percent Auto 65.3 % (45-73); Platelet Count 258 X10*3/uL (160-400); Red Blood Count 4.65 X10*6/uL (4.60-5.80); White Blood Count 6.8 X10*3/uL (4.8-10.8)
[2022-11-01 07:19] VITALS: BP 134/89; PULSE 91; RESP 18; TEMP 36.1; O2SAT 98
--- NOTE | 2022-11-01 08:27 | P.PNIM_ITS ---
Subjective Subjective Date of Service: 11/01/22 Interval History: Seen in follow up for CHF exacerbation, loculated pleural effusion Interval history: Continues with pain right side/mid back described as nonradiating pressure. No improvement in SOB. Now reporting retrosternal chest pressure, like an elephant is sitting on my chest . States this is not new. Non radiating, occurs both at rest and with exertion. No diaphoresis, n/v. Requesting to eat Physical Exam Vital Signs: Vital Signs: Last Vital Signs Temp 97 F 11/01/22 07:19 Pulse 91 11/01/22 07:19 Resp 18 11/01/22 07:19 BP 134/89 11/01/22 07:19 Pulse Ox 98 11/01/22 07:19 O2 Del Method Nasal Cannula 11/01/22 07:19 O2 Flow Rate 3 11/01/22 07:19 Oxygen Flow Rate 3 10/29/22 20:15 BMI result Body Mass Index 31.8 Const: Other: Constitutional - Awake and Alert x3 , No apparent distress, Eyes - PERRLA, EOMI Cardiovascular - S1S2, RRR, 1+ edema BLE Respiratory - Normal lung expansion, Normal respiratory effort, No respiratory distress, diminished right lung, scattered wheezes left lung Gastrointestinal - NT / ND; +BS; No rebound or guarding Extremities - no calf tenderness bilaterally, no swelling Skin - Warm/Dry Neurological - NF Psychological - Appropriate affect Objective Data Active Medications Acetaminophen (Acetaminophen 325 Mg Tablet) 650 mg PO Q6H PRN PRN Reason: Pain, Mild (Pain Scale 1-3) Last Admin: 11/01/22 03:48 Dose: 650 mg Documented By: CAMI Albuterol Sulfate (Albuterol Sulfate (0.042%) 1.25 Mg/3 Ml Vial.Neb) 1.25 mg INHALE Q4H PRN PRN Reason: SHORTNESS OF BREATH Amlodipine Besylate (Amlodipine Besylate 5 Mg Tablet) 5 mg PO DAILY [facility]; Protocol Last Admin: 11/01/22 07:17 Dose: Not Given Documented By: CHERELLE Non-Admin Reason: NPO Atorvastatin Calcium (Atorvastatin Calcium 80 Mg Tablet) 80 mg PO DAILY [facility] Last Admin: 11/01/22 07:17 Dose: Not Given Documented By: CHERELLE Non-Admin Reason: NPO Enoxaparin Sodium (Enoxaparin Sodium 120 Mg/0.8 Ml Syringe) 120 mg 1 mg/kg (120 mg) SUBCUT Q12H [facility] Last Admin: 10/31/22 13:39 Dose: 120 mg Documented By: CHERELLE Fluticasone/Vilanterol (Fluticasone/Vilanterol 100/25 Blst.W.Dev) 1 puff INHALE RDAILY [facility] Last Admin: 11/01/22 07:53 Dose: Not Given Documented By: RITU Non-Admin Reason: Med Not Available Furosemide (Furosemide 40 Mg/4 Ml Vial) 40 mg IVPUSH Q12H [facility]; Protocol Last Admin: 11/01/22 07:17 Dose: Not Given Documented By: CHERELLE Non-Admin Reason: NPO Guaifenesin/Codeine Phosphate (Guaifen/Codeine Sf 200/20/10ml 10 Ml Liquid) 5 ml PO Q6H PRN PRN Reason: Cough Last Admin: 10/31/22 05:53 Dose: 5 ml Documented By: CAMI Ceftriaxone Sodium 1 gm/ (Sodium Chloride) 50 mls @ 100 mls/hr IV Q24H [facility] Last Infusion: 11/01/22 03:44 Dose: 0 mls/hr Documented By: ISABELLE Azithromycin 500 mg/ Sodium (Chloride) 250 mls @ 125 mls/hr IV Q24H [facility] Last Infusion: 11/01/22 05:51 Dose: 0 mls/hr Documented By: ISABELLE Losartan Potassium (Losartan Potassium 50 Mg Tablet) 100 mg PO DAILY [facility]; Protocol Last Admin: 11/01/22 07:17 Dose: Not Given Documented By: CHERELLE Non-Admin Reason: NPO Melatonin (Melatonin 3 Mg Tablet) 6 mg PO BEDTIME PRN PRN Reason: Insomnia Metoprolol Succinate (Metoprolol Succinate Er 100 Mg Tab.Er.24h) 100 mg PO DAILY [facility]; Protocol Last Admin: 11/01/22 07:17 Dose: Not Given Documented By: CHERELLE Non-Admin Reason: NPO Morphine Sulfate (Morphine Sulfate 4 Mg/Ml Cartridge) 4 mg IVPUSH Q3H PRN; Protocol PRN Reason: Pain, Severe (Pain Scale 7-10) Last Admin: 11/01/22 03:09 Dose: 4 mg Documented By: ISABELLE Morphine Sulfate (Morphine Sulfate Er 15 Mg Tablet.Er) 15 mg PO Q12H [facility] Last Admin: 11/01/22 08:18 Dose: Not Given Documented By: CHERELLE Non-Admin Reason: NPO Ondansetron HCl (Ondansetron Hcl 4 Mg/2 Ml Vial) 4 mg IVPUSH Q8H PRN PRN Reason: Nausea and Vomiting Last Admin: 10/30/22 03:17 Dose: 4 mg Documented By: CHRISTEN Oxycodone HCl (Oxycodone Hcl Immed Release 5 Mg Tablet) 5 mg PO Q6H PRN PRN Reason: Pain, Moderate (Pain Scale 4-6 Last Admin: 11/01/22 03:48 Dose: 5 mg Documented By: CAMI Pharmacy Consult (Consult Rx Perform Med Rec) 1 each MISCELLANE ONCE PRN PRN Reason: Consult order Sodium Chloride (0.9 % Sodium Chloride Flush 3 Ml Syringe) 3 ml IVFLUSH QSHIFT [facility] Last Admin: 11/01/22 00:13 Dose: 3 ml Documented By: ISABELLE Tamsulosin HCl (Tamsulosin Hcl 0.4 Mg Capsule) 0.4 mg PO BEDTIME [facility] Last Admin: 10/31/22 21:04 Dose: 0.4 mg Documented By: ISABELLE Labs 11/01/22 05:25 11/01/22 05:25 Labs: Laboratory Results - last 24 hr 10/31/22 10/31/22 10/31/22 13:03 13:03 13:03 MCV 85.9 MCH 27.1 MCHC 31.6 RDW 13.1 Plt Count 300 MPV 10.7 Immature Gran % (Auto) Neut % (Auto) Lymph % (Auto) [place] % (Auto) Eos % (Auto) Baso % (Auto) Lymph # (Auto) [place] # (Auto) Eos # (Auto) Baso # (Auto) Abs Immat Gran (auto) Absolute Neuts (auto) Absolute Nucleated RBC 0.000 Nucleated RBC % (auto) 0.0 PT 12.1 INR 1.1 APTT 33.2 Anion Gap Estim Creat Clear Calc Estimated GFR Random Glucose Calcium Troponin I High Sens 3.7 11/01/22 11/01/22 05:25 05:25 MCV 85.2 MCH 27.1 MCHC 31.8 RDW 13.0 Plt Count 258 MPV 11.2 Immature Gran % (Auto) 0.3 Neut % (Auto) 65.3 Lymph % (Auto) 15.8 L [place] % (Auto) 10.2 Eos % (Auto) 7.5 H Baso % (Auto) 0.9 Lymph # (Auto) 1.1 L [place] # (Auto) 0.7 Eos # (Auto) 0.5 H Baso # (Auto) 0.1 Abs Immat Gran (auto) 0.02 Absolute Neuts (auto) 4.4 Absolute Nucleated RBC 0.000 Nucleated RBC % (auto) 0.0 PT INR APTT Anion Gap 10 L Estim Creat Clear Calc 92.9 Estimated GFR > 60 Random Glucose 107 Calcium 8.5 Troponin I High Sens Assessment and Plan (1) CHF (congestive heart failure): Status: Acute (2) Acute dyspnea: Status: Acute (3) Bilateral pleural effusion: Status: Acute Plan This is a 62-year-old male with pertinent history of PE on Xarelto, essential hypertension, mixed hyperlipidemia, s/p tracheobronchoplasty via right thoracotomy admitted for CHF exacerbation and loculated pleural effusion #Acute hypoxemic respiratory failure due to decompensated HFpEF and Loculated pleural effusion -continue supplemental O2 to maintain oximetry >92% -Continues with [facility], orthopnea. repeat CXR with limited improvement compared to prior -Continue lasix 40mg BID -Recommend strict I&O -Cardiac diet -Appreciate cardiology input #?Severe MR -noted on TTE -NEREIDA tomorrow, NPO after midnight -Appreciate cardiology assistance # Imaging with bilateral pleural effusion -hx posterior approach tracheobronchoplasty via right thoracotomy for tracheomalacia, flexible bronchoscopy 08/17/22 at [facility] -Repeat CXR per pulm with limited improvement from initial study. Persistent b/l pleural effusion with probable loculation RLL. Continue ceftriaxone -IR to perform thoracentesis with pleural fluid studies today. hold eliquis until after procedure -Follows with [facility] and was scheduled for outpt procedure Monday -appreciate pulmonogy input #History PE -On anticoagulation indefinitely for PE 19 years ago -Hold Xarelto for thoracentesis -Initiate bridge with Lovenox #Essential hypertension -Continue home antihypertensives #BPH -continue Flomax DVT prophylaxis:?SCPs, Hold Xarelto as above Full code Cardiac diet Pt requires ongoing inpatient stay for management of decompensated heart failure requiring IV diuresis and close monitoring as well as expert consultation given loculated right-sided pleural effusion with possible thoracentesis Time Spent With Patient Time: Total time managing care of this patient today ____ minutes. Quality Stroke Does the patient have a stroke diagnosis?: No VTE Prior VTE?: No VTE Risk Level:: Medical - moderate - high VTE Device Contraindication: Treatment Not Indicated VTE Drug Contraindication: N/A - Med Ordered
--- NOTE | 2022-11-01 09:28 | PM.PNPUL ---
Subjective Subjective Date of Service: 11/01/22 Principal diagnosis: COPD ,TRACHEOMALACIA S/P TRACHEO-BRONCHOPLASTY , CHEST PAIN Interval history: This 62 years old gentleman, has been admitted with continued chest pain and increased shortness of breath. The chest pain is mostly on the right side, today he is describing it more anteriorly in right parasternal area. He is afebrile. When resting he does not much respiratory distress, He seems to be depressed, because of his ongoing respiratory symptoms. Objective Data Labs 11/01/22 05:25 11/01/22 05:25 Labs: Laboratory Results - last 24 hr 10/31/22 10/31/22 10/31/22 13:03 13:03 13:03 WBC 7.8 RBC 5.05 Hgb 13.7 L Hct 43.4 MCV 85.9 MCH 27.1 MCHC 31.6 RDW 13.1 Plt Count 300 MPV 10.7 Immature Gran % (Auto) Neut % (Auto) Lymph % (Auto) [place] % (Auto) Eos % (Auto) Baso % (Auto) Lymph # (Auto) [place] # (Auto) Eos # (Auto) Baso # (Auto) Abs Immat Gran (auto) Absolute Neuts (auto) Absolute Nucleated RBC 0.000 Nucleated RBC % (auto) 0.0 PT 12.1 INR 1.1 APTT 33.2 Sodium Potassium Chloride Carbon Dioxide Anion Gap BUN Creatinine Estim Creat Clear Calc Estimated GFR Random Glucose Calcium Troponin I High Sens 3.7 11/01/22 11/01/22 05:25 05:25 WBC 6.8 RBC 4.65 Hgb 12.6 L Hct 39.6 L MCV 85.2 MCH 27.1 MCHC 31.8 RDW 13.0 Plt Count 258 MPV 11.2 Immature Gran % (Auto) 0.3 Neut % (Auto) 65.3 Lymph % (Auto) 15.8 L [place] % (Auto) 10.2 Eos % (Auto) 7.5 H Baso % (Auto) 0.9 Lymph # (Auto) 1.1 L [place] # (Auto) 0.7 Eos # (Auto) 0.5 H Baso # (Auto) 0.1 Abs Immat Gran (auto) 0.02 Absolute Neuts (auto) 4.4 Absolute Nucleated RBC 0.000 Nucleated RBC % (auto) 0.0 PT INR APTT Sodium 140 Potassium 4.0 Chloride 105 Carbon Dioxide 29 Anion Gap 10 L BUN 20 H Creatinine 1.10 Estim Creat Clear Calc 92.9 Estimated GFR > 60 Random Glucose 107 Calcium 8.5 Troponin I High Sens Imaging Chest x-ray: My impression: Repeat chest x-ray on 10/31, again shows small to moderate-sized pleural effusions, bibasilar, more so on the right side. He probably does have underlying bibasilar atelectasis. Physical Exam Vital Signs: Vital Signs: Last Vital Signs Temp 97 F 11/01/22 07:19 Pulse 91 11/01/22 07:19 Resp 18 11/01/22 07:19 BP 134/89 11/01/22 07:19 Pulse Ox 98 11/01/22 07:19 O2 Del Method Nasal Cannula 11/01/22 07:19 O2 Flow Rate 3 11/01/22 07:19 Oxygen Flow Rate 3 10/29/22 20:15 BMI result Body Mass Index 31.8 Const: General: comfortable (Except for his the described intermittent chest pain,), no acute distress, alert and awake Orientation/consciousness: patient oriented x3 HEENT: Head: Yes normal to inspection General nose exam: No nasal polyps present and No nasal discharge present Face and sinus: Yes sinuses nontender Mouth: oropharynx normal Throat: Yes posterior oropharynx normal Eyes: General: appearance normal, both eyes and all related structures Neck: Neck: Yes normal visual inspection, Yes no lymphadenopathy, Yes trachea midline and Yes no JVD Thyroid: Thyroid normal Chest: Chest palpation & inspection: abnormal inspection of the chest (Right thoracostomy scar is well healed) and tenderness (Slight tenderness over the thoracostomy scar, but not anteriorly) Resp: Other: Percussion note is resonant, slight dullness over both bases. Surprisingly there are no wheezes or rhonchi. And no significant crepitations over the basilar areas. Cardio: Palpation: normal PMI Rate: regular rate Rhythm: regular rhythm Heart sounds: Gallop heart sound present and Murmur heart sound present Peripheral pulses: Peripheral pulses 2+ throughout GI: Palpation (GI): Soft to palpation, Tenderness to palpation present (GI), No hepatosplenomegaly present and Palpable mass present Auscultation: normal bowel sounds Back/Spine/Pelvis: Thoracic/Lumbar Spine: thoracic and lumbar spine normal to inspection Skin: General skin exam: no rashes or lesions noted Neuro: General: patient oriented x3 and no focal motor deficits Cranial nerves: Yes CN's II-XII intact bilaterally Extrem: General: Yes normal to inspection, Yes no clubbing, cyanosis or edema and Yes no calf tenderness Psych: Speech and movement: Normal speech and movement present Procedures Date of Service Date of Service: 11/01/22 Assessment and Plan Assessment and plan (1) COPD (chronic obstructive pulmonary disease): Status: Acute (2) Post-thoracotomy pain: Status: Acute (3) Pneumonia: Status: Acute (4) Bilateral pleural effusion: Status: Acute Plan This 62 years old gentleman, had a thoracenteses in August, the fluid was inflammatory but no microorganisms grown. He has developed recurrent effusion now on both sides, small to moderate in size. I think there is underlying bibasilar atelectasis. Diuretic challenge has not decrease the size of the fusion. Most likely he has ongoing inflammatory process, this may be post thoracostomy and placement of the stents, for tracheo plasty. His COPD seems to be fairly well controlled at this time. His main issue is continued pain, which needs to be controlled more effectively. His the oxygenation is maintained with O2 supplementation. Continue IV antibiotics for possibility of pneumonia, which I think may be more due to atelectasis. Continue DuoNeb updrafts. Thoracenteses right chest is planned and the fluid should be sent for diagnostic purposes. Following the thoracenteses and fluid analysis, treatment plan to be modified as needed. Time Spent With Patient Time: Total time managing care of this patient today ____ minutes. Progress Note: Quality Stroke Does the patient have a stroke diagnosis?: No
--- NOTE | 2022-11-01 10:51 | P.PNCA_ITS ---
Subjective Subjective Date of Service: 11/01/22 Principal diagnosis: COPD ,TRACHEOMALACIA S/P TRACHEO-BRONCHOPLASTY , CHEST PAIN Interval history: No new complaints. Feels just about the same as before. Review of Systems Review of Systems Yes all other systems are reviewed and are negative Constitutional: Reports as per HPI and Reports no additional constitutional complaints Eyes: Reports as per HPI and Denies no additional eye complaints Denies system reviewed and no additional complaints, except as documented and Reports as per HPI Cardiovascular: Reports as per HPI, Reports no additional cardiovascular complaints, Denies acrocyanosis, Denies cool extremities, Reports chest pain, Denies leg edema, Denies lightheadedness, Denies palpitations and Reports dyspnea Respiratory: Reports as per HPI, Denies no additional respiratory complaints and Reports dyspnea Gastrointestinal: Reports as per HPI and Denies no additional gastrointestinal complaints Genitourinary: Reports no additional male genitourinary complaints and Reports as per HPI Musculoskeletal: Reports no additional musculoskeletal complaints and Reports as per HPI Skin/Breast: Reports system reviewed and no additional complaints, except as docu Reports system reviewed and no additional complaints, except as documented and Reports as per HPI Psychiatric: Reports no additional psychiatric complaints and Reports as per HPI Endocrine: Reports no additional endocrine complaints, Reports as per HPI and Denies palpitations Hematologic/Lymphatic: Reports no additional hematologic/lymphatic complaints and Reports as per HPI Allergic/Immunologic: Reports no additional allergic/immunologic complaints and Reports as per HPI Physical Exam Vital Signs: Last Vital Signs Temp 97 F 11/01/22 07:19 Pulse 91 11/01/22 07:19 Resp 18 11/01/22 07:19 BP 134/89 11/01/22 07:19 Pulse Ox 98 11/01/22 07:19 O2 Del Method Nasal Cannula 11/01/22 07:19 O2 Flow Rate 3 11/01/22 07:19 Oxygen Flow Rate 3 10/29/22 20:15 BMI result Body Mass Index 31.8 Const General: comfortable and no acute distress Orientation/consciousness: patient oriented x3 HEENT Other: Unremarkable Head: Yes normal to inspection Neck Neck: Yes normal visual inspection Chest Chest palpation & inspection: normal inspection of the chest Resp Other: Diminished basal breath sounds. Cardio Palpation: normal PMI Heart sounds: S1 normal heart sound present, S2 normal heart sound present, no gallops, Murmur heart sound present systolic III/ and at the apex and no rubs GI Palpation (GI): Soft to palpation Back/Spine/Pelvis Other: unremarkable Skin General skin exam: no rashes or lesions noted Neuro General: patient oriented x3 Extrem Other: Trace -1+ edema. General: Yes normal to inspection Psych Mental Status: mental status grossly normal Objective Labs and Meds 11/01/22 05:25 11/01/22 05:25 Lab results: Laboratory Results - last 24 hr 10/31/22 10/31/22 10/31/22 13:03 13:03 13:03 WBC 7.8 RBC 5.05 Hgb 13.7 L Hct 43.4 MCV 85.9 MCH 27.1 MCHC 31.6 RDW 13.1 Plt Count 300 MPV 10.7 Immature Gran % (Auto) Neut % (Auto) Lymph % (Auto) [place] % (Auto) Eos % (Auto) Baso % (Auto) Lymph # (Auto) [place] # (Auto) Eos # (Auto) Baso # (Auto) Abs Immat Gran (auto) Absolute Neuts (auto) Absolute Nucleated RBC 0.000 Nucleated RBC % (auto) 0.0 PT 12.1 INR 1.1 APTT 33.2 Sodium Potassium Chloride Carbon Dioxide Anion Gap BUN Creatinine Estim Creat Clear Calc Estimated GFR Random Glucose Calcium Troponin I High Sens 3.7 11/01/22 11/01/22 05:25 05:25 WBC 6.8 RBC 4.65 Hgb 12.6 L Hct 39.6 L MCV 85.2 MCH 27.1 MCHC 31.8 RDW 13.0 Plt Count 258 MPV 11.2 Immature Gran % (Auto) 0.3 Neut % (Auto) 65.3 Lymph % (Auto) 15.8 L [place] % (Auto) 10.2 Eos % (Auto) 7.5 H Baso % (Auto) 0.9 Lymph # (Auto) 1.1 L [place] # (Auto) 0.7 Eos # (Auto) 0.5 H Baso # (Auto) 0.1 Abs Immat Gran (auto) 0.02 Absolute Neuts (auto) 4.4 Absolute Nucleated RBC 0.000 Nucleated RBC % (auto) 0.0 PT INR APTT Sodium 140 Potassium 4.0 Chloride 105 Carbon Dioxide 29 Anion Gap 10 L BUN 20 H Creatinine 1.10 Estim Creat Clear Calc 92.9 Estimated GFR > 60 Random Glucose 107 Calcium 8.5 Troponin I High Sens Progress Note: A&P Assessment and plan (1) Non-rheumatic mitral regurgitation: Status: Acute (2) Acute on chronic diastolic (congestive) heart failure: Status: Acute (3) Bilateral pleural effusion: Status: Acute (4) Post-thoracotomy pain: Status: Acute Plan Transthoracic echocardiographic findings reviewed. LVEF 67%. Posterior leaflet of the mitral valve appeared flail. There is moderate to severe versus severe mitral regurgitation, eccentric jet. Pulmonary hypertension also noted with RVSP of 53 mm Hg. In the chest CT, there is no pulmonary embolism. Moderate bilateral pleural effusions, with some loculation on the right side. Bilateral lower lobe atelectasis. With regard to the labs, high sensitive troponins 5.7. Cardiac BNP is 104. Findings discussed with patient's at the bedside in great detail. Explained everything. Next step will be to proceed with transesophageal echocardiogram to assess the mitral valve further. Based on OR availability, no availability till . Hence scheduled for that day. Patient is otherwise scheduled to go for thoracentesis today. Time Spent With Patient Time: Total time managing care of this patient today 50 minutes. This includes time spent in review of chart, laboratory data, imaging studies, review of telemetry, counseling patient, family, discussion with hospitalist, documentation, coordination of care. Progress Note: Quality Stroke Does the patient have a stroke diagnosis?: No Procedures Date of Service Date of Service: 11/01/22
[2022-11-01] MEDS: Lidocaine HCl 1 % MPF 5 ML VIAL SUBCUT (11:14)
[2022-11-01 11:30] VITALS: BP 131/69; PULSE 85; RESP 18; TEMP 36.1; O2SAT 95
--- NOTE | 2022-11-01 11:40 | HO.RADPN ---
RADIOLOGY Narrative Narrative: Left thoracentesis. 1 L slightly ambered colored fluid removed. Specimen sent.
[2022-11-01 11:41] LABS: MN% 91.6 %; PMN% 8.4 %; WBC Pleural Fluid 0.788 X10*3/uL
[2022-11-01 11:53] LABS: RBC Pleural Fluid < 0.002 X10*3/uL
[2022-11-01 12:30] LABS: BF Shift QC OK YES; Lymphocytes Pleural Fluid 70 %; Man Diluent Bkgrd OK YES; Monocytes Pleural Fluid 1 %; Neutrophils Pleural Fluid 10 %; Other Cells Plerual Fl 19 %
[2022-11-01 14:48] LABS: pH Pleural Fluid 7.49
[2022-11-01 14:57] LABS: Albumin Pleural Fluid 1.8 GM/DL; Glucose Pleural Fluid 114 MG/DL; LDH Pleural Fluid 73 U/L; Total Protein Pleural Fluid 2.4 GM/DL
[2022-11-01 15:15] VITALS: BP 128/69; PULSE 88; RESP 20; TEMP 36.2; O2SAT 99
[2022-11-01 19:52] VITALS: BP 129/70; PULSE 91; RESP 19; TEMP 36.3; O2SAT 99
[2022-11-01] MEDS: Morphine Sulfate ER 15 MG TABLET.ER PO (21:30)
[2022-11-01] MEDS: Tamsulosin HCL 0.4 MG CAPSULE PO (21:30)
[2022-11-01] MEDS: Furosemide 40 MG/4 ML VIAL IVPUSH (21:30)
[2022-11-01 22:41] LABS: Amylase Pleural Fluid 7 U/L
[2022-11-02] VITALS (8 sets, daily range): BP systolic 109–147; BP diastolic 61–89; PULSE 78–99; RESP 18–26; TEMP 36–36.7; O2SAT 98–100
[2022-11-02] MEDS: cefTRIAXone sodium 1 GM in 0.9 % Sodium Chloride 50 ML IV (03:15)
[2022-11-02] MEDS: Azithromycin 500 MG in 0.9 % Sodium Chloride 250 ML 125 MG IV (03:52)
[2022-11-02] MEDS: 0.9 % Sodium Chloride Flush 3 ML SYRINGE IVFLUSH ×2 (09:08→17:18)
--- NOTE | 2022-11-02 09:29 | PM.PNCARD ---
Subjective Subjective Date of Service: 11/02/22 Principal diagnosis: COPD ,TRACHEOMALACIA S/P TRACHEO-BRONCHOPLASTY , CHEST PAIN Interval history: He states that he feels okay. Had thoracentesis yesterday. Review of Systems Review of Systems Yes all other systems are reviewed and are negative Constitutional: Reports as per HPI and Reports no additional constitutional complaints Eyes: Reports as per HPI and Denies no additional eye complaints Denies system reviewed and no additional complaints, except as documented and Reports as per HPI Cardiovascular: Reports as per HPI, Reports no additional cardiovascular complaints, Denies acrocyanosis, Denies cool extremities, Reports chest pain, Denies leg edema, Denies lightheadedness, Denies palpitations and Reports dyspnea Respiratory: Reports as per HPI, Denies no additional respiratory complaints and Reports dyspnea Gastrointestinal: Reports as per HPI and Denies no additional gastrointestinal complaints Genitourinary: Reports no additional male genitourinary complaints and Reports as per HPI Musculoskeletal: Reports no additional musculoskeletal complaints and Reports as per HPI Skin/Breast: Reports system reviewed and no additional complaints, except as docu Reports system reviewed and no additional complaints, except as documented and Reports as per HPI Psychiatric: Reports no additional psychiatric complaints and Reports as per HPI Endocrine: Reports no additional endocrine complaints, Reports as per HPI and Denies palpitations Hematologic/Lymphatic: Reports no additional hematologic/lymphatic complaints and Reports as per HPI Allergic/Immunologic: Reports no additional allergic/immunologic complaints and Reports as per HPI Physical Exam Vital Signs: Last Vital Signs Temp 97 F 11/02/22 07:09 Pulse 99 11/02/22 07:09 Resp 18 11/02/22 07:09 BP 135/78 11/02/22 07:09 Pulse Ox 99 11/02/22 07:09 O2 Del Method Nasal Cannula 11/02/22 07:09 O2 Flow Rate 3 11/02/22 07:09 Oxygen Flow Rate 3 10/29/22 20:15 BMI result Body Mass Index 31.8 Const General: comfortable and no acute distress Orientation/consciousness: patient oriented x3 HEENT Other: Unremarkable Head: Yes normal to inspection Neck Neck: Yes normal visual inspection Chest Chest palpation & inspection: normal inspection of the chest Resp Other: Diminished basal breath sounds. Cardio Palpation: normal PMI Heart sounds: S1 normal heart sound present, S2 normal heart sound present, no gallops, Murmur heart sound present systolic III/ and at the apex and no rubs GI Palpation (GI): Soft to palpation Back/Spine/Pelvis Other: unremarkable Skin General skin exam: no rashes or lesions noted Neuro General: patient oriented x3 Extrem Other: Trace -1+ edema. General: Yes normal to inspection Psych Mental Status: mental status grossly normal Objective Labs and Meds 11/01/22 05:25 11/01/22 05:25 Lab results: Laboratory Results - last 24 hr 11/01/22 11/01/22 11/01/22 10:50 10:50 10:50 PT INR Pleural pH 7.49 Pleural WBC 0.788 Pleural RBC < 0.002 Pleural Neutrophils 10 Pleural Lymphocytes 70 Pleural Monocytes 1 Pleural Other Cells 19 Pleural Total Protein 2.4 Pleural Albumin 1.8 Pleural LDH 73 Pleural Glucose 114 Pleural Amylase 7 11/01/22 11/01/22 10:50 13:34 PT 12.0 INR 1.0 Pleural pH Pleural WBC Pleural RBC Pleural Neutrophils Pleural Lymphocytes Pleural Monocytes Pleural Other Cells Pleural Total Protein Cancelled Pleural Albumin Pleural LDH Pleural Glucose Cancelled Pleural Amylase Imaging Radiologist's impression: Impressions Thoracentesis Ultrasound 11/01/22 11:14 IMPRESSION: Ultrasound-guided left thoracentesis. Chest X-Ray 11/01/22 11:19 IMPRESSION: Interval decrease in the left pleural effusion with small residual pleural effusion suspected. There is small right pleural effusion with underlying atelectasis. Chest X-Ray 11/01/22 12:03 IMPRESSION: Complete resolution of left pleural effusion with underlying left basilar atelectasis seen. There is no pneumothorax. The small right pleural effusion with underlying atelectasis. Progress Note: A&P Assessment and plan (1) Non-rheumatic mitral regurgitation: Status: Acute (2) Acute on chronic diastolic (congestive) heart failure: Status: Acute (3) Bilateral pleural effusion: Status: Acute (4) Post-thoracotomy pain: Status: Acute Plan Transthoracic echocardiographic findings reviewed. LVEF 67%. Posterior leaflet of the mitral valve appeared flail. There is moderate to severe versus severe mitral regurgitation, eccentric jet. Pulmonary hypertension also noted with RVSP of 53 mm Hg. In the chest CT, there is no pulmonary embolism. Moderate bilateral pleural effusions, with some loculation on the right side. Bilateral lower lobe atelectasis. His shortness of breath is probably multifactorial. Difficult to say how much of it is cardiac and how much of it is pulmonary. From the mitral regurgitation standpoint, he needs a transesophageal echocardiogram to evaluate this further. If indeed, he has a confirmed flail mitral leaflet as well as severe mitral regurgitation, then will need to transfer to [facility] for diagnostic cardiac catheterization and cardiac surgery assessment. Due to extensive pulmonary history, surgical risk will probably be higher than usual for his age and hence will need to also discuss percutaneous options. With regard to the pleural effusion, it seems that he already had thoracenteses 1 side as today. Second side is pending today. Once that is completed should be okay to proceed with NEREIDA tomorrow. Tentatively scheduled for tomorrow morning. Keep NPO past midnight. Patient is agreeable with the plan. also agrees with plan. Discussed with Dr. Angel. Time Spent With Patient Time: Total time managing care of this patient today 50 minutes. This includes time spent in review of chart, laboratory data, imaging studies, review of telemetry, counseling patient, family, discussion with hospitalist, RN, documentation, coordination of care. Progress Note: Quality Stroke Does the patient have a stroke diagnosis?: No Procedures Date of Service Date of Service: 11/02/22
--- NOTE | 2022-11-02 09:35 | PM.PNPUL ---
Subjective Subjective Date of Service: 11/02/22 Principal diagnosis: COPD ,TRACHEOMALACIA S/P TRACHEO-BRONCHOPLASTY , CHEST PAIN Interval history: This 62 years old gentleman is feeling better today. He had thoracenteses of the left chest with drainage of 1.1 L clear fluid . Patient is looking forward to having thoracenteses on the right side today. His pain seems to be controlled better . With the current medical regimen He does not seem to be in any distress, however he feels better with oxygen supplementation. He is definitely less anxious. Objective Data Labs 11/01/22 05:25 11/01/22 05:25 Labs: Laboratory Results - last 24 hr 11/01/22 11/01/22 11/01/22 10:50 10:50 10:50 PT INR Pleural pH 7.49 Pleural WBC 0.788 Pleural RBC < 0.002 Pleural Neutrophils 10 Pleural Lymphocytes 70 Pleural Monocytes 1 Pleural Other Cells 19 Pleural Total Protein 2.4 Pleural Albumin 1.8 Pleural LDH 73 Pleural Glucose 114 Pleural Amylase 7 11/01/22 11/01/22 10:50 13:34 PT 12.0 INR 1.0 Pleural pH Pleural WBC Pleural RBC Pleural Neutrophils Pleural Lymphocytes Pleural Monocytes Pleural Other Cells Pleural Total Protein Cancelled Pleural Albumin Pleural LDH Pleural Glucose Cancelled Pleural Amylase Microbiology Microbiology Results: Microbiology 11/01/22 10:50 Thoracentesis Fluid Gram Stain - Final 11/01/22 10:50 Thoracentesis Fluid Anaerobic Culture - Preliminary No growth to date. 11/01/22 10:50 Thoracentesis Fluid Body Fluid Culture - Preliminary No growth to date. Review of Systems Review of Systems Yes all other systems are reviewed and are negative Constitutional: Reports fatigue and Reports lethargy Eyes: Reports no additional eye complaints Reports system reviewed and no additional complaints, except as documented Cardiovascular: Reports dyspnea Respiratory: Reports as per HPI and Reports dyspnea Gastrointestinal: Reports no additional gastrointestinal complaints Genitourinary: Reports no additional male genitourinary complaints Musculoskeletal: Reports back pain Skin/Breast: Reports system reviewed and no additional complaints, except as docu Reports system reviewed and no additional complaints, except as documented Psychiatric: Reports anxiety Endocrine: Reports fatigue Physical Exam Vital Signs: Vital Signs: Last Vital Signs Temp 97 F 11/02/22 07:09 Pulse 99 11/02/22 07:09 Resp 18 11/02/22 07:09 BP 135/78 11/02/22 07:09 Pulse Ox 99 11/02/22 07:09 O2 Del Method Nasal Cannula 11/02/22 07:09 O2 Flow Rate 3 11/02/22 07:09 Oxygen Flow Rate 3 10/29/22 20:15 BMI result Body Mass Index 31.8 Const: General: comfortable (Except for his the described intermittent chest pain,), no acute distress, alert and awake Orientation/consciousness: patient oriented x3 HEENT: Head: Yes normal to inspection General nose exam: No nasal polyps present and No nasal discharge present Face and sinus: Yes sinuses nontender Mouth: oropharynx normal Throat: Yes posterior oropharynx normal Eyes: General: appearance normal, both eyes and all related structures Neck: Neck: Yes normal visual inspection, Yes no lymphadenopathy, Yes trachea midline and Yes no JVD Thyroid: Thyroid normal Chest: Chest palpation & inspection: abnormal inspection of the chest (Right thoracostomy scar is well healed) and tenderness (Slight tenderness over the thoracostomy scar, but not anteriorly) Resp: Other: Percussion note is resonant, slight dullness over both bases. Surprisingly there are no wheezes or rhonchi. And no significant crepitations over the basilar areas. Cardio: Palpation: normal PMI Rate: regular rate Rhythm: regular rhythm Heart sounds: Gallop heart sound present and Murmur heart sound present Peripheral pulses: Peripheral pulses 2+ throughout GI: Palpation (GI): Soft to palpation, Tenderness to palpation present (GI), No hepatosplenomegaly present and Palpable mass present Auscultation: normal bowel sounds Back/Spine/Pelvis: Thoracic/Lumbar Spine: thoracic and lumbar spine normal to inspection Skin: General skin exam: no rashes or lesions noted Neuro: General: patient oriented x3 and no focal motor deficits Cranial nerves: Yes CN's II-XII intact bilaterally Extrem: General: Yes normal to inspection, Yes no clubbing, cyanosis or edema and Yes no calf tenderness Psych: Speech and movement: Normal speech and movement present Procedures Date of Service Date of Service: 11/02/22 Assessment and Plan Assessment and plan (1) COPD (chronic obstructive pulmonary disease): Status: Acute (2) Tracheomalacia: Problem details: Status post to Tracheobronchial-plasty at [facility] in [place], why a right thoracostomy. Status: Acute (3) Post-thoracotomy pain: Status: Acute (4) Bilateral pleural effusion: Status: Acute (5) CHF (congestive heart failure): Status: Acute Plan Post thoracenteses left chest with drainage 1.1 L clear fluid, patient is symptom medically improved. Thoracentesis of the right chest is planned for today. The fluid cracked wrist takes or that of transudative, with borderline protein level 2.4. Indicated of congestive heart failure worse is mild inflammatory process. ( high lymphocytic count noted) TTE . Pending to assess for congestive heart failure. Post thoracostomy pain seems to be controlled with the current regimen. Anxiety level is much less, especially after the thoracentesis. His COPD status seems to be well controlled at this time. Recc : Continue present management, however I would suggest to cut down the dose of Lasix and may change it to oral route. After the thoracenteses antibiotics may be changed to oral route . May be weaned off oxygen as tolerated. Time Spent With Patient Time: Total time managing care of this patient today ____ minutes. Progress Note: Quality Stroke Does the patient have a stroke diagnosis?: No
[2022-11-02] MEDS: oxyCODONE HCl Immed Release 5 MG TABLET PO (10:52)
[2022-11-02] MEDS: Acetaminophen 325 MG TABLET 650 MG PO (10:53)
[2022-11-02 11:26] LABS: Glucose Random 112 mg/dL (60-115); Lactate Dehydrogenase 205 U/L (118-273)
--- NOTE | 2022-11-02 14:24 | HO.RADPN ---
RADIOLOGY Narrative Narrative: Right thoracentesis. 1.4 L serosanguinous fluid removed. Specimen sent. CXR pending.
[2022-11-02] MEDS: Lidocaine HCl 1 % MPF 5 ML VIAL SUBCUT (14:36)
--- NOTE | 2022-11-02 15:13 | HO.PM.IMPN ---
Subjective Subjective Date of Service: 11/03/22 Interval History: CHF exacerbation, loculated pleural effusion Review of Systems Continues with chest pain seems to be much better ,sob also somewhat better (around 20% better in comparison to yesterday-as per patient ). no fevers Physical Exam Vital Signs: Vital Signs: Last Vital Signs Temp 97 F 11/02/22 07:09 Pulse 99 11/02/22 07:09 Resp 18 11/02/22 07:09 BP 135/78 11/02/22 07:09 Pulse Ox 99 11/02/22 07:09 O2 Del Method Nasal Cannula 11/02/22 07:09 O2 Flow Rate 3 11/02/22 07:09 Oxygen Flow Rate 3 10/29/22 20:15 BMI result Body Mass Index 31.8 Appearance: Alert.? Oriented X3.? sob.? cvs: rrr, [id number]. res: air entry diminshed right>left abd: no rebound or guarding ,nt, bs present. ext pulses present , no cyanosis . neuro: axo3 , nonfocal. Objective Data Active Medications Acetaminophen (Acetaminophen 325 Mg Tablet) 650 mg PO Q6H PRN PRN Reason: Pain, Mild (Pain Scale 1-3) Last Admin: 11/02/22 10:53 Dose: 650 mg Documented By: MARIETTA Albuterol Sulfate (Albuterol Sulfate (0.042%) 1.25 Mg/3 Ml Vial.Neb) 1.25 mg INHALE Q4H PRN PRN Reason: SHORTNESS OF BREATH Amlodipine Besylate (Amlodipine Besylate 5 Mg Tablet) 5 mg PO DAILY [facility]; Protocol Last Admin: 11/02/22 09:35 Dose: Not Given Documented By: KAMI Non-Admin Reason: NPO Atorvastatin Calcium (Atorvastatin Calcium 80 Mg Tablet) 80 mg PO DAILY [facility] Last Admin: 11/02/22 09:35 Dose: Not Given Documented By: KAMI Non-Admin Reason: NPO Enoxaparin Sodium (Enoxaparin Sodium 120 Mg/0.8 Ml Syringe) 120 mg 1 mg/kg (120 mg) SUBCUT Q12H [facility] Last Admin: 10/31/22 13:39 Dose: 120 mg Documented By: CHERELLE Fluticasone/Vilanterol (Fluticasone/Vilanterol 100/25 Blst.W.Dev) 1 puff INHALE RDAILY [facility] Last Admin: 11/02/22 07:48 Dose: Not Given Documented By: KENNY Non-Admin Reason: med not avail/pharm contacted Furosemide (Furosemide 40 Mg Tablet) 40 mg PO DAILY [facility]; Protocol Guaifenesin/Codeine Phosphate (Guaifen/Codeine Sf 200/20/10ml 10 Ml Liquid) 5 ml PO Q6H PRN PRN Reason: Cough Last Admin: 10/31/22 05:53 Dose: 5 ml Documented By: CAMI Ceftriaxone Sodium 1 gm/ (Sodium Chloride) 50 mls @ 100 mls/hr IV Q24H [facility] Last Infusion: 11/02/22 03:52 Dose: 0 mls/hr Documented By: STACEY Azithromycin 500 mg/ Sodium (Chloride) 250 mls @ 125 mls/hr IV Q24H [facility] Last Infusion: 11/02/22 06:01 Dose: 0 mls/hr Documented By: STACEY Losartan Potassium (Losartan Potassium 50 Mg Tablet) 100 mg PO DAILY [facility]; Protocol Last Admin: 11/02/22 09:35 Dose: Not Given Documented By: KAMI Non-Admin Reason: NPO Melatonin (Melatonin 3 Mg Tablet) 6 mg PO BEDTIME PRN PRN Reason: Insomnia Metoprolol Succinate (Metoprolol Succinate Er 100 Mg Tab.Er.24h) 100 mg PO DAILY [facility]; Protocol Last Admin: 11/02/22 09:36 Dose: Not Given Documented By: KAMI Non-Admin Reason: NPO Morphine Sulfate (Morphine Sulfate 4 Mg/Ml Cartridge) 4 mg IVPUSH Q3H PRN; Protocol PRN Reason: Pain, Severe (Pain Scale 7-10) Last Admin: 11/01/22 20:05 Dose: 4 mg Documented By: STACEY Morphine Sulfate (Morphine Sulfate Er 15 Mg Tablet.Er) 15 mg PO Q12H [facility] Last Admin: 11/02/22 09:36 Dose: Not Given Documented By: KAMI Non-Admin Reason: NPO Ondansetron HCl (Ondansetron Hcl 4 Mg/2 Ml Vial) 4 mg IVPUSH Q8H PRN PRN Reason: Nausea and Vomiting Last Admin: 10/30/22 03:17 Dose: 4 mg Documented By: CHRISTEN Oxycodone HCl (Oxycodone Hcl Immed Release 5 Mg Tablet) 5 mg PO Q6H PRN PRN Reason: Pain, Moderate (Pain Scale 4-6 Last Admin: 11/02/22 10:52 Dose: 5 mg Documented By: MARIETTA Pharmacy Consult (Consult Rx Perform Med Rec) 1 each MISCELLANE ONCE PRN PRN Reason: Consult order Sodium Chloride (0.9 % Sodium Chloride Flush 3 Ml Syringe) 3 ml IVFLUSH QSHIFT [facility] Last Admin: 11/02/22 09:08 Dose: 3 ml Documented By: KAMI Tamsulosin HCl (Tamsulosin Hcl 0.4 Mg Capsule) 0.4 mg PO BEDTIME [facility] Last Admin: 11/01/22 21:30 Dose: 0.4 mg Documented By: JULIOFOKaye Labs 11/01/22 05:25 11/02/22 10:44 Labs: Laboratory Results - last 24 hr 11/01/22 11/02/22 10:50 10:44 Random Glucose 112 Lactate Dehydrogenase 205 Total Protein 6.0 L Pleural Amylase 7 Microbiology Microbiology Results: Microbiology 11/01/22 10:50 Gram Stain - Final Thoracentesis Fluid Anaerobic Culture - Preliminary No growth to date. Body Fluid Culture - Preliminary No growth to date. Assessment and Plan (1) Acute on chronic diastolic (congestive) heart failure: Status: Acute (2) Acute dyspnea: Status: Acute (3) Bilateral pleural effusion: Status: Acute Plan This is a 62-year-old male with pertinent history of PE on Xarelto, essential hypertension, mixed hyperlipidemia, s/p tracheobronchoplasty via right thoracotomy admitted for CHF exacerbation and loculated pleural effusion Acute hypoxemic respiratory failure due to decompensated HFpEF and Loculated pleural effusion continue supplemental O2 to maintain oximetry >92% Continues with [facility], orthopnea. repeat CXR with limited improvement compared to prior weight ?unclear dry weight(weight on 10/06 outpatient visit was 359lb ,now 355.5Lb),? i/o need to moniter closely Yesterday had left-sided thoracentesis-1.1 L fluid was removed. Chest x-ray post thoracentesis seems better on the left side. Patient is due for right-sided thoracentesis today-removed 1.4 liter by IR,cxr post throacentesis pendin Continue lasix 40mg BID, we will adjust lasix low-dose. Cardiology following ?Severe MR -noted on TTE -NEREIDA tomorrow, NPO after midnight -Appreciate cardiology assistance Imaging with bilateral pleural effusion-hx posterior approach tracheobronchoplasty via right thoracotomy for tracheomalacia, flexible bronchoscopy 08/17/22 at [facility]. -Repeat CXR per pulm with limited improvement from initial study. Persistent b/l pleural effusion with probable loculation RLL. Continue ceftriaxone -IR to perform thoracentesis with pleural fluid studies today. hold eliquis until after procedure -Follows with [facility] and was scheduled for outpt procedure Monday -appreciate pulmonogy input History PE -On anticoagulation indefinitely for PE 19 years ago -Hold Xarelto for thoracentesis -Initiate bridge with Lovenox Essential hypertension -Continue home antihypertensives BPH -continue Flomax DVT prophylaxis:?SCPs, Hold Xarelto as above Full code Cardiac diet Pt requires ongoing inpatient stay for management of decompensated heart failure requiring IV diuresis and close monitoring as well as expert consultation given loculated right-sided pleural effusion with possible thoracentesis Time Spent With Patient Time: Total time managing care of this patient today ____ minutes. Quality Stroke Does the patient have a stroke diagnosis?: No VTE Prior VTE?: No VTE Risk Level:: Medical - moderate - high VTE Device Contraindication: Treatment Not Indicated VTE Drug Contraindication: N/A - Med Ordered
[2022-11-02 15:18] LABS: MN% 72.8 %; PMN% 27.2 %; RBC Peritoneal Fluid 0.003 X10*6/uL; WBC Peritoneal Fluid 0.815 X10*3/uL
[2022-11-02 15:46] LABS: Lymphocyte Peritoneal Fl 50 %; Neutrophils Peritoneal Fluid 21 %
[2022-11-02 15:47] LABS: BF Shift QC OK YES; Basophils Peritoneal Fl 3 %; Eosinophils Peritoneal Fl 1 %; Monocytes Peritoneal Fl 23 %; Other Peritioneal Fl 2 %
--- NOTE | 2022-11-02 16:04 | MHC.CM.PN ---
per rounds pt to get a thorebcentisis no dc date at si time
[2022-11-02] MEDS: Morphine Sulfate 4 MG/ML CARTRIDGE IVPUSH ×2 (17:23→20:32)
[2022-11-02] MEDS: Melatonin 3 MG TABLET 6 MG PO (20:32)
[2022-11-02] MEDS: Morphine Sulfate ER 15 MG TABLET.ER PO (20:32)
[2022-11-02] MEDS: Tamsulosin HCL 0.4 MG CAPSULE PO (20:32)
[2022-11-03] VITALS (8 sets, daily range): BP systolic 87–143; BP diastolic 49–75; PULSE 74–90; RESP 16–28; TEMP 36.1–36.3; O2SAT 95–100
[2022-11-03] MEDS: cefTRIAXone sodium 1 GM in 0.9 % Sodium Chloride 50 ML IV (03:05)
[2022-11-03] MEDS: Morphine Sulfate 4 MG/ML CARTRIDGE IVPUSH (03:05)
[2022-11-03] MEDS: Azithromycin 500 MG in 0.9 % Sodium Chloride 250 ML 125 MG IV (03:29)
[2022-11-03] MEDS: Metoprolol Succinate ER 100 MG TAB.ER.24H PO (07:42)
[2022-11-03] MEDS: Losartan Potassium 50 MG TABLET 100 MG PO (07:42)
[2022-11-03] MEDS: Atorvastatin Calcium 80 MG TABLET PO (07:42)
[2022-11-03] MEDS: Morphine Sulfate ER 15 MG TABLET.ER PO (07:43)
[2022-11-03] MEDS: amLODIPine Besylate 5 MG TABLET PO (07:43)
[2022-11-03] MEDS: Furosemide 40 MG TABLET PO (07:43)
[2022-11-03] MEDS: 0.9 % Sodium Chloride Flush 3 ML SYRINGE IVFLUSH (07:44)
--- NOTE | 2022-11-03 09:39 | PM.PNCARD ---
Subjective Subjective Date of Service: 11/03/22 Principal diagnosis: COPD ,TRACHEOMALACIA S/P TRACHEO-BRONCHOPLASTY , CHEST PAIN Interval history: He states that he feels okay. No new complaints. He states that he actually feels better after having thoracentesis both sides. Breathing is improved but not back to normal. Review of Systems Review of Systems Yes all other systems are reviewed and are negative Constitutional: Reports as per HPI and Reports no additional constitutional complaints Eyes: Reports as per HPI and Denies no additional eye complaints Denies system reviewed and no additional complaints, except as documented and Reports as per HPI Cardiovascular: Reports as per HPI, Reports no additional cardiovascular complaints, Denies acrocyanosis, Denies cool extremities, Denies chest pain, Denies leg edema, Denies lightheadedness, Denies palpitations and Reports dyspnea Respiratory: Reports as per HPI, Denies no additional respiratory complaints and Reports dyspnea Gastrointestinal: Reports as per HPI and Denies no additional gastrointestinal complaints Genitourinary: Reports no additional male genitourinary complaints and Reports as per HPI Musculoskeletal: Reports no additional musculoskeletal complaints and Reports as per HPI Skin/Breast: Reports system reviewed and no additional complaints, except as docu Reports system reviewed and no additional complaints, except as documented and Reports as per HPI Psychiatric: Reports no additional psychiatric complaints and Reports as per HPI Endocrine: Reports no additional endocrine complaints, Reports as per HPI and Denies palpitations Hematologic/Lymphatic: Reports no additional hematologic/lymphatic complaints and Reports as per HPI Allergic/Immunologic: Reports no additional allergic/immunologic complaints and Reports as per HPI Physical Exam Vital Signs: Last Vital Signs Temp 97.3 F 11/03/22 07:23 Pulse 90 11/03/22 07:23 Resp 16 11/03/22 07:23 BP 143/75 H 11/03/22 07:23 Pulse Ox 96 11/03/22 07:23 O2 Del Method Nasal Cannula 11/03/22 07:23 O2 Flow Rate 3 11/03/22 07:23 Oxygen Flow Rate 3 10/29/22 20:15 BMI result Body Mass Index 31.8 Const General: comfortable and no acute distress Orientation/consciousness: patient oriented x3 HEENT Other: Unremarkable Head: Yes normal to inspection Neck Neck: Yes normal visual inspection Chest Chest palpation & inspection: normal inspection of the chest Resp Other: Diminished basal breath sounds. Cardio Palpation: normal PMI Heart sounds: S1 normal heart sound present, S2 normal heart sound present, no gallops, Murmur heart sound present systolic III/ and at the apex and no rubs GI Palpation (GI): Soft to palpation Back/Spine/Pelvis Other: unremarkable Skin General skin exam: no rashes or lesions noted Neuro General: patient oriented x3 Extrem Other: Trace -1+ edema. General: Yes normal to inspection Psych Mental Status: mental status grossly normal Objective Labs and Meds 11/01/22 05:25 11/02/22 10:44 Lab results: Laboratory Results - last 24 hr 11/02/22 11/02/22 10:44 14:00 Random Glucose 112 Lactate Dehydrogenase 205 Total Protein 6.0 L Peritoneal WBC 0.815 Peritoneal RBC 0.003 Periton Neutrophils 21 Periton Lymphocytes 50 Peritoneal Monocytes 23 Peritoneal Eosinophils 1 Peritoneal Basophils 3 Peritoneal Other Cells 2 Imaging Radiologist's impression: Impressions Thoracentesis Ultrasound 11/02/22 14:30 IMPRESSION: Ultrasound-guided right thoracentesis. Chest X-Ray 11/02/22 15:10 IMPRESSION: Interval decreased right pleural effusion after thoracentesis. No pneumothorax or other significant change. Progress Note: A&P Assessment and plan (1) Non-rheumatic mitral regurgitation: Status: Acute (2) Acute on chronic diastolic (congestive) heart failure: Status: Acute (3) Bilateral pleural effusion: Status: Acute (4) Post-thoracotomy pain: Status: Acute Plan Transthoracic echocardiographic findings reviewed. LVEF 67%. Posterior leaflet of the mitral valve appeared flail. There is moderate to severe versus severe mitral regurgitation, eccentric jet. Pulmonary hypertension also noted with RVSP of 53 mm Hg. In the chest CT, there is no pulmonary embolism. Moderate bilateral pleural effusions, with some loculation on the right side. Bilateral lower lobe atelectasis. His shortness of breath is probably multifactorial. Difficult to say how much of it is cardiac and how much of it is pulmonary. It seems that he does feel better after bilateral thoracentesis. Hence pulmonary definitely does play a significant role. From the mitral regurgitation standpoint, he needs a transesophageal echocardiogram to evaluate this further. Scheduled for today. Based on findings, can plan further care. Time Spent With Patient Time: Total time managing care of this patient today ____ minutes. Progress Note: Quality Stroke Does the patient have a stroke diagnosis?: No Procedures Date of Service Date of Service: 11/03/22
--- NOTE | 2022-11-03 09:44 | MHC.SHP ---
Pre-Procedural Eval Section A Date of Service: 11/03/22 The patient is an INPATIENT: Yes Section B Chief Complaint: R sided chest pain Allergies: Allergies Allergy/AdvReac Type Severity Reaction Status Date / Time penicillin V Allergy Intermediate fever Verified 10/29/22 21:39 vancomycin [Vancomycin] Allergy Mild HIVES, Verified 10/29/22 21:39 FEVER Penicillins AdvReac Mild FEVER Verified 10/29/22 21:39 Plan I have reviewed the history and physical and performed a pertinent physical examination on my patient. No changes have occurred unless specified. Time Spent With Patient Time: Total time managing care of this patient today ____ minutes.
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
--- NOTE | 2022-11-03 11:30 | CA_ITS ---
Transesophageal Echocardiogram Patient (Last, First, Middle): Mello Karimi F Gender: Male Date of : 1960 Age: 62 Procedure Date: 11/03/2022 Procedure Type: Transesophageal Echocardiogram Location: S3E Height: 190.5 cm Weight: 115.21 kg BSA: 2.43 m2 Heart Rate: 77 bpm BP: 78 / 41 mmHg Cma: SB Referring MD: Jag Alatorre MD Symptoms: flail Mitral Valve leaflet, assess Mitral regurgitation Conclusion: ??? The left ventricular systolic function is normal. The visually estimated ejection fraction is between 55-60%. ??? There is a flail posterior mitral leaflet. There is severe mitral valve regurgitation. Likely P2 segment. Findings Procedure Information Consent was obtained prior to the procedure. Pre NEREIDA oral cavity was checked and revealed no overcrowding. The adult 3D probe was passed with no difficulty. Left Ventricle Normal left ventricular cavity size. The left ventricular systolic function is normal. The visually estimated ejection fraction is between 55-60%. There is no evidence of regional wall motion abnormalities. Right Ventricle Normal right ventricular cavity size and systolic function. Atria There is no evidence of a thrombus in the left atrial appendage. There is no evidence of interatrial shunt by color Doppler. Aortic Valve There is a normal trileaflet aortic valve. There is no aortic valve stenosis. There is trace (trivial) aortic valve regurgitation. Mitral Valve There is a flail posterior mitral leaflet. There is severe mitral valve regurgitation. The mitral regurgitation jet is directed anteriorly. Pulmonary systolic venous flow indicates systolic flow reversal. There is no mitral valve stenosis. Likely P2 segment. Effective regurgitant orifice area by PISA 0.6sqcm. Regurgitant volume 62ml. Vena contracta width 0.7-0.8cm. 3D images also obtained. Pulmonic Valve The pulmonic valve is likely normal. Tricuspid Valve Normal tricuspid valve structure. There is mild tricuspid valve regurgitation. Great Vessels Small plaque is seen in the arch and descending thoracic aorta. Venous The inferior vena cava was not well visualized. Pericardium/Pleural There is no evidence of pericardial effusion. Prior Study Comparison No significant change compared to prior study dated: 10/31/2022. Measurements Mitral Valve MV Pk E: 1.32 MV PK A: 0.42 MV Decel Time: 165.00 E/A: 3.20 PHT: 48.00 MVA PHT: 4.58 Decel [place]: 7.96 MR Vol - PW Dopp: 61.61 MR VTI: 1.01 MR ERO: 61.00 MR Alias Pope[place]: 0.39 MR RAD: 0.90 Diastolic Function MV Pk E: 1.32 MV Pk A: 0.42 E/A: 3.20 Tricuspid Valve TR Pk [place]: 2.33 TR Pk Grad: 22.00 RVSP: 25.00 Updated by Jag Alatorre on 12:54 PM with Status of Final Jag Alatorre MD electronically signed on 11/03/2022 12:54:36 PM with status of Final
[2022-11-03 11:31] LABS: Albumin Peritoneal Fluid 2.5 GM/DL
[2022-11-03] MEDS: Acetaminophen 325 MG TABLET 650 MG PO (13:08)
--- NOTE | 2022-11-03 13:11 | P.PNIM_ITS ---
Subjective Subjective Date of Service: 11/03/22 Interval History: CHF exacerbation, loculated pleural effusion Review of Systems Continues with chest pain seems to be much better ,sob also somewhat better (around 20% better in comparison to yesterday-as per patient ). no fevers Physical Exam Vital Signs: Vital Signs: Last Vital Signs Temp 97.0 F 11/03/22 12:30 Pulse 78 11/03/22 12:45 Resp 18 11/03/22 12:45 BP 97/58 L 11/03/22 12:45 Pulse Ox 98 11/03/22 12:45 O2 Del Method Nasal Cannula 11/03/22 12:45 O2 Flow Rate 2 11/03/22 12:45 Oxygen Flow Rate 3 10/29/22 20:15 BMI result Body Mass Index 31.8 Appearance: Alert. Oriented X3. sob. cvs: rrr, [id number]. res: air entry diminshed right>left abd: no rebound or guarding ,nt, bs present. ext pulses present , no cyanosis . neuro: axo3 , nonfocal. Objective Data Active Medications Acetaminophen (Acetaminophen 325 Mg Tablet) 650 mg PO Q6H PRN PRN Reason: Pain, Mild (Pain Scale 1-3) Last Admin: 11/03/22 13:08 Dose: 650 mg Documented By: ELVIS Albuterol Sulfate (Albuterol Sulfate (0.042%) 1.25 Mg/3 Ml Vial.Neb) 1.25 mg INHALE Q4H PRN PRN Reason: SHORTNESS OF BREATH Amlodipine Besylate (Amlodipine Besylate 5 Mg Tablet) 5 mg PO DAILY [facility]; Protocol Last Admin: 11/03/22 07:43 Dose: 5 mg Documented By: SAHIL Atorvastatin Calcium (Atorvastatin Calcium 80 Mg Tablet) 80 mg PO DAILY [facility] Last Admin: 11/03/22 07:42 Dose: 80 mg Documented By: SAHIL Enoxaparin Sodium (Enoxaparin Sodium 120 Mg/0.8 Ml Syringe) 120 mg 1 mg/kg (120 mg) SUBCUT Q12H [facility] Last Admin: 10/31/22 13:39 Dose: 120 mg Documented By: CHERELLE Fentanyl (Fentanyl Citrate/Pf 100 Mcg/2 Ml Vial) 25 mcg IVPUSH Q5M PRN; Protocol PRN Reason: Pain, Moderate (Pain Scale 4-6 Fluticasone/Vilanterol (Fluticasone/Vilanterol 100/25 Blst.W.Dev) 1 puff INHALE RDAILY [facility] Last Admin: 11/03/22 08:05 Dose: Not Given Documented By: TERRELL Non-Admin Reason: Med Not Available Furosemide (Furosemide 40 Mg Tablet) 40 mg PO DAILY [facility]; Protocol Last Admin: 11/03/22 07:43 Dose: 40 mg Documented By: SAHIL Guaifenesin/Codeine Phosphate (Guaifen/Codeine Sf 200/20/10ml 10 Ml Liquid) 5 ml PO Q6H PRN PRN Reason: Cough Last Admin: 10/31/22 05:53 Dose: 5 ml Documented By: CAMI Ceftriaxone Sodium 1 gm/ (Sodium Chloride) 50 mls @ 100 mls/hr IV Q24H [facility] Last Infusion: 11/03/22 03:36 Dose: 0 mls/hr Documented By: TYRELL Azithromycin 500 mg/ Sodium (Chloride) 250 mls @ 125 mls/hr IV Q24H [facility] Last Infusion: 11/03/22 05:30 Dose: 0 mls/hr Documented By: TYRELL Losartan Potassium (Losartan Potassium 50 Mg Tablet) 100 mg PO DAILY [facility]; Protocol Last Admin: 11/03/22 07:42 Dose: 100 mg Documented By: SAHIL Melatonin (Melatonin 3 Mg Tablet) 6 mg PO BEDTIME PRN PRN Reason: Insomnia Last Admin: 11/02/22 20:32 Dose: 6 mg Documented By: TYRELL Metoprolol Succinate (Metoprolol Succinate Er 100 Mg Tab.Er.24h) 100 mg PO CELE LY [facility]; Protocol Last Admin: 11/03/22 07:42 Dose: 100 mg Documented By: SAHIL Morphine Sulfate (Morphine Sulfate 4 Mg/Ml Cartridge) 4 mg IVPUSH Q3H PRN; Protocol PRN Reason: Pain, Severe (Pain Scale 7-10) Last Admin: 11/03/22 03:05 Dose: 4 mg Documented By: TYRELL Morphine Sulfate (Morphine Sulfate Er 15 Mg Tablet.Er) 15 mg PO Q12H [facility] Last Admin: 11/03/22 07:43 Dose: 15 mg Documented By: SAHIL Ondansetron HCl (Ondansetron Hcl 4 Mg/2 Ml Vial) 4 mg IVPUSH Q8H PRN PRN Reason: Nausea and Vomiting Last Admin: 10/30/22 03:17 Dose: 4 mg Documented By: CHRISTEN Oxycodone HCl (Oxycodone Hcl Immed Release 5 Mg Tablet) 5 mg PO Q6H PRN PRN Reason: Pain, Moderate (Pain Scale 4-6 Last Admin: 11/02/22 10:52 Dose: 5 mg Documented By: MARIETTA Pharmacy Consult (Consult Rx Perform Med Rec) 1 each MISCELLANE ONCE PRN PRN Reason: Consult order Sodium Chloride (0.9 % Sodium Chloride Flush 3 Ml Syringe) 3 ml IVFLUSH QSHIFT [facility] Last Admin: 11/03/22 07:44 Dose: 3 ml Documented By: SAHIL Tamsulosin HCl (Tamsulosin Hcl 0.4 Mg Capsule) 0.4 mg PO BEDTIME [facility] Last Admin: 11/02/22 20:32 Dose: 0.4 mg Documented By: TYRELL Labs 11/01/22 05:25 11/02/22 10:44 Labs: Laboratory Results - last 24 hr 11/02/22 11/02/22 14:00 14:00 Peritoneal WBC 0.815 Peritoneal RBC 0.003 Periton Neutrophils 21 Periton Lymphocytes 50 Peritoneal Monocytes 23 Peritoneal Eosinophils 1 Peritoneal Basophils 3 Peritoneal Other Cells 2 Peritoneal Albumin 2.5 Microbiology Microbiology Results: Microbiology 11/02/22 14:00 Gram Stain - Final Pleural Fluid Routine Culture - Preliminary No growth to date. Anaerobic Culture - Preliminary No growth to date. 11/01/22 10:50 Gram Stain - Final Thoracentesis Fluid Anaerobic Culture - Preliminary No growth to date. Body Fluid Culture - Final No growth after 2 days Assessment and Plan (1) Acute on chronic diastolic (congestive) heart failure: Status: Acute (2) Acute dyspnea: Status: Acute (3) Bilateral pleural effusion: Status: Acute Plan This is a 62-year-old male with pertinent history of PE on Xarelto, essential hypertension, mixed hyperlipidemia, s/p tracheobronchoplasty via right thoracotomy admitted for CHF exacerbation and loculated pleural effusion Acute hypoxemic respiratory failure due to decompensated HFpEF and Loculated pl eural effusion continue supplemental O2 to maintain oximetry >92% Continues with COX, orthopnea. repeat CXR with limited improvement compared to prior weight ?unclear dry weight(weight on 10/06 outpatient visit was 359lb ,now 355.5Lb),? i/o need to moniter closely Yesterday had left-sided thoracentesis-1.1 L fluid was removed. Chest x-ray post thoracentesis seems better on the left side. Patient is due for right-sided thoracentesis today-removed 1.4 liter by IR,cxr post throacentesis pendin Continue lasix 40mg BID, we will adjust lasix low-dose. Cardiology following ?Severe MR -noted on TTE -NEREIDA tomorrow, NPO after midnight -Appreciate cardiology assistance Imaging with bilateral pleural effusion-hx posterior approach tracheobronchoplasty via right thoracotomy for tracheomalacia, flexible bronchoscopy 08/17/22 at [facility]. -Repeat CXR per pulm with limited improvement from initial study. Persistent b/l pleural effusion with probable loculation RLL. Continue ceftriaxone -IR to perform thoracentesis with pleural fluid studies today. hold eliquis until after procedure -Follows with [facility] and was scheduled for outpt procedure Monday -appreciate pulmonogy input History PE -On anticoagulation indefinitely for PE 19 years ago -Hold Xarelto for thoracentesis -Initiate bridge with Lovenox Essential hypertension -Continue home antihypertensives BPH -continue Flomax DVT prophylaxis:?SCPs, Hold Xarelto as above Full code Cardiac diet Pt requires ongoing inpatient stay for management of decompensated heart failure requiring IV diuresis and close monitoring as well as expert consultation given loculated right-sided pleural effusion with possible thoracentesis Time Spent With Patient Time: Total time managing care of this patient today ____ minutes. Quality Stroke Does the patient have a stroke diagnosis?: No VTE Prior VTE?: No VTE Risk Level:: Medical - moderate - high VTE Device Contraindication: Treatment Not Indicated VTE Drug Contraindication: N/A - Med Ordered
--- NOTE | 2022-11-03 13:55 | PC.NURSE ---
Call placed report to Bharti at [place] [id number], no questions at this time.
[2022-11-03] MEDS: LORazepam 0.5 MG TABLET PO (14:05)
[2022-11-03 14:07] LABS: COVID-19 Test Negative (Negative); IDNOW Serial# BCCEAD1C
--- NOTE | 2022-11-03 14:34 | PM.DS ---
DS: Providers Provider Date of Service: 11/03/22 Date of admission: 10/30/22 01:52 Date of discharge: 11/03/22 Primary care physician: MICHAEL Dash Consults: 10/30/22 02:02 Consult to Pulmonology Routine Consulting Provider: [facility] [place] [place] Pulmonology Services Reason for consultation: locaulated pleural effusion 10/31/22 12:25 Consult to Cardiology Routine Consulting Provider: [facility] [place] [place] Cardiovascular Services Reason for consultation: severe, MR; CHF DS: Diagnosis Discharge Diagnosis (1) Acute on chronic diastolic (congestive) heart failure: Status: Acute (2) Acute dyspnea: Status: Acute (3) Bilateral pleural effusion: Status: Acute DS: Summary Hospital Course Hospital Course: 62-year-old male with pertinent history of PE on Xarelto, essential hypertension, mixed hyperlipidemia, s/p tracheobronchoplasty via right thoracotomy who presents to the emergency department for evaluation of right-sided chest pain and dyspnea.? Patient states he has had right-sided chest pain and dyspnea, worse with exertion that has been ongoing for the last 10 days.? It has been progressively worsening.? Patient also complains that he has difficulty lying flat due to shortness of breath.? Also has noted bilateral lower extremity swelling.? Patient complains of a nonproductive cough but denies fever, chills.? No palpitations, abdominal pain, changes in urinary or bowel habits. In the emergency department, imaging with vascular congestion and bilateral pleural effusion.? He was found to be hypoxemic and placed on 2 L supplemental oxygen. Hospital course: Patient was admitted because of shortness of breath and right-sided chest pain: Further workup revealed possible CHF(HFpEF) decompensated, also found to have bilateral pleural effusions: Patient was started on IV Lasix, antibiotics initially also and subsequently had bilateral pleural effusion drainage-with the above supportive care patient shortness of breath seems to be improving, seen by Pulmonary-pleural fluid analysis reviewed and seems more transudative so antibiotics were discontinued, in addition patient has shortness of breath seems to be improving after bilateral pleural effusion drainage. Thoracic fluid analysis-so far no growth, pathology pending. patient has hx of pulmonary embolism -on xaralto ,currently switched to lovenox ( due to thoracentesis )-can be switched back to xeralto when possible in [facility]. In addition patient was seen by Cardiology due to bilateral pleural effusion and severe MR: Had NEREIDA done today which showed severe MR:Transesophageal echocardiogram shows flail P2 segment of posterior mitral leaflet as well as severe mitral regurgitation. d/w cardiology:Plan to transfer to [facility] for further workup including cardiac catheterization cardiac surgery consultation.? If too risky for surgery due to pulmonary issues, then need to consider transcatheter mitral valve options. COVID test before discharge is negative. Above management discussed the patient in detail length he understand in agreement with above plan. Time Spent with Patient Time attestation: Total time managing care of this patient today ____ minutes. Discharge coordination time: Greater than 30 minutes Quality: Safe Use of Opioids Does Pt have an Active Cancer Diagnosis on the Problem List?: No Quality: Stroke Does the patient have a stroke diagnosis?: No Physical Exam Vital Signs: Vital Signs: Last Vital Signs Temp 97.0 F 11/03/22 13:32 Pulse 88 11/03/22 13:32 Resp 28 H 11/03/22 13:32 BP 99/59 L 11/03/22 13:32 Pulse Ox 100 11/03/22 13:32 O2 Del Method Nasal Cannula 11/03/22 13:32 O2 Flow Rate 2 11/03/22 13:32 Oxygen Flow Rate 3 10/29/22 20:15 BMI result Body Mass Index 31.8 Appearance: Alert.? Oriented X3.sob seems improvin? cvs: rrr, [id number]. res: air entry diminshed , no rales or wheezing abd: no rebound or guarding ,nt, bs present. ext pulses present , no cyanosis . neuro: axo3 , nonfocal. DS: Data Data Completed and Pending Completed studies during hospitalization [Text1]: Procedures Drainage of Right Pleural Cavity with Drainage Device, Percutaneous Approach (09/02/22) Pending studies at discharge: Pending at discharge 11/01/22 09:59 Cytology [PTH] Routine 11/02/22 14:00 Cytology [PTH] Urgent Labs on day of discharge: Laboratory Results - last 24 hr 11/02/22 11/02/22 11/03/22 14:00 14:00 13:40 Peritoneal WBC 0.815 Peritoneal RBC 0.003 Periton Neutrophils 21 Periton Lymphocytes 50 Peritoneal Monocytes 23 Peritoneal Eosinophils 1 Peritoneal Basophils 3 Peritoneal Other Cells 2 Peritoneal Albumin 2.5 COVID-19 ([facility]) Negative COVID-19 Clin Com See Note Preliminary micro results at discharge 11/02/22 14:00 Routine Culture - Preliminary Pleural Fluid No growth to date. Anaerobic Culture - Preliminary No growth to date. 11/01/22 10:50 Anaerobic Culture - Preliminary Thoracentesis Fluid No growth to date. Imaging Chest x-ray: Radiologist's impression: ITS Impressions Chest X-Ray 10/29/22 20:35 IMPRESSION: No pneumothorax is seen. Increasing change here with increasing right sided fluid/pleural reaction and new left probable pleural effusion. Also findings suggest early CHF. Left basilar atelectasis, infiltrate or edema. Persistent change of the right base Chest CTA 10/30/22 00:45 IMPRESSION: 1. No pulmonary embolism. 2. Moderate bilateral pleural effusions, partially loculated on the right. Bilateral lower lobe atelectasis. VTE: negative Chest X-Ray 10/31/22 08:52 IMPRESSION: Bilateral pleural effusions, right greater than left, not appreciably changed from recent exams. Thoracentesis Ultrasound 11/01/22 11:14 IMPRESSION: Ultrasound-guided left thoracentesis. Chest X-Ray 11/01/22 11:19 IMPRESSION: Interval decrease in the left pleural effusion with small residual pleural effusion suspected. There is small right pleural effusion with underlying atelectasis. Chest X-Ray 11/01/22 12:03 IMPRESSION: Complete resolution of left pleural effusion with underlying left basilar atelectasis seen. There is no pneumothorax. The small right pleural effusion with underlying atelectasis. Thoracentesis Ultrasound 11/02/22 14:30 IMPRESSION: Ultrasound-guided right thoracentesis. Chest X-Ray 11/02/22 15:10 IMPRESSION: Interval decreased right pleural effusion after thoracentesis. No pneumothorax or other significant change. Discharge Plan Discharge Anticipated Discharge Date/Time: 11/03/22 13:53 Patient Disposition: Xfer Acute Care Hospital Discharge Diagnosis: Acute hypoxemic respiratory failure attitude decompensated HFpEf, loculated pleural effusions Referrals: Daniel Redmond, [employer] [Primary Care Provider] - 1 Week Discharge Medications: New morphine 15 mg Tablet Extended Release 15 mg PO Q12H Qty: 1 0RF Rx Instructions: Partial Fill upon patient request. morphine 4 mg/mL Syringe 4 mg IVPUSH Q3H PRN (Reason: Pain, Severe (Pain Scale 7-10)) Qty: 1 0RF Protocol: Hold for RR < HOLD and contact provider for RR < (bpm): 12 Rx Instructions: Partial Fill upon patient request. enoxaparin 120 mg/0.8 mL Syringe 120 mg subcut Q12H Qty: 1 0RF furosemide 40 mg Tablet 40 mg PO DAILY Qty: 1 0RF Protocol: Hold for SBP< HOLD for SBP < : 90 Continued metoprolol succinate 100 mg tablet extended release 24 hr 100 mg PO DAILY Qty: 90 1RF losartan 100 mg tablet 100 mg PO DAILY Qty: 90 1RF amlodipine 5 mg tablet 5 mg PO DAILY Qty: 90 0RF oxycodone 5 mg tablet 5 - 10 mg PO Q6H PRN (Reason: pain) Qty: 20 0RF Rx Instructions: Partial Fill upon patient request. lidocaine [Lidocaine Pain Relief] 4 % adhesive patch,medicated 1 patch topical DAILY tamsulosin 0.4 mg Capsule 0.4 mg PO BEDTIME albuterol sulfate 1.25 mg/3 mL solution for nebulization 1.25 mg inhalation Q4H PRN (Reason: Shortness Of Breath) benzonatate 100 mg Capsule 100 mg PO TID PRN (Reason: Cough) Qty: 20 0RF codeine-guaifenesin 10-100 mg/5 mL Liquid 5 ml PO Q6H PRN (Reason: Cough) Qty: 237 0RF fluticasone propion-salmeterol [Advair Diskus] 250-50 mcg/dose blister with device 1 ea INHALATION BID rosuvastatin 20 mg tablet 20 mg PO DAILY Held Xarelto 20 mg Tablet 20 mg PO DAILY@1730 Qty: 30 2RF Hold Instructions: Resume on 11/03/22. Discharge Orders: Discharge Order (Routine); Ordered 11/03/22 Ordered By: Lorena Angel Diet: Advance to usual diet Activity on Discharge: As tolerated Stand Alone Forms: Patient Portal Discharge page Care Plan Goals: Patient was admitted because of shortness of breath and right-sided chest pain: Further workup revealed possible CHF decompensated, also found to have bilateral pleural effusions: Patient was started on IV Lasix, antibiotics initially also and subsequently had bilateral pleural effusion drainage-with the above supportive care patient shortness of breath seems to be improving, seen by Pulmonary-pleural fluid analysis reviewed and seems more transudative so antibiotics were discontinued, in addition patient has shortness of breath seems to be improving after bilateral pleural effusion drainage. Thoracic fluid analysis-so far no growth, pathology pending. patient has hx of pulmonary embolism -on xaralto ,currently switched to lovenox ( due to thoracentesis )-can be switched back to xeralto when possible in [facility]. In addition patient was seen by Cardiology due to bilateral pleural effusion and severe MR: Had NEREIDA done today which showed severe MR:Transesophageal echocardiogram shows flail P2 segment of posterior mitral leaflet as well as severe mitral regurgitation. d/w cardiology:Plan to transfer to [facility] for further workup including cardiac catheterization cardiac surgery consultation.? If too risky for surgery due to pulmonary issues, then need to consider transcatheter mitral valve options. Health Concerns: as above. Plan of Treatment: as above. Assessment: as above.
== END 2022-11-03 15:44 | disposition short-term general hospital (02) | DRG 291 ==
LOC: HO.ED 10-30 01:18 → HO.EDOVER 10-30 01:57 → HO.S3 10-30 07:55
PROVIDERS: Internal Medicine; Physician Assistant; Radiology Diagnostic Radiology; Admitting Provider Student in an Organized Health Care Education/Training Program; Emergency Provider Emergency Medicine; PCP Nurse Practitioner Family; Visit Provider Internal Medicine
PROC: 0W9B3ZZ Drainage of Left Pleural Cavity, Percutaneous Approach (ICD-10-PCS; principal; 2022-11-01 11:30)
PROC: 0W993ZZ Drainage of Right Pleural Cavity, Percutaneous Approach (ICD-10-PCS; principal; 2022-11-02 14:00)
PROC: (CPT 93312; principal; 2022-11-03 11:30)
DX: I11.0 Hypertensive heart disease with heart failure (principal); I50.33 Acute on chronic diastolic (congestive) heart failure; J18.9 Pneumonia, unspecified organism; J96.01 Acute respiratory failure with hypoxia; J91.8 Pleural effusion in other conditions classified elsewhere; J44.0 Chronic obstructive pulmonary disease with (acute) lower respiratory infection; N40.0 Benign prostatic hyperplasia without lower urinary tract symptoms; I34.0 Nonrheumatic mitral (valve) insufficiency; I27.20 Pulmonary hypertension, unspecified; G89.12 Acute post-thoracotomy pain; E78.2 Mixed hyperlipidemia; Z86.711 Personal history of pulmonary embolism; Z88.0 Allergy status to penicillin; Z79.51 Long term (current) use of inhaled steroids; Z79.01 Long term (current) use of anticoagulants; Z79.899 Other long term (current) drug therapy
CPT/HCPCS: 32555; 36415; 71045; 71046; 71275; 80048; 80076; 81003; 82042; 82150; 82945; 82947; 83615; 83690; 83880; 83986; 84155; 84157; 84484; 85025; 85027; 85610; 85730; 87070; 87073; 87116; 87205; 87206; 87635; 88112; 88305; 88341; 88342; 89051; 93005; 93306; 93356; 99153; 99285; J0456; J0696; J1650; J1940; J2060; J2270; J2405; Q9967

== ENCOUNTER → 2022-12-15 10:19 | Outpatient (BNVA) | payer OTHER, SELFPAY | PROVIDERS: PCP Nurse Practitioner Family; Visit Provider Internal Medicine ==

== ENCOUNTER → 2022-12-20 10:10 | Outpatient (BNVA) | payer OTHER, SELFPAY | PROVIDERS: PCP Nurse Practitioner Family; Referring Provider Nurse Practitioner Family; Visit Provider Internal Medicine ==

== ENCOUNTER 2023-01-03 12:02 | Outpatient (REF) | payer OTHER, SELFPAY ==
[2023-01-03 15:01] LABS: MANUAL DIFF FLAG NO
[2023-01-03 15:17] LABS: Basophils Absolute Auto 0.1 X10*3/uL (0.0-0.2); Eosinophils Absolute Auto 0.5 X10*3/uL (0.0-0.4); Eosinophils Percent Auto 5.7 % (0-4); Hemoglobin 12.2 g/dl (14.0-18.0); Imm Gran Abs Auto 0.03 X10*3/uL (0.00-0.03); Imm Gran Pct Auto 0.3 % (0.0-0.4); Lymphocytes Absolute Auto 1.1 X10*3/uL (1.2-4.9); Lymphocytes Percent Auto 12.1 % (20-40); Mean Corpuscular HGB Conc 30.5 g/dl (31.0-36.0); Mean Corpuscular Hemoglobin 25.3 pg (27.0-33.0); Mean Corpuscular Volume 82.8 fL (80.0-98.0); Mean Platelet Volume 11.6 fL (9.4-12.4); Monocytes Absolute Auto 0.7 X10*3/uL (0.1-1.2); Monocytes Percent Auto 7.2 % (2-11); Neutrophils Absolute Auto 6.7 x10*3/uL (2.0-8.3); Neutrophils Percent Auto 73.7 % (45-73); Platelet Count 319 X10*3/uL (160-400); Red Blood Count 4.83 X10*6/uL (4.60-5.80); Red Cell Distribution Width 14.3 % (11.0-16.0)
[2023-01-03 15:28] LABS: Appearance Urine Clear; Color Urine Yellow; Glucose Urine UA Negative (Negative); Leukocyte Esterase Urine Trace (Negative); Nitrite Urine Negative (Negative); PH 5.5 (5.0-9.0); UMIC TRIGGER UACC YES; Urine Blood Large (3+) (Negative); Urine Ketones Trace mg/dL (Negative); Urine Protein Trace mg/dL (Neg-Trace)
[2023-01-03 15:31] LABS: Bacteria Urine None Seen (None Seen); RBC Urine >20 /HPF (0-2); Squamous Epithelial Cell Urine 0-2 /HPF (0-2); WBC Urine 0-5 /HPF (0-5)
[2023-01-03 16:02] LABS: Alanine Aminotransferase 54 U/L (0-40); Albumin Level 4.2 g/dL (3.5-5.0); Alkaline Phosphatase 180 U/L (39-117); Anion Gap 12 (12-20); Aspartate Amino Transferase 33 U/L (5-37); Bilirubin Total 0.8 mg/dL (0.0-1.0); Blood Urea Nitrogen 16 mg/dL (9-16); Calcium 9.5 mg/dL (8.4-10.2); Carbon Dioxide 26 mmol/L (22-29); Chloride 109 mmol/L (96-108); Estimated Glomerular Filt Rate > 60; Gamma Glutamyl Transpeptidase 33 U/L (11-51); Glucose Random 93 mg/dL (60-115); Potassium 3.6 mmol/L (3.3-5.1); Sodium 143 mmol/L (135-145); TSH reflex Free T4 1.44 uIU/mL (0.32-4.0); Total Protein 7.5 g/dL (6.5-8.0)
[2023-01-04 04:37] LABS: HBS Num1 0.21 mIU/mL (0-7.99); HBc Num1 0.11 S/CO (0.00-0.79); HBsAGNum1 0.38 S/CO (0.00-0.99); Hepatitis A Antibody IgM 0.23 Index (0-0.79); Hepatitis B Core Antibody Nonreactive (Nonreactive); Hepatitis B Surface Antigen Negative (Negative); ~HepC Num1 0.11 S/CO (0.00-0.79); ~Hepatitis A Antibody IgM Nonreactive (Nonreactive); ~Hepatitis B Surface Antibody NONREACTIVE (Nonreactive); ~Hepatitis C Antibody Nonreactive (Nonreactive)
[2023-01-08 05:48] LABS: Alk.Phos Iso. Macrohepatic 0 % (<=0); Alk.Phos Isoenzymes Bone 40 % (28-66); Alk.Phos Isoenzymes Intest 8 % (1-24); Alk.Phos Isoenzymes Liver 52 % (25-69); Alk.Phos Isoenzymes Placental 0 % (<=0); Alk.Phos Isoenzymes Total 163 U/L (35-144)
== END 2023-01-03 12:03 | disposition home or self-care (01) ==
LOC: HO.HMGCLDS 12:02
PROVIDERS: PCP Nurse Practitioner Family; Visit Provider Nurse Practitioner Family
DX: G89.12 Acute post-thoracotomy pain (principal); J18.9 Pneumonia, unspecified organism; J90 Pleural effusion, not elsewhere classified; I50.33 Acute on chronic diastolic (congestive) heart failure; R74.8 Abnormal levels of other serum enzymes; Z95.2 Presence of prosthetic heart valve
CPT/HCPCS: 36415; 80053; 81001; 82977; 84080; 84443; 85025; 86704; 86706; 86709; 86803; 87340

== ENCOUNTER → 2023-01-12 08:06 | Outpatient (REF) | payer OTHER, SELFPAY ==
--- NOTE | 2023-01-12 08:08 | CA_ITS ---
Transthoracic Echocardiogram Patient (Last, First, Middle): Mello Karimi F Gender: Male Date of : 1960 Age: 62 Procedure Date: 01/12/2023 Procedure Type: Transthoracic Echocardiogram Location: OP Height: 190.5 cm Weight: 104.33 kg BSA: 2.33 m2 Heart Rate: bpm BP: 132 / 74 mmHg Property Investor: JAMES Referring MD: Jag Alatorre MD Tax Intern: Tanner Godoy MD Symptoms: Z95.3 - Presence of xenogenic heart valve Study Quality: Adequate ECG Rhythm: Sinus Conclusions: - 1. Normal LV systolic function with LVEF of 60 65% 2. Mildly dilated left atrium 3. Normally function bioprosthetic mitral valve in place with mean gradient of 9 mmHg 4. Upper limits normal ascending aortic size 5. Trivial pericardial effusion 6. Mildly elevated right ventricular systolic pressure Findings Left Ventricle Normal left ventricular size, thickness, and systolic function. The visually estimated ejection fraction is between 60-65%. Spectral Doppler is indicative of an impaired relaxation filling pattern. Right Ventricle Normal right ventricular cavity size and systolic function. Atria The left atrium is mildly dilated. Interatrial shunt cannot be excluded. The right atrium is normal in size. Aortic Valve Normal aortic valve structure and function. There is no aortic valve stenosis. There is trace (trivial) aortic valve regurgitation. Mitral Valve A bioprosthetic mitral valve is present. The prosthetic mitral valve appears to be functioning normally. There is no mitral valve regurgitation. the bioprosthetic valve is well seated without any abnormal rocking motion. The leaflet mobility is normal. The calculated effective orifice area is 1.7 centimeters sq which is within acceptable limits although mean gradient is calculated 9 mmHg Pulmonic Valve The pulmonic valve is likely normal. Tricuspid Valve Normal tricuspid valve structure. There is mild to moderate tricuspid valve regurgitation. Normal right atrial pressure. Mild pulmonary hypertension is present. Venous The inferior vena cava is normal in size and collapses greater than 50% with inspiration. Pericardium/Pleural There is a trivial circumferential pericardial effusion. Measurements 2D Linear Measurements IVSd: 1.32 0.6-0.9/0.6-1.0 cm LVIDd: 4.95 3.9-5.3/4.2-5.9 cm LVIDd Index: 2.12 2.4-3.2/2.2-3.1 cm/m2 LVIDs: 3.84 2.0-3.6 cm LVPWd: 1.13 0.7-1.1 cm LA Diam: 3.60 2.7-3.8/3.0-4.0 cm LAIDs Index: 1.55 1.5-2.3 cm/m2 LV Mass: 295.29 67-162/88-224 g LV Mass Index: 126.74 43-95/49-115 g/m2 LVOT Diam: 2.00 3.0+(-)1.3 cm 2D Systolic Function EF 4C: 58.00 >55% EF 2C: 68.50 >55% EF BiP: 61.90 >55% Mitral Valve MV VTI: 0.74 MV Pk Popeye: 2.36 MV Mn Popeye: 1.46 MV Pk Grad: 22.00 MV Mn Grad: 9.00 MV Pk E: 1.91 MV PK A: 1.51 MV Decel Time: 451.00 E/A: 1.30 E'Lateral: 5.11 E'Medial: 5.44 E/E' Med: 35.10 E/E' Lat: 37.40 PHT: 132.00 MVA PHT: 1.67 MVA Continuity: 1.13 Decel Sherman: 4.24 Aortic Valve AoV Pk Popeye: 1.72 AoV Mn Popeye: 1.20 AoV VTI: 0.38 AoV Pk Grad: 12.00 Aov Mn Grad: 6.00 CATALINA Cont.VTI: 2.22 AI Pk Popeye: 4.31 AI Sherman: 2.51 LVOT LVOT Pk Popeye: 1.35 LVOT Mn Popeye: 0.81 LVOT VTI: 0.27 LVOT Pk Grad: 7.00 LVOT Mn Grad: 3.00 LVOT Diam: 2.00 LVOT Area: 3.14 Diastolic Function MV Pk E: 1.91 MV Pk A: 1.51 E/A: 1.30 E'Medial: 5.44 E/E' Med: 35.10 E' Laterial: 5.11 E/E' Lat: 37.40 Tricuspid Valve TR Pk Popeye: 3.09 TR Pk Grad: 38.00 RA Press: 3.00 RVSP: 41.00 Great Vessels Aorta Sinus of Valsalva: 3.14 2.0-3.[address] Ridge: 2.88 1.7-3.4 cm Ao Asc: 3.60 2.1-3.4 cm Updated in Other Vendor System with Status of Final Tanner Godoy MD electronically signed on 01/12/2023 5:21:29 PM with status of Final
== END ==
LOC: HO.CARD 08:06
PROVIDERS: PCP Nurse Practitioner Family; Visit Provider Internal Medicine
DX: Z95.3 Presence of xenogenic heart valve (principal)
CPT/HCPCS: 93306

== ENCOUNTER → 2023-01-18 13:19 | Outpatient (BNVA) | payer OTHER, SELFPAY | PROVIDERS: PCP Nurse Practitioner Family; Visit Provider Internal Medicine ==

== ENCOUNTER 2023-02-06 12:11 | Outpatient (REF) | payer OTHER, SELFPAY ==
[2023-02-06 13:23] LABS: MANUAL DIFF FLAG NO
[2023-02-06 13:53] LABS: Basophils Absolute Auto 0.1 X10*3/uL (0.0-0.2); Basophils Percent Auto 1.2 % (0-2); Eosinophils Absolute Auto 0.5 X10*3/uL (0.0-0.4); Hemoglobin 11.7 g/dl (14.0-18.0); Imm Gran Abs Auto 0.03 X10*3/uL (0.00-0.03); Imm Gran Pct Auto 0.4 % (0.0-0.4); Lymphocytes Absolute Auto 1.2 X10*3/uL (1.2-4.9); Lymphocytes Percent Auto 15.8 % (20-40); Mean Corpuscular HGB Conc 30.8 g/dl (31.0-36.0); Mean Corpuscular Hemoglobin 24.4 pg (27.0-33.0); Mean Corpuscular Volume 79.2 fL (80.0-98.0); Mean Platelet Volume 11.2 fL (9.4-12.4); Monocytes Absolute Auto 0.6 X10*3/uL (0.1-1.2); Monocytes Percent Auto 8.4 % (2-11); Neutrophils Percent Auto 67.2 % (45-73); Platelet Count 239 X10*3/uL (160-400); Red Cell Distribution Width 14.8 % (11.0-16.0); White Blood Count 7.4 X10*3/uL (4.8-10.8)
[2023-02-06 14:32] LABS: Alanine Aminotransferase 33 U/L (0-40); Albumin Level 3.9 g/dL (3.5-5.0); Alkaline Phosphatase 160 U/L (39-117); Anion Gap 11 (12-20); Aspartate Amino Transferase 27 U/L (5-37); Bilirubin Total 0.7 mg/dL (0.0-1.0); Blood Urea Nitrogen 18 mg/dL (9-16); Calcium 9.1 mg/dL (8.4-10.2); Carbon Dioxide 28 mmol/L (22-29); Chloride 109 mmol/L (96-108); Estimated Glomerular Filt Rate 56; Glucose Random 96 mg/dL (60-115); Potassium 3.7 mmol/L (3.3-5.1); Sodium 144 mmol/L (135-145); Total Protein 6.9 g/dL (6.5-8.0)
[2023-02-06 16:01] LABS: Urine Cytology See Pathology rpt
[2023-02-06 16:09] LABS: Appearance Urine Turbid; Color Urine Yellow; Glucose Urine UA Negative (Negative); Leukocyte Esterase Urine Negative (Negative); Nitrite Urine Negative (Negative); Specific Gravity - Urine 1.015 (1.005-1.025); UMIC TRIGGER UACC YES; Urine Blood Small (1+) (Negative); Urine Ketones Trace mg/dL (Negative); Urine Protein Negative (Neg-Trace)
[2023-02-06 16:15] LABS: Bacteria Urine None Seen (None Seen); RBC Urine 0-2 /HPF (0-2); Squamous Epithelial Cell Urine 0-2 /HPF (0-2); WBC Urine 0-5 /HPF (0-5)
[2023-02-06 18:17] LABS: Iron 51 mcg/dL (45-160); Percent Iron Saturation 16 % (15-50); Total Iron Binding Capacity 311 mcg/dL (228-428); Unsaturated Iron Binding 260 ug/dL
== END 2023-02-06 12:12 | disposition home or self-care (01) ==
LOC: HO.HMGCLDS 12:11
PROVIDERS: PCP Nurse Practitioner Family; Visit Provider Nurse Practitioner Family
DX: I50.9 Heart failure, unspecified (principal); J90 Pleural effusion, not elsewhere classified; R31.29 Other microscopic hematuria; D64.9 Anemia, unspecified
CPT/HCPCS: 36415; 80053; 81001; 83540; 85025; 87086; 88112

== ENCOUNTER 2023-02-09 14:16 | Outpatient (AMB) | payer OTHER, SELFPAY ==
[2023-02-09 14:36] VITALS: BP 142/70; PULSE 73; O2SAT 100; BMI 29.8
--- NOTE | 2023-02-09 14:36 | A.OFFVIS_ITS ---
Intake Vital Signs 02/09/23 14:36 Height 6 ft 3 in Weight 238 lb 1.588 oz BMI 29.8 BP 142/70 H Blood Pressure Location Lt brachial Position Sitting Pulse 73 Pulse Source Pulse Oximeter Pulse Oximetry (%) 100 Oxygen Delivery Method Room Air Intake Visit Reasons: increased wheezing tightness in chest Animal Nutritionist Required: No Allergies penicillin V Allergy (Intermediate, Verified 02/09/23 14:45) fever vancomycin [Vancomycin] Allergy (Mild, Verified 02/09/23 14:45) HIVES, FEVER Penicillins Adverse Reaction (Mild, Verified 02/09/23 14:45) FEVER Medication List - Last Reconciled 02/09/23 by Panfilo Tate MD albuterol sulfate 1.25 mg inhalation Q4H PRN aspirin 81 mg PO DAILY atorvastatin 80 mg PO BEDTIME cephalexin 2,000 mg (4 x 500 mg) PO ONCE cyclobenzaprine 10 mg PO BEDTIME 30 days losartan 100 mg PO DAILY metoprolol tartrate 50 mg PO BID 30 days montelukast 10 mg PO DAILY nebulizers As directed nitroglycerin 0 mg sublingual omeprazole 20 mg PO BID PRN ondansetron 4 mg PO Q6-8H PRN pregabalin (Lyrica) 75 mg PO BEDTIME rivaroxaban (Xarelto) 20 mg PO DAILY@1730 tamsulosin 0.4 mg PO BEDTIME PRN Do you need a note to return to daycare/school/sports/work: No HPI increased wheezing tightness in chest HPI Details SHAYNA, COMES TODAY FOR AN URGENT VISIT BECAUSE, HE HAS INCREASED CHEST PAIN IN THE RIGHT CHEST, AND PAIN WITH SOME COUGH. HE IS GETTING MORE SHORT OF BREATH BECAUSE OF THIS PAIN., HE IS ALSO FEELING MORE DEPRESSED. DENIES FEVER OR CHILLS. HE HAS NOT BEEN USING ANY INHALER ARE THE NEBULIZER SINCE HIS CARDIAC SURGERY. HE STARTED CARDIAC REHAB PROGRAM SINCE ABOUT 2 WEEKS AGO. DOING LOT OF ALL ARM EXERCISES, AND I THINK HE HAS STARTED HAVING INCREASED CHEST WALL PAIN DUE TO MUSCLE STRAIN. [facility] Medical History Allergic rhinitis Asthma Atelectasis CHF (congestive heart failure) Cholelithiasis Chronic neck pain COPD (chronic obstructive pulmonary disease) Deviated nasal septum Fatty liver Gall bladder polyp GERD (gastroesophageal reflux disease) Hypercholesterolemia Lesion of vocal cord Neck pain Pleural effusion Pneumonitis Pulmonary embolism Renal calculi Tracheobronchomegaly Tracheomalacia Vertigo Vocal cord dysfunction Surgical History History of Achilles tendon repair History of eye surgery History of hernia surgery History of knee surgery History of nasal surgery History of neck surgery History of repair of left rotator cuff History of repair of right rotator cuff S/P tracheoplasty Family History Mother No problems noted. Father No problems noted. Social History Household Members: Spouse Housing: House Do you presently have visiting nurse or other home services: Yes Alcohol intake: never Patient Tobacco Use Status: Never used Tobacco e-Cigarette/Vaping Use: Never Used Second Hand Smoke Exposure: No service: No Current occupational status: employed Cognitive needs: No Hearing needs: No Vision needs: No Review of Systems Const All systems reviewed & are unremarkable except as noted in HPI and below Eyes Reports no additional complaints ENT Reports change in voice, Reports nasal congestion (MILD OFF AND ON.) and Reports neck pain Card Reports chest pain, Denies irregular heart rhythm and Denies leg edema Resp Reports as per HPI, Denies cough and Denies wheezing GI Reports heartburn (Controlled with omeprazole) Reports no additional complaints Musc Reports neck pain, Reports numbness (Right upper extremity) and Reports radiating pain into limb (Right upper extremity) Skin/Breast Reports system reviewed and no additional complaints, except as documented Neuro Reports numbness (Right upper extremity) Psych Reports no additional complaints Endo Reports no additional complaints Carlitos/Lymph Reports no additional complaints Aller/Immun Denies wheezing Physical Exam Vital Signs: Last Vital Signs Pulse 73 02/09/23 14:36 BP 142/70 H 02/09/23 14:36 Pulse Ox 100 02/09/23 14:36 Oxygen Delivery Method Room Air 02/09/23 14:36 BMI result Body Mass Index 29.8 Last Vital Signs Temp 97 F 11/01/22 07:19 Pulse 91 11/01/22 07:19 Resp 18 11/01/22 07:19 BP 134/89 11/01/22 07:19 Pulse Ox 98 11/01/22 07:19 O2 Del Method Nasal Cannula 11/01/22 07:19 O2 Flow Rate 3 11/01/22 07:19 Oxygen Flow Rate 3 10/29/22 20:15 BMI result Body Mass Index 31.8 Const General: no acute distress, alert and awake Orientation/consciousness: patient oriented x3 HEENT Head: Yes normal to inspection General nose exam: No nasal polyps present and No nasal discharge present Face and sinus: Yes sinuses nontender Mouth: oropharynx normal Throat: Yes posterior oropharynx normal Eyes General: appearance normal, both eyes and all related structures Neck Neck: Yes normal visual inspection, Yes no lymphadenopathy, Yes trachea midline and Yes no JVD Thyroid: Thyroid normal Chest Chest palpation & inspection: normal inspection of the chest (Right thoracostomy scar is well healed. Mid sternal scar also well-healed) and tenderness (Slight tenderness over the thoracostomy scar, but not anteriorly, less than) Resp Other: Percussion note is resonant, slight dullness over both bases. There are no wheezes or rhonchi. And no significant crepitations over the basilar areas. Cardio Palpation: normal PMI Rate: regular rate Rhythm: regular rhythm Heart sounds: Gallop heart sound present and Murmur heart sound present Peripheral pulses: Peripheral pulses 2+ throughout GI Palpation (GI): Soft to palpation, Tenderness to palpation present (GI), No hepatosplenomegaly present and Palpable mass present Auscultation: normal bowel sounds Back/Spine/Pelvis Thoracic/Lumbar Spine: thoracic and lumbar spine normal to inspection Skin General skin exam: no rashes or lesions noted Neuro General: patient oriented x3 and no focal motor deficits Cranial nerves: Yes CN's II-XII intact bilaterally Extrem General: Yes normal to inspection, Yes no clubbing, cyanosis or edema and Yes no calf tenderness Psych Speech and movement: Normal speech and movement present Assessment & Plan Assessment & Plan (1) Status post mitral valve replacement with bioprosthetic valve: Comment: THIS GENTLEMAN IS STATUS POST MITRAL WELL REPLACEMENT. HE RECOVERED WELL HAS JOINED CARDIAC REHAB PROGRAM, ADVISED THAT HE SHOULD DO ONLY GENTLE EXERCISES. BECAUSE ANY EXERCISES WITH THE ALL ARMS MAY CAUSE INCREASED CHEST WALL PAIN. Code(s): Z95.3 - Presence of xenogenic heart valve (2) COPD (chronic obstructive pulmonary disease): Comment: BRONCHIAL ASTHMA AND COPD RELATIVELY STABLE. HE DOES HAVE INCREASED SHORTNESS OF BREATH AND COUGH. MAY HAVE MILD EXACERBATION. TX: WILL TREAT WITH A SHORT COURSE OF PREDNISONE. ALSO ADVISED TO RESTART USING DUONEB SOLUTION IN THE UPDRAFT UP TO 3 TIMES A DAY. Code(s): J44.9 - Chronic obstructive pulmonary disease, unspecified (3) Chest discomfort: Comment: He has ongoing chest discomfort and severe pain in the right thoracic wall, secondary to thoracostomy, probably due to intercostal Neuralgia TX; MAY TAKE TYLENOL 2 TABLETS. Q.6 HOURS P.R.N. Code(s): R07.89 - Other chest pain (4) Tracheomalacia: Comment: Status post Tracheobronchio-plasty at [facility] in [place], via right thoracostomy. And he is doing well, Breathing mccoy much better , but has right chest wall pain, which keeps him distressed and somewhat depressed. Code(s): J39.8 - Other specified diseases of upper respiratory tract (5) Allergic rhinitis: Comment: He does have intermittent nasal congestion, with some postnasal drip, But it seems to be mild. Advise that he can use Claritin 10 mg or Zyrtec 10 mg once a day p.r.n.. Code(s): J30.9 - Allergic rhinitis, unspecified Coding Level of Care Code Est Pt Level 3 (14426) Diagnoses Status post mitral valve replacement with bioprosthetic valve Z95.3 COPD (chronic obstructive pulmonary disease) J44.9 Chest discomfort R07.89 Tracheomalacia J39.8 Allergic rhinitis J30.9
== END 2023-02-09 14:57 | disposition home or self-care (01) ==
PROVIDERS: PCP Nurse Practitioner Family; Visit Provider Internal Medicine
DX: Z95.3 Presence of xenogenic heart valve (principal); J44.9 Chronic obstructive pulmonary disease, unspecified; R07.89 Other chest pain; J39.8 Other specified diseases of upper respiratory tract; J30.9 Allergic rhinitis, unspecified
CPT/HCPCS: 99213

== ENCOUNTER → 2023-02-09 14:16 | Outpatient (BNVA) | payer OTHER, SELFPAY | PROVIDERS: PCP Nurse Practitioner Family; Visit Provider Internal Medicine ==

== ENCOUNTER 2023-02-10 10:28 | Outpatient (REF) | payer OTHER, SELFPAY ==
[2023-02-10 13:20] LABS: MANUAL DIFF FLAG NO
[2023-02-10 13:36] LABS: Basophils Absolute Auto 0.1 X10*3/uL (0.0-0.2); Eosinophils Absolute Auto 0.6 X10*3/uL (0.0-0.4); Eosinophils Percent Auto 7.9 % (0-4); Hematocrit 39.9 % (42.0-52.0); Imm Gran Abs Auto 0.03 X10*3/uL (0.00-0.03); Imm Gran Pct Auto 0.4 % (0.0-0.4); Lymphocytes Absolute Auto 1.3 X10*3/uL (1.2-4.9); Lymphocytes Percent Auto 16.6 % (20-40); Mean Corpuscular HGB Conc 30.1 g/dl (31.0-36.0); Mean Corpuscular Hemoglobin 24.3 pg (27.0-33.0); Mean Corpuscular Volume 80.9 fL (80.0-98.0); Monocytes Absolute Auto 0.6 X10*3/uL (0.1-1.2); Monocytes Percent Auto 7.5 % (2-11); Neutrophils Absolute Auto 5.1 x10*3/uL (2.0-8.3); Neutrophils Percent Auto 66.6 % (45-73); Platelet Count 245 X10*3/uL (160-400); Red Blood Count 4.93 X10*6/uL (4.60-5.80); Red Cell Distribution Width 15.1 % (11.0-16.0); White Blood Count 7.7 X10*3/uL (4.8-10.8)
[2023-02-10 13:56] LABS: Alanine Aminotransferase 36 U/L (0-40); Albumin Level 3.9 g/dL (3.5-5.0); Alkaline Phosphatase 175 U/L (39-117); Anion Gap 16 (12-20); Aspartate Amino Transferase 28 U/L (5-37); Bilirubin Total 0.7 mg/dL (0.0-1.0); Blood Urea Nitrogen 18 mg/dL (9-16); Calcium 9.1 mg/dL (8.4-10.2); Carbon Dioxide 22 mmol/L (22-29); Chloride 108 mmol/L (96-108); Estimated Glomerular Filt Rate > 60; Glucose Random 115 mg/dL (60-115); Iron 45 mcg/dL (45-160); Percent Iron Saturation 14 % (15-50); Potassium 3.8 mmol/L (3.3-5.1); Sodium 142 mmol/L (135-145); Total Iron Binding Capacity 312 mcg/dL (228-428); Total Protein 7.1 g/dL (6.5-8.0); Unsaturated Iron Binding 267 ug/dL
[2023-02-10 13:59] LABS: Appearance Urine Turbid; Color Urine Yellow; Glucose Urine UA Negative (Negative); Leukocyte Esterase Urine Negative (Negative); Nitrite Urine Negative (Negative); Specific Gravity - Urine 1.015 (1.005-1.025); UMIC TRIGGER UA YES; Urine Blood Trace (Negative); Urine Ketones Negative (Negative); Urine Protein Negative (Neg-Trace)
[2023-02-10 14:20] LABS: Bacteria Urine None Seen (None Seen); Other Crystals Urine Present; RBC Urine 0-2 /HPF (0-2); Squamous Epithelial Cell Urine 0-2 /HPF (0-2); WBC Urine 0-5 /HPF (0-5)
[2023-02-10 14:25] LABS: Vitamin B12 510 pg/mL (200-900)
== END 2023-02-10 10:29 | disposition home or self-care (01) ==
LOC: HO.HMGCLDS 10:28
PROVIDERS: Internal Medicine; PCP Nurse Practitioner Family; Visit Provider Nurse Practitioner Family
DX: G89.12 Acute post-thoracotomy pain (principal); I50.33 Acute on chronic diastolic (congestive) heart failure; J90 Pleural effusion, not elsewhere classified; J18.9 Pneumonia, unspecified organism; R31.29 Other microscopic hematuria; D64.9 Anemia, unspecified; Z95.2 Presence of prosthetic heart valve
CPT/HCPCS: 36415; 80053; 81001; 82607; 82746; 83540; 85025

== ENCOUNTER 2023-03-01 14:33 | Outpatient (AMB) | payer OTHER, SELFPAY ==
--- NOTE | 2023-03-01 14:43 | MHC.OFFVIS ---
Intake Vital Signs 03/01/23 14:44 Height 6 ft 3 in Weight 244 lb BMI 30.5 BP 140/82 H Blood Pressure Location Lt brachial Position Sitting Pulse 78 Pulse Source Pulse Oximeter Pulse Oximetry (%) 98 Oxygen Delivery Method Room Air Intake Visit Reasons: Cough Intake Note: pt is here for follow up and states he has a cough that has been 2 weeks, pain in ribs is very bad, coughing is causing a burning sensation across the chest, pt cannot walk down street without sitting due to shortness of breath, pt in cardiac rehab, at [facility]. Lead Electrical Controls Engineer Required: No Allergies penicillin V Allergy (Intermediate, Verified 03/01/23 15:12) fever vancomycin [Vancomycin] Allergy (Mild, Verified 03/01/23 15:12) HIVES, FEVER Penicillins Adverse Reaction (Mild, Verified 03/01/23 15:12) FEVER Medication List - Last Reconciled 03/01/23 by Panfilo Tate MD albuterol sulfate 1.25 mg inhalation Q4H PRN albuterol sulfate 90 mcg/actuation 2 puffs inhalation Q4-6H PRN 30 days aspirin 81 mg PO DAILY atorvastatin 80 mg PO BEDTIME cephalexin 2,000 mg (4 x 500 mg) PO ONCE cyclobenzaprine 10 mg PO BEDTIME 30 days folic acid 1 mg PO DAILY losartan 100 mg PO DAILY metoprolol tartrate 50 mg PO BID 30 days montelukast 10 mg PO DAILY nebulizers As directed nitroglycerin 0 mg sublingual omeprazole 20 mg PO BID PRN ondansetron 4 mg PO Q6-8H PRN pregabalin (Lyrica) 75 mg PO BEDTIME rivaroxaban (Xarelto) 20 mg PO DAILY@1730 tamsulosin 0.4 mg PO BEDTIME PRN Do you need a note to return to daycare/school/sports/work: No HPI Cough HPI Details 62 years old gentleman is coming today for an urgent visit, because of increased chest pain cough and shortness of breath. The pain is in the right mid chest in the area of the thoracostomy scar, he is not able to take a deep breath or cough without pain. Cough which is mostly dry has also increased in frequency. His the combination of the cough and pain which is making him short of breath. He has no fever or chills. He is not able to participate in cardiac rehab program because of this increasing pain and shortness of breath. [facility] Medical History Allergic rhinitis Asthma Atelectasis CHF (congestive heart failure) Cholelithiasis Chronic neck pain COPD (chronic obstructive pulmonary disease) Deviated nasal septum Fatty liver Gall bladder polyp GERD (gastroesophageal reflux disease) Hypercholesterolemia Lesion of vocal cord Neck pain Pleural effusion Pneumonitis Pulmonary embolism Renal calculi Tracheobronchomegaly Tracheomalacia Vertigo Vocal cord dysfunction Surgical History History of Achilles tendon repair History of eye surgery History of hernia surgery History of knee surgery History of nasal surgery History of neck surgery History of repair of left rotator cuff History of repair of right rotator cuff S/P tracheoplasty Family History Mother No problems noted. Father No problems noted. Social History Household Members: Spouse Housing: House Do you presently have visiting nurse or other home services: Yes Alcohol intake: never Patient Tobacco Use Status: Never used Tobacco e-Cigarette/Vaping Use: Never Used Second Hand Smoke Exposure: No service: No Current occupational status: employed Cognitive needs: No Hearing needs: No Vision needs: No Review of Systems Const All systems reviewed & are unremarkable except as noted in HPI and below Eyes Reports no additional complaints ENT Reports change in voice, Reports nasal congestion (MILD OFF AND ON.) and Reports neck pain Card Reports chest pain, Denies irregular heart rhythm and Denies leg edema Resp Reports as per HPI, Denies cough and Denies wheezing GI Reports heartburn (Controlled with omeprazole) Reports no additional complaints Musc Reports neck pain, Reports numbness (Right upper extremity) and Reports radiating pain into limb (Right upper extremity) Skin/Breast Reports system reviewed and no additional complaints, except as documented Neuro Reports numbness (Right upper extremity) Psych Reports no additional complaints Endo Reports no additional complaints Carlitos/Lymph Reports no additional complaints Aller/Immun Denies wheezing Physical Exam Vital Signs: Last Vital Signs Pulse 78 03/01/23 14:44 BP 140/82 H 03/01/23 14:44 Pulse Ox 98 03/01/23 14:44 Oxygen Delivery Method Room Air 03/01/23 14:44 BMI result Body Mass Index 30.5 Last Vital Signs Temp 97 F 11/01/22 07:19 Pulse 91 11/01/22 07:19 Resp 18 11/01/22 07:19 BP 134/89 11/01/22 07:19 Pulse Ox 98 11/01/22 07:19 O2 Del Method Nasal Cannula 11/01/22 07:19 O2 Flow Rate 3 11/01/22 07:19 Oxygen Flow Rate 3 10/29/22 20:15 BMI result Body Mass Index 31.8 Const General: no acute distress, alert and awake Orientation/consciousness: patient oriented x3 HEENT Head: Yes normal to inspection General nose exam: No nasal polyps present and No nasal discharge present Face and sinus: Yes sinuses nontender Mouth: oropharynx normal Throat: Yes posterior oropharynx normal Eyes General: appearance normal, both eyes and all related structures Neck Neck: Yes normal visual inspection, Yes no lymphadenopathy, Yes trachea midline and Yes no JVD Thyroid: Thyroid normal Chest Chest palpation & inspection: normal inspection of the chest (Right thoracostomy scar is well healed. Mid sternal scar also well-healed) and tenderness ( marked sensitivity and tenderness over the thoracostomy scar) Resp Other: Percussion note is resonant, slight dullness over both bases. There are no wheezes or rhonchi. he is just not able to take deep breaths because of pain. Cardio Palpation: normal PMI Rate: regular rate Rhythm: regular rhythm Heart sounds: Gallop heart sound present and Murmur heart sound present Peripheral pulses: Peripheral pulses 2+ throughout GI Palpation (GI): Soft to palpation, Tenderness to palpation present (GI), No hepatosplenomegaly present and Palpable mass present Auscultation: normal bowel sounds Back/Spine/Pelvis Thoracic/Lumbar Spine: thoracic and lumbar spine normal to inspection Skin General skin exam: no rashes or lesions noted Neuro General: patient oriented x3 and no focal motor deficits Cranial nerves: Yes CN's II-XII intact bilaterally Extrem General: Yes normal to inspection, Yes no clubbing, cyanosis or edema and Yes no calf tenderness Psych Speech and movement: Normal speech and movement present Assessment & Plan Assessment & Plan (1) Status post mitral valve replacement with bioprosthetic valve: Comment: THIS GENTLEMAN IS STATUS POST MITRAL VALVE REPLACEMENT. HE RECOVERED WELL. HAS JOINED CARDIAC REHAB PROGRAM, BUT NOT ABLE TO DO MUCH EXERCISE DUE TO INCREASING PAIN IN THE RIGHT CHEST. ADVISED THAT HE SHOULD DO ONLY GENTLE EXERCISES. BECAUSE ANY EXERCISES WITH THE ARMS MAY CAUSE INCREASED CHEST WALL PAIN. Code(s): Z95.3 - Presence of xenogenic heart valve (2) COPD (chronic obstructive pulmonary disease): Comment: BRONCHIAL ASTHMA AND COPD RELATIVELY STABLE. HE DOES HAVE INCREASED SHORTNESS OF BREATH AND COUGH. MAY HAVE MILD EXACERBATION. TX: USE DUONEB SOLUTION IN THE UPDRAFT UP TO 3 TIMES A DAY. Code(s): J44.9 - Chronic obstructive pulmonary disease, unspecified (3) Chest discomfort: Comment: CHEST PAIN OVER THE RIGHT THORACOSTOMY SCAR IS INCREASING, GETS WORSE WITH THE EACH TIME HE COUGHS, AND HE IS GETTING MORE SHORT OF BREATH. I THINK THE PAIN IS NEUROPATHIC IN NATURE. TX; MAY TAKE ES.TYLENOL 2 TABLETS. Q.6 HOURS P.R.N. RESTART GABAPENTIN 300 MG T.I.D., Code(s): R07.89 - Other chest pain (4) Tracheomalacia: Comment: Status post [id number] at [facility] in [place], via right thoracostomy. And he is doing well, Breathing mccoy much better , but has right chest wall pain, which keeps him distressed and somewhat depressed. Advised to make appointment with the thoracic surgery at [facility], but he does not want to go there. he wants to see Dr. Cotto , the local thoracic surgeon, for follow-up. Code(s): J39.8 - Other specified diseases of upper respiratory tract (5) Cough: Comment: Cough is getting worse and worse, which a in turn aggravates his chest wall pain. TX : Use Benzonatate Perls t.i.d., which he does have at home. may also use guaifenesin with codeine syrup 2 tsp at night and 1 tsp Q 6 hours p.r.n. during the daytime. Code(s): R05.9 - Cough, unspecified Medications: New benzonatate 200 mg PO TID PRN 90 caps 3RF cough gabapentin 300 mg PO TID 90 caps 3RF CHEST WALL PAIN 30 days Coding Level of Care Code Est Pt Level 3 (94172) Diagnoses Status post mitral valve replacement with bioprosthetic valve Z95.3 COPD (chronic obstructive pulmonary disease) J44.9 Chest discomfort R07.89 Tracheomalacia J39.8 Cough R05.9
[2023-03-01 14:44] VITALS: BP 140/82; PULSE 78; O2SAT 98; BMI 30.5
== END 2023-03-01 15:13 | disposition home or self-care (01) ==
PROVIDERS: PCP Nurse Practitioner Family; Visit Provider Internal Medicine
DX: Z95.3 Presence of xenogenic heart valve (principal); J44.9 Chronic obstructive pulmonary disease, unspecified; R07.89 Other chest pain; J39.8 Other specified diseases of upper respiratory tract; R05.9 Cough, unspecified
CPT/HCPCS: 99213

== ENCOUNTER → 2023-03-01 14:33 | Outpatient (BNVA) | payer OTHER, SELFPAY | PROVIDERS: PCP Nurse Practitioner Family; Visit Provider Internal Medicine ==

== ENCOUNTER 2023-03-03 09:36 | Outpatient (AMB) | payer OTHER, SELFPAY ==
--- NOTE | 2023-03-03 09:42 | HO.SPINEOV ---
Intake Intake Visit Reasons: cervical disc disorder Intake Note: Mr. Karimi is here today c/o neck pain. MRI done @ [facility]/brought disc. Allergies penicillin V Allergy (Intermediate, Verified 03/01/23 15:12) fever vancomycin [Vancomycin] Allergy (Mild, Verified 03/01/23 15:12) HIVES, FEVER Penicillins Adverse Reaction (Mild, Verified 03/01/23 15:12) FEVER Assessment & Plan Assessment & Plan (1) Brachial plexus injury: Code(s): S14.3XXA - Injury of brachial plexus, initial encounter Plan Dear Daniel Thank you for referring Mr. Karimi to our office today. This is a very nice 62-year-old gentleman with a very complicated cardiopulmonary history, who has a history of previous ACDF C5-6, C6-7. Those were done at [facility] with Dr. Kumar and Dr. Saldivar. The reason the patient comes in today, is that he had a cardiac arrest and an extensive ICU stay earlier this year secondary to heart failure and what sounds like pulmonary edema secondary to a valve issue. During the process of his cardiac arrest, a central line was placed any noticed after that there was significant numbness of his right hand as well as weakness of his right arm and hand. It seems to be getting slightly better but just not going away. He came in today for evaluation of his neck with cervical MRI done at [facility]. He does have neck pain and limited range of motion. He does not report any symptoms going down the left arm. He was seen at [facility] for an apparently an EMG done there showed nerve damage to his brachial plexus on the right side. I do not have the official report but rather with the patient tells me he was told. He was prescribed Lyrica and that does seem to have helped some. PMH: For complicated cardiopulmonary history, please see his medical history in the chart, but he had CHF, pulmonary edema, history of previous pulmonary embolus, he is on lifelong anticoagulation for that. He had a valve replaced at [facility] with Dr. Bettencourt. He still continues to be short of breath despite all the surgery. History of elevated liver enzymes, vocal cord dysfunction, tracheomalacia, laryngitis, GERD, anxiety, hypertension Social hx: He denies any history of alcohol abuse, he never smoked Medications: Omeprazole, nitroglycerin, Singulair, metoprolol, Lyrica, Flomax, atorvastatin, cyclobenzaprine, folic acid Allergies: Penicillin vancomycin Physical exam: Awake alert oriented, no acute distress, gait is normal, he has diffuse weakness in his right arm. I was unable to test the deltoid because of pain in his ribs related to his surgery but he has about a 4-5 strength throughout the right arm with atrophy the biceps and triceps. Left upper extremity is normal. He is diffusely hyperreflexic. Imaging review: He has a cervical MRI done at [facility] in December of 2022 showing evidence of fusion at the C5-6 and C6-7 areas. There is some residual T2 cord signal change consistent with myelomalacia without any evidence of persistent spinal cord compression. This is usually seen as a result of previous compression and given that it had his surgical site is suspect this is the at the all eg. There are varying degrees of mild foraminal stenosis at other levels. Impression: 62-year-old gentleman, has had an extensive cardiopulmonary history earlier this year, history of previous ACDF C5-6, C6-7 who sustained some kind of brachial plexus trauma during his ICU stay and is cardiac resuscitation. There is also some correlation with the central line placement that they were attempting any seems to think that was the time when it all started. There was apparently an EMG done at [employer] [facility] [employer] which showing evidence of nerve damage. It is recovering but it is slow. His MRI is very reassuring. There is evidence of previous compression of the spinal cord, but the above-mentioned surgeries adequately decompressed everything so there is nothing further for us to do surgically. I reassured him that the nerve can take up to a year to heal and that he should stay off the mystic can continue to work with therapy on the right arm. We would be glad to see him back if something changes. Thank you for allowing us to care for your patient. The total time spent with this visit with this patient was 45 minutes reviewing history, physical exam, cervical spine imaging review, and implementation of treatment plan or further diagnostic testing Cecilio Turner MD,PhD [facility] Coding Level of Care Code New Pt Level 4 (41259) Diagnoses Brachial plexus injury S14.3XXA
== END 2023-03-03 11:10 | disposition home or self-care (01) ==
PROVIDERS: PCP Nurse Practitioner Family; Referring Provider Internal Medicine; Visit Provider Physician Assistant
DX: S14.3XXA Injury of brachial plexus, initial encounter (principal)
CPT/HCPCS: 99204

== ENCOUNTER → 2023-03-03 09:36 | Outpatient (BNVA) | payer OTHER, SELFPAY | PROVIDERS: PCP Nurse Practitioner Family; Visit Provider Physician Assistant ==

== ENCOUNTER 2023-03-06 12:32 | Outpatient (AMB) | payer OTHER, SELFPAY ==
[2023-03-06 12:36] VITALS: BP 156/80; BMI 30.5
--- NOTE | 2023-03-06 12:36 | MHC.OFFVIS ---
Intake Vital Signs 03/06/23 12:36 Height 6 ft 3 in Weight 244 lb BMI 30.5 BP 156/80 H Intake Visit Reasons: having problems with cough and SOB Allergies penicillin V Allergy (Intermediate, Verified 03/06/23 12:37) fever vancomycin [Vancomycin] Allergy (Mild, Verified 03/06/23 12:37) HIVES, FEVER Medication List - Last Reconciled 03/06/23 by Chato Be RN albuterol sulfate 1.25 mg inhalation Q4H PRN albuterol sulfate 90 mcg/actuation 2 puffs inhalation Q4-6H PRN 30 days aspirin 81 mg PO DAILY atorvastatin 80 mg PO BEDTIME benzonatate 200 mg PO TID PRN cyclobenzaprine 10 mg PO BEDTIME 30 days folic acid 1 mg PO DAILY gabapentin 300 mg PO TID 30 days losartan 100 mg PO DAILY metoprolol tartrate 50 mg PO BID 30 days montelukast 10 mg PO DAILY nebulizers As directed nitroglycerin 0 mg sublingual omeprazole 20 mg PO BID PRN ondansetron 4 mg PO Q6-8H PRN pregabalin (Lyrica) 75 mg PO BEDTIME rivaroxaban (Xarelto) 20 mg PO DAILY@1730 tamsulosin 0.4 mg PO BEDTIME PRN HPI HPI Comments History of Present Illness Details Patient presents complaining of chest pain, shortness of breath, and feeling unwell. Patient is well-known to me. He has approximately 4 weeks status post aortic valve replacement form in [place]. He states during his prior hospitalization, he apparently had cardiopulmonary arrest and required CPR and sustained fractured ribs. Patient is also status post repair of tracheomalacia surgery performed in [place] several months ago. [facility] Medical History Allergic rhinitis Asthma Atelectasis CHF (congestive heart failure) Cholelithiasis Chronic neck pain COPD (chronic obstructive pulmonary disease) Deviated nasal septum Fatty liver Gall bladder polyp GERD (gastroesophageal reflux disease) Hypercholesterolemia Lesion of vocal cord Neck pain Pleural effusion Pneumonitis Pulmonary embolism Renal calculi Tracheobronchomegaly Tracheomalacia Vertigo Vocal cord dysfunction Surgical History History of Achilles tendon repair History of eye surgery History of hernia surgery History of knee surgery History of nasal surgery History of neck surgery History of repair of left rotator cuff History of repair of right rotator cuff S/P tracheoplasty Family History Mother No problems noted. Father No problems noted. Social History Household Members: Spouse Housing: House Do you presently have visiting nurse or other home services: Yes Alcohol intake: never Patient Tobacco Use Status: Never used Tobacco e-Cigarette/Vaping Use: Never Used Second Hand Smoke Exposure: No service: No Current occupational status: employed Cognitive needs: No Hearing needs: No Vision needs: No Physical Exam Vital Signs: Last Vital Signs BP 156/80 H 03/06/23 12:36 BMI result Body Mass Index 30.5 Const Other: Patient in obvious distress secondary to chest discomfort. He has also appears dyspneic. O2 saturation is 99%. Chest Other: Breath sounds bilaterally. Right thoracotomy scar well healed. Fresh sternotomy scar healing uneventfully. GI Other: Abdomen soft moderately corpulent, benign. Assessment & Plan Assessment & Plan (1) Acute dyspnea: Code(s): R06.00 - Dyspnea, unspecified Plan Because of the marked distress and pain in which the patient is currently , he is being transferred directly by wheelchair to our ER for further workup. Patient has a history of DVT/PE as well and is currently on Xarelto. Precise etiology of the patient's symptoms are unclear. Does of pneumothorax, pleural effusion, pulmonary embolism, or perhaps related to his recent cardiac surgery. Further workup will be directed by the emergency department . His derrick engineer and surface plate inspector are from [place]. His cardiac surgery in is Dr. Bettencourt in [place] and his tracheal surgeon is from [facility] in [place]. Coding Level of Care Code Est Pt Level 4 (63471) Diagnoses Acute dyspnea R06.00
== END 2023-03-06 12:53 | disposition home or self-care (01) ==
PROVIDERS: PCP Nurse Practitioner Family; Visit Provider Surgery
DX: R06.00 Dyspnea, unspecified (principal)
CPT/HCPCS: 99214

== ENCOUNTER → 2023-03-06 12:32 | Outpatient (BNVA) | payer OTHER, SELFPAY | PROVIDERS: PCP Nurse Practitioner Family; Visit Provider Surgery ==

== ENCOUNTER 2023-03-06 12:54 | Emergency (ER) | payer OTHER, SELFPAY ==
--- NOTE | ~2023-03-06 | CT_ITS ---
EXAMINATION: CT ANGIOGRAM OF THE CHEST WITH AND WITHOUT CONTRAST (CT PULMONARY ANGIOGRAM FOR PE) CLINICAL INFORMATION: Reason for Exam sob with hx of PE COMPARISON: Previous chest x-ray most recent October 2022 and chest CTA recent October 2022 TECHNIQUE: Prior to contrast administration, noncontrast localization images were obtained. Subsequently, multidetector volumetric imaging was performed from the thoracic inlet to below the diaphragms following the administration of 65 mL Omnipaque 350 intravenous contrast. No contrast reaction reported Sagittal, coronal, and MIP oblique sagittal reformatted images were obtained on the CT workstation, uploaded to PACS, and reviewed. This CT examination was performed using dose optimization techniques as appropriate, variously including the following: *Automated exposure control *Adjustment of mA and/or kV according to patient size (this includes techniques or standardized protocols for targeted exams where dose is matched to indication/reason for exam; i.e. extremities or head) *Use of iterative reconstruction technique Total exam dose-length product 398 mGy-cm FINDINGS: QUALITY OF STUDY/CONTRAST BOLUS: Satisfactory. PULMONARY ARTERIES: No pulmonary emboli. THORACIC AORTA: No aneurysm. LUNG: No focal consolidation, nodules or masses. PLEURA: Small bilateral pleural effusions. No pneumothorax. MEDIASTINUM: Upper normal heart size. New evidence of mitral valve surgery. No pericardial effusion. Small hilar or mediastinal lymphadenopathy. No evidence of septal bowing or right heart strain. CORONARY ARTERY CALCIFICATION: None visualized on this study. CHEST WALL/AXILLA: No axillary or internal mammary lymphadenopathy. OSSEOUS STRUCTURES: No suspicious osseous abnormality. Ununited median sternotomy. This is new in the interval from October 2022. Healing fractures versus postsurgical changes to the right lateral ribs. Postsurgical changes to the lower cervical spine. UPPER ABDOMEN: Unremarkable. No reflux of contrast into the hepatic veins to suggest elevated right heart pressures. CT/CT angio chest PE protocol IMPRESSION: No evidence of pulmonary embolism. Small bilateral pleural effusions. VTE: negative
--- NOTE | 2023-03-06 12:57 | ECG_ITS ---
Test Reason : chest pain Blood Pressure : / mmHG Vent. Rate : 078 BPM Atrial Rate : 078 BPM P-R Int : 158 ms QRS Dur : 078 ms QT Int : 416 ms P-R-T Axes : 058 -07 029 degrees QTc Int : 474 ms Normal sinus rhythm Normal ECG When compared with ECG of 29-OCT-2022 20:08, No significant change was found Referred By: Generic ED Physician Electronically Signed By:CHELLE RIOS
[2023-03-06 13:16] VITALS: BP 174/91; PULSE 72; RESP 40; TEMP 36.7; O2SAT 100; BMI 30.5
--- NOTE | 2023-03-06 13:17 | ED.GENADULT ---
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 Bettencourt thoracic surgeon and had nerve blocks in the past and is on morphine tablet Related Data Home Medications Medication Instructions Recorded Confirmed albuterol sulfate 1.25 mg/3 mL 1.25 mg inhalation Q4H PRN 10/12/22 03/06/23 solution for nebulization Shortness Of Breath nitroglycerin 0.4 mg sublingual 0 mg sublingual 12/05/22 03/06/23 tablet omeprazole 20 mg capsule,delayed 20 mg PO BID PRN 12/05/22 03/06/23 release tamsulosin 0.4 mg capsule 0.4 mg PO BEDTIME PRN 12/05/22 03/06/23 ondansetron 4 mg disintegrating 4 mg PO Q6-8H PRN 12/15/22 03/06/23 tablet pregabalin 75 mg capsule (Lyrica) 75 mg PO BEDTIME 01/18/23 03/06/23 nebulizers 02/09/23 03/06/23 Previous Rx's Medication Instructions Recorded rivaroxaban 20 mg tablet (Xarelto) 20 mg PO DAILY@1730 #30 tabs 10/16/22 atorvastatin 80 mg tablet 80 mg PO BEDTIME #90 tabs 12/14/22 metoprolol tartrate 50 mg tablet 50 mg PO BID 30 days #60 tabs 12/14/22 montelukast 10 mg tablet 10 mg PO DAILY #30 tabs 01/18/23 aspirin 81 mg tablet,delayed 81 mg PO DAILY #90 tabs 01/19/23 release losartan 100 mg tablet 100 mg PO DAILY for blood pressure 01/19/23 #90 tabs cyclobenzaprine 10 mg tablet 10 mg PO BEDTIME 30 days #30 tabs 01/24/23 albuterol sulfate 90 mcg/actuation 2 puff inhalation Q4-6H PRN 02/10/23 aerosol inhaler shortness of breath or wheezing 30 days #1 ea folic acid 1 mg tablet 1 mg PO DAILY #90 tabs 02/14/23 benzonatate 200 mg capsule 200 mg PO TID PRN cough #90 caps 03/01/23 gabapentin 300 mg capsule 300 mg PO TID CHEST WALL PAIN 30 03/01/23 days #90 caps oxycodone 5 mg tablet 5 mg PO Q6H PRN pain #20 tabs 03/06/23 Allergies Allergy/AdvReac Type Severity Reaction Status Date / Time penicillin V Allergy Intermediate fever Verified 03/06/23 12:37 vancomycin [Vancomycin] Allergy Mild HIVES, Verified 03/06/23 12:37 FEVER Review of Systems Review of Systems: Yes all other systems are reviewed and are negative [facility] Past Medical History Medical History Allergic rhinitis Asthma Atelectasis CHF (congestive heart failure) Cholelithiasis Chronic neck pain COPD (chronic obstructive pulmonary disease) Deviated nasal septum Fatty liver Gall bladder polyp GERD (gastroesophageal reflux disease) Hypercholesterolemia Lesion of vocal cord Neck pain Pleural effusion Pneumonitis Pulmonary embolism Renal calculi Tracheobronchomegaly Tracheomalacia Vertigo Vocal cord dysfunction Surgical History History of Achilles tendon repair History of eye surgery History of hernia surgery History of knee surgery History of nasal surgery History of neck surgery History of repair of left rotator cuff History of repair of right rotator cuff S/P tracheoplasty Family History Family History Mother No problems noted. Father No problems noted. Social History Social History Household Members: Spouse Housing: House Do you presently have visiting nurse or other home services: Yes Alcohol intake: never Patient Tobacco Use Status: Never used Tobacco e-Cigarette/Vaping Use: Never Used Second Hand Smoke Exposure: No Advance Directives: No Advance Directives Information Provided: No service: No Current occupational status: employed Cognitive needs: No Hearing needs: No Vision needs: No Physical Exam ED Vital Signs: Vital Signs - 24 hr 03/06/23 13:16 03/06/23 13:35 03/06/23 13:39 Temperature 98.1 F 98 F Pulse Rate 72 81 Respiratory Rate 40 H 17 Blood Pressure 174/91 H 191/109 H Pulse Oximetry 100 100 Oxygen Delivery Method Room Air Room Air 03/06/23 15:34 Temperature 97.9 F Pulse Rate 73 Respiratory Rate 19 Blood Pressure 166/99 H Pulse Oximetry 98 Oxygen Delivery Method Room Air BMI result Body Mass Index 30.5 Appearance: Alert. Oriented X3. Moderate distress. Anxious hyperventilating Eyes: PERRLA, No Nystagmus ENT: Pharynx normal. Oral Mucosa moist Neck: Normal inspection. Neck supple. CVS: Normal heart rate and rhythm. Pulses normal. Respiratory: No respiratory distress. Equal air entry bilateral, no wheezing/rales/rhonchi tender to touch right chest wall Abdomen: Soft and nontender. Bowel sounds are present, no mass palpable, no CVA tenderness Skin: Skin warm and dry. Normal skin color. Normal skin turgor. Extremities: No lower extremity edema. No calf tenderness Neuro: Oriented X 3. No motor deficit. Course Course Course Narrative: This is an RME: Additional HPI, ROS, PE not included below will be deferred to primary provider. This is a 62-year-old male, with a past medical history of asthma, CHF, COPD, GERD, hypercholesterolemia, pulmonary embolism on Xarelto, presenting to the emergency department with complaints of chest pain, shortness of breath. Patient had lung surgery at [facility] in August, and then was seen at [facility] where he ultimately coded. He states that he has multiple rib fractures due to CPR in October. Ongoing chest pain. Respiratory rate is 40 in triage. Patient unable to speak in full sentences given respiratory distress. Immediately brought back to the main emergency department for evaluation. Informed medical providers in the main ED about patient's condition. Medications Administered Discontinued Medications Generic Name Dose Route Start Last Admin Trade Name Freq PRN Reason Stop Dose Admin Iohexol 100 ml 03/06/23 14:49 03/06/23 14:49 Iohexol 350 Mg/Ml 100 Ml Infus..Btl IV 03/06/23 14:50 65 ml ONCE ONE Administration Lorazepam 1 mg 03/06/23 13:38 03/06/23 14:13 Lorazepam 2 Mg/Ml Vial IVPUSH 03/06/23 13:39 1 mg ONCE ONE Administration Morphine Sulfate 4 mg 03/06/23 13:38 03/06/23 14:13 Morphine Sulfate 4 Mg/Ml Cartridge IVPUSH 03/06/23 13:39 4 mg ONCE ONE Administration Protocol Ondansetron HCl 4 mg 03/06/23 13:42 03/06/23 14:13 Ondansetron Hcl 4 Mg/2 Ml Vial IVPUSH 03/06/23 13:43 4 mg ONCE ONE Administration Medical Decision Making Medical Decision Making [facility] Narrative: Patient with chronic right-sided rib pain post thoracotomy had previous nerve block and now have recurrence of the pain workup is negative CTA chest negative for PE or any lung pathology will discharge patient home advised to follow with pain clinic Differential Diagnosis Differential Diagnoses: The differential diagnosis associated with the presentation includes Pulmonary embolism/pleurisy/musculoskeletal pain/coronary disease/anxiety Admission/Observation Consideration of admission/observation: Escalation of care including admission/observation considered Lab Data [facility] Lab Attestation statement: I reviewed the patient's lab results. 03/06/23 14:09 03/06/23 14:09 Labs: Lab Results 03/06/23 03/06/23 03/06/23 Range/Units 14:09 14:09 14:09 WBC 7.1 (4.8-10.8) X10*3/uL RBC 5.40 (4.60-5.80) X10*6/uL Hgb 13.5 L (14.0-18.0) g/dl Hct 41.2 L (42.0-52.0) % MCV 76.3 L (80.0-98.0) fL MCH 25.0 L (27.0-33.0) pg MCHC 32.8 (31.0-36.0) g/dl RDW 15.7 (11.0-16.0) % Plt Count 251 (160-400) X10*3/uL MPV 10.2 (9.4-12.4) fL Immature Gran % (Auto) 0.4 (0.0-0.4) % Neut % (Auto) 60.4 (45-73) % Lymph % (Auto) 21.9 (20-40) % Sheridan % (Auto) 11.4 H (2-11) % Eos % (Auto) 4.9 H (0-4) % Baso % (Auto) 1.0 (0-2) % Lymph # (Auto) 1.6 (1.2-4.9) X10*3/uL [place] # (Auto) 0.8 (0.1-1.2) X10*3/uL Eos # (Auto) 0.4 (0.0-0.4) X10*3/uL Baso # (Auto) 0.1 (0.0-0.2) X10*3/uL Abs Immat Gran (auto) 0.03 (0.00-0.03) X10*3/uL Absolute Neuts (auto) 4.3 (2.0-8.3) x10*3/uL Absolute Nucleated RBC 0.000 (0.0-0.012) X10*3/uL Nucleated RBC % (auto) 0.0 (0.0-0.2) /100WBC PT 14.8 H (11.1-13.3) SEC INR 1.2 H (0.9-1.1) APTT 35.5 (26.0-36.4) SEC VBG pH (7.32-7.43) VBG pCO2 mmHg VBG pO2 mmHg VBG HCO3 (22-26) mmol/L VBG O2 Saturation % VBG Base Excess mmol/L Sodium 145 (135-145) mmol/L Potassium 3.6 (3.3-5.1) mmol/L Chloride 111 H (96-108) mmol/L Carbon Dioxide 25 (22-29) mmol/L Anion Gap 13 (12-20) BUN 20 H (9-16) mg/dL Creatinine 1.46 H (0.5-1.4) mg/dL Estim Creat Clear Calc 68.6 Estimated GFR 49 Random Glucose 76 (60-115) mg/dL Calcium 10.0 D (8.4-10.2) mg/dL Total Bilirubin 0.9 (0.0-1.0) mg/dL Direct Bilirubin 0.3 (0.0-0.5) mg/dL AST 28 (5-37) U/L ALT 39 (0-40) U/L Alkaline Phosphatase 170 H (39-117) U/L Troponin I High Sens (<3.5-35.0) ng/L B-Natriuretic Peptide (<100) pg/mL Total Protein 7.5 (6.5-8.0) g/dL Albumin 4.2 (3.5-5.0) g/dL 03/06/23 03/06/23 03/06/23 Range/Units 14:09 14:09 14:13 WBC (4.8-10.8) X10*3/uL RBC (4.60-5.80) X10*6/uL Hgb (14.0-18.0) g/dl Hct (42.0-52.0) % MCV (80.0-98.0) fL MCH (27.0-33.0) pg MCHC (31.0-36.0) g/dl RDW (11.0-16.0) % Plt Count (160-400) X10*3/uL MPV (9.4-12.4) fL Immature Gran % (Auto) (0.0-0.4) % Neut % (Auto) (45-73) % Lymph % (Auto) (20-40) % Sheridan % (Auto) (2-11) % Eos % (Auto) (0-4) % Baso % (Auto) (0-2) % Lymph # (Auto) (1.2-4.9) X10*3/uL [place] # (Auto) (0.1-1.2) X10*3/uL Eos # (Auto) (0.0-0.4) X10*3/uL Baso # (Auto) (0.0-0.2) X10*3/uL Abs Immat Gran (auto) (0.00-0.03) X10*3/uL Absolute Neuts (auto) (2.0-8.3) x10*3/uL Absolute Nucleated RBC (0.0-0.012) X10*3/uL Nucleated RBC % (auto) (0.0-0.2) /100WBC PT (11.1-13.3) SEC INR (0.9-1.1) APTT (26.0-36.4) SEC VBG pH 7.54 H (7.32-7.43) VBG pCO2 29 mmHg VBG pO2 36 mmHg VBG HCO3 25 (22-26) mmol/L VBG O2 Saturation 61.0 % VBG Base Excess 3.5 mmol/L Sodium (135-145) mmol/L Potassium (3.3-5.1) mmol/L Chloride (96-108) mmol/L Carbon Dioxide (22-29) mmol/L Anion Gap (12-20) BUN (9-16) mg/dL Creatinine (0.5-1.4) mg/dL Estim Creat Clear Calc Estimated GFR Random Glucose (60-115) mg/dL Calcium (8.4-10.2) mg/dL Total Bilirubin (0.0-1.0) mg/dL Direct Bilirubin (0.0-0.5) mg/dL AST (5-37) U/L ALT (0-40) U/L Alkaline Phosphatase (39-117) U/L Troponin I High Sens 8.3 D (<3.5-35.0) ng/L B-Natriuretic Peptide 203 H (<100) pg/mL Total Protein (6.5-8.0) g/dL Albumin (3.5-5.0) g/dL Independent Interpretation I performed an independent interpretation of an: EKG Interpretation: Normal sinus rhythm heart rate 78 beats per minute normal interval normal axis no acute ST T wave changes no acute ischemia Radiology Impression Discussion of test interpretation with radiology: I have reviewed the radiologist's reading. Radiologist Impression: CT/CT angio chest PE protocol IMPRESSION: No evidence of pulmonary embolism. Small bilateral pleural effusions. Discharge Plan Discharge Clinical Impression: Chest wall pain, chronic, Generalized anxiety disorder Patient Disposition: Home, Self-Care Instructions: Anxiety (ED), Chest Wall Pain (ED) Additional Instructions: Follow-up with pain clinic for possible intercostal nerve block for chronic rib pain Take pain medication as prescribed Prescriptions: New oxycodone 5 mg tablet 5 mg PO Q6H PRN (Reason: pain) Qty: 20 0RF Rx Instructions: Partial Fill upon patient request. No Action atorvastatin 80 mg tablet 80 mg PO BEDTIME Qty: 90 0RF metoprolol tartrate 50 mg tablet 50 mg PO BID 30 Days Qty: 60 3RF losartan 100 mg tablet 100 mg PO DAILY Qty: 90 1RF aspirin 81 mg tablet,delayed release (DR/EC) 81 mg PO DAILY Qty: 90 1RF cyclobenzaprine 10 mg tablet 10 mg PO BEDTIME 30 Days Qty: 30 0RF albuterol sulfate 90 mcg/actuation HFA aerosol inhaler 2 puff inhalation Q4-6H PRN (Reason: shortness of breath or wheezing) 30 Days Qty: 1 6RF folic acid 1 mg tablet 1 mg PO DAILY Qty: 90 1RF tamsulosin 0.4 mg capsule 0.4 mg PO BEDTIME PRN albuterol sulfate 1.25 mg/3 mL solution for nebulization 1.25 mg inhalation Q4H PRN (Reason: Shortness Of Breath) Xarelto 20 mg Tablet 20 mg PO DAILY@1730 Qty: 30 2RF Hold Instructions: Resume on 11/03/22. pregabalin [Lyrica] 75 mg capsule 75 mg PO BEDTIME montelukast 10 mg tablet 10 mg PO DAILY Qty: 30 1RF nitroglycerin 0.4 mg tablet, sublingual 0 mg sublingual omeprazole 20 mg capsule,delayed release(DR/EC) 20 mg PO BID PRN (DME) nebulizers Misc See Rx Instructions .Route Rx Instructions: As directed benzonatate 200 mg capsule 200 mg PO TID PRN (Reason: cough) Qty: 90 3RF gabapentin 300 mg capsule 300 mg PO TID 30 Days Qty: 90 3RF ondansetron 4 mg tablet,disintegrating 4 mg PO Q6-8H PRN Referrals: David Hebert MD [Physician] - 1 week
[2023-03-06 13:35] VITALS: PULSE 81; RESP 17; TEMP 36.6; O2SAT 100
[2023-03-06 13:39] VITALS: BP 191/109
[2023-03-06 14:13] LABS: MANUAL DIFF FLAG NO
[2023-03-06] MEDS: Morphine Sulfate 4 MG/ML CARTRIDGE IVPUSH (14:13)
[2023-03-06] MEDS: LORazepam 2 MG/ML VIAL 1 MG IVPUSH (14:13)
[2023-03-06] MEDS: ondansetron HCL 4 MG/2 ML VIAL IVPUSH (14:13)
[2023-03-06 14:14] LABS: Venous Blood Gas Refer to POC result
[2023-03-06 14:17] LABS: VBG Base Excess 3.5 mmol/L; VBG HCO3 25 mmol/L (22-26); VBG pCO2 29 mmHg; VBG pH 7.54 (7.32-7.43); VBG pO2 36 mmHg
[2023-03-06 14:20] LABS: Basophils Absolute Auto 0.1 X10*3/uL (0.0-0.2); Eosinophils Absolute Auto 0.4 X10*3/uL (0.0-0.4); Eosinophils Percent Auto 4.9 % (0-4); Hematocrit 41.2 % (42.0-52.0); Hemoglobin 13.5 g/dl (14.0-18.0); INTERNATIONAL NORM RATIO 1.2 (0.9-1.1); Imm Gran Abs Auto 0.03 X10*3/uL (0.00-0.03); Imm Gran Pct Auto 0.4 % (0.0-0.4); Lymphocytes Absolute Auto 1.6 X10*3/uL (1.2-4.9); Lymphocytes Percent Auto 21.9 % (20-40); Mean Corpuscular HGB Conc 32.8 g/dl (31.0-36.0); Mean Corpuscular Volume 76.3 fL (80.0-98.0); Mean Platelet Volume 10.2 fL (9.4-12.4); Monocytes Absolute Auto 0.8 X10*3/uL (0.1-1.2); Monocytes Percent Auto 11.4 % (2-11); Neutrophils Absolute Auto 4.3 x10*3/uL (2.0-8.3); Neutrophils Percent Auto 60.4 % (45-73); Platelet Count 251 X10*3/uL (160-400); Prothrombin Time 14.8 SEC (11.1-13.3); Red Cell Distribution Width 15.7 % (11.0-16.0); White Blood Count 7.1 X10*3/uL (4.8-10.8)
[2023-03-06 14:23] LABS: Partial Thromboplastin Time 35.5 SEC (26.0-36.4)
[2023-03-06 14:29] LABS: Alanine Aminotransferase 39 U/L (0-40); Albumin Level 4.2 g/dL (3.5-5.0); Alkaline Phosphatase 170 U/L (39-117); Anion Gap 13 (12-20); Aspartate Amino Transferase 28 U/L (5-37); Bilirubin Direct 0.3 mg/dL (0.0-0.5); Bilirubin Total 0.9 mg/dL (0.0-1.0); Blood Urea Nitrogen 20 mg/dL (9-16); Carbon Dioxide 25 mmol/L (22-29); Chloride 111 mmol/L (96-108); Creatinine Clr Calc Pharmacy 68.6; Estimated Glomerular Filt Rate 49; Glucose Random 76 mg/dL (60-115); Potassium 3.6 mmol/L (3.3-5.1); Sodium 145 mmol/L (135-145); Total Protein 7.5 g/dL (6.5-8.0)
[2023-03-06 14:35] LABS: B Type Natriuretic Peptide 203 pg/mL (<100); Troponin-I High Sensitivity 8.3 ng/L (<3.5-35.0)
--- NOTE | 2023-03-06 14:42 | PC.NURSE ---
pt reports R.sided chest/rib pain onset after coughing. pt reports sob d/t pain; nausea. denies v/d. lung sounds cta. nsr on monitor 80 bpm. iv established; labs drawn, ekg obtained; medicated per mar; awaiting imaging. call [facility] within reach.
[2023-03-06] MEDS: iohexoL 350 MG/ML 100 ML INFUS..BTL IV (14:49)
[2023-03-06 15:34] VITALS: BP 166/99; PULSE 73; RESP 19; TEMP 36.6; O2SAT 98
[2023-03-06 17:31] VITALS: BP 180/93; PULSE 71; RESP 16; TEMP 36.4; O2SAT 99
== END 2023-03-06 17:39 | disposition home or self-care (01) ==
PROVIDERS: Physician Assistant Medical; Emergency Provider Internal Medicine
DX: R07.89 Other chest pain (principal); R06.02 Shortness of breath; F41.1 Generalized anxiety disorder; F43.0 Acute stress reaction; Z79.899 Other long term (current) drug therapy
CPT/HCPCS: 36415; 71275; 80048; 80076; 82803; 83880; 84484; 85025; 85610; 85730; 93005; 96374; 96375; 99284; 99285; J2060; J2270; J2405; Q9967

== ENCOUNTER 2023-03-22 07:43 | Outpatient (REF) | payer OTHER, SELFPAY ==
--- NOTE | ~2023-03-22 | XR_ITS ---
EXAMINATION: XR ORBITS CLINICAL INFORMATION: History of fall 4 days ago hit right eye. Patient has limited range of motion. COMPARISON: None available. TECHNIQUE: 4 views of the orbits were obtained. FINDINGS: The orbital grande have an intact appearance. No radiographic evidence of facial bone fractures or radiopaque foreign body in the facial region. The nasal septum is midline in position. Paranasal sinuses are well aerated and without air-fluid levels. The calvarium is unremarkable. XR/XR orbit min 4V IMPRESSION: No acute findings. No evidence of orbital fracture.
== END 2023-03-22 07:44 | disposition home or self-care (01) ==
LOC: HO.XRAY 07:43
PROVIDERS: PCP Nurse Practitioner Family; Visit Provider Nurse Practitioner Family
DX: H57.11 Ocular pain, right eye (principal); Z91.81 History of falling
CPT/HCPCS: 70200

== ENCOUNTER 2023-03-23 12:44 | Outpatient (AMB) | payer OTHER, SELFPAY ==
--- NOTE | 2023-03-23 12:54 | A.OFFVIS_ITS ---
Intake Vital Signs 03/23/23 12:55 Height 6 ft 3 in Weight 250 lb 0.067 oz BMI 31.2 BP 150/84 H Blood Pressure Location Lt brachial Position Sitting Pulse 79 Intake Visit Reasons: 3 mth f/up Intake Note: 3 month follow up Colon And Rectal Surgeon Required: No Accompanied by: Self / Same As Patient Allergies penicillin V Allergy (Intermediate, Verified 03/23/23 12:57) fever vancomycin [Vancomycin] Allergy (Mild, Verified 03/23/23 12:57) HIVES, FEVER Medication List - Last Reconciled 03/23/23 by Jag Alatorre MD albuterol sulfate 1.25 mg inhalation Q4H PRN albuterol sulfate 90 mcg/actuation 2 puffs inhalation Q4-6H PRN 30 days aspirin 81 mg PO DAILY atorvastatin 80 mg PO BEDTIME benzonatate 200 mg PO TID PRN cyclobenzaprine 10 mg PO BEDTIME folic acid 1 mg PO DAILY lorazepam (Ativan) 1 mg PO BEDTIME PRN losartan 100 mg PO DAILY metoprolol tartrate 50 mg PO BID 30 days montelukast 10 mg PO DAILY nebulizers As directed nitroglycerin 0 mg sublingual omeprazole 20 mg PO BID PRN ondansetron 4 mg PO Q6-8H PRN oxycodone 5 mg PO Q6H PRN pregabalin (Lyrica) 75 mg PO BEDTIME rivaroxaban (Xarelto) 20 mg PO DAILY@1730 tamsulosin 0.4 mg PO BEDTIME PRN HPI HPI Comments History of Present Illness Details Mello returns for follow-up. Few months back, he was seen in consultation in the hospital for shortness of breath. At that time, he underwent transthoracic as well as transesophageal echocardiograms. Findings of flail posterior mitral leaflet with significant mitral regurgitation. Then sent to [facility] for further care. He underwent bioprosthetic mitral valve replacement. In terms of breathing, seems overall much better. He states he can now lie flat without any issues. Main concern still seems to be the right- sided chest pain that he has had for quite some time. He thinks he needs nerve block for that. That pain is not cardiac in nature. [facility] Medical History Allergic rhinitis Asthma Atelectasis CHF (congestive heart failure) Cholelithiasis Chronic neck pain COPD (chronic obstructive pulmonary disease) Deviated nasal septum Fatty liver Gall bladder polyp GERD (gastroesophageal reflux disease) Hypercholesterolemia Lesion of vocal cord Neck pain Pleural effusion Pneumonitis Pulmonary embolism Renal calculi Tracheobronchomegaly Tracheomalacia Vertigo Vocal cord dysfunction Surgical History S/P tracheoplasty History of eye surgery History of nasal surgery History of neck surgery History of repair of right rotator cuff History of repair of left rotator cuff History of hernia surgery History of Achilles tendon repair History of knee surgery Family History Mother No problems noted. Father No problems noted. Social History Household Members: Spouse Housing: House Do you presently have visiting nurse or other home services: Yes Alcohol intake: never Patient Tobacco Use Status: Never used Tobacco e-Cigarette/Vaping Use: Never Used Second Hand Smoke Exposure: No service: No Current occupational status: employed Cognitive needs: No Hearing needs: No Vision needs: No Review of Systems Const All systems reviewed & are unremarkable except as noted in HPI and below Reports as per HPI and Reports no additional complaints Eyes Reports as per HPI and Denies no additional complaints ENT Denies no additional complaints and Reports as per HPI Card Reports as per HPI, Reports no additional complaints, Denies acrocyanosis, Reports chest pain, Denies leg edema, Denies lightheadedness, Denies palpitations and Denies dyspnea Resp Reports as per HPI, Denies no additional complaints and Denies dyspnea GI Reports as per HPI and Denies no additional complaints Reports no additional complaints and Reports as per HPI Musc Reports no additional complaints and Reports as per HPI Skin/Breast Reports system reviewed and no additional complaints, except as documented Neuro Reports no additional complaints and Reports as per HPI Psych Reports no additional complaints and Reports as per HPI Endo Reports no additional complaints, Reports as per HPI and Denies palpitations [place]/Lymph Reports no additional complaints and Reports as per HPI Aller/Immun Reports no additional complaints and Reports as per HPI Physical Exam Vital Signs: Last Vital Signs Pulse 79 03/23/23 12:55 BP 150/84 H 03/23/23 12:55 BMI result Body Mass Index 31.2 Const General: comfortable and no acute distress Orientation/consciousness: patient oriented x3 HEENT Other: Unremarkable Head: Yes normal to inspection Neck Neck: Yes normal visual inspection Chest Chest palpation & inspection: normal inspection of the chest Resp Auscultation: clear to auscultation bilaterally Cardio Palpation: normal PMI Heart sounds: S1 normal heart sound present, S2 normal heart sound present, no gallops, no murmurs and no rubs GI Palpation (GI): Soft to palpation Back/Spine/Pelvis Other: unremarkable Skin General skin exam: no rashes or lesions noted Neuro General: patient oriented x3 Extrem General: Yes normal to inspection Psych Mental Status: mental status grossly normal Assessment & Plan Assessment & Plan (1) Status post mitral valve replacement with bioprosthetic valve: Code(s): Z95.3 - Presence of xenogenic heart valve Plan: In the most recent echocardiogram, gradient across the mitral valve somewhat on the higher side at 9 mm Hg. Calculated EOA 1.7 sq cm. Clinically however, he seems substantially better after valve replacement. Hence no specific change in plans. May remain on aspirin. Infective endocarditis prophylaxis per protocol. (2) Chronic heart failure with preserved ejection fraction: Code(s): I50.32 - Chronic diastolic (congestive) heart failure Plan: Seems stable. Clinically, no evidence of any volume overload. Okay for diuretics as needed. (3) Atherosclerotic cardiovascular disease: Code(s): I25.10 - Atherosclerotic heart disease of [place] coronary artery without angina pectoris Plan: Cardiac catheterization showed ostial LAD 25% stenosis. Otherwise nothing significant. He remains on aspirin/statins. Plan He will call us with any ongoing concerns. Medications: Changed From cyclobenzaprine 10 mg PO BEDTIME 30 days 30 tabs 0RF To cyclobenzaprine 10 mg PO BEDTIME From benzonatate 200 mg PO TID PRN 90 caps 3RF cough To benzonatate 200 mg PO TID PRN Coding Level of Care Code Est Pt Level 4 (07648) Diagnoses Status post mitral valve replacement with bioprosthetic valve Z95.3 Chronic heart failure with preserved ejection fraction I50.32 Atherosclerotic cardiovascular disease I25.10
[2023-03-23 12:55] VITALS: BP 150/84; PULSE 79; BMI 31.2
== END 2023-03-23 13:10 | disposition home or self-care (01) ==
PROVIDERS: PCP Nurse Practitioner Family; Visit Provider Internal Medicine
DX: Z95.3 Presence of xenogenic heart valve (principal); I50.32 Chronic diastolic (congestive) heart failure; I25.10 Atherosclerotic heart disease of native coronary artery without angina pectoris
CPT/HCPCS: 99214

== ENCOUNTER → 2023-03-23 12:44 | Outpatient (BNVA) | payer OTHER, SELFPAY | PROVIDERS: PCP Nurse Practitioner Family; Visit Provider Internal Medicine ==

== ENCOUNTER 2023-03-27 08:35 | Outpatient (AMB) | payer OTHER, SELFPAY ==
[2023-03-27 08:37] VITALS: BP 130/80; PULSE 84; O2SAT 99; BMI 31.4
--- NOTE | 2023-03-27 08:37 | MHC.PC.OV ---
Vital Signs 03/27/23 08:37 Height 6 ft 3 in Weight 251 lb 4 oz BMI 31.4 BP 130/80 Blood Pressure Location Rt brachial Position Sitting Pulse 84 Pulse Source Pulse Oximeter Pulse Oximetry (%) 99 Oxygen Delivery Method Room Air Intake Visit Reasons: s/p fall Intake Note: pt fell last week and is following after this fall Allergies penicillin V Allergy (Intermediate, Verified 03/27/23 09:50) fever vancomycin [Vancomycin] Allergy (Mild, Verified 03/27/23 09:50) HIVES, FEVER Medication List - Last Reconciled 03/27/23 by Daniel Redmond, [facility]- albuterol sulfate 1.25 mg inhalation Q4H PRN albuterol sulfate 90 mcg/actuation 2 puffs inhalation Q4-6H PRN 30 days aspirin 81 mg PO DAILY atorvastatin 80 mg PO BEDTIME benzonatate 200 mg PO TID PRN cyclobenzaprine 10 mg PO BEDTIME folic acid 1 mg PO DAILY lorazepam (Ativan) 1 mg PO BEDTIME PRN losartan 100 mg PO DAILY metoprolol tartrate 50 mg PO BID 30 days montelukast 10 mg PO DAILY nebulizers As directed nitroglycerin 0 mg sublingual omeprazole 20 mg PO BID PRN ondansetron 4 mg PO Q6-8H PRN oxycodone 5 mg PO Q6H PRN pregabalin (Lyrica) 75 mg PO BEDTIME rivaroxaban (Xarelto) 20 mg PO DAILY@1730 tamsulosin 0.4 mg PO BEDTIME PRN Tobacco use date assessed: 03/27/23 Fall risk assessment: 2 + Falls in past year Last assessed Fall Risk: 03/27/23 Dental Screening Dental Screen Date: 03/27/23 Did you have a dental visit in the last 12 months?: Yes Did you have a dental problem in the last 6 months where you did not have access to dental care?: No Was dental information given to patient?: Patient has dentist HPI s/p fall HPI Details Pt reportedly fell recently and his right eye became bloodshot. He had an orbital xr which was negative. Pt saw an eye doctor who stated that his eye is erythematous because he is on xarelto. Pt also c/o pain to his right lateral ribcage and back. Pt thought the dizziness could be from the intense pain he has, last fall when going from extremely hot environment to cold (in house-AC). He reports that this is worse with exertion and has been present since his thoracotomy. Pt is seeing pain management. He also reports some intermittent shortness of breath. This is worse with heavy exertion (though this has been ongoing). Will order chest xr. He reports a recent dizzy spell with a temperature change, going from outside to inside. Pt is following up with cardiology, pulmonology, and pain management. Denies any current fever, chills, or dizziness. [facility] Medical History SOB (shortness of breath) Vertigo CHF (congestive heart failure) COPD (chronic obstructive pulmonary disease) Atelectasis Pleural effusion Tracheobronchomegaly Gall bladder polyp Fatty liver Asthma Vocal cord dysfunction Pneumonitis Tracheomalacia Lesion of vocal cord GERD (gastroesophageal reflux disease) Chronic neck pain Pulmonary embolism Neck pain Cholelithiasis Renal calculi Deviated nasal septum Allergic rhinitis Hypercholesterolemia Surgical History S/P tracheoplasty History of eye surgery History of nasal surgery History of neck surgery History of repair of right rotator cuff History of repair of left rotator cuff History of hernia surgery History of Achilles tendon repair History of knee surgery Family History Mother No problems noted. Father No problems noted. Social History Household Members: Spouse Housing: House Do you presently have visiting nurse or other home services: Yes Alcohol intake: never Patient Tobacco Use Status: Never used Tobacco e-Cigarette/Vaping Use: Never Used Second Hand Smoke Exposure: No service: No Current occupational status: employed Cognitive needs: No Hearing needs: No Vision needs: No Questionnaire Thrive Questionnaire Date Thrive assessed: 10/17/22 ESTER-7 AMB Questionnaire ESTER-7 Date ESTER - 7 assessed: 10/17/22 Source: Developed by Drs. Jimmy Pathak, Elizabeth Euceda, Awais Presley and colleagues, with an educational divya from [email or web address]. Review of Systems Const Reports as per HPI Physical exam (Primary Care) Vital Signs: Last Vital Signs Pulse 84 03/27/23 08:37 BP 130/80 03/27/23 08:37 Pulse Ox 99 03/27/23 08:37 Oxygen Delivery Method Room Air 03/27/23 08:37 BMI result Body Mass Index 31.4 Tobacco/Smoking Status: Tobacco use Status Tobacco use date assessed 03/27/23 03/27/23 08:43 Patient Tobacco Use Status Never used Tobacco 03/27/23 08:43 e-Cigarette/Vaping Use Never Used 03/27/23 08:43 Thrive Assessment: Date of Thrive Assessment Date Thrive assessed 10/17/22 03/27/23 08:43 Const General: cooperative Nutritional Appearance: obese Orientation/consciousness: patient oriented x3 Eyes Other: left sclera lateral inferior aspect with erythema Chest Other: pain with palpation of right lateral ribcage, tenderness with moving RUE and turning upper torso Resp Effort & Inspection: normal respiratory effort Auscultation: clear to auscultation bilaterally Cardio Rate: regular rate Rhythm: regular rhythm Heart sounds: S1 normal heart sound present and S2 normal heart sound present Neuro General: patient oriented x3 Cranial nerves: Yes CN's II-XII intact bilaterally Coordination: [id number] test normal Psych Appearance: grossly normal Mental Status: mental status grossly normal Speech and movement: Normal speech and movement present Affect: normal affect Attitude: cooperative Thought process: Normal thought process present Thought content: Normal thought content present Insight: Good insight present (Psych) Judgement: Good judgement present (Psych) Assessment and Plan Assessment & Plan (1) Pain of right orbit: Code(s): H57.11 - Ocular pain, right eye Plan: Continue to monitor (2) Fall: Code(s): W19.XXXA - Unspecified fall, initial encounter Plan: Continue to monitor (3) Chest wall pain: Code(s): R07.89 - Other chest pain Plan: XR ordered (4) Brachial plexus injury: Code(s): S14.3XXA - Injury of brachial plexus, initial encounter Plan: Continue to monitor (5) Post-thoracotomy pain: Code(s): G89.12 - Acute post-thoracotomy pain Plan: Continue to monitor Plan The patient agreed to the use of a rn medical surgical for this encounter. Scribed for LIDIA Garnett by Nerissa Serna rn medical surgical, on 03/27/2023 at 09:00 EST. Orders: Orders XR chest 2V Today R06.02 - Shortness of breath, R07.89 - Other chest pain LIDIA Finnegan Complete Blood Count Auto Diff Today R07.89 - Other chest pain, S14.3XXA - Injury of brachial plexus, initial encounter, W19.XXXA - Unspecified fall, initial encounter LIDIA Finnegan ECG 12 lead EKG Today W19.XXXA - Unspecified fall, initial encounter LIDIA Finnegan Comprehensive Met. Panel Today R07.89 - Other chest pain, S14.3XXA - Injury of brachial plexus, initial encounter, W19.XXXA - Unspecified fall, initial encounter LIDIA Finnegan TSH reflex Free T4 Today R07.89 - Other chest pain, S14.3XXA - Injury of brachial plexus, initial encounter, W19.XXXA - Unspecified fall, initial encounter LIDIA Finnegan UA CC w/rflx Micro + Cult Today R07.89 - Other chest pain, S14.3XXA - Injury of brachial plexus, initial encounter, W19.XXXA - Unspecified fall, initial encounter LIDIA Finnegan Medications: Resumed rivaroxaban (Xarelto) 20 mg PO DAILY@1730 30 tabs 2RF Al Ramey MD Coding Level of Care Code Est Pt Level 3 (96463) Diagnoses Pain of right orbit H57.11 Fall W19.XXXA Chest wall pain R07.89 Brachial plexus injury S14.3XXA Post-thoracotomy pain G89.12
== END 2023-03-27 10:23 | disposition home or self-care (01) ==
PROVIDERS: PCP Nurse Practitioner Family; Visit Provider Nurse Practitioner Family
DX: H57.11 Ocular pain, right eye (principal); W19.XXXA Unspecified fall, initial encounter; R07.89 Other chest pain; S14.3XXA Injury of brachial plexus, initial encounter; G89.12 Acute post-thoracotomy pain
CPT/HCPCS: 99213

== ENCOUNTER 2023-03-27 09:25 | Outpatient (REF) | payer OTHER, SELFPAY ==
--- NOTE | ~2023-03-27 | XR_ITS ---
EXAMINATION: XR CHEST CLINICAL INFORMATION: Chest pain. COMPARISON: November 02, 2022. TECHNIQUE: 2 views of the chest were obtained. XR/XR chest 2V FINDINGS/IMPRESSION: The pulmonary veins may be mildly prominent in their nondependent portions, raising the possibility of mild pulmonary venous hypertension. No infiltrate, effusion, pneumothorax is seen. The cardiac silhouette is suboptimally evaluated, probably within normal limits. The patient is status post median sternotomy. Anterior fixation plate and screws project over the lower cervical spine.
[2023-03-27 11:19] LABS: MANUAL DIFF FLAG NO
[2023-03-27 11:40] LABS: Appearance Urine Turbid; Color Urine Yellow; Glucose Urine UA Negative (Negative); Leukocyte Esterase Urine Negative (Negative); Nitrite Urine Negative (Negative); PH 5.5 (5.0-9.0); Urine Blood Negative (Negative); Urine Ketones Negative (Negative); Urine Protein Negative (Neg-Trace)
[2023-03-27 12:23] LABS: Alanine Aminotransferase 36 U/L (0-40); Albumin Level 4.2 g/dL (3.5-5.0); Alkaline Phosphatase 174 U/L (39-117); Anion Gap 11 (12-20); Aspartate Amino Transferase 28 U/L (5-37); Bilirubin Total 0.8 mg/dL (0.0-1.0); Blood Urea Nitrogen 17 mg/dL (9-16); Calcium 9.1 mg/dL (8.4-10.2); Carbon Dioxide 28 mmol/L (22-29); Chloride 109 mmol/L (96-108); Estimated Glomerular Filt Rate 47; Glucose Random 77 mg/dL (60-115); Potassium 3.8 mmol/L (3.3-5.1); Sodium 144 mmol/L (135-145); Total Protein 7.2 g/dL (6.5-8.0)
[2023-03-27 12:40] LABS: TSH reflex Free T4 2.19 uIU/mL (0.32-4.0)
[2023-03-27 12:58] LABS: Basophils Absolute Auto 0.1 X10*3/uL (0.0-0.2); Basophils Percent Auto 0.8 % (0-2); Eosinophils Absolute Auto 0.6 X10*3/uL (0.0-0.4); Eosinophils Percent Auto 6.8 % (0-4); Hematocrit 42.1 % (42.0-52.0); Hemoglobin 13.2 g/dl (14.0-18.0); Imm Gran Abs Auto 0.02 X10*3/uL (0.00-0.03); Imm Gran Pct Auto 0.2 % (0.0-0.4); Lymphocytes Absolute Auto 1.4 X10*3/uL (1.2-4.9); Lymphocytes Percent Auto 16.6 % (20-40); Mean Corpuscular HGB Conc 31.4 g/dl (31.0-36.0); Mean Corpuscular Hemoglobin 25.2 pg (27.0-33.0); Mean Corpuscular Volume 80.5 fL (80.0-98.0); Mean Platelet Volume 10.7 fL (9.4-12.4); Monocytes Absolute Auto 0.7 X10*3/uL (0.1-1.2); Monocytes Percent Auto 8.9 % (2-11); Neutrophils Absolute Auto 5.5 x10*3/uL (2.0-8.3); Neutrophils Percent Auto 66.7 % (45-73); Platelet Count 236 X10*3/uL (160-400); Red Blood Count 5.23 X10*6/uL (4.60-5.80); Red Cell Distribution Width 16.2 % (11.0-16.0); White Blood Count 8.3 X10*3/uL (4.8-10.8)
== END 2023-03-27 09:26 | disposition home or self-care (01) ==
LOC: HO.HMGCLDS 09:25
PROVIDERS: PCP Nurse Practitioner Family; Visit Provider Nurse Practitioner Family
DX: J18.9 Pneumonia, unspecified organism (principal); J90 Pleural effusion, not elsewhere classified; G89.12 Acute post-thoracotomy pain; R06.02 Shortness of breath; R07.9 Chest pain, unspecified
CPT/HCPCS: 36415; 71046; 80053; 81003; 84443; 85025

== ENCOUNTER → 2023-03-27 14:55 | Outpatient (REF) | payer OTHER, SELFPAY ==
--- NOTE | 2023-03-27 15:04 | ECG_ITS ---
Test Reason : unspec fall Blood Pressure : / mmHG Vent. Rate : 096 BPM Atrial Rate : 096 BPM P-R Int : 154 ms QRS Dur : 084 ms QT Int : 386 ms P-R-T Axes : 072 -15 043 degrees QTc Int : 487 ms Normal sinus rhythm Prolonged QT Abnormal ECG When compared with ECG of 06-MAR-2023 13:00, No significant change was found Referred By: Daniel Redmond Electronically Signed By:CHELLE RIOS
== END ==
LOC: HO.CARD 14:55
PROVIDERS: PCP Nurse Practitioner Family; Visit Provider Nurse Practitioner Family
DX: R94.31 Abnormal electrocardiogram [ECG] [EKG] (principal); Z91.81 History of falling
CPT/HCPCS: 93005

== ENCOUNTER 2023-04-06 09:02 | Outpatient (AMB) | payer OTHER, SELFPAY ==
--- NOTE | 2023-04-06 09:07 | A.OFFVIS_ITS ---
Intake Vital Signs 04/06/23 09:16 Height 6 ft 3 in Weight 251 lb BMI 31.4 BP 130/70 Blood Pressure Location Lt brachial Position Sitting Respiration 16 Pulse 70 Pulse Source Pulse Oximeter Pulse Oximetry (%) 99 Oxygen Delivery Method Room Air Intake Visit Reasons: Right sided rib pain/Lvm Intake Note: patient comes in for initial visit was referred by [facility]. Allergies penicillin V Allergy (Intermediate, Verified 04/06/23 09:16) fever vancomycin [Vancomycin] Allergy (Mild, Verified 04/06/23 09:16) HIVES, FEVER HPI HPI Comments History of Present Illness Details Mello Karimi (Jim) is very pleasant 62 y.o. male who is here in the office complaining mainly on pain in the right side of the chest. He also reports pain in the neck however he states that [facility] is attending the neck pain and the patient is going to receive some sort of a neck injection with [facility] sometime in April. He was referred to us by [facility] urgency specifically for the treatment of right-sided chest pain his pain is stemming out of the 2 events: He had lung resection performed on him on 08/18/2022 during which the extensive vascular access required and patient reported that the broke some ribs during the procedure. Up he is also suffering from congestive far heart failure and he experience cardiac arrest 11/09/2022 he was resuscitated he was given chest compression and his ribs were reprogrammed. Since then he is suffering severe right-sided upper chest posterior medial and anterior pain along side the fractured ribs. He cannot sleep normally because of his pain he cannot do activities of daily living he can take care of himself he cannot function normally he is currently unemployed is self mobile he reports that cold and movements aggravates his pain and nothing alleviates his pain he has with Dr. Fany cho on chronic opioid therapy with oxycodone. In terms of tissue damage he reports his pain as sharp cutting and lacerating sensation. He never tried intercostal nerve blocks to treat this pain. Past medical history for congestive heart failure, COPD, pulmonary embolism on Xarelto, a GERD, hypercholesterolemia. Past surgical history is significant for mitral valve replacement with prosthetic tissue valve, thoracotomy with lung resection, eyes nose and neck and shoulder surgeries as well as hernia repair bilateral knee replacement. She denies smoking cigarettes admits social drinking of alcohol denies caffeinated beverages and denies recreational drugs. [facility] Medical History SOB (shortness of breath) Vertigo CHF (congestive heart failure) COPD (chronic obstructive pulmonary disease) Atelectasis Pleural effusion Tracheobronchomegaly Gall bladder polyp Fatty liver Asthma Vocal cord dysfunction Pneumonitis Tracheomalacia Lesion of vocal cord GERD (gastroesophageal reflux disease) Chronic neck pain Pulmonary embolism Neck pain Cholelithiasis Renal calculi Deviated nasal septum Allergic rhinitis Hypercholesterolemia Surgical History S/P tracheoplasty History of eye surgery History of nasal surgery History of neck surgery History of repair of right rotator cuff History of repair of left rotator cuff History of hernia surgery History of Achilles tendon repair History of knee surgery Family History Mother No problems noted. Father No problems noted. Social History Household Members: Spouse Housing: House Do you presently have visiting nurse or other home services: Yes Alcohol intake: never Patient Tobacco Use Status: Never used Tobacco e-Cigarette/Vaping Use: Never Used Second Hand Smoke Exposure: No service: No Current occupational status: employed Cognitive needs: No Hearing needs: No Vision needs: No Review of Systems Const All systems reviewed & are unremarkable except as noted in HPI and below Reports as per HPI, Reports body aches and Reports lethargy ENT Reports Normal hearing present Card Reports as per HPI Resp Reports as per HPI GI Reports as per HPI Reports as per HPI Musc Reports as per HPI Neuro Reports no additional complaints, Reports Normal hearing present, Denies Abnormal speech present, Denies confusion and Denies Sensory deficit (Neuro) Psych Denies confusion Physical Exam Vital Signs: Last Vital Signs Pulse 70 04/06/23 09:16 Resp 16 04/06/23 09:16 BP 130/70 04/06/23 09:16 Pulse Ox 99 04/06/23 09:16 Oxygen Delivery Method Room Air 04/06/23 09:16 BMI result Body Mass Index 31.4 Const General: no acute distress; No confusion Orientation/consciousness: patient oriented x3 and No confusion Eyes General: appearance normal, both eyes and all related structures Pupils: Equal, round and reactive pupils present EOM: EOMs intact bilaterally Neck Neck: Yes full ROM Chest Chest palpation & inspection: normal inspection of the chest Resp Effort & Inspection: normal respiratory effort, able to speak in complete sentences, normal respiratory pattern, no audible wheezes and no cough Cardio Jugular venous distension: no JVD GI Inspection: Yes normal to inspection Back/Spine/Pelvis Other: Very severe tenderness on palpation in the projection of the right approximately 4 5 and 6 ribs on the midscapular line, posterior axillary line, midaxillary line, anterior axillary line. Neuro General: patient oriented x3, gait normal and No confusion Cranial nerves: Yes CN's II-XII intact bilaterally, Yes Equal, round and reactive pupils present, Yes Normal hearing present and Yes Ability to bilaterally elevate shoulders present Speech: No Abnormal speech present Gait exam (Neuro): Normal gait present Motor exam (neuro): 5/5 motor strength present throughout Sensory Exam: No Sensory deficit (Neuro) Extrem General: No pedal edema Psych Speech and movement: Normal speech and movement present Affect: normal affect Attitude: cooperative Thought process: Normal thought process present Thought content: Normal thought content present Insight: Good insight present (Psych) Judgement: Good judgement present (Psych) Assessment & Plan Assessment & Plan (1) Chest wall pain: Code(s): R07.89 - Other chest pain (2) Rib fracture: Code(s): S22.39XA - Fracture of one rib, unspecified side, initial encounter for closed fracture (3) COPD (chronic obstructive pulmonary disease): Code(s): J44.9 - Chronic obstructive pulmonary disease, unspecified (4) Chronic heart failure with preserved ejection fraction: Code(s): I50.32 - Chronic diastolic (congestive) heart failure (5) Status post mitral valve replacement with bioprosthetic valve: Code(s): Z95.3 - Presence of xenogenic heart valve (6) Atherosclerotic cardiovascular disease: Code(s): I25.10 - Atherosclerotic heart disease of [place] coronary artery without angina pectoris (7) Cervical neck pain with evidence of disc disease: Code(s): M50.90 - Cervical disc disorder, unspecified, unspecified cervical region Plan Unfortunately Radiology did not report in chest x-ray description the levels of the fractures patient received in the right chest. Therefore I will schedule him for empirical intercostal 4., 5 and 6 ribs injection. The procedure will be scheduled under minimal sedation. Will see him in the office after the treatment. Coding Level of Care Code New Pt Level 4 (15974) Diagnoses Chest wall pain R07.89 Rib fracture S22.39XA COPD (chronic obstructive pulmonary disease) J44.9 Chronic heart failure with preserved ejection fraction I50.32 Status post mitral valve replacement with bioprosthetic valve Z95.3 Atherosclerotic cardiovascular disease I25.10 Cervical neck pain with evidence of disc disease M50.90
[2023-04-06 09:16] VITALS: BP 130/70; PULSE 70; RESP 16; O2SAT 99; BMI 31.4
== END 2023-04-06 09:27 | disposition home or self-care (01) ==
PROVIDERS: PCP Nurse Practitioner Family; Visit Provider Anesthesiology
DX: R07.89 Other chest pain (principal); S22.39XA Fracture of one rib, unspecified side, initial encounter for closed fracture; J44.9 Chronic obstructive pulmonary disease, unspecified; I50.32 Chronic diastolic (congestive) heart failure; Z95.3 Presence of xenogenic heart valve; I25.10 Atherosclerotic heart disease of native coronary artery without angina pectoris; M50.90 Cervical disc disorder, unspecified, unspecified cervical region
CPT/HCPCS: 99204

== ENCOUNTER → 2023-04-06 09:02 | Outpatient (BNVA) | payer OTHER, SELFPAY | PROVIDERS: PCP Nurse Practitioner Family; Visit Provider Anesthesiology ==

== ENCOUNTER 2023-04-17 13:19 | Outpatient (AMB) | payer OTHER, SELFPAY ==
--- NOTE | 2023-04-17 13:30 | A.OFFVIS_ITS ---
Intake Vital Signs 04/17/23 13:32 Height 6 ft 3 in Weight 254 lb BMI 31.7 BP 140/70 H Blood Pressure Location Lt brachial Position Sitting Pulse 75 Pulse Source Pulse Oximeter Pulse Oximetry (%) 99 Oxygen Delivery Method Room Air Intake Visit Reasons: COPD Intake Note: pt is here for follow up and states he does get shortness of breath, and has a c ough. pain mangement cancelled his surgery but needs clearance. needs directions on Xarelto. Mortgage Loan Funder Required: No Allergies penicillin V Allergy (Intermediate, Verified 04/17/23 14:01) fever vancomycin [Vancomycin] Allergy (Mild, Verified 04/17/23 14:01) HIVES, FEVER Medication List - Last Reconciled 04/17/23 by Panfilo Tate MD albuterol sulfate 1.25 mg inhalation Q4H PRN albuterol sulfate 90 mcg/actuation 2 puffs inhalation Q4-6H PRN 30 days aspirin 81 mg PO DAILY atorvastatin 80 mg PO BEDTIME benzonatate 200 mg PO TID PRN cyclobenzaprine 10 mg PO BEDTIME folic acid 1 mg PO DAILY lorazepam (Ativan) 1 mg PO BEDTIME PRN losartan 100 mg PO DAILY metoprolol tartrate 50 mg PO BID 30 days montelukast 10 mg PO DAILY nebulizers As directed nitroglycerin 0 mg sublingual omeprazole 20 mg PO BID PRN ondansetron 4 mg PO Q6-8H PRN oxycodone 5 mg PO Q6H PRN pregabalin (Lyrica) 75 mg PO BEDTIME rivaroxaban (Xarelto) 20 mg PO DAILY@1730 tamsulosin 0.4 mg PO BEDTIME PRN Do you need a note to return to daycare/school/sports/work: No HPI COPD HPI Details 62 years old gentleman, comes for pulmon ricardo follow-up. Unfortunately he is having increasing amount of cough and shortness of breath. Because of neuropathic pain in the right chest wall he is not able to take deep breaths, and in turn he becomes more short of breath. He is having increased cough which causes increased in the chest wall pain. He is supposed to have nerve block the intercostal nerve on the right side, and for that he has to stop anticoagulation for 3 days prior to the procedure. The nerve block procedure is being scheduled. He is getting more and more anxious, and depressed. [facility] Medical History (Updated 04/17/23 @ 14:17 by Panfilo Tate MD) Cough SOB (shortness of breath) Vertigo CHF (congestive heart failure) COPD (chronic obstructive pulmonary disease) Atelectasis Pleural effusion Tracheobronchomegaly Gall bladder polyp Fatty liver Asthma Vocal cord dysfunction Pneumonitis Tracheomalacia Lesion of vocal cord GERD (gastroesophageal reflux disease) Chronic neck pain Pulmonary embolism Neck pain Cholelithiasis Renal calculi Deviated nasal septum Allergic rhinitis Hypercholesterolemia Surgical History S/P tracheoplasty History of eye surgery History of nasal surgery History of neck surgery History of repair of right rotator cuff History of repair of left rotator cuff History of hernia surgery History of Achilles tendon repair History of knee surgery Family History Mother No problems noted. Father No problems noted. Social History Household Members: Spouse Housing: House Do you presently have visiting nurse or other home services: Yes Alcohol intake: never Patient Tobacco Use Status: Never used Tobacco e-Cigarette/Vaping Use: Never Used Second Hand Smoke Exposure: No service: No Current occupational status: employed Cognitive needs: No Hearing needs: No Vision needs: No Review of Systems Const All systems reviewed & are unremarkable except as noted in HPI and below Eyes Reports no additional complaints ENT Reports change in voice, Reports nasal congestion (MILD OFF AND ON.) and Reports neck pain Card Reports chest pain, Denies irregular heart rhythm and Denies leg edema Resp Reports as per HPI, Denies cough and Denies wheezing GI Reports heartburn (Controlled with omeprazole) Reports no additional complaints Musc Reports neck pain, Reports numbness (Right upper extremity) and Reports radiating pain into limb (Right upper extremity) Skin/Breast Reports system reviewed and no additional complaints, except as documented Neuro Reports numbness (Right upper extremity) Psych Reports no additional complaints Endo Reports no additional complaints Carlitos/Lymph Reports no additional complaints Aller/Immun Denies wheezing Physical Exam Vital Signs: Last Vital Signs Pulse 75 04/17/23 13:32 BP 140/70 H 04/17/23 13:32 Pulse Ox 99 04/17/23 13:32 Oxygen Delivery Method Room Air 04/17/23 13:32 BMI result Body Mass Index 31.7 Last Vital Signs Temp 97 F 11/01/22 07:19 Pulse 91 11/01/22 07:19 Resp 18 11/01/22 07:19 BP 134/89 11/01/22 07:19 Pulse Ox 98 11/01/22 07:19 O2 Del Method Nasal Cannula 11/01/22 07:19 O2 Flow Rate 3 11/01/22 07:19 Oxygen Flow Rate 3 10/29/22 20:15 BMI result Body Mass Index 31.8 Const General: no acute distress, alert and awake Orientation/consciousness: patient oriented x3 HEENT Head: Yes normal to inspection General nose exam: No nasal polyps present and No nasal discharge present Face and sinus: Yes sinuses nontender Mouth: oropharynx normal Throat: Yes posterior oropharynx normal Eyes General: appearance normal, both eyes and all related structures Neck Neck: Yes normal visual inspection, Yes no lymphadenopathy, Yes trachea midline and Yes no JVD Thyroid: Thyroid normal Chest Chest palpation & inspection: normal inspection of the chest (Right thoracostomy scar is well healed. Mid sternal scar also well-healed) and tenderness ( marked sensitivity and tenderness over the thoracostomy scar) Resp Other: Percussion note is resonant, slight dullness over both bases. There are no wheezes or rhonchi. he is just not able to take deep breaths because of pain. Cardio Palpation: normal PMI Rate: regular rate Rhythm: regular rhythm Heart sounds: Gallop heart sound present and Murmur heart sound present Peripheral pulses: Peripheral pulses 2+ throughout GI Palpation (GI): Soft to palpation, Tenderness to palpation present (GI), No hepatosplenomegaly present and Palpable mass present Auscultation: normal bowel sounds Back/Spine/Pelvis Thoracic/Lumbar Spine: thoracic and lumbar spine normal to inspection Skin General skin exam: no rashes or lesions noted Neuro General: patient oriented x3 and no focal motor deficits Cranial nerves: Yes CN's II-XII intact bilaterally Extrem General: Yes normal to inspection, Yes no clubbing, cyanosis or edema and Yes no calf tenderness Psych Speech and movement: Normal speech and movement present Assessment & Plan Assessment & Plan (1) COPD (chronic obstructive pulmonary disease): Comment: BRONCHIAL ASTHMA AND COPD RELATIVELY STABLE BUT HE IS GETTING MORE SHORT OF BREATH, WHICH IS MULTIFACTORIAL. HE DOES HAVE INCREASED SHORTNESS OF BREATH AND COUGH. THE NEUROPATHIC INTERCOSTAL NERVE PAIN, IS DEFINITELY CONTRIBUTING TO HIS GETTING MORE SHORT OF BREATH TX: USE DUONEB SOLUTION IN THE UPDRAFT UP Q 6 HOURS WHILE AWAKE ( UPTO 4 TIMES A DAY.) Albuterol HFA 2 puffs Q 4-6 hours p.r.n. when outdoors Code(s): J44.9 - Chronic obstructive pulmonary disease, unspecified (2) Chest discomfort: Comment: CHEST PAIN OVER THE RIGHT THORACOSTOMY SCAR IS INCREASING, GETS WORSE WITH THE EACH TIME HE COUGHS, AND HE IS GETTING MORE SHORT OF BREATH. I THINK THE PAIN IS NEUROPATHIC IN NATURE. TX; MAY TAKE ES.TYLENOL 2 TABLETS. Q.6 HOURS P.R.N. GABAPENTIN 300 MG T.I.D., PROCEED WITH INTERCOSTAL NERVE BLOCK, PROCEDURE. Code(s): R07.89 - Other chest pain (3) Tracheomalacia: Comment: Status post [id number] at [facility] in [place], via right thoracostomy. And he is doing well, Breathing mccoy much better , but has right chest wall pain, which keeps him distressed and somewhat depressed. Advised to make appointment with the thoracic surgery at [facility], but he does not want to go there. he wants to see Dr. Cotto , the local thoracic surgeon, for follow-up. Code(s): J39.8 - Other specified diseases of upper respiratory tract (4) Allergic rhinitis: Comment: He does have intermittent nasal congestion, with some postnasal drip, But it seems to be mild. Advise that he can use Claritin 10 mg or Zyrtec 10 mg once a day p.r.n.. Also continue to take montelukast 10 mg daily. Code(s): J30.9 - Allergic rhinitis, unspecified (5) Cough: Comment: His cough is starting to get worse, this in turn increases his right chest wall pain. And he is becoming breath less off and on due to increased bouts of cough. TX : Benzonatate 200 mg b.i.d.. Guaifenesin-codeine syrup . 1 tsp Q 6 hours p.r.n. Code(s): R05.9 - Cough, unspecified Plan * FOR INTERCOSTAL NERVE BLOCK PROCEDURE, PATIENT IS ADVISE THAT HE SHOULD HOLD XARELTO FOR 3 DAYS PRIOR TO THE PROCEDURE, AND THEN RESUME RIGHT AFTER THE PROCEDURE. Medications: New benzonatate 200 mg PO BID PRN 60 caps 2RF cough 30 days codeine-guaifenesin 10-100 mg/5 mL 10 mL PO Q4-6H PRN 473 mL 2RF cough 30 days Coding Level of Care Code Est Pt Level 4 (82155) Diagnoses COPD (chronic obstructive pulmonary disease) J44.9 Chest discomfort R07.89 Tracheomalacia J39.8 Allergic rhinitis J30.9 Cough R05.9
[2023-04-17 13:32] VITALS: BP 140/70; PULSE 75; O2SAT 99; BMI 31.7
== END 2023-04-17 14:02 | disposition home or self-care (01) ==
PROVIDERS: PCP Nurse Practitioner Family; Visit Provider Internal Medicine
DX: J44.9 Chronic obstructive pulmonary disease, unspecified (principal); R07.89 Other chest pain; J39.8 Other specified diseases of upper respiratory tract; J30.9 Allergic rhinitis, unspecified; R05.9 Cough, unspecified
CPT/HCPCS: 99214

== ENCOUNTER → 2023-04-17 13:19 | Outpatient (BNVA) | payer OTHER, SELFPAY | PROVIDERS: PCP Nurse Practitioner Family; Visit Provider Internal Medicine ==

== ENCOUNTER → 2023-04-27 09:56 | Outpatient (BNV) | payer OTHER, SELFPAY | PROVIDERS: PCP Nurse Practitioner Family; Visit Provider Anesthesiology | DX: G58.0 Intercostal neuropathy (principal) | CPT/HCPCS: 64420; 64421; 77002 ==

== ENCOUNTER → 2023-04-27 09:56 | Outpatient (BNV) | payer OTHER, SELFPAY | PROVIDERS: PCP Nurse Practitioner Family; Visit Provider Internal Medicine | DX: S22.39XA Fracture of one rib, unspecified side, initial encounter for closed fracture (principal) | CPT/HCPCS: 99223; 99239 ==

== ENCOUNTER 2023-04-27 14:17 | Observation (INO) | payer OTHER, SELFPAY ==
[2023-04-21 11:40] VITALS: BMI 31.4
--- NOTE | 2023-04-26 10:41 | P.CONAN_ITS ---
Documented by User: Naz Miranda NP 04/26/23 10:48 HPI - Anesthesia Eval Consult details Narrative: 62yo M for Right Right Rib 4- Rib5- Rib 6 Intercostal minimal sedation per surgical H&P Cardiac optimized - s/p MVR 10/2022 Pulmo ok'd holding xarelto (PEs) preop s/p NEREIDA 10/2022 with MAC PMFSH Active Problems Active Problems: All Active Problems (Updated 04/17/23 @ 14:17 by Panfilo Tate MD) Cough (Acute) COPD (chronic obstructive pulmonary disease) (Acute) Rib fracture (Acute) Elevated serum creatinine (Acute) Pain of right orbit (Acute) Fall (Acute) Chest wall pain (Acute) Brachial plexus injury (Acute) Anemia (Acute) Vertigo (Acute) Microscopic hematuria (Acute) Microscopic hematuria (Acute) Cough (Acute) Cardiac arrest (Acute) Cervical neck pain with evidence of disc disease (Acute) Atherosclerotic cardiovascular disease (Acute) Chronic heart failure with preserved ejection fraction (Acute) Status post mitral valve replacement with bioprosthetic valve (Acute) Hx of mitral valve replacement (Acute) Acute on chronic diastolic (congestive) heart failure (Acute) Non-rheumatic mitral regurgitation (Acute) CHF (congestive heart failure) (Acute) Acute dyspnea (Acute) Bilateral pleural effusion (Acute) COPD (chronic obstructive pulmonary disease) (Acute) Pneumonia (Acute) Post-thoracotomy pain (Acute) Skin lesions (Acute) Pre-op evaluation (Acute) Gall bladder polyp (Acute) Elevated liver enzymes (Acute) Chest discomfort (Acute) Screening for colon cancer (Acute) Screening PSA (prostate specific antigen) (Acute) HTN (hypertension) (Acute) Asthma (Acute) Vocal cord dysfunction (Acute) Pneumonitis (Acute) 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) Laryngitis (Acute) Abdominal pain (Acute) Generalized anxiety disorder (Acute) GERD (gastroesophageal reflux disease) (Acute) Chronic neck pain (Acute) Chest pain (Acute) Neck pain (Acute) Cholelithiasis (Acute) Renal calculi (Acute) Essential (primary) hypertension (Acute) Effusion, left knee (Acute) Hypercholesterolemia (Acute) Deviated nasal septum (Acute) Allergic rhinitis (Acute) Past Medical History Medical History (Updated 04/17/23 @ 14:17 by Panfilo Tate MD) Cough SOB (shortness of breath) Vertigo CHF (congestive heart failure) COPD (chronic obstructive pulmonary disease) Atelectasis Pleural effusion Tracheobronchomegaly Gall bladder polyp Fatty liver Asthma Vocal cord dysfunction Pneumonitis Tracheomalacia Lesion of vocal cord GERD (gastroesophageal reflux disease) Chronic neck pain Pulmonary embolism Neck pain Cholelithiasis Renal calculi Deviated nasal septum Allergic rhinitis Hypercholesterolemia Family History Family History Mother No problems noted. Father No problems noted. Family history of problems with anesthesia: No Surgical History Surgical History S/P tracheoplasty History of eye surgery History of nasal surgery History of neck surgery History of repair of right rotator cuff History of repair of left rotator cuff History of hernia surgery History of Achilles tendon repair History of knee surgery History of Problems with Anesthesia: No Social History Social History Household Members: Spouse Housing: House Do you presently have visiting nurse or other home services: Yes Alcohol intake: never Patient Tobacco Use Status: Never used Tobacco e-Cigarette/Vaping Use: Never Used Second Hand Smoke Exposure: No service: No Current occupational status: employed Cognitive needs: No Hearing needs: No Vision needs: No Meds Allergies Allergy/AdvReac Type Severity Reaction Status Date / Time penicillin V Allergy Intermediate fever Verified 04/17/23 14:01 vancomycin [Vancomycin] Allergy Mild HIVES, Verified 04/17/23 14:01 FEVER Home Medications Medication Instructions Recorded Confirmed Last Taken Type albuterol sulfate 1.25 mg/3 mL 1.25 mg inhalation Q4H PRN 10/12/22 04/17/23 10/11/22 History solution for nebulization Shortness Of Breath nitroglycerin 0.4 mg sublingual 0 mg sublingual 12/05/22 04/17/23 Unknown History tablet omeprazole 20 mg capsule,delayed 20 mg PO BID PRN 12/05/22 04/17/23 Unknown Hist ory release tamsulosin 0.4 mg capsule 0.4 mg PO BEDTIME PRN 12/05/22 04/17/23 Unknown History ondansetron 4 mg disintegrating 4 mg PO Q6-8H PRN 12/15/22 04/17/23 Unknown History tablet pregabalin 75 mg capsule (Lyrica) 75 mg PO BEDTIME 01/18/23 04/17/23 Unknown History nebulizers 02/09/23 04/17/23 Unknown History benzonatate 200 mg capsule 200 mg PO TID PRN cough 03/23/23 04/17/23 Unknown History cyclobenzaprine 10 mg tablet 10 mg PO BEDTIME 03/23/23 04/17/23 Unknown History Exam Exam Date and Time: April 26, 2023 1041 Height,Weight and Vital Signs: Height 6 ft 3 in Weight 113.852 kg Pertinent Lab Results Pertinent Lab Results: Laboratory Tests 03/27/23 09:30 WBC 8.3 Hgb 13.2 L Hct 42.1 Plt Count 236 Sodium 144 Potassium 3.8 Chloride 109 H Carbon Dioxide 28 BUN 17 H Creatinine 1.50 H Narrative Narrative: EKG 03/2023 Vent. Rate : 096 BPM Atrial Rate : 096 BPM P-R Int : 154 ms QRS Dur : 084 ms QT Int : 386 ms P-R-T Axes : 072 -15 043 degrees QTc Int : 487 ms Normal sinus rhythm Prolonged QT Abnormal ECG When compared with ECG of 06-MAR-2023 13:00, No significant change was found ECHO 12/2022 Conclusions: - 1. Normal LV systolic function with LVEF of 60 65% 2. Mildly dilated left atrium 3. Normally function bioprosthetic mitral valve in place with mean gradient of 9 mmHg 4. Upper limits normal ascending aortic size 5. Trivial pericardial effusion 6. Mildly elevated right ventricular systolic pressure Assessment and Plan Assessment Anesthesia Assessment: Chart Reviewed Final Anesthetic Review Family History of Problems with Anesthesia: No History of Problems with Anesthesia: No Documented by User: Breann Domínguez MD 04/27/23 08:21 [facility] Past Medical History Medical History (Updated 04/17/23 @ 14:17 by Panfilo Tate MD) Cough SOB (shortness of breath) Vertigo CHF (congestive heart failure) COPD (chronic obstructive pulmonary disease) Atelectasis Pleural effusion Tracheobronchomegaly Gall bladder polyp Fatty liver Asthma Vocal cord dysfunction Pneumonitis Tracheomalacia Lesion of vocal cord GERD (gastroesophageal reflux disease) Chronic neck pain Pulmonary embolism Neck pain Cholelithiasis Renal calculi Deviated nasal septum Allergic rhinitis Hypercholesterolemia Family History Family History Mother No problems noted. Father No problems noted. Surgical History Surgical History S/P tracheoplasty History of eye surgery History of nasal surgery History of neck surgery History of repair of right rotator cuff History of repair of left rotator cuff History of hernia surgery History of Achilles tendon repair History of knee surgery Social History Social History Household Members: Spouse Housing: House Do you presently have visiting nurse or other home services: Yes Alcohol intake: never Patient Tobacco Use Status: Never used Tobacco e-Cigarette/Vaping Use: Never Used Second Hand Smoke Exposure: No service: No Current occupational status: employed Cognitive needs: No Hearing needs: No Vision needs: No Meds Allergies Allergy/AdvReac Type Severity Reaction Status Date / Time penicillin V Allergy Intermediate fever Verified 04/17/23 14:01 vancomycin [Vancomycin] Allergy Mild HIVES, Verified 04/17/23 14:01 FEVER Home Medications Medication Instructions Recorded Confirmed Last Taken Type albuterol sulfate 1.25 mg/3 mL 1.25 mg inhalation Q4H PRN 10/12/22 04/17/23 10/11/22 History solution for nebulization Shortness Of Breath nitroglycerin 0.4 mg sublingual 0 mg sublingual 12/05/22 04/17/23 Unknown History tablet omeprazole 20 mg capsule,delayed 20 mg PO BID PRN 12/05/22 04/17/23 Unknown History release tamsulosin 0.4 mg capsule 0.4 mg PO BEDTIME PRN 12/05/22 04/17/23 Unknown History ondansetron 4 mg disintegrating 4 mg PO Q6-8H PRN 12/15/22 04/17/23 Unknown History tablet pregabalin 75 mg capsule (Lyrica) 75 mg PO BEDTIME 01/18/23 04/17/23 Unknown History nebulizers 02/09/23 04/17/23 Unknown History benzonatate 200 mg capsule 200 mg PO TID PRN cough 03/23/23 04/17/23 Unknown History cyclobenzaprine 10 mg tablet 10 mg PO BEDTIME 03/23/23 04/17/23 Unknown History Assessment and Plan Final Anesthetic Review NPO: Yes ASA Class: III Final Preanesthetic Review: No Changes in Pt Med Stat, Meds/Allgs Chart Reviewed, Consent Obtained/Reviewed and Anes Risks/Benef Reviewed Patient Risk: Intermediate Procedure Risk: Low Anesthetic Plan Anesthetic Plan: MAC: Disposition: Standard PACU
[2023-04-27] VITALS (23 sets, daily range): BP systolic 144–180; BP diastolic 60–103; PULSE 72–102; RESP 16–24; TEMP 35.9–36.7; O2SAT 94–100
--- NOTE | ~2023-04-27 | FL_ITS ---
EXAMINATION: XR FLUOROSCOPY WITH IMAGES CLINICAL INFORMATION: Right rib 4, 5 and 6, intercostal injections. COMPARISON: None available. TECHNIQUE: Fluoroscopy Supervised By: Dr. David Hebert. Fluoroscopy Time: 0.7 minutes. Cumulative Dose: 16.3 mGy. DAP: 0.284 Gycm2. Images: 3. FINDINGS: Images demonstrate needle placement and contrast injection inferior to the right fourth, fifth and sixth ribs FL/FL guidance in OR IMPRESSION: Fluoroscopy guidance for pain management
--- NOTE | ~2023-04-27 | XR_ITS ---
EXAMINATION: XR CHEST CLINICAL INFORMATION: Posterior rib pain, T4-T6 pain, pneumothorax COMPARISON: Chest x-ray on 03/27/2023 TECHNIQUE: Frontal view of the chest was obtained. prominence of bilateral upper lobe pulmonary vascularity. LUNGS: Lungs are clear. No pneumothorax is seen. None. Lower cervical spine fixation with anterior metallic plate and cortical screws is seen. Median sternotomy wire loops are present. XR/XR chest 1V IMPRESSION: 1. Probable persistent pulmonary venous congestion, exaggerated by upright AP technique. 2. Interval performance of median sternotomy. 3. Unchanged status post lower cervical spine fixation. 4. No pneumothorax could be seen on the current examination. Please note that chest x-ray has limited sensitivity for groundglass infiltrates.
[2023-04-27] MEDS: Lactated Ringers 1,000 ML 50 ML IVCONT (10:54)
--- NOTE | 2023-04-27 11:07 | MHC.SHP ---
Pre-Procedural Eval Section A Date of Service: 04/27/23 The patient is an INPATIENT: No Changes since office visit: Yes Patient answered all questions The History & Physical has been completed within 30 days and I have reviewed it.: No Section B Chief Complaint: Fracture of one rib, unspecified side, initial enc Details of Present Illness: as above Relevant Family History (Specify if Yes): No Relevant Social History: None Present Medications: see Short Stay Collaborative assessment Medical History: No relevant PMH History of Previous Operations: No relevant previous surgery Allergies: Allergies Allergy/AdvReac Type Severity Reaction Status Date / Time penicillin V Allergy Intermediate fever Verified 04/27/23 10:05 vancomycin [Vancomycin] Allergy Mild HIVES, Verified 04/27/23 10:05 FEVER hydromorphone [From Dilaudid] AdvReac Agitated Verified 04/27/23 10:05 Review of Systems Sugical H&P ROS: Negative: Constitution, Neurological, Psychiatric, Hem-Onc, Allergic/Immunologic, Gastrointestinal, Genitourinary, Integumentary, Endocrine and Eyes/Ears/Nose/Throat and Yes, Specify: Cardiovascular (CHF), Respiratory (COPD) and Musculoskeletal (rib f-x) Exam Surgical H&P Exam: Normal: HEENT, Normal: Heart, Normal: Lungs, Normal: Skin and Normal: Neurological and Significant Findings: Extremities (depend. edema) and Significant Findings: Abdomen (enlarged) Plan Diagnosis/Plan: Unchanged I have reviewed the history and physical and performed a pertinent physical examination on my patient. No changes have occurred unless specified. Time Spent With Patient Time: Total time managing care of this patient today ___5_ minutes.
[2023-04-27] MEDS: fentaNYL citrate/PF 100 MCG/2 ML VIAL 25 MCG IVPUSH ×4 (12:25→14:00)
[2023-04-27] MEDS: Albuterol Sulfate (0.083%) 2.5 MG/3 ML VIAL.NEB INHALE (12:37)
[2023-04-27] MEDS: Racepinephrine HCL 0.5 ML VIAL.NEB INHALE (13:12)
[2023-04-27] MEDS: LORazepam 2 MG/ML VIAL 1 MG IVPUSH (13:35)
--- NOTE | 2023-04-27 13:44 | PM.EVENT ---
Event Note Date of Service: 04/27/23 Event Note: Patient s/p intercostal nerve block under MAC in PACU with labored breathing. CXR ordered to r/o pneumothrox. Dr. Hebert spoke with radiologist and was told lungs were congested. Was asked to give patient 20mg Lasix IVP. Hospitalist was called and patient will be admitted for fluid overload. Thank you. Time Spent With Patient Time: Total time managing care of this patient today ____ minutes.
[2023-04-27] MEDS: Furosemide 20 MG/2 ML VIAL IVPUSH (13:49)
--- NOTE | 2023-04-27 14:16 | PHA.MEDREC ---
Pharmacy Consult ? Medication Reconciliation Pharmacy has completed the medication reconciliation. PHARMACY HAS REVIEWED MED REC DONE BY NURSING
--- NOTE | 2023-04-27 14:19 | P.HPHOSP_ITS ---
History of Present Illness Date of Service: 04/27/23 Chief Complaint: sob 62M PMH mitral valve bioreplacement complicated by cardiac rest, right tear your lateral thoracotomy and tracheobronchomalacis, copd/asthma reccurent pe, cervical fusion, htn, hld, underwent elective right chest Wall injection for chronic right chest pain. After procedure patient complaining of shortness of breath, audibly with stridor, tachypneic, accessory muscles. No hypoxia, chest x-ray report pending but knows pneumothorax. Review of Systems Review of Systems: Yes all other systems are reviewed and are negative [facility] Medical History Collapsed lung Cough SOB (shortness of breath) Vertigo CHF (congestive heart failure) COPD (chronic obstructive pulmonary disease) Atelectasis Pleural effusion Tracheobronchomegaly Gall bladder polyp Fatty liver Asthma Vocal cord dysfunction Pneumonitis Tracheomalacia Lesion of vocal cord GERD (gastroesophageal reflux disease) Chronic neck pain Pulmonary embolism Neck pain Cholelithiasis Renal calculi Deviated nasal septum Allergic rhinitis Hypercholesterolemia Family History Mother No problems noted. Father No problems noted. Surgical History H/O mitral valve repair S/P tracheoplasty History of eye surgery History of nasal surgery History of neck surgery History of repair of right rotator cuff History of repair of left rotator cuff History of hernia surgery History of Achilles tendon repair History of knee surgery Social History Household Members: Spouse Housing: House Do you presently have visiting nurse or other home services: Yes Alcohol intake: never Patient Tobacco Use Status: Never used Tobacco e-Cigarette/Vaping Use: Never Used Second Hand Smoke Exposure: No Use of substances other than those prescribed or required for medical reasons: No Are you DNR?: No Advance Directives: No Advance Directives Information Provided: Yes service: No Current occupational status: employed Cognitive needs: No Hearing needs: No Vision needs: No Meds Allergies Allergy/AdvReac Type Severity Reaction Status Date / Time penicillin V Allergy Intermediate fever Verified 04/27/23 10:05 vancomycin [Vancomycin] Allergy Mild HIVES, Verified 04/27/23 10:05 FEVER hydromorphone [From Dilaudid] AdvReac Agitated Verified 04/27/23 10:05 Active Medications: Current Medications Albuterol Sulfate (Albuterol Sulfate (0.083%) 2.5 Mg/3 Ml Vial.Hermelinda) 2.5 mg INHALE ONCE PRN PRN Reason: Shortness of Breath/Wheezing Last Admin: 04/27/23 12:37 Dose: 2.5 mg Albuterol Sulfate (Albuterol Sulfate 90 Mcg 8 Gm Inhaler) 2 puff INHALE Q4H PRN PRN Reason: shortness of breath or wheezing Aspirin (Aspirin Enteric Coated 81 Mg Tablet.) 81 mg PO DAILY [facility] Atorvastatin Calcium (Atorvastatin Calcium 80 Mg Tablet) 80 mg PO BEDTIME VIVIAN Benzonatate (Benzonatate 100 Mg Capsule) 200 mg PO TID PRN PRN Reason: cough Cyclobenzaprine HCl (Cyclobenzaprine Hcl 10 Mg Tablet) 10 mg PO BEDTIME [facility] Fentanyl (Fentanyl Citrate/Pf 100 Mcg/2 Ml Vial) 25 mcg IVPUSH Q30M PRN; Protocol PRN Reason: Pain, Moderate(Pain Scale 4-6) Last Admin: 04/27/23 14:00 Dose: 25 mcg Folic Acid (Folic Acid 1 Mg Tablet) 1 mg PO DAILY [facility] Guaifenesin/Codeine Phosphate (Guaifen/Codeine Sf 200/20/10ml 10 Ml Liquid) 10 ml PO Q4-6H PRN PRN Reason: cough Lactated Ringer's (Lr) 1,000 mls @ 50 mls/hr IVCONT .Q20H [facility] Last Infusion: 04/27/23 13:57 Dose: Infused Lorazepam (Lorazepam 1 Mg Tablet) 1 mg PO BEDTIME PRN PRN Reason: anxiety/sleep Losartan Potassium (Losartan Potassium 50 Mg Tablet) 100 mg PO DAILY [facility]; Protocol Metoprolol Tartrate (Metoprolol Tartrate 50 Mg Tablet) 50 mg PO BID [facility]; Protocol Montelukast Sodium (Montelukast Sodium 10 Mg Tablet) 10 mg PO DAILY [facility] Omeprazole (Omeprazole 20 Mg Capsule.) 20 mg PO BID PRN PRN Reason: Gastric Reflux Oxycodone HCl (Oxycodone Hcl Immed Release 5 Mg Tablet) 5 mg PO Q6H PRN PRN Reason: md wilde Pregabalin (Pregabalin 75 Mg Capsule) 75 mg PO BEDTIME VIVIAN Rivaroxaban (Rivaroxaban 20 Mg Tablet) 20 mg PO DAILY@1730 VIVIAN Sodium Chloride (0.9 % Sodium Chloride Flush 3 Ml Syringe) 3 ml IVFLUSH QSHIFT VIVIAN Tamsulosin HCl (Tamsulosin Hcl 0.4 Mg Capsule) 0.4 mg PO BEDTIME PRN PRN Reason: Urinary Retention Home Medications Medication Instructions Recorded Confirmed Last Taken Type albuterol sulfate 1.25 mg/3 mL 1.25 mg inhalation Q4H PRN 10/12/22 04/27/23 10/11/22 History solution for nebulization Shortness Of Breath nitroglycerin 0.4 mg sublingual 0 mg sublingual USEASDIRECTD PRN 12/05/22 04/27/23 Unknown History tablet Chest Pain omeprazole 20 mg capsule,delayed 20 mg PO BID PRN Gastric Reflux 12/05/22 Unknown History release tamsulosin 0.4 mg capsule 0.4 mg PO BEDTIME PRN Urinary 12/05/22 04/27/23 Unknown History Retention ondansetron 4 mg disintegrating 4 mg PO Q6-8H PRN Nausea And 12/15/22 04/27/23 Unknown History tablet Vomiting pregabalin 75 mg capsule (Lyrica) 75 mg PO BEDTIME 01/18/23 04/27/23 Unknown History nebulizers 02/09/23 04/27/23 Unknown History benzonatate 200 mg capsule 200 mg PO TID PRN cough 03/23/23 04/27/23 Unknown History cyclobenzaprine 10 mg tablet 10 mg PO BEDTIME 03/23/23 04/27/23 Unknown History Physical Exam Vital Signs and Narrative: Vital Signs: Last Vital Signs Temp 97.8 F 04/27/23 12:15 Pulse 91 04/27/23 14:05 Resp 20 04/27/23 14:05 BP 159/80 H 04/27/23 14:05 Pulse Ox 100 04/27/23 14:05 O2 Del Method Room Air 04/27/23 14:05 O2 Flow Rate 2 04/27/23 12:25 BMI result Body Mass Index 31.4 alert, tachypneic, accessory muscles, stridor Results Imaging Radiologist's Impressions: Impressions Chest X-Ray 04/27/23 12:21 IMPRESSION: 1. Probable persistent pulmonary venous congestion, exaggerated by upright AP technique. 2. Interval performance of median sternotomy. 3. Unchanged status post lower cervical spine fixation. 4. No pneumothorax could be seen on the current examination. Please note that chest x-ray has limited sensitivity for groundglass infiltrates. Assessment and Plan (1) Rib fracture: Status: Acute Plan 62M PMH mitral valve bioreplacement complicated by cardiac rest, right tear your lateral thoracotomy and tracheobronchomalacis, copd/asthma reccurent pe, cervical fusion, htn, hld. complaining of stridor and sob post rib injection Respiratory distress with stridor Patient appears stable, saturation 100% on room air Received racemic epinephrine Follow-up chest x-ray, ABG monitor closely Recurrent PE history Xarelto COPD/asthma overlap Inhalers as needed Hypertension Losartan, metoprolol Full code Time Spent With Patient Time: Total time managing care of this patient today ____ minutes. Quality Stroke Does the patient have a stroke diagnosis?: No VTE Prior VTE?: Yes VTE Risk Level:: Medical - moderate - high VTE Device Contraindication: Treatment Not Indicated VTE Drug Contraindication: N/A - Med Ordered
--- NOTE | 2023-04-27 14:47 | PM.OP ---
Brief Operative Note Date of Service: 04/27/23 Pre-op diagnosis: Intercostal neuralgia Post-op diagnosis: same Procedure: Intercostal 4, 5, 6 nerve block on the right. Surgeon: David Hebert MD Anesthesia: MAC Was an [employer] used for this Procedure?: No Estimated blood loss (mL): 0 Condition: other (Exacerbation of CHF, ?Pneumothorax ?) Disposition: PACU
--- NOTE | 2023-04-27 14:49 | W.PM.OPN ---
Operative Note Operative Note Date of Service: 04/27/23 Narrative: Mello is very pleasant 62 years old gentleman who came today to the operating room to receive intercostal 4, 5, 6 right intercostal nerve injection. He had resuscitation for cardiac arrest done and after that he was suffering from multiple rib fractures he, he also had a surgery on his right chest and the the pain possibly comes from retractor rib expansion during the surgery. Informed consent was obtained from the patient. Risks and benefits were explained to the patient including risk of pneumothorax and risk of congestive heart failure. The patient came to the operating room and he was positioned prone on the operating table. [employer] monitors were applied patient was deeply sedated. His upper back was prepped with ChloraPrep and draped with sterile utility towels. C-arm was brought over the operating field and picture of the 4th, 5th, and 6th rib were sequentially demonstrated on the screen. If the lower border of each rib on the paravertebral line approximately 5-6 inches from midline was chosen as the target of the injections. The skin was anesthetized in the intercostal space projection to the skin using mixture of lidocaine 2% and the ropivacaine 0.5% 1-1 for each corresponding level of the injection. After that 22 gauge 3-1/2 inch needle was driven to were the lower border of the sequential 4th 5th and 6th rib under fluoroscopy guidance. When tip of the needle contacted lower border of each rib it was slightly deviated to get into the intercostal sulcus and injection of the contrast was performed demonstrating no intrapleural and no intravascular spread of the contrast. After that injection solution of the ropivacaine 0.5% 3 cc mixed with Kenalog injected into the each needle position. Total dose of Kenalog was 40 mg. The patient to were the end of the procedure started to cough. The needles were removed and sterile Band-Aid was applied. The patient was transferred to the [facility] supine and position with his torso elevated he was transferred to PACU where he started to complain on difficulty breathing. He demonstrated expiratory stridor. If the suspicion was made for laryngospasm and she was administered racemic epinephrine. Chest x-ray was ordered stat to rule out pneumothorax. There were no pneumothorax on the x-ray. The patient seem to be agitated however demonstrated 99-100% saturation on room air. He was administered glycopyrrolate intravenously, the attention was attracted that on x-ray he has congestion of the pulmonary vascularity. He was administered 20 mg of Lasix. To reduce his anxiety he was administered intravenously small dose of Ativan. Because this patient is very fragile I will request the consult from hospitalist . They will admit him for observation or [address] Alatorre's patient and he probably need the cardiology consult tomorrow.
[2023-04-27 15:08] LABS: ABG Base Excess 3.6 mmol/L; ABG HCO3 27 mmol/L (22-26); ABG pCO2 39 mmHg (32-45); ABG pH 7.45 (7.35-7.45); ABG pO2 81 mmHg (83-108)
[2023-04-27 15:21] LABS: Hematocrit 39.2 % (42.0-52.0); Hemoglobin 12.7 g/dl (14.0-18.0); Mean Corpuscular HGB Conc 32.4 g/dl (31.0-36.0); Mean Corpuscular Hemoglobin 25.8 pg (27.0-33.0); Mean Corpuscular Volume 79.7 fL (80.0-98.0); Mean Platelet Volume 10.7 fL (9.4-12.4); Platelet Count 192 X10*3/uL (160-400); Red Blood Count 4.92 X10*6/uL (4.60-5.80); Red Cell Distribution Width 15.6 % (11.0-16.0); White Blood Count 8.3 X10*3/uL (4.8-10.8)
[2023-04-27 15:32] LABS: Alanine Aminotransferase 31 U/L (0-40); Alkaline Phosphatase 160 U/L (39-117); Anion Gap 13 (12-20); Aspartate Amino Transferase 24 U/L (5-37); Bilirubin Direct 0.3 mg/dL (0.0-0.5); Bilirubin Total 0.8 mg/dL (0.0-1.0); Blood Urea Nitrogen 14 mg/dL (9-16); Calcium 9.4 mg/dL (8.4-10.2); Carbon Dioxide 26 mmol/L (22-29); Chloride 107 mmol/L (96-108); Creatinine Clr Calc Pharmacy 76.9; Estimated Glomerular Filt Rate 55; Glucose Random 117 mg/dL (60-115); Potassium 4.1 mmol/L (3.3-5.1); Sodium 142 mmol/L (135-145); Total Protein 6.9 g/dL (6.5-8.0)
[2023-04-27] MEDS: Omeprazole 20 MG CAPSULE.DR PO (18:16)
[2023-04-27] MEDS: Metoprolol Tartrate 50 MG TABLET PO (20:59)
[2023-04-27] MEDS: Pregabalin 75 MG CAPSULE PO (20:59)
[2023-04-27] MEDS: Cyclobenzaprine HCl 10 MG TABLET PO (20:59)
[2023-04-27] MEDS: Atorvastatin Calcium 80 MG TABLET PO (20:59)
[2023-04-27] MEDS: 0.9 % Sodium Chloride Flush 3 ML SYRINGE IVFLUSH (23:48)
[2023-04-28 03:19] VITALS: BP 147/89; PULSE 89; RESP 18; TEMP 37; O2SAT 98
[2023-04-28] MEDS: Lactated Ringers 1,000 ML 50 ML IVCONT (05:39)
[2023-04-28] MEDS: Omeprazole 20 MG CAPSULE.DR PO (05:39)
[2023-04-28 06:57] LABS: Hematocrit 39.7 % (42.0-52.0); Hemoglobin 12.9 g/dl (14.0-18.0); Mean Corpuscular HGB Conc 32.5 g/dl (31.0-36.0); Mean Corpuscular Hemoglobin 25.9 pg (27.0-33.0); Mean Corpuscular Volume 79.7 fL (80.0-98.0); Mean Platelet Volume 10.9 fL (9.4-12.4); Platelet Count 210 X10*3/uL (160-400); Red Blood Count 4.98 X10*6/uL (4.60-5.80); Red Cell Distribution Width 15.3 % (11.0-16.0); White Blood Count 11.1 X10*3/uL (4.8-10.8)
[2023-04-28 07:14] LABS: Anion Gap 13 (12-20); Blood Urea Nitrogen 15 mg/dL (9-16); Calcium 8.9 mg/dL (8.4-10.2); Carbon Dioxide 23 mmol/L (22-29); Chloride 108 mmol/L (96-108); Estimated Glomerular Filt Rate > 60; Glucose Fasting 172 mg/dL (60-99); Potassium 4.2 mmol/L (3.3-5.1); Sodium 140 mmol/L (135-145)
[2023-04-28 07:14] LABS: ABG Refer to POC result
[2023-04-28 08:00] VITALS: BP 167/95; PULSE 86; RESP 18; TEMP 36.6; O2SAT 99
--- NOTE | 2023-04-28 08:46 | MHC.CM.PN ---
[facility]FF[facility] DELIVERED. PT FROM HOME WITH , INDEPENDENT WITH NO SERVICES. +HCP: ELLA BOWMAN PCP: NATHALIE HUGGINS DP: GOAL IS TO RETURN HOME, NO SERVICES, CAN TRANSPORT.
[2023-04-28] MEDS: Losartan Potassium 50 MG TABLET 100 MG PO (09:07)
[2023-04-28] MEDS: Montelukast Sodium 10 MG TABLET PO (09:07)
[2023-04-28] MEDS: Aspirin Enteric Coated 81 MG TABLET.DR PO (09:07)
[2023-04-28] MEDS: 0.9 % Sodium Chloride Flush 3 ML SYRINGE IVFLUSH (09:07)
[2023-04-28] MEDS: Metoprolol Tartrate 50 MG TABLET PO (09:07)
[2023-04-28] MEDS: Folic Acid 1 MG TABLET PO (09:07)
--- NOTE | 2023-04-28 10:58 | HO.POSTANES ---
Post Anesthesia Evaluation Post Anesthesia Evaluation Date of Service: 04/28/23 Vital Signs: Vital Signs Temp Pulse Resp BP Pulse Ox O2 Del Method 04/28/23 08:00 97.9 F 86 18 167/95 H 99 Room Air 04/28/23 03:19 98.6 F 89 18 147/89 H 98 Room Air 04/27/23 23:40 98.0 F 86 17 157/87 H 97 Room Air Anesthesia: Monitored Mental Status: Awake Pain Control: Satisfactory Nausea/Vomiting: None Hydration: Adequate Anesthesia-Related Issues: No Anes. Related Issues
--- NOTE | 2023-04-28 11:16 | P.DS_ITS ---
DS: Providers Provider Date of Service: 04/28/23 Date of admission: 04/27/23 14:17 Primary care physician: LIDIA Dash Consults: 04/28/23 09:15 Consult to Cardiology Routine Consulting Provider: [facility] Cardiovascular Services Reason for consultation: diastolic chf, patient request Consult to Pulmonology Routine Consulting Provider: [facility] Pulmonology Services Reason for consultation: sob, patient request DS: Diagnosis Discharge Diagnosis (1) Rib fracture: Status: Acute DS: Summary Hospital Course Hospital Course: from initial hpi: 62M PMH mitral valve bioreplacement complicated by cardiac rest, right tear your lateral thoracotomy and tracheobronchomalacis, copd/asthma reccurent pe, cervical fusion, htn, hld, underwent elective right chest Wall injection for chronic right chest pain. After procedure patient complaining of shortness of breath, audibly with stridor, tachypneic, accessory muscles. No hypoxia, chest x-ray report pending but knows pneumothorax. hospital course: Patient was admitted for observation for respiratory distress with stridor after pain management procedure, his saturations remained 100% on room air, stridor resolved, ABG was normal. He was seen by Pulmonary and Cardiology. Patient will be discharged home. For recurrent pulmonary embolism he was continued on Xarelto. For COPD/asthma overlap he uses inhalers. For hypertension he was continue losartan and metoprolol. Patient is feeling better will be discharged home Time Spent with Patient Time attestation: Total time managing care of this patient today ____ minutes. Discharge coordination time: Greater than 30 minutes Quality: Safe Use of Opioids Does Pt have an Active Cancer Diagnosis on the Problem List?: No Quality: Stroke Does the patient have a stroke diagnosis?: No Physical Exam Vital Signs: Vital Signs: Last Vital Signs Temp 97.9 F 04/28/23 08:00 Pulse 86 04/28/23 08:00 Resp 18 04/28/23 08:00 BP 167/95 H 04/28/23 08:00 Pulse Ox 99 04/28/23 08:00 O2 Del Method Room Air 04/28/23 08:00 O2 Flow Rate 2 04/27/23 12:25 BMI result Body Mass Index 31.4 General: AO X 3, no acute distress Resp: CTA bilateral, no accessory muscles used CVS: S1,S2,RRR GI: soft, non tender, non distended Neuro: motor grossly intact, alert Psych: appropriate affect, appropriate insight DS: Data Data Completed and Pending Completed studies during hospitalization [Text1]: Procedures Drainage of Left Pleural Cavity, Percutaneous Approach (10/30/22) Drainage of Right Pleural Cavity with Drainage Device, Percutaneous Approach (09/02/22) Drainage of Right Pleural Cavity, Percutaneous Approach (10/30/22) Labs on day of discharge: Laboratory Results - last 24 hr 04/27/23 04/27/23 04/27/23 15:01 15:10 15:13 WBC 8.3 RBC 4.92 Hgb 12.7 L Hct 39.2 L MCV 79.7 L MCH 25.8 L MCHC 32.4 RDW 15.6 Plt Count 192 MPV 10.7 Absolute Nucleated RBC 0.000 Nucleated RBC % (auto) 0.0 O2 Saturation 97.0 ABG pH at Pt Temp 7.45 ABG pCO2 at Pt Temp 39 ABG pO2 at Pt Temp 81 L ABG HCO3 27 H ABG Base Excess (Actual) 3.6 Sodium 142 Potassium 4.1 Chloride 107 Carbon Dioxide 26 Anion Gap 13 BUN 14 Creatinine 1.32 Estim Creat Clear Calc 76.9 Estimated GFR 55 Random Glucose 117 H Fasting Glucose Calcium 9.4 Total Bilirubin 0.8 Direct Bilirubin 0.3 AST 24 ALT 31 Alkaline Phosphatase 160 H Total Protein 6.9 Albumin 4.0 04/28/23 06:14 WBC 11.1 H RBC 4.98 Hgb 12.9 L Hct 39.7 L MCV 79.7 L MCH 25.9 L MCHC 32.5 RDW 15.3 Plt Count 210 MPV 10.9 Absolute Nucleated RBC 0.000 Nucleated RBC % (auto) 0.0 O2 Saturation ABG pH at Pt Temp ABG pCO2 at Pt Temp ABG pO2 at Pt Temp ABG HCO3 ABG Base Excess (Actual) Sodium 140 Potassium 4.2 Chloride 108 Carbon Dioxide 23 Anion Gap 13 BUN 15 Creatinine 1.08 Estim Creat Clear Calc 94.0 Estimated GFR > 60 Random Glucose Fasting Glucose 172 H Calcium 8.9 Total Bilirubin Direct Bilirubin AST ALT Alkaline Phosphatase Total Protein Albumin Discharge Plan Discharge Anticipated Discharge Date/Time: 04/28/23 11:12 Patient Disposition: Home, Self-Care Discharge Diagnosis: sob Referrals: Daniel Redmond, [employer] [facility] [Primary Care Provider] - 1 Week Discharge Medications: Continued metoprolol tartrate 50 mg tablet 50 mg PO BID 30 Days Qty: 60 3RF losartan 100 mg tablet 100 mg PO DAILY Qty: 90 1RF aspirin 81 mg tablet,delayed release (DR/EC) 81 mg PO DAILY Qty: 90 1RF albuterol sulfate 90 mcg/actuation HFA aerosol inhaler 2 puff inhalation Q4-6H PRN (Reason: shortness of breath or wheezing) 30 Days Qty: 1 6RF folic acid 1 mg tablet 1 mg PO DAILY Qty: 90 1RF atorvastatin 80 mg tablet 80 mg PO BEDTIME Qty: 90 0RF montelukast 10 mg tablet 10 mg PO DAILY Qty: 90 1RF tamsulosin 0.4 mg capsule 0.4 mg PO BEDTIME PRN (Reason: Urinary Retention) albuterol sulfate 1.25 mg/3 mL solution for nebulization 1.25 mg inhalation Q4H PRN (Reason: Shortness Of Breath) Xarelto 20 mg Tablet 20 mg PO DAILY@1730 Qty: 30 2RF Hold Instructions: Resume on 11/03/22. oxycodone 5 mg tablet 5 mg PO Q6H PRN (Reason: pain) Qty: 20 0RF Rx Instructions: Partial Fill upon patient request. lorazepam [Ativan] 1 mg tablet 1 mg PO BEDTIME PRN (Reason: anxiety/sleep) Qty: 14 0RF pregabalin [Lyrica] 75 mg capsule 75 mg PO BEDTIME nitroglycerin 0.4 mg tablet, sublingual 0 mg sublingual USEASDIRECTD PRN (Reason: Chest Pain) omeprazole 20 mg capsule,delayed release(DR/EC) 20 mg PO BID PRN (Reason: Gastric Reflux) (DME) nebulizers Misc See Rx Instructions .Route Rx Instructions: As directed codeine-guaifenesin 10-100 mg/5 mL liquid 10 ml PO Q4-6H PRN (Reason: cough) 30 Days Qty: 473 2RF ondansetron 4 mg tablet,disintegrating 4 mg PO Q6-8H PRN (Reason: Nausea And Vomiting) benzonatate 200 mg capsule 200 mg PO TID PRN (Reason: cough) cyclobenzaprine 10 mg tablet 10 mg PO BEDTIME Discharge Orders: Discharge Order (Routine); Ordered 04/28/23 Ordered By: Karlos Fischer Diet: Advance to usual diet Activity on Discharge: As tolerated Stand Alone Forms: Patient Portal Discharge page Care Plan Goals: pain control Health Concerns: right chest pain Plan of Treatment: follow up pain management, elevated wbc likely reactive to procedure, can folllow up outpatient. Assessment: see above
--- NOTE | 2023-04-28 11:41 | MHC.CM.PN ---
Patient medically cleared for DC, return home, self care. Family will transport patient home at 1pm. RN aware.
[2023-04-28 12:00] VITALS: BP 196/95; PULSE 81; RESP 18; TEMP 36.7; O2SAT 99
--- NOTE | 2023-04-28 12:00 | PM.CNPUL ---
History of Present Illness History of Present Illness Consult date: 04/28/23 Chief complaint: respiratory distress Narrative: 62-year-old gentleman with underlying history of tracheobronchomalacia, COPD/asthma overlap syndrome, recurrent PE, history of thoracotomy who has had an elective anesthetic injection on 04/27/2023. After procedure patient developed some respiratory distress and what was considered to be stridor that improved with additional diuretic dose. Patient was observed overnight postprocedure. No signs respiratory distress today. Review of Systems Constitutional: Constitutional: Denies daytime sleepiness, Denies excessive sweating, Denies fatigue, Denies fever(s), Denies lethargy, Denies malaise, Denies night sweats, Denies snoring and Denies weight loss Eyes: Eyes: Denies blurry vision and Denies itchy eyes ENT: Denies nasal congestion, Denies post nasal drip, Denies sinus pain, Denies sinus pressure and Denies other ( Thrush) Cardiovascular: Cardiovascular: Denies chest pain, Denies pedal edema, Denies dyspnea, Denies orthopnea and Denies paroxysmal nocturnal dyspnea Respiratory: Respiratory: Denies cough, Denies hemoptysis, Denies excessive phlegm production, Denies dyspnea, Denies snoring and Denies wheezing Gastrointestinal: Gastrointestinal: Denies abdominal pain and Denies heartburn Musculoskeletal: Musculoskeletal: Denies myalgias, Denies arthralgias and Denies joint swelling Integumentary/Breasts: Skin/Breast: Denies rash Neurologic: Denies memory loss and Denies seizure-like activity Psychiatric: Psychiatric: Denies abnormal sleep pattern, Denies anxiety and Denies memory loss Endocrine: Endocrine: Denies excessive sweating, Denies fatigue and Denies heat intolerance Hematologic/Lymphatic: Hematologic/Lymphatic: Denies easy bruising Allergic/Immunologic: Allergic/Immunologic: Denies itchy eyes, Denies seasonal rhinorrhea and Denies wheezing PMFSH Past Medical History Medical History Collapsed lung Cough SOB (shortness of breath) Vertigo CHF (congestive heart failure) COPD (chronic obstructive pulmonary disease) Atelectasis Pleural effusion Tracheobronchomegaly Gall bladder polyp Fatty liver Asthma Vocal cord dysfunction Pneumonitis Tracheomalacia Lesion of vocal cord GERD (gastroesophageal reflux disease) Chronic neck pain Pulmonary embolism Neck pain Cholelithiasis Renal calculi Deviated nasal septum Allergic rhinitis Hypercholesterolemia Family History Family History Mother No problems noted. Father No problems noted. Surgical History Surgical History H/O mitral valve repair S/P tracheoplasty History of eye surgery History of nasal surgery History of neck surgery History of repair of right rotator cuff History of repair of left rotator cuff History of hernia surgery History of Achilles tendon repair History of knee surgery Social History Social History Household Members: Spouse Housing: House Do you presently have visiting nurse or other home services: No (previously had) Alcohol intake: never Patient Tobacco Use Status: Never used Tobacco e-Cigarette/Vaping Use: Never Used Second Hand Smoke Exposure: No Use of substances other than those prescribed or required for medical reasons: No Currently Displaying Signs/Symptoms of Drug Intoxication Withdrawal: No Have you been hit, kicked, punched, or otherwise hurt by someone within the past year? If so, by whom?: No Do you feel safe in your current relationship?: Yes Is there a partner from a previous relationship who is making you feel unsafe now?: No Are you made to feel afraid or neglected: No Are you DNR?: No Advance Directives: No Advance Directives Information Provided: Yes Do you have thoughts of harming others: None Do you have a plan to hurt others: No Plan Recently lost weight without trying: Yes How much weight loss: 34pounds or more Eating poorly because of decreased appetite: No Nutrition screen score: 6 Poor oral hygiene: No service: No Current occupational status: employed Cognitive needs: No Hearing needs: No Vision needs: No Meds Allergies Allergy/AdvReac Type Severity Reaction Status Date / Time penicillin V Allergy Intermediate fever Verified 04/27/23 10:05 vancomycin [Vancomycin] Allergy Mild HIVES, Verified 04/27/23 10:05 FEVER hydromorphone [From Dilaudid] AdvReac Agitated Verified 04/27/23 10:05 Active Medications: Current Medications Albuterol Sulfate (Albuterol Sulfate (0.083%) 2.5 Mg/3 Ml Vial.Neb) 2.5 mg INHALE ONCE PRN PRN Reason: Shortness of Breath/Wheezing Last Admin: 04/27/23 12:37 Dose: 2.5 mg Albuterol Sulfate (Albuterol Sulfate 90 Mcg 8 Gm Inhaler) 2 puff INHALE Q4H PRN PRN Reason: shortness of breath or wheezing Aspirin (Aspirin Enteric Coated 81 Mg Tablet.) 81 mg PO DAILY [facility] Last Admin: 04/28/23 09:07 Dose: 81 mg Atorvastatin Calcium (Atorvastatin Calcium 80 Mg Tablet) 80 mg PO BEDTIME [facility] Last Admin: 04/27/23 20:59 Dose: 80 mg Benzonatate (Benzonatate 100 Mg Capsule) 200 mg PO TID PRN PRN Reason: cough Cyclobenzaprine HCl (Cyclobenzaprine Hcl 10 Mg Tablet) 10 mg PO BEDTIME [facility] Last Admin: 04/27/23 20:59 Dose: 10 mg Fentanyl (Fentanyl Citrate/Pf 100 Mcg/2 Ml Vial) 25 mcg IVPUSH Q30M PRN; Protocol PRN Reason: Pain, Moderate(Pain Scale 4-6) Last Admin: 04/27/23 14:00 Dose: 25 mcg Folic Acid (Folic Acid 1 Mg Tablet) 1 mg PO DAILY [facility] Last Admin: 04/28/23 09:07 Dose: 1 mg Guaifenesin/Codeine Phosphate (Guaifen/Codeine Sf 200/20/10ml 10 Ml Liquid) 10 ml PO Q4H PRN PRN Reason: cough Lorazepam (Lorazepam 1 Mg Tablet) 1 mg PO BEDTIME PRN PRN Reason: anxiety/sleep Losartan Potassium (Losartan Potassium 50 Mg Tablet) 100 mg PO DAILY [facility]; Protocol Last Admin: 04/28/23 09:07 Dose: 100 mg Metoprolol Tartrate (Metoprolol Tartrate 50 Mg Tablet) 50 mg PO BID [facility]; Protocol Last Admin: 04/28/23 09:07 Dose: 50 mg Montelukast Sodium (Montelukast Sodium 10 Mg Tablet) 10 mg PO DAILY [facility] Last Admin: 04/28/23 09:07 Dose: 10 mg Omeprazole (Omeprazole 20 Mg Capsule.) 20 mg PO BID@0630,1630 [facility] Last Admin: 04/28/23 05:39 Dose: 20 mg Oxycodone HCl (Oxycodone Hcl Immed Release 5 Mg Tablet) 5 mg PO Q6H PRN PRN Reason: md wilde Pregabalin (Pregabalin 75 Mg Capsule) 75 mg PO BEDTIME [facility] Last Admin: 04/27/23 20:59 Dose: 75 mg Rivaroxaban (Rivaroxaban 20 Mg Tablet) 20 mg PO DAILY@1730 [facility] Last Admin: 04/27/23 17:59 Dose: Not Given Sodium Chloride (0.9 % Sodium Chloride Flush 3 Ml Syringe) 3 ml IVFLUSH QSHIFT [facility] Last Admin: 04/28/23 09:07 Dose: 3 ml Tamsulosin HCl (Tamsulosin Hcl 0.4 Mg Capsule) 0.4 mg PO BEDTIME PRN PRN Reason: Urinary Retention Home Medications Medication Instructions Recorded Confirmed Last Taken Type albuterol sulfate 1.25 mg/3 mL 1.25 mg inhalation Q4H PRN 10/12/22 04/27/23 10/11/22 History solution for nebulization Shortness Of Breath nitroglycerin 0.4 mg sublingual 0 mg sublingual USEASDIRECTD PRN 12/05/22 04/27/23 Unknown History tablet Chest Pain omeprazole 20 mg capsule,delayed 20 mg PO BID PRN Gastric Reflux 12/05/22 04/27/23 Unknown History release tamsulosin 0.4 mg capsule 0.4 mg PO BEDTIME PRN Urinary 12/05/22 04/27/23 Unknown History Retention ondansetron 4 mg disintegrating 4 mg PO Q6-8H PRN Nausea And 12/15/22 04/27/23 Unknown History tablet Vomiting pregabalin 75 mg capsule (Lyrica) 75 mg PO BEDTIME 01/18/23 04/27/23 Unknown History nebulizers 02/09/23 04/27/23 Unknown History benzonatate 200 mg capsule 200 mg PO TID PRN cough 03/23/23 04/27/23 Unknown History cyclobenzaprine 10 mg tablet 10 mg PO BEDTIME 03/23/23 04/27/23 Unknown History Physical Exam Vital Signs: Vital Signs: Last Vital Signs Temp 97.9 F 04/28/23 08:00 Pulse 86 04/28/23 08:00 Resp 18 04/28/23 08:00 BP 167/95 H 04/28/23 08:00 Pulse Ox 99 04/28/23 08:00 O2 Del Method Room Air 04/28/23 08:00 O2 Flow Rate 2 04/27/23 12:25 BMI result Body Mass Index 31.4 Const: General: no acute distress and alert Nutritional Appearance: not obese Orientation/consciousness: Other orientation findings ( oriented) HEENT: Head: Yes atraumatic Eyes: General: appearance normal, both eyes and all related structures Sclerae: sclerae normal EOM: EOMs intact bilaterally Neck: Neck: Yes supple Lymphatic: no lymphadenopathy noted Resp: Effort & Inspection: normal respiratory effort and no use of accessory muscles Auscultation: clear to auscultation bilaterally Cardio: Rate: regular rate Rhythm: regular rhythm Heart sounds: no gallops, no murmurs and no rubs Skin: General skin exam: other ( warm) Extrem: General: No clubbing, No cyanosis and Yes edema (Trace bilateral) Results Laboratory Findings 04/28/23 06:14 04/28/23 06:14 Abnormal lab findings: Abnormal Labs 04/27/23 04/27/23 04/27/23 15:01 15:10 15:13 WBC Hgb 12.7 L Hct 39.2 L MCV 79.7 L MCH 25.8 L ABG pO2 at Pt Temp 81 L ABG HCO3 27 H Random Glucose 117 H Fasting Glucose Alkaline Phosphatase 160 H 04/28/23 06:14 WBC 11.1 H Hgb 12.9 L Hct 39.7 L MCV 79.7 L MCH 25.9 L ABG pO2 at Pt Temp ABG HCO3 Random Glucose Fasting Glucose 172 H Alkaline Phosphatase Assessment and Plan (1) COPD (chronic obstructive pulmonary disease): Status: Acute (2) Respiratory distress: Status: Acute (3) Acute on chronic diastolic (congestive) heart failure: Status: Acute Plan Impression: 62-year-old gentleman being observed overnight after an elective anesthetic procedure with postprocedure development of respiratory distress that resolved with an additional dose of diuretic. Recommendations: This time patient appears to be at his baseline respiratory status. Continue outpatient regimen for underlying asthma/COPD overlap syndrome. Time Spent With Patient Time: Total time managing care of this patient today ____ minutes. Procedures Date of Service Date of Service: 04/28/23
--- NOTE | 2023-04-28 12:46 | PM.CNCAR ---
History of Present Illness History of Present Illness Date of Service: 04/28/23 Requesting physician: Karlos Fischer Chief complaint: ? Congestive heart failure Narrative: [age] gentleman was background history of mitral valve regurgitation status post bioprosthetic mitral valve replacement, COPD, previous cardiac arrest, tracheal malacia and previous thoracic surgery and vocal cord dysfunction. He had broken ribs and primarily came for procedure by pain management. During the procedure he developed stridor and shortness of breath. Subsequently was admitted for further assessment. He is saying he has been short of breath for 2 years. He gets out of breath very easily walking around. He gets mostly pain in his back when he is trying to lay flat but he does not have any orthopnea PND. His blood pressure is out of control and is saying that his blood pressure usually is high. He takes Lasix 40 mg daily, losartan 100 mg daily, metoprolol 50 mg twice a day. He is also on Xarelto for previous pulmonary emboli which were multiple. [facility] Past Medical History Medical History Collapsed lung Cough SOB (shortness of breath) Vertigo CHF (congestive heart failure) COPD (chronic obstructive pulmonary disease) Atelectasis Pleural effusion Tracheobronchomegaly Gall bladder polyp Fatty liver Asthma Vocal cord dysfunction Pneumonitis Tracheomalacia Lesion of vocal cord GERD (gastroesophageal reflux disease) Chronic neck pain Pulmonary embolism Neck pain Cholelithiasis Renal calculi Deviated nasal septum Allergic rhinitis Hypercholesterolemia Family History Family History Mother No problems noted. Father No problems noted. Surgical History Surgical History H/O mitral valve repair S/P tracheoplasty History of eye surgery History of nasal surgery History of neck surgery History of repair of right rotator cuff History of repair of left rotator cuff History of hernia surgery History of Achilles tendon repair History of knee surgery Social History Social History Household Members: Spouse Housing: House Do you presently have visiting nurse or other home services: No (previously had) Alcohol intake: never Patient Tobacco Use Status: Never used Tobacco e-Cigarette/Vaping Use: Never Used Second Hand Smoke Exposure: No service: No Current occupational status: employed Cognitive needs: No Hearing needs: No Vision needs: No Meds Allergies Allergy/AdvReac Type Severity Reaction Status Date / Time penicillin V Allergy Intermediate fever Verified 04/27/23 10:05 vancomycin [Vancomycin] Allergy Mild HIVES, Verified 04/27/23 10:05 FEVER hydromorphone [From Dilaudid] AdvReac Agitated Verified 04/27/23 10:05 Active Medications: Current Medications Albuterol Sulfate (Albuterol Sulfate (0.083%) 2.5 Mg/3 Ml Vial.Hermelinda) 2.5 mg INHALE ONCE PRN PRN Reason: Shortness of Breath/Wheezing Last Admin: 04/27/23 12:37 Dose: 2.5 mg Albuterol Sulfate (Albuterol Sulfate 90 Mcg 8 Gm Inhaler) 2 puff INHALE Q4H PRN PRN Reason: shortness of breath or wheezing Aspirin (Aspirin Enteric Coated 81 Mg Tablet.) 81 mg PO DAILY [facility] Last Admin: 04/28/23 09:07 Dose: 81 mg Atorvastatin Calcium (Atorvastatin Calcium 80 Mg Tablet) 80 mg PO BEDTIME [facility] Last Admin: 04/27/23 20:59 Dose: 80 mg Benzonatate (Benzonatate 100 Mg Capsule) 200 mg PO TID PRN PRN Reason: cough Cyclobenzaprine HCl (Cyclobenzaprine Hcl 10 Mg Tablet) 10 mg PO BEDTIME [facility] Last Admin: 04/27/23 20:59 Dose: 10 mg Fentanyl (Fentanyl Citrate/Pf 100 Mcg/2 Ml Vial) 25 mcg IVPUSH Q30M PRN; Protocol PRN Reason: Pain, Moderate(Pain Scale 4-6) Last Admin: 04/27/23 14:00 Dose: 25 mcg Folic Acid (Folic Acid 1 Mg Tablet) 1 mg PO DAILY [facility] Last Admin: 04/28/23 09:07 Dose: 1 mg Guaifenesin/Codeine Phosphate (Guaifen/Codeine Sf 200/20/10ml 10 Ml Liquid) 10 ml PO Q4H PRN PRN Reason: cough Lorazepam (Lorazepam 1 Mg Tablet) 1 mg PO BEDTIME PRN PRN Reason: anxiety/sleep Losartan Potassium (Losartan Potassium 50 Mg Tablet) 100 mg PO DAILY [facility]; Protocol Last Admin: 04/28/23 09:07 Dose: 100 mg Metoprolol Tartrate (Metoprolol Tartrate 50 Mg Tablet) 50 mg PO BID [facility]; Protocol Last Admin: 04/28/23 09:07 Dose: 50 mg Montelukast Sodium (Montelukast Sodium 10 Mg Tablet) 10 mg PO DAILY [facility] Last Admin: 04/28/23 09:07 Dose: 10 mg Omeprazole (Omeprazole 20 Mg Capsule.) 20 mg PO BID@0630,1630 [facility] Last Admin: 04/28/23 05:39 Dose: 20 mg Oxycodone HCl (Oxycodone Hcl Immed Release 5 Mg Tablet) 5 mg PO Q6H PRN PRN Reason: md wilde Pregabalin (Pregabalin 75 Mg Capsule) 75 mg PO BEDTIME [facility] Last Admin: 04/27/23 20:59 Dose: 75 mg Rivaroxaban (Rivaroxaban 20 Mg Tablet) 20 mg PO DAILY@1730 [facility] Last Admin: 04/27/23 17:59 Dose: Not Given Sodium Chloride (0.9 % Sodium Chloride Flush 3 Ml Syringe) 3 ml IVFLUSH QSHIFT [facility] Last Admin: 04/28/23 09:07 Dose: 3 ml Tamsulosin HCl (Tamsulosin Hcl 0.4 Mg Capsule) 0.4 mg PO BEDTIME PRN PRN Reason: Urinary Retention Home Medications Medication Instructions Recorded Confirmed Last Taken Type albuterol sulfate 1.25 mg/3 mL 1.25 mg inhalation Q4H PRN 10/12/22 04/27/23 10/11/22 History solution for nebulization Shortness Of Breath nitroglycerin 0.4 mg sublingual 0 mg sublingual USEASDIRECTD PRN 12/05/22 04/27/23 Unknown History tablet Chest Pain omeprazole 20 mg capsule,delayed 20 mg PO BID PRN Gastric Reflux 12/05/22 04/27/23 Unknown History release tamsulosin 0.4 mg capsule 0.4 mg PO BEDTIME PRN Urinary 12/05/22 04/27/23 Unknown History Retention ondansetron 4 mg disintegrating 4 mg PO Q6-8H PRN Nausea And 12/15/22 04/27/23 Unknown History tablet Vomiting pregabalin 75 mg capsule (Lyrica) 75 mg PO BEDTIME 01/18/23 04/27/23 Unknown History nebulizers 02/09/23 04/27/23 Unknown History benzonatate 200 mg capsule 200 mg PO TID PRN cough 03/23/23 04/27/23 Unknown History cyclobenzaprine 10 mg tablet 10 mg PO BEDTIME 03/23/23 04/27/23 Unknown History Physical Exam Vital Signs: Vital Signs: Last Vital Signs Temp 98.1 F 04/28/23 12:00 Pulse 81 04/28/23 12:00 Resp 18 04/28/23 12:00 BP 196/95 H 04/28/23 12:00 Pulse Ox 99 04/28/23 12:00 O2 Del Method Room Air 04/28/23 12:00 O2 Flow Rate 2 04/27/23 12:25 BMI result Body Mass Index 31.4 GENERAL APPEARANCE: in no acute distress, pleasant. NECK: no carotid bruit, no jugular venous distention. SKIN: no suspicious lesions, warm and dry. Healed scar previous right-sided thoracotomy. HEART: no murmurs, regular rate and rhythm. LUNGS: clear to auscultation bilaterally. ABDOMEN: soft, nontender. EXTREMITIES: Mild edema. PERIPHERAL PULSES: equal. NEUROLOGIC: No gross deficits, AAO X 3 Objective Labs and Meds 04/28/23 06:14 04/28/23 06:14 Lab results: Laboratory Results - last 24 hr 04/27/23 04/27/23 04/27/23 15:01 15:10 15:13 WBC 8.3 RBC 4.92 Hgb 12.7 L Hct 39.2 L MCV 79.7 L MCH 25.8 L MCHC 32.4 RDW 15.6 Plt Count 192 MPV 10.7 Absolute Nucleated RBC 0.000 Nucleated RBC % (auto) 0.0 O2 Saturation 97.0 ABG pH at Pt Temp 7.45 ABG pCO2 at Pt Temp 39 ABG pO2 at Pt Temp 81 L ABG HCO3 27 H ABG Base Excess (Actual) 3.6 Sodium 142 Potassium 4.1 Chloride 107 Carbon Dioxide 26 Anion Gap 13 BUN 14 Creatinine 1.32 Estim Creat Clear Calc 76.9 Estimated GFR 55 Random Glucose 117 H Fasting Glucose Calcium 9.4 Total Bilirubin 0.8 Direct Bilirubin 0.3 AST 24 ALT 31 Alkaline Phosphatase 160 H Total Protein 6.9 Albumin 4.0 04/28/23 06:14 WBC 11.1 H RBC 4.98 Hgb 12.9 L Hct 39.7 L MCV 79.7 L MCH 25.9 L MCHC 32.5 RDW 15.3 Plt Count 210 MPV 10.9 Absolute Nucleated RBC 0.000 Nucleated RBC % (auto) 0.0 O2 Saturation ABG pH at Pt Temp ABG pCO2 at Pt Temp ABG pO2 at Pt Temp ABG HCO3 ABG Base Excess (Actual) Sodium 140 Potassium 4.2 Chloride 108 Carbon Dioxide 23 Anion Gap 13 BUN 15 Creatinine 1.08 Estim Creat Clear Calc 94.0 Estimated GFR > 60 Random Glucose Fasting Glucose 172 H Calcium 8.9 Total Bilirubin Direct Bilirubin AST ALT Alkaline Phosphatase Total Protein Albumin Imaging Radiologist's impression: Impressions Chest X-Ray 04/27/23 12:21 IMPRESSION: 1. Probable persistent pulmonary venous congestion, exaggerated by upright AP technique. 2. Interval performance of median sternotomy. 3. Unchanged status post lower cervical spine fixation. 4. No pneumothorax could be seen on the current examination. Please note that chest x-ray has limited sensitivity for groundglass infiltrates. Assessment and Plan (1) Respiratory distress: Status: Acute Plan [age] gentleman with previous mitral valve replacement with bioprosthetic valve who came for pain management procedure for rib fractures and developed respiratory distress. Clinically does not appear to be in heart failure right now. His blood pressure is elevated which could be contributing to his shortness of breath. I have explained to him that his shortness of breath is multifactorial including previous airway issues including tracheal malacia, COPD, previous lung surgery, multiple pulmonary emboli and significant deconditioning . Suggest adding hydrochlorothiazide 25 mg once a day. He should have repeat basic metabolic panel in a week make sure his electrolytes are okay. Follow-up with Dr. Alatorre. Thank you for allowing me to participate in the care of your patient. Please feel free to contact me if you have any questions. Time Spent With Patient Time: Total time managing care of this patient today ____ minutes. Procedures Date of Service Date of Service: 04/28/23
== END 2023-04-28 12:52 | disposition home or self-care (01) ==
LOC: HO.IMC 16:07
PROVIDERS: Anesthesiology; Admitting Provider Internal Medicine; PCP Nurse Practitioner Family; Visit Provider Internal Medicine
PROC: (CPT 64420; principal; 2023-04-27 11:30)
DX: R06.02 Shortness of breath (principal); R06.1 Stridor; J93.9 Pneumothorax, unspecified; M96.A3 Multiple fractures of ribs associated with chest compression and cardiopulmonary resuscitation; I11.0 Hypertensive heart disease with heart failure; I50.33 Acute on chronic diastolic (congestive) heart failure; J44.9 Chronic obstructive pulmonary disease, unspecified; R07.9 Chest pain, unspecified; G58.8 Other specified mononeuropathies; D72.829 Elevated white blood cell count, unspecified; Z79.899 Other long term (current) drug therapy
CPT/HCPCS: 64420; 64421 ×2; 77002; 36415; 36600; 71045; 80048; 80076; 82803; 85027; 92950; 94640; 96361; 96374; 96375; 96376; 99222; J1940; J2060; J2250; J2795; J3010; J3301; Q9967

== ENCOUNTER → 2023-04-27 14:17 | Outpatient (BNV) | payer OTHER, SELFPAY | PROVIDERS: Admitting Provider Internal Medicine; PCP Nurse Practitioner Family; Visit Provider Internal Medicine Pulmonary Disease | DX: J44.9 Chronic obstructive pulmonary disease, unspecified (principal); I50.33 Acute on chronic diastolic (congestive) heart failure; R06.03 Acute respiratory distress | CPT/HCPCS: 99222 ==

== ENCOUNTER → 2023-04-27 14:17 | Outpatient (BNV) | payer OTHER, SELFPAY | PROVIDERS: Admitting Provider Internal Medicine; PCP Nurse Practitioner Family; Visit Provider Internal Medicine Cardiovascular Disease | DX: R06.03 Acute respiratory distress (principal) | CPT/HCPCS: 99222 ==

== ENCOUNTER 2023-05-04 11:37 | Outpatient (REF) | payer OTHER, SELFPAY ==
[2023-05-04 13:15] LABS: MANUAL DIFF FLAG NO
[2023-05-04 13:36] LABS: Basophils Absolute Auto 0.1 X10*3/uL (0.0-0.2); Basophils Percent Auto 0.6 % (0-2); Eosinophils Absolute Auto 0.1 X10*3/uL (0.0-0.4); Eosinophils Percent Auto 0.5 % (0-4); Hematocrit 43.2 % (42.0-52.0); Hemoglobin 13.9 g/dl (14.0-18.0); Imm Gran Abs Auto 0.16 X10*3/uL (0.00-0.03); Lymphocytes Percent Auto 13.3 % (20-40); Mean Corpuscular HGB Conc 32.2 g/dl (31.0-36.0); Mean Corpuscular Hemoglobin 25.9 pg (27.0-33.0); Mean Corpuscular Volume 80.4 fL (80.0-98.0); Mean Platelet Volume 11.5 fL (9.4-12.4); Monocytes Absolute Auto 1.1 X10*3/uL (0.1-1.2); Monocytes Percent Auto 7.4 % (2-11); Neutrophils Absolute Auto 11.8 x10*3/uL (2.0-8.3); Neutrophils Percent Auto 77.2 % (45-73); Platelet Count 281 X10*3/uL (160-400); Red Blood Count 5.37 X10*6/uL (4.60-5.80); Red Cell Distribution Width 15.5 % (11.0-16.0); White Blood Count 15.3 X10*3/uL (4.8-10.8)
[2023-05-04 14:46] LABS: Alanine Aminotransferase 27 U/L (0-40); Albumin Level 4.1 g/dL (3.5-5.0); Alkaline Phosphatase 181 U/L (39-117); Anion Gap 13 (12-20); Aspartate Amino Transferase 15 U/L (5-37); Bilirubin Total 0.6 mg/dL (0.0-1.0); Blood Urea Nitrogen 21 mg/dL (9-16); Calcium 9.4 mg/dL (8.4-10.2); Carbon Dioxide 28 mmol/L (22-29); Chloride 103 mmol/L (96-108); Estimated Glomerular Filt Rate 57; Glucose Random 165 mg/dL (60-115); Potassium 3.4 mmol/L (3.3-5.1); Sodium 141 mmol/L (135-145); Total Protein 7.1 g/dL (6.5-8.0)
== END 2023-05-04 11:38 | disposition home or self-care (01) ==
LOC: HO.HMGCLDS 11:37
PROVIDERS: PCP Nurse Practitioner Family; Visit Provider Nurse Practitioner Family
DX: R06.03 Acute respiratory distress (principal); R79.89 Other specified abnormal findings of blood chemistry
CPT/HCPCS: 36415; 80053; 85025

== ENCOUNTER 2023-05-10 12:55 | Outpatient (REF) | payer OTHER, SELFPAY ==
--- NOTE | ~2023-05-10 | CT_ITS ---
EXAMINATION: CT CHEST WITHOUT CONTRAST CLINICAL INFORMATION: Acute respiratory distress. COMPARISON: Chest CT from 09/08/2022 and 03/06/2023. Chest radiograph from 04/27/2023. TECHNIQUE: Multidetector volumetric CT imaging of the chest was done. Axial MIP volume rendering provided. Sagittal and coronal reformatted images were obtained. This CT examination was performed using dose optimization techniques as appropriate, variously including the following: *Automated exposure control *Adjustment of mA and/or kV according to patient size (this includes techniques or standardized protocols for targeted exams where dose is matched to indication/reason for exam; i.e. extremities or head) *Use of iterative reconstruction technique DLP: 234 mGy-cm FINDINGS: LUNGS AND PLEURA: No acute pulmonary abnormality. No evidence of edema or consolidation. There is mild atelectasis in the dependent aspect of the posterior right lower lobe. Findings include an old 0.2 cm calcified granuloma in the lateral right lower lobe and old cluster of small calcified nodules in the posteromedial right upper lobe. No interval development of a suspicious lung nodule. No chest CT imaging follow-up recommended. CARDIOVASCULAR: The cardiac chambers are normal in size. Prior mitral valve repair. Mild atherosclerosis of the thoracic aorta without aneurysm. Pulmonary arteries are normal in caliber. CORONARY ARTERY CALCIFICATION: Mild atherosclerotic calcification of the proximal left anterior descending coronary artery is noted. MEDIASTINUM AND LOWER NECK: No mediastinal mass. The esophagus and partially visualized thyroid gland are unremarkable. LYMPHATICS: No pathologic sized lymph nodes. UPPER ABDOMEN: Unremarkable. SKELETAL AND CHEST WALL: Mild spondylosis of the thoracic spine. Anterior fusion hardware the of the lower cervical spine is excluded from the [id number]. Sternotomy wires are intact. CT/CT chest wo IV con IMPRESSION: * Interval resolution of small pleural effusions previously seen on 03/06/2023. * No evidence of pneumonia. No acute cardiopulmonary abnormality.
== END 2023-05-10 12:56 | disposition home or self-care (01) ==
LOC: HO.CT 12:55
PROVIDERS: PCP Nurse Practitioner Family; Visit Provider Nurse Practitioner Family
DX: R06.03 Acute respiratory distress (principal); R05.9 Cough, unspecified
CPT/HCPCS: 71250

== ENCOUNTER 2023-05-11 14:15 | Outpatient (AMB) | payer OTHER, SELFPAY ==
--- NOTE | 2023-05-11 14:37 | A.OFFPC_ITS ---
Vital Signs 05/11/23 14:38 Weight 261 lb BP 134/90 H Blood Pressure Location Lt brachial Position Sitting Pulse 78 Pulse Source Pulse Oximeter Pulse Oximetry (%) 97 Oxygen Delivery Method Room Air Intake Visit Reasons: HDF Allergies penicillin V Allergy (Intermediate, Verified 05/11/23 17:47) fever vancomycin [Vancomycin] Allergy (Mild, Verified 05/11/23 17:47) HIVES, FEVER hydromorphone [From Dilaudid] Adverse Reaction (Verified 05/11/23 17:47) Agitated Medication List - Last Reconciled 05/11/23 by Daniel Redmond, [facility]- albuterol sulfate 1.25 mg inhalation Q4H PRN albuterol sulfate 90 mcg/actuation 2 puffs inhalation Q4-6H PRN 30 days amlodipine 5 mg PO DAILY aspirin 81 mg PO DAILY atorvastatin 80 mg PO BEDTIME benzonatate 200 mg PO TID PRN codeine-guaifenesin 10-100 mg/5 mL 10 mL PO Q4-6H PRN 30 days cyclobenzaprine 10 mg PO BEDTIME folic acid 1 mg PO DAILY furosemide (Lasix) 40 mg PO DAILY lorazepam (Ativan) 1 mg PO BEDTIME PRN losartan 100 mg PO DAILY metoprolol tartrate 50 mg PO BID 30 days montelukast 10 mg PO DAILY nebulizers As directed nitroglycerin 0 mg sublingual USEASDIRECTD PRN omeprazole 20 mg PO BID PRN ondansetron 4 mg PO Q6-8H PRN pregabalin 150 mg PO BEDTIME 30 days rivaroxaban (Xarelto) 20 mg PO DAILY@1730 tamsulosin 0.4 mg PO BEDTIME PRN Tobacco use date assessed: 03/27/23 HPI HDF HPI Details Pt underwent an elective right chest wall injection for chronic right chest pain on 04/27. Pt c/o shortness of breath post-op. Chest xr showed probable persistent pulmonary venous congestion, exaggerated by upright AP technique. Interval performance of median sternotomy. Unchanged status post lower cervical spine fixation. No pneumothorax could be seen on the current examination. Please note that chest x-ray has limited sensitivity for groundglass infiltrates. Pt was admitted for respiratory distress with stridor. SATS remained stable and stridor resolved. ABG was normal. He was seen by pulmonology and cardiology. Chest CT on 05/10 showed interval resolution of small pleural effusions previously seen on 03/06, no evidence of pneumonia, no acute cardiopulmonary abnormality. Pt is following up with cardiology and pulmonology. Pt reports ongoing right lateral chest discomfort since having a [id number]-[id number] in August 2022, pointing to his lateral upper ribcage. He reports that the pain is worse when laying down. Will increase lyrics from 75mg at night to 150mg at night. BP is elevated today likely due to pain. Denies fever, chills, and chest pain. Pt does report some shortness of breath, but further emphasizes pain. Hx of leukocytosis, will reorder labs. Pt will contact me in the near future with lyrica increase, ? some relief from increase PFSH Medical History Collapsed lung Cough SOB (shortness of breath) Vertigo CHF (congestive heart failure) COPD (chronic obstructive pulmonary disease) Atelectasis Pleural effusion Tracheobronchomegaly Gall bladder polyp Fatty liver Asthma Vocal cord dysfunction Pneumonitis Tracheomalacia Lesion of vocal cord GERD (gastroesophageal reflux disease) Chronic neck pain Pulmonary embolism Neck pain Cholelithiasis Renal calculi Deviated nasal septum Allergic rhinitis Hypercholesterolemia Surgical History H/O mitral valve repair S/P tracheoplasty History of eye surgery History of nasal surgery History of neck surgery History of repair of right rotator cuff History of repair of left rotator cuff History of hernia surgery History of Achilles tendon repair History of knee surgery Family History Mother No problems noted. Father No problems noted. Social History Household Members: Spouse Housing: House Do you presently have visiting nurse or other home services: No (previously had) Alcohol intake: never Patient Tobacco Use Status: Never used Tobacco e-Cigarette/Vaping Use: Never Used Second Hand Smoke Exposure: No service: No Current occupational status: employed Cognitive needs: No Hearing needs: No Vision needs: No Questionnaire Thrive Questionnaire Date Thrive assessed: 04/28/23 ESTER-7 AMB Questionnaire ESTER-7 Date ESTER - 7 assessed: 10/17/22 Source: Developed by DrsJackie Pathak, Elizabeth Euceda, Awais Presley and colleagues, with an educational divya from [employer]. Review of Systems Const Reports as per HPI Physical exam (Primary Care) Vital Signs: Last Vital Signs Pulse 78 05/11/23 14:38 BP 134/90 H 05/11/23 14:38 Pulse Ox 97 05/11/23 14:38 Oxygen Delivery Method Room Air 05/11/23 14:38 Tobacco/Smoking Status: Tobacco use Status Tobacco use date assessed 03/27/23 05/11/23 14:38 Patient Tobacco Use Status Never used Tobacco 05/11/23 14:38 e-Cigarette/Vaping Use Never Used 05/11/23 14:38 Thrive Assessment: Date of Thrive Assessment Date Thrive assessed 04/28/23 05/11/23 14:38 Const General: cooperative Orientation/consciousness: patient oriented x3 Chest Other: slight exacerbation of pain with palpation of right lateral upper ribs, no erythema or swelling noted Resp Effort & Inspection: normal respiratory effort Auscultation: clear to auscultation bilaterally Cardio Rate: regular rate Rhythm: regular rhythm Heart sounds: S1 normal heart sound present and S2 normal heart sound present Neuro General: patient oriented x3 Extrem Right lower extremity: no edema Left lower extremity: no edema Psych Appearance: grossly normal Mental Status: mental status grossly normal Speech and movement: Normal speech and movement present Affect: normal affect Attitude: cooperative Thought process: Normal thought process present Thought content: Normal thought content present Insight: Good insight present (Psych) Judgement: Good judgement present (Psych) Assessment and Plan Assessment & Plan (1) Leukocytosis: Code(s): D72.829 - Elevated white blood cell count, unspecified Plan: Labs ordered (2) Tracheomalacia: Code(s): J39.8 - Other specified diseases of upper respiratory tract Plan The patient agreed to the use of a medical field representative for this encounter. Scribed for LIDIA Garnett by Nerissa Serna medical field representative, on 05/11/2023 at 15:10 EST. Orders: Orders Complete Blood Count Auto Diff Today D72.829 - Elevated white blood cell count, unspecified Comprehensive Met. Panel Today D72.829 - Elevated white blood cell count, unspecified Medications: Changed From pregabalin (Lyrica) 75 mg PO BEDTIME To pregabalin 150 mg PO BEDTIME 30 caps 1RF 30 days Coding Level of Care Code Est Pt Level 4 (40715) Diagnoses Leukocytosis D72.829 Tracheomalacia J39.8
[2023-05-11 14:38] VITALS: BP 134/90; PULSE 78; O2SAT 97
== END 2023-05-11 17:30 | disposition home or self-care (01) ==
PROVIDERS: PCP Nurse Practitioner Family; Visit Provider Nurse Practitioner Family
DX: D72.829 Elevated white blood cell count, unspecified (principal); J39.8 Other specified diseases of upper respiratory tract
CPT/HCPCS: 99214

== ENCOUNTER 2023-05-12 11:54 | Outpatient (REF) | payer OTHER, SELFPAY ==
[2023-05-12 13:34] LABS: MANUAL DIFF FLAG NO
[2023-05-12 13:55] LABS: Basophils Absolute Auto 0.1 X10*3/uL (0.0-0.2); Basophils Percent Auto 0.6 % (0-2); Eosinophils Absolute Auto 0.2 X10*3/uL (0.0-0.4); Eosinophils Percent Auto 1.4 % (0-4); Hematocrit 42.5 % (42.0-52.0); Hemoglobin 13.2 g/dl (14.0-18.0); Imm Gran Pct Auto 0.9 % (0.0-0.4); Lymphocytes Absolute Auto 1.9 X10*3/uL (1.2-4.9); Lymphocytes Percent Auto 16.7 % (20-40); Mean Corpuscular HGB Conc 31.1 g/dl (31.0-36.0); Mean Corpuscular Hemoglobin 26.2 pg (27.0-33.0); Mean Corpuscular Volume 84.5 fL (80.0-98.0); Mean Platelet Volume 11.7 fL (9.4-12.4); Monocytes Absolute Auto 0.9 X10*3/uL (0.1-1.2); Monocytes Percent Auto 7.9 % (2-11); Neutrophils Absolute Auto 8.1 x10*3/uL (2.0-8.3); Neutrophils Percent Auto 72.5 % (45-73); Platelet Count 220 X10*3/uL (160-400); Red Blood Count 5.03 X10*6/uL (4.60-5.80); Red Cell Distribution Width 16.2 % (11.0-16.0); White Blood Count 11.2 X10*3/uL (4.8-10.8)
[2023-05-12 14:33] LABS: Alanine Aminotransferase 26 U/L (0-40); Albumin Level 3.9 g/dL (3.5-5.0); Alkaline Phosphatase 157 U/L (39-117); Anion Gap 11 (12-20); Aspartate Amino Transferase 20 U/L (5-37); Bilirubin Total 0.6 mg/dL (0.0-1.0); Blood Urea Nitrogen 27 mg/dL (9-16); Calcium 9.1 mg/dL (8.4-10.2); Carbon Dioxide 26 mmol/L (22-29); Chloride 108 mmol/L (96-108); Estimated Glomerular Filt Rate 60; Glucose Random 105 mg/dL (60-115); Potassium 3.6 mmol/L (3.3-5.1); Sodium 141 mmol/L (135-145); Total Protein 6.8 g/dL (6.5-8.0)
== END 2023-05-12 11:55 | disposition home or self-care (01) ==
LOC: HO.HMGCLDS 11:54
PROVIDERS: PCP Nurse Practitioner Family; Visit Provider Nurse Practitioner Family
DX: D72.829 Elevated white blood cell count, unspecified (principal)
CPT/HCPCS: 36415; 80053; 85025

== ENCOUNTER 2023-05-22 13:35 | Outpatient (AMB) | payer OTHER, SELFPAY ==
[2023-05-22 14:04] VITALS: BP 120/68; PULSE 82; O2SAT 99; BMI 32.9
--- NOTE | 2023-05-22 14:04 | MHC.OFFVIS ---
Intake Vital Signs 05/22/23 14:04 Height 6 ft 3 in Weight 263 lb BMI 32.9 BP 120/68 Blood Pressure Location Lt brachial Position Sitting Pulse 82 Pulse Source Pulse Oximeter Pulse Oximetry (%) 99 Oxygen Delivery Method Room Air Intake Visit Reasons: COPD Intake Note: pt is here for follow up and is having issues, he had a pain procedure done, and when he woke up his voice was gone, his airway was closed, and told him it was a combination. He cannot get a good breath lately, coughing when laying down. Child And Adolescent Therapist Required: No Allergies penicillin V Allergy (Intermediate, Verified 05/22/23 14:43) fever vancomycin [Vancomycin] Allergy (Mild, Verified 05/22/23 14:43) HIVES, FEVER hydromorphone [From Dilaudid] Adverse Reaction (Verified 05/22/23 14:43) Agitated Medication List - Last Reconciled 05/22/23 by Panfilo Tate MD albuterol sulfate 1.25 mg inhalation Q4H PRN albuterol sulfate 90 mcg/actuation 2 puffs inhalation Q4-6H PRN 30 days amlodipine 5 mg PO DAILY aspirin 81 mg PO DAILY atorvastatin 80 mg PO BEDTIME benzonatate 200 mg PO TID PRN codeine-guaifenesin 10-100 mg/5 mL 10 mL PO Q4-6H PRN 30 days cyclobenzaprine 10 mg PO BID PRN 30 days folic acid 1 mg PO DAILY furosemide (Lasix) 40 mg PO DAILY lorazepam (Ativan) 1 mg PO BEDTIME PRN losartan 100 mg PO DAILY metoprolol tartrate 50 mg PO BID 30 days montelukast 10 mg PO DAILY nebulizers As directed nitroglycerin 0 mg sublingual USEASDIRECTD PRN omeprazole 20 mg PO BID PRN ondansetron 4 mg PO Q6-8H PRN potassium chloride ER 10 mEq PO DAILY pregabalin 300 mg PO BEDTIME rivaroxaban (Xarelto) 20 mg PO DAILY@1730 tamsulosin 0.4 mg PO BEDTIME PRN Do you need a note to return to daycare/school/sports/work: No HPI COPD HPI Details MR. BOWMAN, is here for follow-up for his pulmonary issues. He has history of tracheomalacia, repaired surgically through right thoracic approach, rib come and [facility] in [place]. He is left with right intercostal neurologic pain , which is not coming under control. Breathing has definitely improved, after tracheo plasty procedure. He continues to have frequent bouts of cough which aggravate the right chest pain. Because of chest pain he is not able to do any physical work. When he is in more pain, he loses his Voice. He definitely has a high level of anxiety component. He had attempted right thoracic nerve block on 04/27, after which he became more distressed with increased shortness of breath and also lost his voice. Patient was monitored in the hospital overnight and then discharged next day. Today he is able to talk clearly but in low Voice . His main concern is ongoing lot of pain in right chest wall. Currently he is on Lyrica 300 mg at bedtime. He has taken gabapentin in the past but that has been stopped.. [facility] Medical History Collapsed lung Cough SOB (shortness of breath) Vertigo CHF (congestive heart failure) COPD (chronic obstructive pulmonary disease) Atelectasis Pleural effusion Tracheobronchomegaly Gall bladder polyp Fatty liver Asthma Vocal cord dysfunction Pneumonitis Tracheomalacia Lesion of vocal cord GERD (gastroesophageal reflux disease) Chronic neck pain Pulmonary embolism Neck pain Cholelithiasis Renal calculi Deviated nasal septum Allergic rhinitis Hypercholesterolemia Surgical History H/O mitral valve repair S/P tracheoplasty History of eye surgery History of nasal surgery History of neck surgery History of repair of right rotator cuff History of repair of left rotator cuff History of hernia surgery History of Achilles tendon repair History of knee surgery Family History Mother No problems noted. Father No problems noted. Social History Household Members: Spouse Housing: House Do you presently have visiting nurse or other home services: No (previously had) Alcohol intake: never Patient Tobacco Use Status: Never used Tobacco e-Cigarette/Vaping Use: Never Used Second Hand Smoke Exposure: No service: No Current occupational status: employed Cognitive needs: No Hearing needs: No Vision needs: No Review of Systems Const All systems reviewed & are unremarkable except as noted in HPI and below Eyes Reports no additional complaints ENT Reports change in voice, Reports nasal congestion (MILD OFF AND ON.) and Reports neck pain Card Reports chest pain, Denies irregular heart rhythm and Denies leg edema Resp Reports as per HPI, Denies cough and Denies wheezing GI Reports heartburn (Controlled with omeprazole) Reports no additional complaints Musc Reports neck pain, Reports numbness (Right upper extremity) and Reports radiating pain into limb (Right upper extremity) Skin/Breast Reports system reviewed and no additional complaints, except as documented Neuro Reports numbness (Right upper extremity) Psych Reports no additional complaints Endo Reports no additional complaints Carlitos/Lymph Reports no additional complaints Aller/Immun Denies wheezing Physical Exam Vital Signs: Last Vital Signs Pulse 82 05/22/23 14:04 BP 120/68 05/22/23 14:04 Pulse Ox 99 05/22/23 14:04 Oxygen Delivery Method Room Air 05/22/23 14:04 BMI result Body Mass Index 32.9 Last Vital Signs Temp 97 F 11/01/22 07:19 Pulse 91 11/01/22 07:19 Resp 18 11/01/22 07:19 BP 134/89 11/01/22 07:19 Pulse Ox 98 11/01/22 07:19 O2 Del Method Nasal Cannula 11/01/22 07:19 O2 Flow Rate 3 11/01/22 07:19 Oxygen Flow Rate 3 10/29/22 20:15 BMI result Body Mass Index 31.8 Const General: no acute distress, alert and awake Orientation/consciousness: patient oriented x3 HEENT Head: Yes normal to inspection General nose exam: No nasal polyps present and No nasal discharge present Face and sinus: Yes sinuses nontender Mouth: oropharynx normal Throat: Yes posterior oropharynx normal Eyes General: appearance normal, both eyes and all related structures Neck Neck: Yes normal visual inspection, Yes no lymphadenopathy, Yes trachea midline and Yes no JVD Thyroid: Thyroid normal Chest Chest palpation & inspection: normal inspection of the chest (Right thoracostomy scar is well healed. Mid sternal scar also well-healed) and tenderness ( marked sensitivity and tenderness over the thoracostomy scar) Resp Other: Percussion note is resonant, slight dullness over both bases. There are no wheezes or rhonchi. he is just not able to take deep breaths because of pain. Cardio Palpation: normal PMI Rate: regular rate Rhythm: regular rhythm Heart sounds: Gallop heart sound present and Murmur heart sound present Peripheral pulses: Peripheral pulses 2+ throughout GI Palpation (GI): Soft to palpation, Tenderness to palpation present (GI), No hepatosplenomegaly present and Palpable mass present Auscultation: normal bowel sounds Back/Spine/Pelvis Thoracic/Lumbar Spine: thoracic and lumbar spine normal to inspection Skin General skin exam: no rashes or lesions noted Neuro General: patient oriented x3 and no focal motor deficits Cranial nerves: Yes CN's II-XII intact bilaterally Extrem General: Yes normal to inspection, Yes no clubbing, cyanosis or edema and Yes no calf tenderness Psych Speech and movement: Normal speech and movement present Assessment & Plan Assessment & Plan (1) COPD (chronic obstructive pulmonary disease): Comment: BRONCHIAL ASTHMA AND COPD RELATIVELY STABLE BUT HE IS GETTING MORE SHORT OF BREATH, WHICH IS MULTIFACTORIAL. HE DOES HAVE INCREASED SHORTNESS OF BREATH AND COUGH. THE NEUROPATHIC INTERCOSTAL NERVE PAIN, IS DEFINITELY CONTRIBUTING TO HIS GETTING MORE SHORT OF BREATH TX: USE DUONEB SOLUTION IN THE UPDRAFT UP Q 6 HOURS WHILE AWAKE ( UPTO 4 TIMES A DAY.) Albuterol HFA 2 puffs Q 4-6 hours p.r.n. when outdoors Code(s): J44.9 - Chronic obstructive pulmonary disease, unspecified (2) Asthma: Comment: He has longstanding history of bronchial asthma, It had worsened due to tracheomalacia. Much improved after tracheoplasty surgery. TX: Only albuterol 2 puffs Q 4-6 hours p.r.n. alternating with albuterol solution in the nebulizer Q 6 hours p.r.n.. Also okay to continue Singulair 10 mg daily. Code(s): J45.909 - Unspecified asthma, uncomplicated (3) Allergic rhinitis: Comment: He does have intermittent nasal congestion, with some postnasal drip, But it seems to be mild. Advise that he can use Claritin 10 mg or Zyrtec 10 mg once a day p.r.n.. Also continue to take montelukast 10 mg daily. Code(s): J30.9 - Allergic rhinitis, unspecified (4) Tracheomalacia: Comment: Early on during the year he underwent bronchoscopy and was diagnosed to have tracheomalacia. He was referred to [facility], underwent tracheo plasty why a right thoracostomy . Tracheomalacia has definitely improved, but unfortunately he continues to have right intercostal . Neurologic pain Code(s): J39.8 - Other specified diseases of upper respiratory tract (5) Chest discomfort: Comment: CHEST PAIN OVER THE RIGHT THORACOSTOMY SCAR IS INCREASING, GETS WORSE WITH THE EACH TIME HE COUGHS, AND HE IS GETTING MORE SHORT OF BREATH. I THINK THE PAIN IS NEUROPATHIC IN NATURE. TX; MAY TAKE ES.TYLENOL 2 TABLETS. Q.6 HOURS P.R.N. UNDERWENT NERVE BLOCK PROCEDURE BUT HAD ON TO WORD EFFECTS FROM THAT. AT PRESENT PAIN IS RELATIVELY CONTROLLED BY TAKING LYRICA 150 MG 2 CAPSULES AT BEDTIME. . TYLENOL 2 TABLETS Q.6 HOURS P.R.N. Code(s): R07.89 - Other chest pain (6) Cough: Comment: Cough is getting worse and worse, which a in turn aggravates his chest wall pain. TX : Use Benzonatate Perls t.i.d., which he does have at home. may also use guaifenesin with codeine syrup 2 tsp at night and 1 tsp Q 6 hours p.r.n. during the daytime. Code(s): R05.9 - Cough, unspecified (7) Hx of mitral valve replacement: Comment: Patient had history of congestive heart failure. Recent echocardiogram at [facility] had shown severe mitral valve regurgitation. He was transferred to [facility] on an urgent basis. He has undergone mitral valve replacement , by open-heart surgery. It has been very successful. Does not seem to have any clinical congestive heart failure at this time. Patient to be followed up by Cardiology. Code(s): Z95.2 - Presence of prosthetic heart valve Coding Level of Care Code Est Pt Level 4 (82112) Diagnoses COPD (chronic obstructive pulmonary disease) J44.9 Asthma J45.909 Allergic rhinitis J30.9 Tracheomalacia J39.8 Chest discomfort R07.89 Cough R05.9 Hx of mitral valve replacement Z95.2
== END 2023-05-22 14:32 | disposition home or self-care (01) ==
PROVIDERS: PCP Nurse Practitioner Family; Visit Provider Internal Medicine
DX: J44.9 Chronic obstructive pulmonary disease, unspecified (principal); J45.909 Unspecified asthma, uncomplicated; J30.9 Allergic rhinitis, unspecified; J39.8 Other specified diseases of upper respiratory tract; R07.89 Other chest pain; R05.9 Cough, unspecified; Z95.2 Presence of prosthetic heart valve
CPT/HCPCS: 99214

== ENCOUNTER → 2023-05-22 13:35 | Outpatient (BNVA) | payer OTHER, SELFPAY | PROVIDERS: PCP Nurse Practitioner Family; Visit Provider Internal Medicine ==

== ENCOUNTER 2023-06-12 09:16 | Outpatient (AMB) | payer OTHER, SELFPAY ==
--- NOTE | 2023-06-12 09:26 | A.OFFVIS_ITS ---
Intake Vital Signs 06/12/23 09:29 Height 6 ft 3 in Weight 263 lb BMI 32.9 BP 143/80 H Blood Pressure Location Lt brachial Position Sitting Pulse 92 Pulse Source Pulse Oximeter Pulse Oximetry (%) 96 Oxygen Delivery Method Room Air Intake Visit Reasons: s/p R. 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 Hebert. Patient reports 0% pain relief status post injections. Patient reports he developed respiratory distress and increased pain after injections and was hospitalized for 24 hours observation for stridor and shortness of breath. Review of hospital course noted that his saturations remained 100% on room air, stridor resolved, ABG was normal and imaging showed no pneumothorax. He was seen by Pulmonary and Cardiology and had outpatient chest CT scan as noted below. Patient states he continues to take low dose of Lasix, nebulizer machine QID, Xarelto with h/o previous multiple PE and cannot tolerate prolonged walking due to dyspnea on exertion. He gets shortness of breaths with just walking around and this has been going on for the past 2 years per patient. He also reports chronic vocal cord dysfunction and has upcoming ENT evaluation. Patient presents today with ongoing right lateral chest wall pain as well as significant localized tenderness with allodynia and hyperalgesia along his incisional lines in the projection of right thoracic cage along the T4-T7 intercostal nerves and milder pain symptoms along his midline anterior chest incision. He has keloid formation along his incision lines. Pain increases with movements, breathing, coughing, and worst with laying down. Patient reports pain negatively affects his daily activities, functioning, sleep and quality of life. Pregabalin has been providing minimal benefit. He has tried topical applications with no pain relief. [facility]. I will submit referral for behavioral evaluation. Denies any recent cough, cold, infection, fever or other significant changes in medical history since last office visit. Past Procedures: 04/27/23: Right Rib 4 -Rib 5-Rib 6 Inter costal Injections-0% pain relief PRIOR Dr. Hebert: Mello Karimi (Jim) is very pleasant 62 y.o. male who is here in the office complaining mainly on pain in the right side of the chest. He also reports pain in the neck however he states that [facility] is attending the neck pain and the patient is going to receive some sort of a neck injection with [facility] sometime in April. He was referred to us by I am urgency specifically for the treatment of right-sided chest pain his pain is gracie mming out of the 2 events: He had lung resection performed on him on 08/18/2022 during which the extensive vascular access required and patient reported that the broke some ribs during the procedure. Up he is also suffering from congestive far heart failure and he experience cardiac arrest 11/09/2022 he was resuscitated he was given chest compression and his ribs were reprogrammed. Since then he is suffering severe right-sided upper chest posterior medial and anterior pain along side the fractured ribs. He cannot sleep normally because of his pain he cannot do activities of daily living he can take care of himself he cannot function normally he is currently unemployed is self mobile he reports that cold and movements aggravates his pain and nothing alleviates his pain he has with Dr. Fany cho on chronic opioid therapy with oxycodone. In terms of tissue damage he reports his pain as sharp cutting and lacerating sensation. He never tried intercostal nerve blocks to treat this pain. Past medical history for congestive heart failure, COPD, pulmonary embolism on Xarelto, a GERD, hypercholesterolemia. Past surgical history is significant for mitral valve replacement with prosthetic tissue valve, thoracotomy with lung resection, eyes nose and neck and shoulder surgeries as well as hernia repair bilateral knee replacement. She denies smoking cigarettes admits social drinking of alcohol denies caffeinated beverages and denies recreational drugs. [facility] Medical History Collapsed lung Cough SOB (shortness of breath) Vertigo CHF (congestive heart failure) COPD (chronic obstructive pulmonary disease) Atelectasis Pleural effusion Tracheobronchomegaly Gall bladder polyp Fatty liver Asthma Vocal cord dysfunction Pneumonitis Tracheomalacia Lesion of vocal cord GERD (gastroesophageal reflux disease) Chronic neck pain Pulmonary embolism Neck pain Cholelithiasis Renal calculi Deviated nasal septum Allergic rhinitis Hypercholesterolemia Surgical History H/O mitral valve repair S/P tracheoplasty History of eye surgery History of nasal surgery History of neck surgery History of repair of right rotator cuff History of repair of left rotator cuff History of hernia surgery History of Achilles tendon repair History of knee surgery Family History Mother No problems noted. Father No problems noted. Household Members: Spouse Housing: House Do you presently have visiting nurse or other home services: No (previously had) Alcohol intake: never Patient Tobacco Use Status: Never used Tobacco e-Cigarette/Vaping Use: Never Used Second Hand Smoke Exposure: No service: No Current occupational status: employed Cognitive needs: No Hearing needs: No Vision needs: No Review of Systems Const All systems reviewed & are unremarkable except as noted in HPI and below Physical Exam Vital Signs: Last Vital Signs Pulse 92 06/12/23 09:29 BP 143/80 H 06/12/23 09:29 Pulse Ox 96 06/12/23 09:29 Oxygen Delivery Method Room Air 06/12/23 09:29 BMI result Body Mass Index 32.9 General: Appears afebrile. Alert and oriented. Mood and affect appropriate. Follows and participates in conversation appropriately. Respiratory effort is unlabored. No cough. No nasal discharge. Able to transition from sit to stand unassisted. Ambulates with bilaterally normal heel strike and toe off. Tenderness to palpation in the right thoracic cage along the T4-T7 intercostal nerves and midline anterior chest incision, localized allodynia and hyperalgesia. Muscle twitching while breathing, tightness, and spams with light touch or pressure along incision area on the right. Resp Effort & Inspection: normal respiratory effort, able to speak in complete sentences, no audible wheezes, no cough, no stridor and symmetric chest movement Back/Spine/Pelvis Cervical Spine: cervical ROM normal, pain with cervical ROM and No Cervical spine tenderness Thoracic/Lumbar Spine: thoracic and lumbar spine normal to inspection, No paraspinal muscle tenderness, No thoracic spinal tenderness and No lumbar spinal tenderness Skin General skin exam: no rashes or lesions noted Results Reviewed Results Reviewed: CT CHEST WITHOUT CONTRAST 05/10/23 CLINICAL INFORMATION: Acute respiratory distress. COMPARISON: Chest CT from 09/08/2022 and 03/06/2023. Chest radiograph from 04/27/2023. TECHNIQUE: Multidetector volumetric CT imaging of the chest was done. Axial MIP volume rendering provided. Sagittal and coronal reformatted images were obtained. This CT examination was performed using dose optimization techniques as appropriate, variously including the following: *Automated exposure control *Adjustment of mA and/or kV according to patient size (this includes techniques or standardized protocols for targeted exams where dose is matched to indication/reason for exam; i.e. extremities or head) *Use of iterative reconstruction technique DLP: 234 mGy-cm FINDINGS: LUNGS AND PLEURA: No acute pulmonary abnormality. No evidence of edema or consolidation. There is mild atelectasis in the dependent aspect of the posterior right lower lobe. Findings include an old 0.2 cm calcified granuloma in the lateral right lower lobe and old cluster of small calcified nodules in the posteromedial right upper lobe. No interval development of a suspicious lung nodule. No chest CT imaging follow-up recommended. CARDIOVASCULAR: The cardiac chambers are normal in size. Prior mitral valve repair. Mild atherosclerosis of the thoracic aorta without aneurysm. Pulmonary arteries are normal in caliber. CORONARY ARTERY CALCIFICATION: Mild atherosclerotic calcification of the proximal left anterior descending coronary artery is noted. MEDIASTINUM AND LOWER NECK: No mediastinal mass. The esophagus and partially visualized thyroid gland are unremarkable. LYMPHATICS: No pathologic sized lymph nodes. UPPER ABDOMEN: Unremarkable. SKELETAL AND CHEST WALL: Mild spondylosis of the thoracic spine. Anterior fusion hardware the of the lower cervical spine is excluded from the [id number]. Sternotomy wires are intact. IMPRESSION: * Interval resolution of small pleural effusions previously seen on 03/06/2023. * No evidence of pneumonia. No acute cardiopulmonary abnormality. XR CHEST 04/27/23 CLINICAL INFORMATION: Posterior rib pain, T4-T6 pain, pneumothorax COMPARISON: Chest x-ray on 03/27/2023 TECHNIQUE: Frontal view of the chest was obtained. prominence of bilateral upper lobe pulmonary vascularity. LUNGS: Lungs are clear. No pneumothorax is seen. None. Lower cervical spine fixation with anterior metallic plate and cortical screws is seen. Median sternotomy wire loops are present. IMPRESSION: 1. Probable persistent pulmonary venous congestion, exaggerated by upright AP technique. 2. Interval performance of median sternotomy. 3. Unchanged status post lower cervical spine fixation. 4. No pneumothorax could be seen on the current examination. Please note that chest x-ray has limited sensitivity for groundglass infiltrates. Assessment & Plan Assessment & Plan (1) Chest wall pain: Code(s): R07.89 - Other chest pain (2) Post-thoracotomy pain: Code(s): G89.12 - Acute post-thoracotomy pain (3) Intercostal neuralgia: Code(s): G58.8 - Other specified mononeuropathies Plan Patient is status post Right Rib 4 -Rib 5-Rib 6 Intercostal Injections on 04/27/23 with post-op stridor and shortness of breaths for which he was observed in the hospital for 24 hours. Patient reports no pain relief with injections. We discussed neuromodulation with [facility] SCS trial for post-thoracotomy pain and intercostal neuralgia. Informational brochure and visual SCS model was presented to patient today. Placed referral for psychology clearance in anticipation of SCS trial. Extensive discussion regarding the risks and benefits of SCS trial and implant procedures and all questions were answered to patient satisfaction.?Follow up after behavioral evaluation is complete and sooner as needed. Coding Level of Care Code Est Pt Level 4 (81239) Diagnoses Chest wall pain R07.89 Post-thoracotomy pain G89.12 Intercostal neuralgia G58.8
[2023-06-12 09:29] VITALS: BP 143/80; PULSE 92; O2SAT 96; BMI 32.9
== END 2023-06-12 10:25 | disposition home or self-care (01) ==
PROVIDERS: PCP Nurse Practitioner Family; Visit Provider Nurse Practitioner Family
DX: G89.12 Acute post-thoracotomy pain (principal); R07.89 Other chest pain; G58.8 Other specified mononeuropathies
CPT/HCPCS: 99214

== ENCOUNTER → 2023-06-12 09:16 | Outpatient (BNVA) | payer OTHER, SELFPAY | PROVIDERS: PCP Nurse Practitioner Family; Visit Provider Nurse Practitioner Family ==

== ENCOUNTER 2023-06-21 08:47 | Outpatient (REF) | payer OTHER, SELFPAY ==
--- NOTE | ~2023-06-21 | US_ITS ---
EXAMINATION: US ABDOMEN LIMITED CLINICAL INFORMATION: Cholesterolosis of the gallbladder. COMPARISON: CT abdomen and pelvis 10/13/2022. Ultrasound abdomen complete 06/30/2022 and 10/01/2020. TECHNIQUE: Real-time imaging of the right upper quadrant abdominal viscera. FINDINGS: PANCREAS: Normal. LIVER: Normal. The liver is normal in size. The liver contour is normal. Parenchymal echogenicity is normal. No focal hepatic lesion. There is no intrahepatic biliary duct dilatation seen. GALLBLADDER: Normal. The gallbladder is physiologically distended without evidence of stones, sludge, polyps, wall thickening or pericholecystic fluid. Sonographic Coronado sign is negative COMMON BILE DUCT: Normal in caliber measuring 0.34 cm in diameter. RIGHT KIDNEY: Calculus in the interpolar region of the right kidney measuring up to 4 mm. No hydronephrosis or focal parenchymal lesions. The kidney measures 10.8 cm in maximum dimension. FREE FLUID: None. US/US abdomen limited IMPRESSION: Right-sided nephrolithiasis measuring up to 4 mm without hydronephrosis.
== END 2023-06-21 08:48 | disposition home or self-care (01) ==
LOC: HO.HMGCX 08:47
PROVIDERS: PCP Nurse Practitioner Family; Visit Provider Nurse Practitioner Family
DX: K82.4 Cholesterolosis of gallbladder (principal)
CPT/HCPCS: 76705

== ENCOUNTER 2023-07-20 11:26 | Outpatient (AMB) | payer MEDICARE, OTHER, SELFPAY ==
--- NOTE | 2023-07-20 11:28 | MHC.PC.OV ---
Vital Signs 07/20/23 11:32 Height 6 ft 3 in Weight 277 lb BMI 34.6 BP 130/80 Blood Pressure Location Rt brachial Position Sitting Pulse 105 H Pulse Source Pulse Oximeter Pulse Oximetry (%) 98 Oxygen Delivery Method Room Air Intake Visit Reasons: 3 Month follow up Intake Note: Patient here to follow up on lung and heart issues. pt states he is still feeling about the same. Allergies penicillin V Allergy (Intermediate, Verified 07/20/23 11:34) fever vancomycin [Vancomycin] Allergy (Mild, Verified 07/20/23 11:34) HIVES, FEVER hydromorphone [From Dilaudid] Adverse Reaction (Verified 07/20/23 11:34) Agitated Tobacco use date assessed: 07/20/23 Fall risk assessment: 1 Fall in past year Last assessed Fall Risk: 07/20/23 Dental Screening Dental Screen Date: 07/20/23 Did you have a dental visit in the last 12 months?: Yes Did you have a dental problem in the last 6 months where you did not have access to dental care?: No Was dental information given to patient?: Patient has dentist HPI 3 Month follow up HPI Details Pt reports ongoing shortness of breath. He is following up with cardiology and pulmonology. Will order chest XR. Denies fever, chills, and dizziness. Pt is still in quite a bit of pain along scar from a previous surgery (see previous documentation), noted leaning forward in a chair today. He is seeing pain management but is not interested in an implanted device. Pt is satting fine, able to communicate with me. Pain is causing him not to take deep breaths due to fear of being in more pain. We further discussed risk of pneumonia with this, so encouraged deep breathing exercises. [facility] Medical History (Updated 07/20/23 @ 11:55 by LIDIA Finnegan) Collapsed lung Cough SOB (shortness of breath) Vertigo CHF (congestive heart failure) COPD (chronic obstructive pulmonary disease) Atelectasis Pleural effusion Tracheobronchomegaly Gall bladder polyp Fatty liver Asthma Vocal cord dysfunction Pneumonitis Tracheomalacia Lesion of vocal cord GERD (gastroesophageal reflux disease) Chronic neck pain Pulmonary embolism Neck pain Cholelithiasis Renal calculi Deviated nasal septum Allergic rhinitis Hypercholesterolemia Surgical History H/O mitral valve repair S/P tracheoplasty History of eye surgery History of nasal surgery History of neck surgery History of repair of right rotator cuff History of repair of left rotator cuff History of hernia surgery History of Achilles tendon repair History of knee surgery Family History Mother No problems noted. Father No problems noted. Social History Household Members: Spouse Housing: House Do you presently have visiting nurse or other home services: No (previously had) Alcohol intake: never Comment: pt refusing high fall risk prevention, educated about importance Patient Tobacco Use Status: Never used Tobacco e-Cigarette/Vaping Use: Never Used Second Hand Smoke Exposure: No service: No Current occupational status: employed Cognitive needs: No Hearing needs: No Vision needs: No Questionnaire Thrive Questionnaire Date Thrive assessed: 04/28/23 ESTER-7 AMB Questionnaire ESTER-7 Date ESTER - 7 assessed: 10/17/22 Source: Developed by Drs. Jimmy Pathak, Elizabeth Euceda, Awais Presley and colleagues, with an educational divya from [employer]. Review of Systems Const Reports as per HPI Physical exam (Primary Care) Vital Signs: Last Vital Signs Pulse 105 H 07/20/23 11:32 BP 130/80 07/20/23 11:32 Pulse Ox 98 07/20/23 11:32 Oxygen Delivery Method Room Air 07/20/23 11:32 BMI result Body Mass Index 34.6 Tobacco/Smoking Status: Tobacco use Status Tobacco use date assessed 07/20/23 07/20/23 11:39 Patient Tobacco Use Status Never used Tobacco 07/20/23 11:30 e-Cigarette/Vaping Use Never Used 07/20/23 11:30 Thrive Assessment: Date of Thrive Assessment Date Thrive assessed 04/28/23 07/20/23 11:30 Const General: cooperative Nutritional Appearance: obese Orientation/consciousness: patient oriented x3 Chest Other: with slightest palpation of large scar closer to lateral right ribs severe tenderness noted Resp Effort & Inspection: normal respiratory effort Auscultation: clear to auscultation bilaterally Cardio Rate: regular rate Rhythm: regular rhythm Heart sounds: S1 normal heart sound present and S2 normal heart sound present Neuro General: patient oriented x3 Psych Appearance: grossly normal Mental Status: mental status grossly normal Speech and movement: Normal speech and movement present Affect: normal affect Attitude: cooperative Thought process: Normal thought process present Thought content: Normal thought content present Insight: Good insight present (Psych) Judgement: Good judgement present (Psych) Assessment and Plan Assessment & Plan (1) SOB (shortness of breath): Code(s): R06.02 - Shortness of breath Plan: Chest XR ordered (2) Intercostal neuralgia: Code(s): G58.8 - Other specified mononeuropathies Plan The patient agreed to the use of a bacteriologist medical for this encounter. Scribed for LIDIA Garnett by Nerissa Serna bacteriologist medical, on 07/20/2023 at 11:55 EST. Orders: Orders XR chest 2V Today R06.02 - Shortness of breath Coding Level of Care Code Est Pt Level 3 (59705) Diagnoses SOB (shortness of breath) R06.02 Intercostal neuralgia G58.8
[2023-07-20 11:32] VITALS: BP 130/80; PULSE 105; O2SAT 98; BMI 34.6
== END 2023-07-20 14:13 | disposition home or self-care (01) ==
PROVIDERS: PCP Nurse Practitioner Family; Visit Provider Nurse Practitioner Family
DX: R06.02 Shortness of breath (principal); G58.8 Other specified mononeuropathies
CPT/HCPCS: 99213

== ENCOUNTER 2023-07-24 13:26 | Outpatient (AMB) | payer MEDICARE, SELFPAY ==
[2023-07-24 13:40] VITALS: BP 120/84; PULSE 85; BMI 34.6
--- NOTE | 2023-07-24 13:40 | A.OFFVIS_ITS ---
Intake Vital Signs 07/24/23 13:40 Height 6 ft 3 in Weight 276 lb 14.409 oz BMI 34.6 BP 120/84 Blood Pressure Location Lt brachial Position Sitting Pulse 85 Pulse Source Pulse Oximeter Intake Visit Reasons: Follow up Allergies penicillin V Allergy (Intermediate, Verified 07/24/23 13:43) fever vancomycin [Vancomycin] Allergy (Mild, Verified 07/24/23 13:43) HIVES, FEVER hydromorphone [From Dilaudid] Adverse Reaction (Verified 07/24/23 13:43) Agitated Medication List - Last Reconciled 07/24/23 by Elidia Cardenas NP-C albuterol sulfate 1.25 mg inhalation Q4H PRN albuterol sulfate 90 mcg/actuation 2 puffs inhalation Q4-6H PRN 30 days amlodipine 5 mg PO DAILY aspirin 81 mg PO DAILY atorvastatin 80 mg PO BEDTIME benzonatate 200 mg PO TID PRN codeine-guaifenesin 10-100 mg/5 mL 10 mL PO Q4-6H PRN 30 days cyclobenzaprine 10 mg PO BID PRN 30 days folic acid 1 mg PO DAILY furosemide 40 mg PO DAILY lorazepam (Ativan) 1 mg PO BEDTIME PRN losartan 100 mg PO DAILY meclizine 25 mg PO BID PRN 6 days metoprolol tartrate 50 mg PO BID 90 days montelukast 10 mg PO DAILY nebulizers As directed nitroglycerin 0 mg sublingual USEASDIRECTD PRN omeprazole 20 mg PO BID PRN ondansetron 4 mg PO Q6-8H PRN potassium chloride ER 10 mEq PO DAILY pregabalin 300 mg (2 x 150 mg) PO BEDTIME 90 days rivaroxaban (Xarelto) 20 mg PO DAILY@1730 tamsulosin 0.4 mg PO BEDTIME PRN HPI Follow up HPI Details Julio is a 62-year-old male with complex medical history, hypertension, hyperlipidemia, surgery early 2022 for tracheo bronchial [place], bilateral pulmonary embolisms, cardiac arrest with successful resuscitation, finding of severe mitral regurgitation with mitral valve replacement, spring 2022, chronic pain from chest wall, chronic residual shortness of breath and weak speech who presents for follow-up. Today he reports that his condition has been overall the same in recent months. He has his usual chronic fatigue and shortness of breath but states the symptoms are not worsening. He reports having chronic pain along his right side and into the back where he has had surgical procedures this past year. He does follow with Pain Management. He has no other chest discomfort that could indicate cardiac issues. He has no palpitations, lightheadedness, presyncope, syncope, edema. Taking meds as directed. Does only light activities. [facility] Medical History Collapsed lung Cough SOB (shortness of breath) Vertigo CHF (congestive heart failure) COPD (chronic obstructive pulmonary disease) Atelectasis Pleural effusion Tracheobronchomegaly Gall bladder polyp Fatty liver Asthma Vocal cord dysfunction Pneumonitis Tracheomalacia Lesion of vocal cord GERD (gastroesophageal reflux disease) Chronic neck pain Pulmonary embolism Neck pain Cholelithiasis Renal calculi Deviated nasal septum Allergic rhinitis Hypercholesterolemia Surgical History H/O mitral valve repair S/P tracheoplasty History of eye surgery History of nasal surgery History of neck surgery History of repair of right rotator cuff History of repair of left rotator cuff History of hernia surgery History of Achilles tendon repair History of knee surgery Family History Mother No problems noted. Father No problems noted. Social History Household Members: Spouse Housing: House Do you presently have visiting nurse or other home services: No (previously had) Alcohol intake: never Comment: pt refusing high fall risk prevention, educated about importance Patient Tobacco Use Status: Never used Tobacco e-Cigarette/Vaping Use: Never Used Second Hand Smoke Exposure: No service: No Current occupational status: employed Cognitive needs: No Hearing needs: No Vision needs: No Review of Systems Const All systems reviewed & are unremarkable except as noted in HPI and below Reports fatigue ENT Denies dizziness Card Reports chest pain (chest wall), Denies chest pain at rest, Denies chest pain with activity, Denies rapid heart rate, Denies pedal edema, Denies edema, Denies leg edema, Denies lightheadedness, Denies palpitations, Reports dyspnea, Reports dyspnea on exertion and Reports orthopnea Resp Denies cough, Reports dyspnea and Reports dyspnea on exertion GI Denies hematochezia and Denies change in stool character Musc Denies abnormal gait, Denies limited range of motion, Denies muscle cramps, Denies muscle weakness, Denies numbness, Denies radiating pain into limb, Denies stiffness and Denies tingling Neuro Denies abnormal gait, Denies dizziness, Denies numbness and Denies tingling Endo Reports fatigue and Denies palpitations Physical Exam Vital Signs: Last Vital Signs Pulse 85 07/24/23 13:40 BP 120/84 07/24/23 13:40 BMI result Body Mass Index 34.6 Const Other: speech soft due to prior tracheal surgery General: cooperative, healthy appearing, comfortable and no acute distress Orientation/consciousness: patient oriented x3 Neck Neck: Yes normal visual inspection and Yes no JVD Resp Effort & Inspection: normal respiratory effort Auscultation: clear to auscultation bilaterally, no rales, no rhonchi and no wheezes Cardio Jugular venous distension: no JVD Rate: regular rate Rhythm: regular rhythm Heart sounds: S1 normal heart sound present, S2 normal heart sound present, no murmurs and no rubs Neuro General: patient oriented x3 Extrem General: Yes normal to inspection and No no pedal edema Psych Appearance: grossly normal Mental Status: mental status grossly normal Speech and movement: Normal speech and movement present Assessment & Plan Assessment & Plan (1) SOB (shortness of breath): Code(s): R06.02 - Shortness of breath Plan: Reports of chronic shortness of breath since his lung surgery this past year as above. He does not feel this symptom is worsening. He fatigues easily. He had some improvement in his breathing after having mitral valve replacement November 2022. Last echo 01/12/2023 showed EF 60-65%, bioprosthetic MVR with mean gradient 9 mmHg. Today he reports that his condition is stable. On exam he has no clinical signs indicating heart failure. There is no murmur noted in the mitral position. Plan for repeat echo prior to his next visit. Cardiology follow-up in 6 months, sooner if needed. (2) Atherosclerotic cardiovascular disease: Code(s): I25.10 - Atherosclerotic heart disease of [place] coronary artery without angina pectoris Plan: Cardiac catheterization done 11/08/2022 showed proximal LAD 25% stenosis, minimal irregularities to the left circumflex. No reports of anginal sounding symptoms. He has chest wall discomfort and follows with pain management. Last EKG done on 03/27/2023 showed sinus rhythm with no acute ST or T-wave abnormalities, rate 96. He is not on aspirin as he is on Xarelto due to history of prior for pulmonary embolism. He is on atorvastatin and metoprolol. Signs and symptoms of angina reviewed. (3) Chronic heart failure with preserved ejection fraction: Code(s): I50.32 - Chronic diastolic (congestive) heart failure Plan: Stable at present. No clinical signs of heart failure on examination. He is on Lasix 40 mg daily. Labs done 05/12/2023 showed potassium 3.6, creatinine 1.22. (4) Status post mitral valve replacement with bioprosthetic valve: Code(s): Z95.3 - Presence of xenogenic heart valve Plan: As above. Bioprosthetic valve. Endocarditis prophylaxis reviewed with him (5) HTN (hypertension): Code(s): I10 - Essential (primary) hypertension Plan: Well controlled at present time. No med changes made Plan Time spent on chart review, documentation, interview and assessment Orders: Orders CA echo transthoracic complete Today I50.32 - Chronic diastolic (congestive) heart failure, Z95.3 - Presence of xenogenic heart valve Coding Level of Care Code Est Pt Level 4 (90328) Diagnoses SOB (shortness of breath) R06.02 Atherosclerotic cardiovascular disease I25.10 Chronic heart failure with preserved ejection fraction I50.32 Status post mitral valve replacement with bioprosthetic valve Z95.3 HTN (hypertension) I10
== END 2023-07-24 14:18 | disposition home or self-care (01) ==
PROVIDERS: PCP Nurse Practitioner Family; Visit Provider Nurse Practitioner Family
DX: R06.02 Shortness of breath (principal); I25.10 Atherosclerotic heart disease of native coronary artery without angina pectoris; I50.32 Chronic diastolic (congestive) heart failure; Z95.3 Presence of xenogenic heart valve; I10 Essential (primary) hypertension
CPT/HCPCS: 99214

== ENCOUNTER → 2023-07-24 13:26 | Outpatient (BNVA) | payer MEDICARE, SELFPAY | PROVIDERS: PCP Nurse Practitioner Family; Visit Provider Nurse Practitioner Family | DX: I25.10 Atherosclerotic heart disease of native coronary artery without angina pectoris (principal); R06.02 Shortness of breath; I11.0 Hypertensive heart disease with heart failure; I50.32 Chronic diastolic (congestive) heart failure; Z79.899 Other long term (current) drug therapy; Z95.3 Presence of xenogenic heart valve | CPT/HCPCS: 99212 ==

== ENCOUNTER → 2023-07-26 10:42 | Outpatient (REF) | payer MEDICARE, SELFPAY ==
--- NOTE | 2023-07-26 10:44 | CA_ITS ---
Transthoracic Echocardiogram Patient (Last, First, Middle): Mello Karimi F Gender: Male Date of : 1960 Age: 62 Procedure Date: 07/26/2023 Procedure Type: Transthoracic Echocardiogram Location: OP Height: 190.5 cm Weight: 117.94 kg BSA: 2.45 m2 Heart Rate: 95 bpm BP: 120 / 80 mmHg Dupligraph Operator: STANLEY Referring MD: Elidia Cardenas SCALING MACHINE OPERATOR-Chau Mix House Operator: Tanner Godoy MD Symptoms: Z95.3 - Presence of xenogenic heart valve Study Quality: Fair but adequate ECG Rhythm: Sinus Conclusions: - 1. Normal LV ejection fraction of 55-60% with suggestion of possibly increased left atrial pressures with impaired relaxation filling pattern 2. Normally function bioprosthetic mitral valve with mean gradient of 10 mmHg 3. Mildly dilated ascending aorta 3.7 cm 4. Normal measured RV systolic pressure 5. No gross pericardial effusion Findings Procedure Information The quality of the study was technically difficult. The study quality is limited by patients body habitus and lung artifact. Left Ventricle Normal left ventricular size and systolic function. There is mildly increased left ventricular wall thickness. The visually estimated ejection fraction is between 55-60%. Spectral Doppler is indicative of an impaired relaxation filling pattern. Right Ventricle Normal right ventricular cavity size. There is mildly decreased right ventricular systolic function. Atria The left atrium is normal in size. Interatrial shunt cannot be excluded. The right atrium is normal in size. Aortic Valve The aortic valve structure and function is likely normal. There is no aortic valve stenosis. There is no aortic valve regurgitation. Mitral Valve A bioprosthetic mitral valve is present. Mean gradient across bioprosthetic aortic valve is measured to be 10 mm Hg which is elevated although pressure half-time is consistent with normal function of the valve. Probably related to high left atrial pressures. Pulmonic Valve The pulmonic valve was not well visualized. Tricuspid Valve Normal tricuspid valve structure. There is mild tricuspid valve regurgitation. The right ventricular systolic pressure is 31 mmHg. Normal right atrial pressure. There is no evidence of pulmonary hypertension. Great Vessels The pulmonary artery was not well visualized. There is mild dilatation of the ascending aorta measuring 3.70 cm. Venous The inferior vena cava is normal in size and collapses greater than 50% with inspiration. Pericardium/Pleural There is no evidence of pericardial effusion. Prior Study Comparison No significant change compared to prior study dated: 01/12/2023. Measurements 2D Linear Measurements IVSd: 1.35 0.6-0.9/0.6-1.0 cm LVIDd: 3.12 3.9-5.3/4.2-5.9 cm LVIDd Index: 1.27 2.4-3.2/2.2-3.1 cm/m2 LVIDs: 2.41 2.0-3.6 cm LVPWd: 1.37 0.7-1.1 cm LA Diam: 4.50 2.7-3.8/3.0-4.0 cm LAIDs Index: 1.84 1.5-2.3 cm/m2 LV Mass: 175.56 67-162/88-224 g LV Mass Index: 71.66 43-95/49-115 g/m2 LVOT Diam: 2.00 3.0+(-)1.3 cm 2D Systolic Function EF 4C: 50.10 >55% EF 2C: 60.30 >55% EF BiP: 55.80 >55% Mitral Valve MV VTI: 0.53 MV Pk Popeye: 2.02 MV Mn Popeye: 1.56 MV Pk Grad: 16.00 MV Mn Grad: 10.00 MV PK A: 2.12 E'Lateral: 4.57 E'Medial: 6.09 PHT: 101.00 MVA PHT: 2.18 MVA Continuity: 1.24 Decel [place]: 5.48 Aortic Valve AoV Pk Popeye: 1.40 AoV Mn Popeye: 1.05 AoV VTI: 0.28 AoV Pk Grad: 8.00 Aov Mn Grad: 5.00 CATALINA Cont.VTI: 2.38 LVOT LVOT Pk Popeye: 1.13 LVOT Mn Popeye: 0.81 LVOT VTI: 0.21 LVOT Pk Grad: 5.00 LVOT Mn Grad: 3.00 LVOT Diam: 2.00 LVOT Area: 3.14 Diastolic Function MV Pk A: 2.12 E'Medial: 6.09 E' Laterial: 4.57 Right Ventricle TAPSE (mm): 16.50 TVS' Popeye: 11.90 Tricuspid Valve TR Pk Popeye: 2.64 TR Pk Grad: 28.00 RA Press: 3.00 RVSP: 31.00 Great Vessels Aorta Sinus of Valsalva: 3.10 2.0-3.5 cm Ao Asc: 3.70 2.1-3.4 cm Pulmonary Veins Pulm Vein S/D 1.50 Pulmonary Valve PV Pk Popeye: 0.83 Peak PV Grad: 3.00 Updated in Other Vendor System with Status of Final Tanner Godoy MD electronically signed on 07/27/2023 2:22:03 PM with status of Final
== END ==
LOC: HO.CARD 10:42
PROVIDERS: PCP Nurse Practitioner Family; Visit Provider Nurse Practitioner Family
DX: I50.32 Chronic diastolic (congestive) heart failure (principal); Z95.3 Presence of xenogenic heart valve
CPT/HCPCS: 93306

== ENCOUNTER → 2023-07-26 10:44 | Outpatient (BNV) | payer MEDICARE, SELFPAY | PROVIDERS: PCP Nurse Practitioner Family; Visit Provider Internal Medicine Cardiovascular Disease | DX: I35.0 Nonrheumatic aortic (valve) stenosis (principal) | CPT/HCPCS: 93306 ==

== ENCOUNTER 2023-07-31 14:04 | Outpatient (AMB) | payer MEDICARE, SELFPAY ==
--- NOTE | 2023-07-31 14:27 | A.OFFVIS_ITS ---
Intake Vital Signs 07/31/23 14:28 Height 6 ft 3 in Weight 279 lb 15.793 oz BMI 35.0 BP 110/60 Blood Pressure Location Lt brachial Position Sitting Pulse 78 Pulse Source Pulse Oximeter Pulse Oximetry (%) 98 Oxygen Delivery Method Room Air Intake Visit Reasons: copd : 2 month f/u Intake Note: pt is here for follow up and states he is having pain in surgical area, still short of breath, still fatigued, short walks only, long walks are very difficult and the cold weather is making it worse. Color Maker Formulator Required: No Allergies penicillin V Allergy (Intermediate, Verified 07/31/23 15:25) fever vancomycin [Vancomycin] Allergy (Mild, Verified 07/31/23 15:25) HIVES, FEVER hydromorphone [From Dilaudid] Adverse Reaction (Verified 07/31/23 15:25) Agitated Medication List - Last Reconciled 07/31/23 by Panfilo Tate MD albuterol sulfate 1.25 mg inhalation Q4H PRN albuterol sulfate 90 mcg/actuation 2 puffs inhalation Q4-6H PRN 30 days amlodipine 5 mg PO DAILY aspirin 81 mg PO DAILY atorvastatin 80 mg PO BEDTIME benzonatate 200 mg PO TID PRN codeine-guaifenesin 10-100 mg/5 mL 10 mL PO Q4-6H PRN 30 days cyclobenzaprine 10 mg PO BID PRN 30 days folic acid 1 mg PO DAILY furosemide 40 mg PO DAILY lorazepam (Ativan) 1 mg PO BEDTIME PRN losartan 100 mg PO DAILY meclizine 25 mg PO BID PRN 6 days metoprolol tartrate 50 mg PO BID 90 days montelukast 10 mg PO DAILY nebulizers As directed nitroglycerin 0 mg sublingual USEASDIRECTD PRN omeprazole 20 mg PO BID PRN ondansetron 4 mg PO Q6-8H PRN potassium chloride ER 10 mEq PO DAILY pregabalin 300 mg (2 x 150 mg) PO BEDTIME 90 days rivaroxaban (Xarelto) 20 mg PO DAILY@1730 tamsulosin 0.4 mg PO BEDTIME PRN Do you need a note to return to daycare/school/sports/work: No HPI copd : 2 month f/u HPI Details SHAYNA BOWMAN 62 years old gentleman is here for respiratory follow-up after 2 months. His main complaint is ongoing neuropathic pain over the right chest wall, intermittent cough, shortness of breath on minimal walking, And continued hoarseness. He is on appropriate treatment, but still remains, weak, somewhat depressed, and not able to talk. He has started the speech therapy, and in the near future will be having direct laryngoscopy at [facility]. [facility] Medical History Collapsed lung Cough SOB (shortness of breath) Vertigo CHF (congestive heart failure) COPD (chronic obstructive pulmonary disease) Atelectasis Pleural effusion Tracheobronchomegaly Gall bladder polyp Fatty liver Asthma Vocal cord dysfunction Pneumonitis Tracheomalacia Lesion of vocal cord GERD (gastroesophageal reflux disease) Chronic neck pain Pulmonary embolism Neck pain Cholelithiasis Renal calculi Deviated nasal septum Allergic rhinitis Hypercholesterolemia Surgical History H/O mitral valve repair S/P tracheoplasty History of eye surgery History of nasal surgery History of neck surgery History of repair of right rotator cuff History of repair of left rotator cuff History of hernia surgery History of Achilles tendon repair History of knee surgery Family History Mother No problems noted. Father No problems noted. Social History Household Members: Spouse Housing: House Do you presently have visiting nurse or other home services: No (previously had) Alcohol intake: never Comment: pt refusing high fall risk prevention, educated about importance Patient Tobacco Use Status: Never used Tobacco e-Cigarette/Vaping Use: Never Used Second Hand Smoke Exposure: No service: No Current occupational status: employed Cognitive needs: No Hearing needs: No Vision needs: No Review of Systems Const All systems reviewed & are unremarkable except as noted in HPI and below Eyes Reports no additional complaints ENT Reports change in voice, Reports nasal congestion (MILD OFF AND ON.) and Reports neck pain Card Reports chest pain, Denies irregular heart rhythm and Denies leg edema Resp Reports as per HPI, Denies cough and Denies wheezing GI Reports heartburn (Controlled with omeprazole) Reports no additional complaints Musc Reports neck pain, Reports numbness (Right upper extremity) and Reports radiating pain into limb (Right upper extremity) Skin/Breast Reports system reviewed and no additional complaints, except as documented Neuro Reports numbness (Right upper extremity) Psych Reports no additional complaints Endo Reports no additional complaints Carlitos/Lymph Reports no additional complaints Aller/Immun Denies wheezing Physical Exam Vital Signs: Last Vital Signs Pulse 78 07/31/23 14:28 BP 110/60 07/31/23 14:28 Pulse Ox 98 07/31/23 14:28 Oxygen Delivery Method Room Air 07/31/23 14:28 BMI result Body Mass Index 35.0 Last Vital Signs Temp 97 F 11/01/22 07:19 Pulse 91 11/01/22 07:19 Resp 18 11/01/22 07:19 BP 134/89 11/01/22 07:19 Pulse Ox 98 11/01/22 07:19 O2 Del Method Nasal Cannula 11/01/22 07:19 O2 Flow Rate 3 11/01/22 07:19 Oxygen Flow Rate 3 10/29/22 20:15 BMI result Body Mass Index 31.8 Const General: no acute distress, alert and awake Orientation/consciousness: patient oriented x3 HEENT Head: Yes normal to inspection General nose exam: No nasal polyps present and No nasal discharge present Face and sinus: Yes sinuses nontender Mouth: oropharynx normal Throat: Yes posterior oropharynx normal Eyes General: appearance normal, both eyes and all related structures Neck Neck: Yes normal visual inspection, Yes no lymphadenopathy, Yes trachea midline and Yes no JVD Thyroid: Thyroid normal Chest Chest palpation & inspection: normal inspection of the chest (Right thoracostomy scar is well healed. Mid sternal scar also well-healed) and tenderness ( marked sensitivity and tenderness over the thoracostomy scar) Resp Other: Percussion note is resonant, slight dullness over both bases. There are no wheezes or rhonchi. He is just not able to take deep breaths because of pain. Cardio Palpation: normal PMI Rate: regular rate Rhythm: regular rhythm Heart sounds: Gallop heart sound present and Murmur heart sound present Peripheral pulses: Peripheral pulses 2+ throughout GI Palpation (GI): Soft to palpation, Tenderness to palpation present (GI), No hepatosplenomegaly present and Palpable mass present Auscultation: normal bowel sounds Back/Spine/Pelvis Thoracic/Lumbar Spine: thoracic and lumbar spine normal to inspection Skin General skin exam: no rashes or lesions noted Neuro General: patient oriented x3 and no focal motor deficits Cranial nerves: Yes CN's II-XII intact bilaterally Extrem General: Yes normal to inspection, Yes no clubbing, cyanosis or edema and Yes no calf tenderness Psych Speech and movement: Normal speech and movement present Assessment & Plan Assessment & Plan (1) COPD (chronic obstructive pulmonary disease): Comment: Asthma/Copd , relatively stable at this time . He does have significant dyspnea on exertion. Code(s): J44.9 - Chronic obstructive pulmonary disease, unspecified Plan: Continue present medications, Including, ipratropium-albuterol updrafts Q i.d.. Albuterol HFA or albuterol in the nebulizer Q 4-6 hours p.r.n.. for acute attacks (2) Cough: Comment: Cough is getting worse and worse, which in turn aggravates his chest wall pain. Code(s): R05.9 - Cough, unspecified Plan: [place] : Use Benzonatate Perls t.i.d., which he does have at home. may also use guaifenesin with codeine syrup 2 tsp at night and 1 tsp Q 6 hours p.r.n. during the daytime. (3) Hx of mitral valve replacement: Comment: Patient had history of congestive heart failure. Recent echocardiogram at [facility] had shown severe mitral valve regurgitation. He was transferred to [facility] on an urgent basis. He has undergone mitral valve replacement , by open-heart surgery. It has been very successful. Does not seem to have any clinical congestive heart failure at this time. Patient to be followed up by Cardiology. Code(s): Z95.2 - Presence of prosthetic heart valve Plan: as above (4) Chest discomfort: Comment: CHEST PAIN OVER THE RIGHT THORACOSTOMY SCAR IS INCREASING, GETS WORSE WITH THE EACH TIME HE COUGHS, AND HE IS GETTING MORE SHORT OF BREATH. THE PAIN IS NEUROPATHIC IN NATURE. [place]; MAY TAKE ES.TYLENOL 2 TABLETS. Q.6 HOURS P.R.N. UNDERWENT NERVE BLOCK PROCEDURE BUT HAD ON TO WORD EFFECTS FROM THAT. AT PRESENT PAIN IS RELATIVELY CONTROLLED BY TAKING LYRICA 150 MG 2 CAPSULES AT BEDTIME. TYLENOL 2 TABLETS Q.6 HOURS P.R.N. Code(s): R07.89 - Other chest pain Plan: as above (5) Cough: Comment: His cough is starting to get worse, this in turn increases his right chest wall pain. And he is becoming breathless off and on due to increased bouts of cough. Code(s): R05.9 - Cough, unspecified Plan: [place] : Benzonatate 200 mg b.i.d.. Guaifenesin-codeine syrup . 1 tsp Q 6 hours p.r.n. (6) Tracheomalacia: Comment: Early on during the year he underwent bronchoscopy and was diagnosed to have tracheomalacia. He was referred to [facility], underwent tracheo plasty why a right thoracostomy . Tracheomalacia has definitely improved, but unfortunately he continues to have right intercostal Neuropathic pain Code(s): J39.8 - Other specified diseases of upper respiratory tract Plan: Continue to use Lyrica 150 mg 2 capsules a day And Tylenol 2 tablets q.6 hours p.r.n. (7) Allergic rhinitis: Comment: He does have intermittent nasal congestion, with some postnasal drip, But it seems to be mild. Code(s): J30.9 - Allergic rhinitis, unspecified Plan: Advise that he can use Claritin 10 mg or Zyrtec 10 mg once a day p.r.n.. Also continue to take montelukast 10 mg daily. Coding Level of Care Code Est Pt Level 4 (33137) Diagnoses COPD (chronic obstructive pulmonary disease) J44.9 Cough R05.9 Hx of mitral valve replacement Z95.2 Chest discomfort R07.89 Tracheomalacia J39.8 Allergic rhinitis J30.9
[2023-07-31 14:28] VITALS: BP 110/60; PULSE 78; O2SAT 98; BMI 35.0
== END 2023-07-31 15:02 | disposition home or self-care (01) ==
PROVIDERS: PCP Nurse Practitioner Family; Visit Provider Internal Medicine
DX: J44.9 Chronic obstructive pulmonary disease, unspecified (principal); R05.9 Cough, unspecified; Z95.2 Presence of prosthetic heart valve; R07.89 Other chest pain; J39.8 Other specified diseases of upper respiratory tract; J30.9 Allergic rhinitis, unspecified
CPT/HCPCS: 99214

== ENCOUNTER → 2023-07-31 14:04 | Outpatient (BNVA) | payer MEDICARE, SELFPAY | PROVIDERS: PCP Nurse Practitioner Family; Visit Provider Internal Medicine | DX: J44.9 Chronic obstructive pulmonary disease, unspecified (principal); R05.9 Cough, unspecified; R07.89 Other chest pain; J39.8 Other specified diseases of upper respiratory tract; J30.9 Allergic rhinitis, unspecified; Z95.2 Presence of prosthetic heart valve; Z79.899 Other long term (current) drug therapy | CPT/HCPCS: 99212 ==

== ENCOUNTER 2023-08-22 14:02 | Outpatient (AMB) | payer MEDICARE, SELFPAY ==
[2023-08-22 14:16] VITALS: BP 110/68; PULSE 101; O2SAT 98; BMI 35.5
--- NOTE | 2023-08-22 14:16 | A.OFFVIS_ITS ---
Intake Vital Signs 08/22/23 14:16 Height 6 ft 3 in Weight 284 lb 6.341 oz BMI 35.5 BP 110/68 Blood Pressure Location Lt brachial Position Sitting Pulse 101 H Pulse Source Pulse Oximeter Pulse Oximetry (%) 98 Oxygen Delivery Method Room Air Intake Visit Reasons: Sick visit (adolescent/adult) Intake Note: pt is here for sick visit, right sided chest pain, causing some short of breath, this has increased for about a week. no relief with medication. Coiler Operator Required: No Allergies penicillin V Allergy (Intermediate, Verified 08/22/23 14:26) fever vancomycin [Vancomycin] Allergy (Mild, Verified 08/22/23 14:26) HIVES, FEVER hydromorphone [From Dilaudid] Adverse Reaction (Verified 08/22/23 14:26) Agitated Medication List - Last Reconciled 08/22/23 by Panfilo Tate MD albuterol sulfate 1.25 mg inhalation Q4H PRN albuterol sulfate 90 mcg/actuation 2 puffs inhalation Q4-6H PRN 30 days amlodipine 5 mg PO DAILY aspirin 81 mg PO DAILY atorvastatin 80 mg PO BEDTIME benzonatate 200 mg PO TID PRN codeine-guaifenesin 10-100 mg/5 mL 10 mL PO Q4-6H PRN 30 days cyclobenzaprine 10 mg PO BID PRN 30 days folic acid 1 mg PO DAILY furosemide 40 mg PO DAILY losartan 100 mg PO DAILY meclizine 25 mg PO BID PRN 6 days metoprolol tartrate 50 mg PO BID 90 days montelukast 10 mg PO DAILY nebulizers As directed nitroglycerin 0 mg sublingual USEASDIRECTD PRN omeprazole 20 mg PO BID PRN ondansetron 4 mg PO Q6-8H PRN potassium chloride ER 10 mEq PO DAILY pregabalin 300 mg (2 x 150 mg) PO BEDTIME 90 days rivaroxaban (Xarelto) 20 mg PO DAILY@1730 tamsulosin 0.4 mg PO BEDTIME PRN Do you need a note to return to daycare/school/sports/work: No HPI Sick visit (adolescent/adult) HPI Details SHAYNA BOWMAN, 63 years old gentleman is here today for an urgent visit because of his increasing pain in the right chest. He has had neuropathic neck pain in the right mid thoracic area along the surgical scar, after his the thoracic surgery at [facility] and [facility] for tracheomalacia. Shayna has recovered from my mitral were replacement and currently his congestive heart failure is under control. He gets short of breath on minimal exertion but this is more due to chest pain. His pain excellerates in the evenings and at night. Also when he walks around he gets increasing pain in the right chest. This gentleman has had vocal cord dysfunction, laryngitis, hoarseness, and that is improving with speech therapy. For his thoracic pain he has been treated at the pain and clinic, without much improvement. He was told that he may need a stimulator but, he did not want to go for that procedure. Present he is using Lyrica 300 mg at bedtime. He has been on oxycodone but does not want to use it, as he does not like . The side effects He is using extra-strength Tylenol but only once or twice a day. He does use guaifenesin-codeine syrup to control cough once in a while. [facility] Medical History Collapsed lung Cough SOB (shortness of breath) Vertigo CHF (congestive heart failure) COPD (chronic obstructive pulmonary disease) Atelectasis Pleural effusion Tracheobronchomegaly Gall bladder polyp Fatty liver Asthma Vocal cord dysfunction Pneumonitis Tracheomalacia Lesion of vocal cord GERD (gastroesophageal reflux disease) Chronic neck pain Pulmonary embolism Neck pain Cholelithiasis Renal calculi Deviated nasal septum Allergic rhinitis Hypercholesterolemia Surgical History H/O mitral valve repair S/P tracheoplasty History of eye surgery History of nasal surgery History of neck surgery History of repair of right rotator cuff History of repair of left rotator cuff History of hernia surgery History of Achilles tendon repair History of knee surgery Family History Mother No problems noted. Father No problems noted. Social History Household Members: Spouse Housing: House Do you presently have visiting nurse or other home services: No (previously had) Alcohol intake: never Comment: pt refusing high fall risk prevention, educated about importance Patient Tobacco Use Status: Never used Tobacco e-Cigarette/Vaping Use: Never Used Second Hand Smoke Exposure: No service: No Current occupational status: employed Cognitive needs: No Hearing needs: No Vision needs: No Review of Systems Const All systems reviewed & are unremarkable except as noted in HPI and below Eyes Reports no additional complaints ENT Reports change in voice, Reports nasal congestion (MILD OFF AND ON.) and Reports neck pain Card Reports chest pain, Denies irregular heart rhythm and Denies leg edema Resp Reports as per HPI, Denies cough and Denies wheezing GI Reports heartburn (Controlled with omeprazole) Reports no additional complaints Musc Reports neck pain, Reports numbness (Right upper extremity) and Reports radiating pain into limb (Right upper extremity) Skin/Breast Reports system reviewed and no additional complaints, except as documented Neuro Reports numbness (Right upper extremity) Psych Reports no additional complaints Endo Reports no additional complaints Carlitos/Lymph Reports no additional complaints Aller/Immun Denies wheezing Physical Exam Vital Signs: Last Vital Signs Pulse 101 H 08/22/23 14:16 BP 110/68 08/22/23 14:16 Pulse Ox 98 08/22/23 14:16 Oxygen Delivery Method Room Air 08/22/23 14:16 BMI result Body Mass Index 35.5 Last Vital Signs Temp 97 F 11/01/22 07:19 Pulse 91 11/01/22 07:19 Resp 18 11/01/22 07:19 BP 134/89 11/01/22 07:19 Pulse Ox 98 11/01/22 07:19 O2 Del Method Nasal Cannula 11/01/22 07:19 O2 Flow Rate 3 11/01/22 07:19 Oxygen Flow Rate 3 10/29/22 20:15 BMI result Body Mass Index 31.8 Const General: no acute distress, alert and awake Orientation/consciousness: patient oriented x3 HEENT Head: Yes normal to inspection General nose exam: No nasal polyps present and No nasal discharge present Face and sinus: Yes sinuses nontender Mouth: oropharynx normal Throat: Yes posterior oropharynx normal Eyes General: appearance normal, both eyes and all related structures Neck Neck: Yes normal visual inspection, Yes no lymphadenopathy, Yes trachea midline and Yes no JVD Thyroid: Thyroid normal Chest Chest palpation & inspection: normal inspection of the chest (Right thoracostomy scar is well healed. Mid sternal scar also well-healed) and tenderness ( marked sensitivity and tenderness along the thoracostomy scar.) Resp Other: Percussion note is resonant, slight dullness over both bases. There are no wheezes or rhonchi. Breath sounds are distant He is just not able to take deep breaths because of pain. Cardio Palpation: normal PMI Rate: regular rate Rhythm: regular rhythm Heart sounds: Gallop heart sound present and Murmur heart sound present Peripheral pulses: Peripheral pulses 2+ throughout GI Palpation (GI): Soft to palpation, Tenderness to palpation present (GI), No hepatosplenomegaly present and Palpable mass present Auscultation: normal bowel sounds Back/Spine/Pelvis Thoracic/Lumbar Spine: thoracic and lumbar spine normal to inspection Skin General skin exam: no rashes or lesions noted Neuro General: patient oriented x3 and no focal motor deficits Cranial nerves: Yes CN's II-XII intact bilaterally Extrem General: Yes normal to inspection, Yes no clubbing, cyanosis or edema and Yes no calf tenderness Psych Speech and movement: Normal speech and movement present Assessment & Plan Assessment & Plan (1) COPD (chronic obstructive pulmonary disease): Comment: BRONCHIAL ASTHMA AND COPD RELATIVELY STABLE BUT HE IS GETTING MORE SHORT OF BREATH, WHICH IS MULTIFACTORIAL. HE DOES HAVE INCREASED SHORTNESS OF BREATH AND COUGH. THE NEUROPATHIC INTERCOSTAL NERVE PAIN, IS DEFINITELY CONTRIBUTING TO HIS INCREASING SOB. Code(s): J44.9 - Chronic obstructive pulmonary disease, unspecified Plan: TX: USE DUONEB SOLUTION IN THE UPDRAFT UP Q 6 HOURS WHILE AWAKE ( UPTO 4 TIMES A DAY.) Albuterol HFA 2 puffs Q 4-6 hours p.r.n. when outdoors (2) Asthma: Comment: He has longstanding history of bronchial asthma, Much improved after tracheoplasty surgery. Code(s): J45.909 - Unspecified asthma, uncomplicated Plan: TX: Only albuterol 2 puffs Q 4-6 hours p.r.n. alternating with albuterol solution in the nebulizer Q 6 hours p.r.n.. Also okay to continue Singulair 10 mg daily. (3) Vocal cord dysfunction: Comment: His the hoarseness has resolved almost completely, Voice is still little weak in general. Continues to improve . Code(s): J38.3 - Other diseases of vocal cords Plan: CONTINUE WITH THE SPEECH THERAPY PROGRAM. THE SPEECH THERAPIST HAS RECOMMENDED HIM TO USE EMST 75 DEVICE FOR SPEECH EXERCISES (4) Chest discomfort: Comment: CHEST PAIN OVER THE RIGHT THORACOSTOMY SCAR IS INCREASING, GETS WORSE WITH THE EACH TIME HE COUGHS, AND HE IS GETTING MORE SHORT OF BREATH. THE PAIN IS NEUROPATHIC IN NATURE. Code(s): R07.89 - Other chest pain Plan: TX; MAY TAKE ES.TYLENOL 2 TABLETS. Q.6 HOURS P.R.N. UNDERWENT NERVE BLOCK PROCEDURE BUT HAD ON TO WORD EFFECTS FROM THAT. AT PRESENT PAIN IS RELATIVELY CONTROLLED BY TAKING LYRICA 150 MG 2 CAPSULES AT BEDTIME. TYLENOL 2 TABLETS Q.6 HOURS P.R.N. HE CANNOT TAKE OXYCODONE CONTIN CONTAINING COMPOUNDS. * I RECOMMEND THAT HE SHOULD GO BACK TO PAIN CLINIC AND DISCUSS , INTERVENTIONAL PUT PROCEDURES THAT CAN HELP TO MITIGATE HIS PAIN. Orders: Referrals Pain Management Referral R07.89 - Other chest pain Coding Level of Care Code Est Pt Level 3 (84259) Diagnoses COPD (chronic obstructive pulmonary disease) J44.9 Asthma J45.909 Vocal cord dysfunction J38.3 Chest discomfort R07.89
== END 2023-08-22 14:42 | disposition home or self-care (01) ==
PROVIDERS: PCP Nurse Practitioner Family; Visit Provider Internal Medicine
DX: J44.9 Chronic obstructive pulmonary disease, unspecified (principal); J45.909 Unspecified asthma, uncomplicated; J38.3 Other diseases of vocal cords; R07.89 Other chest pain
CPT/HCPCS: 99213

== ENCOUNTER → 2023-08-22 14:02 | Outpatient (BNVA) | payer MEDICARE, SELFPAY | PROVIDERS: PCP Nurse Practitioner Family; Visit Provider Internal Medicine | DX: J44.9 Chronic obstructive pulmonary disease, unspecified (principal); J45.909 Unspecified asthma, uncomplicated; J38.3 Other diseases of vocal cords; R07.89 Other chest pain | CPT/HCPCS: 99212 ==

== ENCOUNTER 2023-10-20 11:57 | Outpatient (REF) | payer MEDICARE, SELFPAY ==
[2023-10-20 13:43] LABS: Appearance Urine Clear; Color Urine Dark Yellow; Glucose Urine UA 100 mg/dL (Negative); Leukocyte Esterase Urine Negative (Negative); Nitrite Urine Negative (Negative); PH 5.5 (5.0-9.0); Specific Gravity - Urine >= 1.030 (1.005-1.025); Urine Blood Negative (Negative); Urine Ketones Negative (Negative); Urine Protein Trace mg/dL (Neg-Trace)
[2023-10-20 13:45] LABS: MANUAL DIFF FLAG NO
[2023-10-20 13:51] LABS: Basophils Absolute Auto 0.1 X10*3/uL (0.0-0.2); Eosinophils Absolute Auto 0.6 X10*3/uL (0.0-0.4); Eosinophils Percent Auto 6.6 % (0-4); Hematocrit 44.2 % (42.0-52.0); Hemoglobin 14.5 g/dl (14.0-18.0); Imm Gran Abs Auto 0.05 X10*3/uL (0.00-0.03); Imm Gran Pct Auto 0.6 % (0.0-0.4); Lymphocytes Absolute Auto 1.6 X10*3/uL (1.2-4.9); Lymphocytes Percent Auto 17.8 % (20-40); Mean Corpuscular HGB Conc 32.8 g/dl (31.0-36.0); Mean Corpuscular Hemoglobin 27.3 pg (27.0-33.0); Mean Corpuscular Volume 83.2 fL (80.0-98.0); Mean Platelet Volume 11.7 fL (9.4-12.4); Monocytes Absolute Auto 0.7 X10*3/uL (0.1-1.2); Monocytes Percent Auto 8.3 % (2-11); Neutrophils Absolute Auto 5.7 x10*3/uL (2.0-8.3); Neutrophils Percent Auto 65.7 % (45-73); Platelet Count 194 X10*3/uL (160-400); Red Blood Count 5.31 X10*6/uL (4.60-5.80); Red Cell Distribution Width 13.7 % (11.0-16.0); White Blood Count 8.7 X10*3/uL (4.8-10.8)
[2023-10-20 14:39] LABS: Alanine Aminotransferase 46 U/L (0-40); Albumin Level 3.9 g/dL (3.5-5.0); Alkaline Phosphatase 194 U/L (39-117); Anion Gap 13 (12-20); Aspartate Amino Transferase 28 U/L (5-37); Bilirubin Total 0.7 mg/dL (0.0-1.0); Blood Urea Nitrogen 12 mg/dL (9-16); Calcium 9.1 mg/dL (8.4-10.2); Carbon Dioxide 26 mmol/L (22-29); Chloride 109 mmol/L (96-108); Cholesterol 146 mg/dL (<200); Estimated Glomerular Filt Rate > 60; Glucose Fasting 148 mg/dL (60-99); HDL Cholesterol 36 mg/dL (>40); LDL Cholesterol Calculated 83 mg/dL (<100); Potassium 3.4 mmol/L (3.3-5.1); Sodium 145 mmol/L (135-145); Triglycerides 137 mg/dL (<150)
[2023-10-20 14:41] LABS: TSH reflex Free T4 2.22 uIU/mL (0.32-4.0)
== END 2023-10-20 11:58 | disposition home or self-care (01) ==
LOC: HO.HMGCLDS 11:57
PROVIDERS: PCP Nurse Practitioner Family; Visit Provider Nurse Practitioner Family
DX: I10 Essential (primary) hypertension (principal); R73.9 Hyperglycemia, unspecified
CPT/HCPCS: 36415; 80053; 80061; 81003; 84443; 85025